=== PATIENT | male | born 1945 | race Caucasian/White ===

== ENCOUNTER 2019-10-07 08:28 | Outpatient (CLI) | payer MEDICARE, OTHER, SELFPAY ==
[2019-10-07 09:00] LABS: Basophils # 0.1 10^3/uL (0.0-0.1); Basophils % 1.5 %; Eosinophils # 0.3 10^3/uL (0.0-0.8); Eosinophils % 7.7 %; Hematocrit 49.6 % (42.0-52.0); Hemoglobin 16.1 g/dL (11.7-16.6); Lymphocytes # 1.2 10^3/uL (0.8-4.8); Lymphocytes % 28.5 %; Mean Corpuscular HGB Conc 32.5 g/dL (30.0-36.0); Mean Corpuscular Hemoglobin 30.6 pg (28.0-34.0); Mean Corpuscular Volume 94.1 fL (80-94); Mean Platelet Volume 10.4 fL (7.4-10.4); Monocytes # 0.3 10^3/uL (0.2-0.9); Monocytes % 6.2 %; Neutrophils # 2.2 10^3/uL (1.8-7.7); Neutrophils % 55.4 %; Nucleated Red Blood Cells % 0 %; Platelet Count 194 10^3/cmm (130-400); Red Blood Count 5.27 10^6/uL (4.1-5.3); Red Cell Distribution Width 13.4 % (12.1-15.1)
[2019-10-07 09:14] LABS: Alanine Aminotransferase 15 U/L (0-41); Albumin Level 4.1 g/dL (3.5-5.2); Alkaline Phosphatase 109 IU/L (40-130); Anion Gap 12.7 (5-19); Aspartate Amino Transferase 16 U/L (0-40); Blood Urea Nitrogen 10 mg/dL (8-23); Carbon Dioxide 29 mmol/L (22-29); Chloride 103 mmol/L (98-107); Globulin 3.8 g/dL (1.3-4.6); Glucose 169 mg/dL (65-115); Potassium 3.7 mmol/L (3.5-5.1); Sodium 141 mmol/L (136-145); Total Bilirubin 0.7 mg/dL (0.15-1.2); Total Protein 7.9 g/dL (6.6-8.7)
[2019-10-08 07:07] LABS: PROTEIN, TOTAL 6.8 g/dL (6.1-8.1)
[2019-10-08 11:31] LABS: Beta-2-Microglobulin 2.29 mg/L (< OR = 2.51)
[2019-10-08 12:01] LABS: ALBUMIN 3.6 g/dL (3.8-4.8); ALPHA 1 GLOBULIN 0.3 g/dL (0.2-0.3); ALPHA 2 GLOBULIN 0.7 g/dL (0.5-0.9); BETA 1 GLOBULIN 0.5 g/dL (0.4-0.6); BETA 2 GLOBULIN 0.3 g/dL (0.2-0.5); GAMMA GLOBULIN 1.4 g/dL (0.8-1.7)
[2019-10-08 13:21] LABS: KAPPA LIGHT CHAIN, FREE, SERUM 47.5 mg/L (3.3-19.4); KAPPA/LAMBDA LIGHT CHAINS FREE 1.45 (0.26-1.65); LAMBDA LIGHT CHAIN, FREE, SERU 32.7 mg/L (5.7-26.3)
== END 2019-10-07 08:29 | disposition home or self-care (01) ==
LOC: ONCMED 08:28
PROVIDERS: Family Provider Internal Medicine; PCP Internal Medicine; Visit Provider Internal Medicine Hematology & Oncology
DX: C90.01 Multiple myeloma in remission (principal)
CPT/HCPCS: 36415; 80053; 82232; 83883; 84155; 84165; 85025

== ENCOUNTER 2019-10-15 08:02 | Outpatient (CLI) | payer MEDICARE, OTHER, SELFPAY ==
--- NOTE | 2019-10-15 13:49 | ONC FU_ITS ---
Dr. Duenas follow up note Patient: Shad Vines Unit #: [id number]: 1945 Dicatated By: Yue Duenas M.D.Date of Visit:Oct 15, 2019 Onc Med Follow-up/Prog Note History of Present Illness: This is a 74-year-old man with stage I standard risk multiple myeloma involving left testis and bone marrow. He had presented with a palpable testicular mass. On 05/14/14 he underwent a left radical orchiectomy. Surgical pathology showed a 2.6 cm plasma cell neoplasm confined to the testis with limited penetration to the tunica albuginea. Margins were negative. Histochemistry was positive for CD 138, MUM 1, BCL 2, kappa restricted; negative for CD20, Ki67 index 60-70%. A CT of the chest/abdomen/pelvis on 05/25/2014 showed nonspecific bilateral subcentimeter pulmonary nodules for which followup was recommended in 3 months. He had no lymphadenopathy. He had indeterminate solid versus non-simple cysts lesions in the both kidneys. In the left kidney the lesion measuring 1.2 cm, in the right kidney the lesion measured 3.2 cm. There was a S2 sclerotic focus. The patient was first seen by Dr. Nick on 06/03/2014. Skeletal survey and PET/CT were negative for additional lesions or metastatic disease. ESR 114, hemoglobin 11.9 g/dL, beta-2 microglobulin 3.6, serum protein electrophoresis showed IgG kappa 4.43 g and free kappa at 0.7g, urine protein electrophoresis with free kappa 29%, 283 mg. Total IgG 5770, [place]/Lambda ratio above 290. Bone marrow biopsy on 06/08/2014 showed 34% monoclonal plasma cells, consistent with multiple myeloma. Cytogenetics normal, FISH with hyperdiploidy on chromosomes 1, 9, 15, and 17. Induction chemotherapy with Velcade, Revlimid, and Decadron began with 4 cycles was delivered 07/05/2014-09/06/2014. He had a very good response to the treatment with M protein decreased to 0.34 g/dL on 08/16/2014. He underwent autologous stem cell transplantation at [facility] in October 2014. He had no infectious complications, but he did have exacerbation of his atrial fibrillation. The patient had [id number] bone marrow biopsy performed at [facility] in January of 2015, with complete response. No plasma cells identified. On 02/22/15 no M protein was identified. IgG 1200 and kappa/juan ratio normal at 0.84. Maintenance Revlimid began in January of 2015. With cycle 4 he required dose modification down to 5 mg due to grade 2 neutropenia, ANC 1200. No M protein seen on SPEP from 09/07/2015. The patient had further hematological toxicities, and Revlimid 5 mg daily was suggested for 3 weeks out of 4 beginning with cycle 12. His other medical illnesses include hypertension, hyperlipidemia, type II diabetes, and atrial fibrillation. He is a nonsmoker. Tolerating low-dose Revlimid wellCT scan of abdomen pelvis done on 02/27/2019 showed no acute intra-abdominal pelvic findings and bone survey done on 04/17/2018 showed no lytic lesion Serum protein electrophoresis and serum light chain assay done on 04/13/2019 showed no evidence of M protein follow-up serum protein electrophoresis done on 10/07/2019 showed no restricted M spike seen, serum light chain kappa/lambda ratio was 1.45, beta 2 microglobulin was 2.29. Came for follow-up, denies any specific complaints, no new bony pains, no fever or chills, no recurrent infections, no weight loss, appetite is good., No dysuria or hematuria. Medications: Bisoprolol Fumarate 1 (5 mg) Tablet Oral daily, Citalopram Hydrobromide 1 (20 mg) Tablet Oral daily, Famotidine 1 (40 mg) Tablet Oral daily, Gabapentin 2 Capsule (of 300 mg) Oral b.i.d., GlipiZIDE Tablet Oral, Lantus 1 (30 Units/mL) Subcutaneous daily, Pradaxa 1 (150 mg) Capsule Oral b.i.d., Revlimid 1 Capsule (of 5 mg) Oral daily, Simvastatin 1 (20 mg) Tablet Oral daily, Sotalol HCl 2 (80 mg) Tablet Oral b.i.d. Allergies: No Known Allergies. Review of Systems: Constitutional - Energy level is fair. His appetite is good and weight is stable. No fever, chills, hot flashes, or night sweats, ENMT - No sinus congestion/drainage. No mouth sores. No sore throat or difficulty swallowing, Hematologic/Lymphatic - He bruises easily, Respiratory - No shortness of breath. No cough. No pleuritic pain, Cardiovascular - No angina pain, Gastrointestinal - No nausea. No vomiting. No heartburn or acid reflux. No diarrhea or constipation. No blood in the stool or black stools, Genitourinary (M) - No dysuria or hematuria. No urinary frequency. No urgency or incontinence, Musculoskeletal - No joint or bone pain, Neurologic - No headache or dizziness. No numbness/paresthesias or other focal neurologic symptoms, Psychiatric - He has anxiety and depression off and on. No insomnia. Vital Signs: Performed on Oct 15, 2019 08:15 Height - 71.00 in Weight - 246.4 lbs (HIGH) BSA - 2.30 sq.m BMI - 34.37 (HIGH) Temperature - 97.4 F (LOW) Pulse - 76 /min Respiration - 18 /min BP - 128/85 mm(hg) O2 Sat - 99 % Pain - 0 Performance Status: 0 - Fully active, able to carry on all predisease activities without restrictions. (ECOG) Physical Examination: ENMT - No oral exudates, ulcers, masses, thrush or mucositis. Oropharynx clear. Tongue normal, Respiratory - Lungs are clear to auscultation without rhonchi or wheezing, Cardiovascular - Regular rate and rhythm of heart, Abdomen - Non-tender, non-distended, Good bowel sounds. No guarding or rebound tenderness. No pulsatile masses, Extremities - no edema. Lab/Imaging: Test performed on Oct 07, 2019 08:39 Protein, Total 6.8 g/dL Sodium 141 mmol/L Albumin, SPE 3.6 g/dL Potassium 3.7 mmol/L Chloride 103 mmol/L CO2 29 mmol/L Anion Gap 12.7 BUN 10 mg/dL Creatinine 1.0 mg/dL Cr Clearance (Est) 102.8200 mL/min Glucose 169 mg/dL Calcium 10.0 mg/dL Albumin 4.1 g/dL Globulin 3.8 g/dL Bilirubin, Total 0.7 mg/dL ALT (SGPT) 15 U/L AST (SGOT) 16 U/L Alkaline Phosphatase 109 IU/L WBC 4.0 10 3/uL RBC 5.27 10 6/uL HGB 16.1 g/dL HCT 49.6 % MCV 94.1 fL MCH 30.6 pg MCHC 32.5 g/dL RDW 13.4 % Platelet Count 194 10 3/cmm MPV 10.4 fL Neutrophils 2.2 10 3/uL Lymphocytes 1.2 10 3/uL Monocytes 0.3 10 3/uL Eosinophils 0.3 10 3/uL Basophils 0.1 10 3/uL Neutrophil % 55.4 % Lymphocyte % 28.5 % Monocyte % 6.2 % Eosinophil % 7.7 % Basophils % 1.5 % [place] / Lambda Ratio 1.45 Absolute Value Lambda Light Chain 32.7 Beta-2 Microglobulin 2.29 mg/L [place] Light Chain 47.5 [id number] 0.3 g/dL Juimf-7-ytddkfmv 0.7 g/dL Gamma Globulin 1.4 g/dL SPE Interpretation Hypoalbuminemia may be seen as a result of a decreased protein synthesis or protein loss. No M-Geovani seen Impression: 1. 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 He underwent radical left orchiectomy on 05/14/14. His further workup revealed evidence of standard risk clinical stage I IgG kappa and free kappa light chain myeloma with plasma cells comprising 34% of the bone marrow. He had mild anemia, but no evidence of renal failure, bone disease or additional plasmacytoma. Bone survey done on 03/25/2017 showed no lytic myelomatous lesions are visualized 24-hour urine for urine protein electrophoresis and immunofixation within normal limits serum protein electrophoresis showed normal pattern 2. Induction chemotherapy with VRD regimen delivered 07/05/14 - 09/06/14, with a very good response. 3. In October of 2014 he underwent autologous stem cell transplantation at [facility]. 4. Maintenance Revlimid therapy at 10 mg daily for 3 out of 4 week cycle began in January 2015, but dose reduced to 5 mg daily with cycle 4 due to neutropenia. 5. He had further reduction to 5 daily on a 3 week out of 4 schedule His other medical illnesses include: 6. Hypertension. 7. Hyperlipidemia. 8. Type II diabetes. 9. Atrial fibrillation. At this point he continues maintenance Revlimid with no evidence of recurrence/progression of the myeloma. He tolerates it well at the reduced dosage. Bone survey done on 04/17/2018 showed no lytic bone lesions identified. Plan: Discussed with patient regarding his labs white blood count 4 hemoglobin 16.1 crit 49.6 platelets 194,000 CMP within normal limits and myeloma panel showed no abnormality Clinically, patient is doing well, with no signs symptoms suggestive of disease progression, tolerating Revlimid 5 mg 3 weeks on 1 week of well, follow-up serum protein electrophoresis shows no monoclonal protein, serum light chain ratio within normal limits. At this point we'll continue with same and then he will return to clinic in 6 months with CBC CMP serum protein electrophoresis and immunofixation, serum light chains, 24-hour urine for urine protein immunofixation and electrophoresis. And bone survey. Signed By: Yue Duenas M.D. <<Signature on File>>
== END 2019-10-15 08:03 | disposition home or self-care (01) ==
LOC: ONCMED 08:05
PROVIDERS: Family Provider Internal Medicine; PCP Internal Medicine; Visit Provider Internal Medicine Hematology & Oncology
DX: C90.00 Multiple myeloma not having achieved remission (principal); I10 Essential (primary) hypertension; E78.5 Hyperlipidemia, unspecified; E11.9 Type 2 diabetes mellitus without complications; I48.91 Unspecified atrial fibrillation; Z94.84 Stem cells transplant status; Z79.01 Long term (current) use of anticoagulants; Z79.4 Long term (current) use of insulin
CPT/HCPCS: 99214

== ENCOUNTER 2020-04-11 09:08 | Outpatient (CLI) | payer MEDICARE, OTHER, SELFPAY ==
--- NOTE | 2020-04-11 09:33 | XRR_ITS ---
PROCEDURE INFORMATION: Exam: XR Osseous Survey; Complete Axial And Appendicular Skeleton Exam date and time: 04/11/2020 10:04 AM Age: 75 years old Clinical indication: Condition or disease; Condition/disease: Multiple myeloma; Prior surgery; Surgery type: Back; Additional info: Restaging evaluation/myeloma TECHNIQUE: Imaging protocol: Radiological examination. Complete osseous survey. Axial and appendicular skeleton. COMPARISON: CR Bone Survey Complete* [id number] 04/17/2018 10:30 AM FINDINGS: Bones/joints: No destructive bony process identified. C6-C7 degenerative disc disease. Right lateral vertebral body marginal osteophytes are noted at lower thoracic spinal levels. Bilateral lower lumbar facet primary osteoarthritis. Mild chronic L4 vertebral body compression deformity, stable. Soft tissues: Metallic foreign body overlying the frontal bone redemonstrated. Dental: Metallic dental work. Organs: Probable gallstones. Vasculature: Right pelvic phlebolith. The iliac arteries show mild bilateral atherosclerotic calcifications without evidence of aneurysm. XR/XR bone survey* [id number] IMPRESSION: 1. No destructive bony process identified. 2. Probable gallstones.
[2020-04-11 09:45] LABS: Basophils # 0.1 10^3/uL (0.0-0.1); Basophils % 1.3 %; Eosinophils # 0.3 10^3/uL (0.0-0.8); Hematocrit 47.3 % (42.0-52.0); Lymphocytes # 1.6 10^3/uL (0.8-4.8); Lymphocytes % 35.2 %; Mean Corpuscular HGB Conc 31.7 g/dL (30.0-36.0); Mean Corpuscular Hemoglobin 30.7 pg (28.0-34.0); Mean Corpuscular Volume 96.7 fL (80-94); Mean Platelet Volume 10.1 fL (7.4-10.4); Monocytes # 0.4 10^3/uL (0.2-0.9); Monocytes % 8.6 %; Neutrophils # 2.19 10^3/uL (1.8-7.7); Neutrophils % 48.5 %; Nucleated Red Blood Cells % 0 %; Platelet Count 167 10^3/cmm (130-400); Red Blood Count 4.89 10^6/uL (4.1-5.3); Red Cell Distribution Width 14.1 % (12.1-15.1); White Blood Count 4.5 10^3/uL (4.0-10.0)
[2020-04-11 10:18] LABS: Alanine Aminotransferase 17 U/L (0-41); Albumin Level 3.8 g/dL (3.5-5.2); Alkaline Phosphatase 99 IU/L (40-130); Aspartate Amino Transferase 14 U/L (0-40); Blood Urea Nitrogen 13 mg/dL (8-23); Calcium 8.8 mg/dL (8.5-10.5); Carbon Dioxide 27 mmol/L (22-29); Chloride 107 mmol/L (98-107); Globulin 3.4 g/dL (1.3-4.6); Glucose 187 mg/dL (65-115); Osmolality Calculated 289 mOsm/kg (285-295); Sodium 139 mmol/L (136-145); Total Bilirubin 0.5 mg/dL (0.15-1.2); Total Protein 7.2 g/dL (6.6-8.7)
[2020-04-12 08:33] LABS: PROTEIN, TOTAL 6.5 g/dL (6.1-8.1)
[2020-04-12 11:25] LABS: Beta-2-Microglobulin 2.17 mg/L (< OR = 2.51)
[2020-04-12 13:19] LABS: KAPPA LIGHT CHAIN, FREE, SERUM 51.4 mg/L (3.3-19.4); KAPPA/LAMBDA LIGHT CHAINS FREE 1.21 (0.26-1.65); LAMBDA LIGHT CHAIN, FREE, SERU 42.4 mg/L (5.7-26.3)
[2020-04-12 15:15] LABS: ALBUMIN 3.4 g/dL (3.8-4.8); ALPHA 1 GLOBULIN 0.3 g/dL (0.2-0.3); ALPHA 2 GLOBULIN 0.6 g/dL (0.5-0.9); BETA 1 GLOBULIN 0.4 g/dL (0.4-0.6); BETA 2 GLOBULIN 0.3 g/dL (0.2-0.5); GAMMA GLOBULIN 1.5 g/dL (0.8-1.7)
[2020-04-12 15:45] LABS: CREATININE, 24 HOUR URINE 1.65 g/24 h (0.50-2.15); PROTEIN, TOTAL, 24 HR UR 275 mg/24 h (<150); Protein/Creatinine Ratio 0.167 (< OR = 0.114); Protein/Creatinine Ratio 167 mg/g creat (< OR = 114)
[2020-04-13 09:20] LABS: ALBUMIN 100 %; ALPHA-1-GLOBULINS 0 %; ALPHA-2-GLOBULINS 0 %; BETA GLOBULINS 0 %; GAMMA GLOBULINS 0 %
== END 2020-04-11 09:09 | disposition home or self-care (01) ==
PROVIDERS: Family Provider Internal Medicine; PCP Internal Medicine; Visit Provider Internal Medicine Hematology & Oncology
DX: C90.00 Multiple myeloma not having achieved remission (principal)
CPT/HCPCS: 36415; 77075; 80053; 82232; 83883; 84155; 84165; 85025

== ENCOUNTER 2020-04-18 08:29 | Outpatient (CLI) | payer MEDICARE, OTHER, SELFPAY ==
--- NOTE | 2020-04-18 09:20 | ONC FU_ITS ---
Dr. Duenas follow up note Patient: Shad Vines Unit #: [id number]: [id number] Dicatated By: Yue Duenas M.D.Date of Visit:Apr 18, 2020 Onc Med Follow-up/Prog Note History of Present Illness: This is a 75-year-old man with stage I standard risk multiple myeloma involving left testis and bone marrow. He had presented with a palpable testicular mass. On 05/14/14 he underwent a left radical orchiectomy. Surgical pathology showed a 2.6 cm plasma cell neoplasm confined to the testis with limited penetration to the tunica albuginea. Margins were negative. Histochemistry was positive for CD 138, MUM 1, BCL 2, kappa restricted; negative for CD20, Ki67 index 60-70%. A CT of the chest/abdomen/pelvis on 05/25/2014 showed nonspecific bilateral subcentimeter pulmonary nodules for which followup was recommended in 3 months. He had no lymphadenopathy. He had indeterminate solid versus non-simple cysts lesions in the both kidneys. In the left kidney the lesion measuring 1.2 cm, in the right kidney the lesion measured 3.2 cm. There was a S2 sclerotic focus. The patient was first seen by Dr. Nick on 06/03/2014. Skeletal survey and PET/CT were negative for additional lesions or metastatic disease. ESR 114, hemoglobin 11.9 g/dL, beta-2 microglobulin 3.6, serum protein electrophoresis showed IgG kappa 4.43 g and free kappa at 0.7g, urine protein electrophoresis with free kappa 29%, 283 mg. Total IgG 5770, [place]/Lambda ratio above 290. Bone marrow biopsy on 06/08/2014 showed 34% monoclonal plasma cells, consistent with multiple myeloma. Cytogenetics normal, FISH with hyperdiploidy on chromosomes 1, 9, 15, and 17. Induction chemotherapy with Velcade, Revlimid, and Decadron began with 4 cycles was delivered 07/05/2014-09/06/2014. He had a very good response to the treatment with M protein decreased to 0.34 g/dL on 08/16/2014. He underwent autologous stem cell transplantation at [facility] in October 2014. He had no infectious complications, but he did have exacerbation of his atrial fibrillation. The patient had [id number] bone marrow biopsy performed at [facility] in January of 2015, with complete response. No plasma cells identified. On 02/22/15 no M protein was identified. IgG 1200 and kappa/juan ratio normal at 0.84. Maintenance Revlimid began in January of 2015. With cycle 4 he required dose modification down to 5 mg due to grade 2 neutropenia, ANC 1200. No M protein seen on SPEP from 09/07/2015. The patient had further hematological toxicities, and Revlimid 5 mg daily was suggested for 3 weeks out of 4 beginning with cycle 12. His other medical illnesses include hypertension, hyperlipidemia, type II diabetes, and atrial fibrillation. He is a nonsmoker. Tolerating low-dose Revlimid wellCT scan of abdomen pelvis done on 02/27/2019 showed no acute intra-abdominal pelvic findings and bone survey done on 04/17/2018 showed no lytic lesion Serum protein electrophoresis and serum light chain assay done on 04/13/2019 showed no evidence of M protein follow-up serum protein electrophoresis done on 10/07/2019 showed no restricted M spike seen, serum light chain kappa/lambda ratio was 1.45, beta 2 microglobulin was 2.29. Follow-up myeloma panel including bone survey done on April 11, 2020 shows no destructive bony process identified, SPEP showed no restricted M spike seen.Serum light chain assay ratio 1.21, within normal range. 24-hour urine protein immunofixation shows no abnormal protein. Beta-2 microglobulin 2.17, in normal range. CBC and CMP also within normal range. Came for follow-up, denies any specific complaints, no fever chills, no nausea or vomiting, no diarrhea constipation, no new bony pains, no weight loss, appetite is good, patient is enjoying quality of life. Medications: Bisoprolol Fumarate 1 (5 mg) Tablet Oral daily, Citalopram Hydrobromide 1 (20 mg) Tablet Oral daily, Famotidine 1 (40 mg) Tablet Oral daily, Gabapentin 2 Capsule (of 300 mg) Oral b.i.d., GlipiZIDE 1 Tablet Oral daily, Lantus 1 (30 Units/mL) Subcutaneous daily, Pradaxa 1 (150 mg) Capsule Oral b.i.d., Revlimid 1 Capsule (of 5 mg) Oral daily, Simvastatin 1 (20 mg) Tablet Oral daily, Sotalol HCl 2 (80 mg) Tablet Oral b.i.d. Allergies: No Known Allergies. Review of Systems: Constitutional - Energy level is fair. His appetite is good and weight is stable. No fever, chills, hot flashes, or night sweats, ENMT - No sinus congestion/drainage. No mouth sores. No sore throat or difficulty swallowing, Hematologic/Lymphatic - He bruises easily, Respiratory - No shortness of breath. No cough. No pleuritic pain, Cardiovascular - No angina pain, Gastrointestinal - No nausea. No vomiting. No heartburn or acid reflux. No diarrhea or constipation. No blood in the stool or black stools, Genitourinary (M) - No dysuria or hematuria. No urinary frequency. No urgency or incontinence, Musculoskeletal - No joint or bone pain, Neurologic - No headache or dizziness. No numbness/paresthesias or other focal neurologic symptoms, Psychiatric - He has anxiety and depression off and on. No insomnia. Vital Signs: Performed on Apr 18, 2020 08:42 Height - 71.00 in Weight - 239.4 lbs (LOW) BSA - 2.28 sq.m BMI - 33.39 (HIGH) Temperature - 98.3 F (LOW) Pulse - 85 /min Respiration - 20 /min BP - 139/90 mm(hg) O2 Sat - 98 % Pain - 0 Performance Status: 0 - Fully active, able to carry on all predisease activities without restrictions. (ECOG) Physical Examination: ENMT - No mouth sores no thrush no jaundice, Respiratory - Lungs are clear, Cardiovascular - Regular rate and rhythm of heart, Abdomen - Soft, bowel sounds present, Extremities - No visible edema. Lab/Imaging: Test performed on Apr 11, 2020 09:30 Glucose 187 mg/dL Protein, Total 6.5 g/dL Albumin, SPE 3.4 g/dL BUN 13 mg/dL Creatinine 1.1 mg/dL Cr Clearance (Est) 91.86 mL/min Sodium 139 mmol/L Potassium 4.0 mmol/L Chloride 107 mmol/L CO2 27 mmol/L Calcium 8.8 mg/dL Albumin 3.8 g/dL Globulin 3.4 g/dL Bilirubin, Total 0.5 mg/dL Alkaline Phosphatase 99 IU/L AST (SGOT) 14 IU/L ALT (SGPT) 17 IU/L WBC 4.5 10^9/L RBC 4.89 10^12/L HGB 15.0 g/dL HCT 47.3 % MCV 96.7 fl MCH 30.7 pg MCHC 31.7 g/dL RDW 14.1 % Platelet Count 167 10^9/L MPV 10.1 fL Neutrophils (Gran) 2.19 10^9/L Lymphocytes 1.6 10^9/L Monocytes 0.4 10^9/L Eosinophils 0.3 10^9/L Basophils 0.1 10^9/L Manual Lymphocytes 35.2 % Manual Monocytes 8.6 % Manual Eosinophils 6.0 % Manual Basophils 1.3 % Beta-2 Microglobulin 2.17 mg/L [id number]-6-[id number] 0.3 g/dL Gzgvp-8-ebecwsdv 0.6 g/dL Beta Globulin 0.3 g/dL Gamma Globulin 1.5 g/dL SPE Interpretation No restricted band (M-spike) seen Impression: 1. 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 He underwent radical left orchiectomy on 05/14/14. His further workup revealed evidence of standard risk clinical stage I IgG kappa and free kappa light chain myeloma with plasma cells comprising 34% of the bone marrow. He had mild anemia, but no evidence of renal failure, bone disease or additional plasmacytoma. Bone survey done on 03/25/2017 showed no lytic myelomatous lesions are visualized 24-hour urine for urine protein electrophoresis and immunofixation within normal limits serum protein electrophoresis showed normal pattern 2. Induction chemotherapy with VRD regimen delivered 07/05/14 - 09/06/14, with a very good response. 3. In October of 2014 he underwent autologous stem cell transplantation at [facility]. 4. Maintenance Revlimid therapy at 10 mg daily for 3 out of 4 week cycle began in January 2015, but dose reduced to 5 mg daily with cycle 4 due to neutropenia. 5. He had further reduction to 5 daily on a 3 week out of 4 schedule His other medical illnesses include: 6. Hypertension. 7. Hyperlipidemia. 8. Type II diabetes. 9. Atrial fibrillation. At this point he continues maintenance Revlimid with no evidence of recurrence/progression of the myeloma. He tolerates it well at the reduced dosage. Bone survey done on 04/17/2018 showed no lytic bone lesions identified.And done on April 11, 2020 showed no destructive bony process Plan: Discussed with patient regarding his labs from April 11, 2020 white blood count 4.5 hemoglobin 15 crit 47.3 platelets under 67,000 CMP within normal limit except glucose 187, follow-up myeloma panel including bone survey, serum light chain assay, beta-2 microglobulin, SPEP, all within normal range Clinically, patient is doing well with no signs symptoms suggestive of recurrence of disease. His follow-up myeloma panel also showed no evidence of recurrence of disease, patient is enjoying quality of life without any new issues or symptoms. We will continue to monitor return to clinic in 6 months with CBC CMP serum protein electrophoresis and serum light chain assay. Signed By: Yue Duenas M.D. <<Signature on File>>
== END 2020-04-18 08:30 | disposition home or self-care (01) ==
PROVIDERS: PCP Internal Medicine; Visit Provider Internal Medicine Hematology & Oncology
DX: C90.01 Multiple myeloma in remission (principal); I10 Essential (primary) hypertension; E78.5 Hyperlipidemia, unspecified; E11.9 Type 2 diabetes mellitus without complications; I48.91 Unspecified atrial fibrillation
CPT/HCPCS: G0463

== ENCOUNTER → 2020-05-10 10:02 | Outpatient (BNVA) | payer MEDICARE, OTHER, SELFPAY | PROVIDERS: PCP Internal Medicine; Visit Provider Urology | DX: N48.1 Balanitis (principal); Z90.79 Acquired absence of other genital organ(s) | CPT/HCPCS: 81001 ==

== ENCOUNTER 2020-10-26 10:23 | Outpatient (CLI) | payer MEDICARE, OTHER, SELFPAY ==
[2020-10-26 10:52] LABS: Basophils # 0.1 10^3/uL (0.0-0.1); Basophils % 1.7 %; Eosinophils # 0.3 10^3/uL (0.0-0.8); Eosinophils % 6.2 %; Hemoglobin 16.1 g/dL (11.7-16.6); Lymphocytes # 1.2 10^3/uL (0.8-4.8); Lymphocytes % 25.4 %; Mean Corpuscular HGB Conc 32.2 g/dL (30.0-36.0); Mean Corpuscular Hemoglobin 30.9 pg (28.0-34.0); Mean Platelet Volume 10.2 fL (7.4-10.4); Monocytes # 0.5 10^3/uL (0.2-0.9); Monocytes % 9.7 %; Neutrophils # 2.71 10^3/uL (1.8-7.7); Nucleated Red Blood Cells % 0 %; Platelet Count 164 10^3/cmm (130-400); Red Blood Count 5.21 10^6/uL (4.1-5.3); Red Cell Distribution Width 13.2 % (12.1-15.1); White Blood Count 4.8 10^3/uL (4.0-10.0)
[2020-10-26 11:03] LABS: Alanine Aminotransferase 13 U/L (0-41); Albumin Level 3.7 g/dL (3.5-5.2); Alkaline Phosphatase 97 IU/L (40-130); Anion Gap 10.7 (5-19); Aspartate Amino Transferase 13 U/L (0-40); Blood Urea Nitrogen 12 mg/dL (8-23); Calcium 8.9 mg/dL (8.5-10.5); Carbon Dioxide 27 mmol/L (22-29); Chloride 104 mmol/L (98-107); Globulin 3.4 g/dL (1.3-4.6); Glucose 232 mg/dL (65-115); Osmolality Calculated 293 mOsm/kg (285-295); Potassium 3.7 mmol/L (3.5-5.1); Sodium 138 mmol/L (136-145); Total Bilirubin 0.7 mg/dL (0.15-1.2); Total Protein 7.1 g/dL (6.6-8.7)
[2020-10-27 09:52] LABS: PROTEIN, TOTAL 6.4 g/dL (6.1-8.1)
[2020-10-27 13:07] LABS: KAPPA/LAMBDA LIGHT CHAINS FREE 1.32 (0.26-1.65); LAMBDA LIGHT CHAIN, FREE, SERU 40.1 mg/L (5.7-26.3)
[2020-10-27 13:32] LABS: ALBUMIN 3.4 g/dL (3.8-4.8); ALPHA 1 GLOBULIN 0.2 g/dL (0.2-0.3); ALPHA 2 GLOBULIN 0.6 g/dL (0.5-0.9); BETA 1 GLOBULIN 0.4 g/dL (0.4-0.6); BETA 2 GLOBULIN 0.3 g/dL (0.2-0.5); GAMMA GLOBULIN 1.4 g/dL (0.8-1.7)
== END 2020-10-26 10:24 | disposition home or self-care (01) ==
LOC: ONCMED 10:27
PROVIDERS: PCP Internal Medicine; Visit Provider Internal Medicine Hematology & Oncology
DX: C90.01 Multiple myeloma in remission (principal); M81.0 Age-related osteoporosis without current pathological fracture; E11.9 Type 2 diabetes mellitus without complications; E78.5 Hyperlipidemia, unspecified; F41.9 Anxiety disorder, unspecified; I10 Essential (primary) hypertension; I48.91 Unspecified atrial fibrillation
CPT/HCPCS: 80053; 83883; 84155; 84165; 85025

== ENCOUNTER 2020-10-28 05:55 | Outpatient (CLI) | payer MEDICARE, OTHER, SELFPAY ==
--- NOTE | 2020-10-28 09:46 | ONC FU_ITS ---
Dr. Duenas follow up note Patient: Shad Vines Unit #: [id number]: 1945 Dicatated By: Yue Duenas M.D.Date of Visit:Oct 28, 2020 Onc Med Follow-up/Prog Note History of Present Illness: This is a 75-year-old man with stage I standard risk multiple myeloma involving left testis and bone marrow. He had presented with a palpable testicular mass. On 05/14/14 he underwent a left radical orchiectomy. Surgical pathology showed a 2.6 cm plasma cell neoplasm confined to the testis with limited penetration to the tunica albuginea. Margins were negative. Histochemistry was positive for CD 138, MUM 1, BCL 2, kappa restricted; negative for CD20, Ki67 index 60-70%. A CT of the chest/abdomen/pelvis on 05/25/2014 showed nonspecific bilateral subcentimeter pulmonary nodules for which followup was recommended in 3 months. He had no lymphadenopathy. He had indeterminate solid versus non-simple cysts lesions in the both kidneys. In the left kidney the lesion measuring 1.2 cm, in the right kidney the lesion measured 3.2 cm. There was a S2 sclerotic focus. The patient was first seen by Dr. Nick on 06/03/2014. Skeletal survey and PET/CT were negative for additional lesions or metastatic disease. ESR 114, hemoglobin 11.9 g/dL, beta-2 microglobulin 3.6, serum protein electrophoresis showed IgG kappa 4.43 g and free kappa at 0.7g, urine protein electrophoresis with free kappa 29%, 283 mg. Total IgG 5770, [place]/Lambda ratio above 290. Bone marrow biopsy on 06/08/2014 showed 34% monoclonal plasma cells, consistent with multiple myeloma. Cytogenetics normal, FISH with hyperdiploidy on chromosomes 1, 9, 15, and 17. Induction chemotherapy with Velcade, Revlimid, and Decadron began with 4 cycles was delivered 07/05/2014-09/06/2014. He had a very good response to the treatment with M protein decreased to 0.34 g/dL on 08/16/2014. He underwent autologous stem cell transplantation at [facility] in October 2014. He had no infectious complications, but he did have exacerbation of his atrial fibrillation. The patient had [id number] bone marrow biopsy performed at [facility] in January of 2015, with complete response. No plasma cells identified. On 02/22/15 no M protein was identified. IgG 1200 and kappa/juan ratio normal at 0.84. Maintenance Revlimid began in January of 2015. With cycle 4 he required dose modification down to 5 mg due to grade 2 neutropenia, ANC 1200. No M protein seen on SPEP from 09/07/2015. The patient had further hematological toxicities, and Revlimid 5 mg daily was suggested for 3 weeks out of 4 beginning with cycle 12. His other medical illnesses include hypertension, hyperlipidemia, type II diabetes, and atrial fibrillation. He is a nonsmoker. Tolerating low-dose Revlimid wellCT scan of abdomen pelvis done on 02/27/2019 showed no acute intra-abdominal pelvic findings and bone survey done on 04/17/2018 showed no lytic lesion Serum protein electrophoresis and serum light chain assay done on 04/13/2019 showed no evidence of M protein follow-up serum protein electrophoresis done on 10/07/2019 showed no restricted M spike seen, serum light chain kappa/lambda ratio was 1.45, beta 2 microglobulin was 2.29. Follow-up myeloma panel including bone survey done on April 11, 2020 shows no destructive bony process identified, SPEP showed no restricted M spike seen.Serum light chain assay ratio 1.21, within normal range. 24-hour urine protein immunofixation shows no abnormal protein. Beta-2 microglobulin 2.17, in normal range. CBC and CMP also within normal range. Myeloma panel including serum protein electrophoresis done on October 26, 2020, showed no restricted band or M protein seen in serum light chain assay shows kappa light chain 53 lambda light chain 40.1 but ratio is 1.32 which is within normal range., CBC CMP also within normal range came for follow-up, denies any specific complaints, no fever chills, no nausea or vomiting, no diarrhea or constipation, no new bony pains, no loss of appetite, no recurrent infections, Medications: Bisoprolol Fumarate 1 (5 mg) Tablet Oral daily, Citalopram Hydrobromide 1 (20 mg) Tablet Oral daily, Famotidine 1 (40 mg) Tablet Oral daily, Gabapentin 2 Capsule (of 300 mg) Oral b.i.d., GlipiZIDE 1 Tablet Oral daily, Lantus 1 (30 Units/mL) Subcutaneous daily, Pradaxa 1 (150 mg) Capsule Oral b.i.d., Revlimid 1 Capsule (of 5 mg) Oral daily, Simvastatin 1 (20 mg) Tablet Oral daily, Sotalol HCl 2 (80 mg) Tablet Oral b.i.d. Allergies: No Known Allergies. Review of Systems: Review of Systems is not available for this patient. Vital Signs: Performed on Oct 28, 2020 09:20 Height - 71.00 in Weight - 242.4 lbs (HIGH) BSA - 2.29 sq.m BMI - 33.81 (HIGH) Temperature - 97.0 F (LOW) Pulse - 78 /min Respiration - 18 /min BP - 158/88 mm(hg) (HIGH) O2 Sat - 98 % Pain - 0 Performance Status: 0 - Fully active, able to carry on all predisease activities without restrictions. (ECOG) Physical Examination: ENMT - No mouth sores, no thrush, no jaundice, Respiratory - Lungs are clear to auscultation, Cardiovascular - Regular rate and rhythm of heart, Abdomen - Soft, bowel sounds present, Extremities - No visible edema. Lab/Imaging: Test performed on Oct 26, 2020 10:32 Sodium 138 mmol/L Potassium 3.7 mmol/L Chloride 104 mmol/L CO2 27 mmol/L Anion Gap 10.7 BUN 12 mg/dL Creatinine 0.9 mg/dL Cr Clearance (Est) 112.2800 mL/min Glucose 232 mg/dL Osmolality - Calculated 293 mOsm/kg Calcium 8.9 mg/dL Protein, Total 7.1 g/dL Albumin 3.7 g/dL Globulin 3.4 g/dL Bilirubin, Total 0.7 mg/dL ALT (SGPT) 13 U/L AST (SGOT) 13 U/L Alkaline Phosphatase 97 IU/L WBC 4.8 10 3/uL RBC 5.21 10 6/uL HGB 16.1 g/dL HCT 50.0 % MCV 96.0 fL MCH 30.9 pg MCHC 32.2 g/dL RDW 13.2 % Platelet Count 164 10 3/cmm MPV 10.2 fL Neutrophils 2.71 10 3/uL Lymphocytes 1.2 10 3/uL Monocytes 0.5 10 3/uL Eosinophils 0.3 10 3/uL Basophils 0.1 10 3/uL Neutrophil % 56.0 % Lymphocyte % 25.4 % Monocyte % 9.7 % Eosinophil % 6.2 % Basophils % 1.7 % NRBC % 0 % [place] Free Light Chains 53.0 mg/L Lambda Free Light Chains 40.1 mg/L [place]/Lambda Free Ratio 1.32 Impression: 1. 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 He underwent radical left orchiectomy on 05/14/14. His further workup revealed evidence of standard risk clinical stage I IgG kappa and free kappa light chain myeloma with plasma cells comprising 34% of the bone marrow. He had mild anemia, but no evidence of renal failure, bone disease or additional plasmacytoma. Bone survey done on 03/25/2017 showed no lytic myelomatous lesions are visualized 24-hour urine for urine protein electrophoresis and immunofixation within normal limits serum protein electrophoresis showed normal pattern 2. Induction chemotherapy with VRD regimen delivered 07/05/14 - 09/06/14, with a very good response. 3. In October of 2014 he underwent autologous stem cell transplantation at [facility]. 4. Maintenance Revlimid therapy at 10 mg daily for 3 out of 4 week cycle began in January 2015, but dose reduced to 5 mg daily with cycle 4 due to neutropenia. 5. He had further reduction to 5 daily on a 3 week out of 4 schedule His other medical illnesses include: 6. Hypertension. 7. Hyperlipidemia. 8. Type II diabetes. 9. Atrial fibrillation. At this point he continues maintenance Revlimid with no evidence of recurrence/progression of the myeloma. He tolerates it well at the reduced dosage. Bone survey done on 04/17/2018 showed no lytic bone lesions identified.And done on April 11, 2020 showed no destructive bony process Plan: Discussed with patient regarding his labs white blood count 4.8 hemoglobin 16.1 hematocrit 50 platelets 164,000 CMP within normal limits with glucose 232 and serum light chain assay shows kappa 53, lambda 40.1 but ratio is 1.32 which is within normal range and SPEP shows no M spike Clinically, patient is doing well with no new signs symptom suggestive of recurrence of disease his myeloma panel showed no abnormal protein. Clinically, patient is in remission , Tolerating maintenance Revlimid at 10 mg daily 5 days a week for 3 weeks q. 28 days well, will continue with same and continue to monitor and return to clinic in 6 months with myeloma panel, CBC and CMP Signed By: Yue Duenas M.D. <<Signature on File>>
== END 2020-10-28 05:56 | disposition home or self-care (01) ==
LOC: ONCMED 05:58
PROVIDERS: PCP Internal Medicine; Visit Provider Internal Medicine Hematology & Oncology
DX: C90.01 Multiple myeloma in remission (principal); Z79.899 Other long term (current) drug therapy; Z90.79 Acquired absence of other genital organ(s)
CPT/HCPCS: 99215

== ENCOUNTER 2021-05-01 11:30 | Outpatient (CLI) | payer MEDICARE, OTHER, SELFPAY ==
[2021-05-01 12:32] LABS: Alanine Aminotransferase 16 U/L (0-41); Albumin Level 3.4 g/dL (3.5-5.2); Alkaline Phosphatase 91 IU/L (40-130); Anion Gap 9.4 (5-19); Aspartate Amino Transferase 19 U/L (0-40); Blood Urea Nitrogen 7 mg/dL (8-23); Calcium 8.6 mg/dL (8.5-10.5); Carbon Dioxide 26 mmol/L (22-29); Chloride 105 mmol/L (98-107); Glucose 131 mg/dL (65-115); Immunoglobulin IGA 235 mg/dL (70-400); Immunoglobulin IGG 1270 mg/dL (700-1600); Immunoglobulin IGM 54 mg/dL (40-230); Osmolality Calculated 284 mOsm/kg (285-295); Potassium 3.4 mmol/L (3.5-5.1); Sodium 137 mmol/L (136-145); Total Bilirubin 0.8 mg/dL (0.15-1.2); Total Protein 6.4 g/dL (6.6-8.7)
[2021-05-01 13:09] LABS: Eosinophils # 0.1 10^3/uL (0.0-0.8); Eosinophils % 2.5 %; Hematocrit 42.7 % (42.0-52.0); Hemoglobin 13.8 g/dL (11.7-16.6); Lymphocytes # 1.9 10^3/uL (0.8-4.8); Lymphocytes % 48.2 %; Mean Corpuscular HGB Conc 32.3 g/dL (30.0-36.0); Mean Corpuscular Hemoglobin 31.3 pg (28.0-34.0); Mean Corpuscular Volume 96.8 fl (80-94); Mean Platelet Volume 10.5 fL (7.4-10.4); Monocytes # 0.3 10^3/uL (0.2-0.9); Monocytes % 6.6 %; Neutrophils # 1.61 10^3/uL (1.8-7.7); Neutrophils % 40.9 %; Nucleated Red Blood Cells % 0 %; Platelet Count 128 10^3/cmm (130-400); Red Blood Count 4.41 10^6/uL (4.1-5.3); White Blood Count 3.9 10^3/uL (4.0-10.0)
[2021-05-01 14:35] LABS: Magnesium 1.7 mg/dL (1.7-2.3)
--- NOTE | 2021-05-01 15:17 | ONC FU_ITS ---
Dr. Duenas follow up note Patient: Shad Vines Unit #: [id number]: 1945 Dicatated By: Yue Duenas M.D.Date of Visit:May 01, 2021 Onc Med Follow-up/Prog Note History of Present Illness: This is a 76-year-old man with stage I standard risk multiple myeloma involving left testis and bone marrow. He had presented with a palpable testicular mass. On 05/14/14 he underwent a left radical orchiectomy. Surgical pathology showed a 2.6 cm plasma cell neoplasm confined to the testis with limited penetration to the tunica albuginea. Margins were negative. Histochemistry was positive for CD 138, MUM 1, BCL 2, kappa restricted; negative for CD20, Ki67 index 60-70%. A CT of the chest/abdomen/pelvis on 05/25/2014 showed nonspecific bilateral subcentimeter pulmonary nodules for which followup was recommended in 3 months. He had no lymphadenopathy. He had indeterminate solid versus non-simple cysts lesions in the both kidneys. In the left kidney the lesion measuring 1.2 cm, in the right kidney the lesion measured 3.2 cm. There was a S2 sclerotic focus. The patient was first seen by Dr. Nick on 06/03/2014. Skeletal survey and PET/CT were negative for additional lesions or metastatic disease. ESR 114, hemoglobin 11.9 g/dL, beta-2 microglobulin 3.6, serum protein electrophoresis showed IgG kappa 4.43 g and free kappa at 0.7g, urine protein electrophoresis with free kappa 29%, 283 mg. Total IgG 5770, [place]/Lambda ratio above 290. Bone marrow biopsy on 06/08/2014 showed 34% monoclonal plasma cells, consistent with multiple myeloma. Cytogenetics normal, FISH with hyperdiploidy on chromosomes 1, 9, 15, and 17. Induction chemotherapy with Velcade, Revlimid, and Decadron began with 4 cycles was delivered 07/05/2014-09/06/2014. He had a very good response to the treatment with M protein decreased to 0.34 g/dL on 08/16/2014. He underwent autologous stem cell transplantation at [facility] in October 2014. He had no infectious complications, but he did have exacerbation of his atrial fibrillation. The patient had [id number] bone marrow biopsy performed at [facility] in January of 2015, with complete response. No plasma cells identified. On 02/22/15 no M protein was identified. IgG 1200 and kappa/juan ratio normal at 0.84. Maintenance Revlimid began in January of 2015. With cycle 4 he required dose modification down to 5 mg due to grade 2 neutropenia, ANC 1200. No M protein seen on SPEP from 09/07/2015. The patient had further hematological toxicities, and Revlimid 5 mg daily was suggested for 3 weeks out of 4 beginning with cycle 12. His other medical illnesses include hypertension, hyperlipidemia, type II diabetes, and atrial fibrillation. He is a nonsmoker. Tolerating low-dose Revlimid wellCT scan of abdomen pelvis done on 02/27/2019 showed no acute intra-abdominal pelvic findings and bone survey done on 04/17/2018 showed no lytic lesion Serum protein electrophoresis and serum light chain assay done on 04/13/2019 showed no evidence of M protein follow-up serum protein electrophoresis done on 10/07/2019 showed no restricted M spike seen, serum light chain kappa/lambda ratio was 1.45, beta 2 microglobulin was 2.29. Follow-up myeloma panel including bone survey done on April 11, 2020 shows no destructive bony process identified, SPEP showed no restricted M spike seen.Serum light chain assay ratio 1.21, within normal range. 24-hour urine protein immunofixation shows no abnormal protein. Beta-2 microglobulin 2.17, in normal range. CBC and CMP also within normal range. Myeloma panel including serum protein electrophoresis done on October 26, 2020, showed no restricted band or M protein seen in serum light chain assay shows kappa light chain 53 lambda light chain 40.1 but ratio is 1.32 which is within normal range., CBC CMP also within normal range Came for follow-up, denies any specific complaint except chronic diarrhea for few months, as per patient his primary care physician is managing it, as per patient he has history of diarrhea off and on especially when he gets anxious, now his is undergoing treatment for myeloma at [facility] and as per patient he lost about 4 extended family members in the last 4 months and that is causing a lot of anxiety and stress. Patient denies any new bony pains denies any recurrent fever denies any nausea or vomiting, denies any weight loss, denies any blurred vision or double vision. Medications: Bisoprolol Fumarate 1 (5 mg) Tablet Oral daily, Citalopram Hydrobromide 1 (20 mg) Tablet Oral daily, Famotidine 1 (40 mg) Tablet Oral daily, Gabapentin 2 Capsule (of 300 mg) Oral b.i.d., GlipiZIDE 1 Tablet Oral daily, Lantus 1 (30 Units/mL) Subcutaneous daily, Pradaxa 1 (150 mg) Capsule Oral b.i.d., Revlimid 1 Capsule (of 5 mg) Oral daily, Simvastatin 1 (20 mg) Tablet Oral daily, Sotalol HCl 2 (80 mg) Tablet Oral b.i.d. Allergies: No Known Allergies. Review of Systems: Review of Systems is not available for this patient. Vital Signs: Vitals are not available for this patient. Performance Status: 0 - Fully active, able to carry on all predisease activities without restrictions. (ECOG) Physical Examination: ENMT - No mouth sores, no thrush, no jaundice, Respiratory - Lungs are clear to auscultation, Cardiovascular - Regular rate and rhythm of heart, Abdomen - Soft, bowel sounds present, Extremities - No visible edema. Lab/Imaging: Most recent lab results are not available for this patient. Impression: 1. 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 He underwent radical left orchiectomy on 05/14/14. His further workup revealed evidence of standard risk clinical stage I IgG kappa and free kappa light chain myeloma with plasma cells comprising 34% of the bone marrow. He had mild anemia, but no evidence of renal failure, bone disease or additional plasmacytoma. Bone survey done on 03/25/2017 showed no lytic myelomatous lesions are visualized 24-hour urine for urine protein electrophoresis and immunofixation within normal limits serum protein electrophoresis showed normal pattern 2. Induction chemotherapy with VRD regimen delivered 07/05/14 - 09/06/14, with a very good response. 3. In October of 2014 he underwent autologous stem cell transplantation at [facility]. 4. Maintenance Revlimid therapy at 10 mg daily for 3 out of 4 week cycle began in January 2015, but dose reduced to 5 mg daily with cycle 4 due to neutropenia. 5. He had further reduction to 5 daily on a 3 week out of 4 schedule His other medical illnesses include: 6. Hypertension. 7. Hyperlipidemia. 8. Type II diabetes. 9. Atrial fibrillation. At this point he continues maintenance Revlimid with no evidence of recurrence/progression of the myeloma. He tolerates it well at the reduced dosage. Bone survey done on 04/17/2018 showed no lytic bone lesions identified.And done on April 11, 2020 showed no destructive bony process Plan: Discussed with patient regarding his labsWhite blood count 3.9 hemoglobin 13.8 hematocrit 42.7 platelets 128,000, CMP within normal limit except potassium 3.4 and his IgG is 1270, IgM is 54, IgA is 235 and serum light chain assay is pending ,SPEP is pending Clinically, patient doing well with no new signs symptom suggestive of disease progression, his quantitative immunoglobulin level is within normal range SPEP and serum light chain assays pending, CMP showed no hypercalcemia and renal function test within normal range. As far as mild hypokalemia is concerned probably due to chronic diarrhea, will check his magnesium level if it is low will consider parenteral magnesium supplement as ordered magnesium can further exacerbate chronic diarrhea. We will give him potassium supplement 20 mg p.o. twice a day for 4 days then as needed and patient was advised to follow-up with his PMD regarding his potassium level in future., As per patient he he has history of off and on diarrhea especially when he gets under stress, in that case we will try Xanax 0.25 mg every 6-8 hour on as needed and patient was advised to be careful with his driving if his take Xanax during daytime, patient said he will try this over the weekend, hopefully it will improve his anxiety as well as his diarrhea., As mentioned above his primary care physician is managing his diarrhea.^ Addendum magnesium level 1.7, patient will take potassium supplement as mentioned above and then return to clinic in 6 months with CBC CMP and myeloma panel] Signed By: Yue Duenas M.D. <<Signature on File>>
[2021-05-02 06:26] LABS: PROTEIN, TOTAL 5.9 g/dL (6.1-8.1)
[2021-05-02 14:02] LABS: KAPPA LIGHT CHAIN, FREE, SERUM 52.2 mg/L (3.3-19.4); KAPPA/LAMBDA LIGHT CHAINS FREE 1.27 (0.26-1.65); LAMBDA LIGHT CHAIN, FREE, SERU 41.2 mg/L (5.7-26.3)
[2021-05-02 15:23] LABS: ALBUMIN 3.1 g/dL (3.8-4.8); ALPHA 1 GLOBULIN 0.3 g/dL (0.2-0.3); ALPHA 2 GLOBULIN 0.6 g/dL (0.5-0.9); BETA 1 GLOBULIN 0.4 g/dL (0.4-0.6); BETA 2 GLOBULIN 0.3 g/dL (0.2-0.5); GAMMA GLOBULIN 1.3 g/dL (0.8-1.7)
== END 2021-05-01 11:31 | disposition home or self-care (01) ==
PROVIDERS: PCP Internal Medicine; Visit Provider Internal Medicine Hematology & Oncology
DX: C90.00 Multiple myeloma not having achieved remission (principal); E87.6 Hypokalemia; K52.9 Noninfective gastroenteritis and colitis, unspecified; Z79.899 Other long term (current) drug therapy
CPT/HCPCS: 36415; 80053; 82784; 83735; 83883; 84155; 84165; 85025; 99214

== ENCOUNTER 2021-09-21 12:17 | Outpatient (CLI) | payer MEDICARE, OTHER, SELFPAY ==
[2021-09-21 12:45] VITALS: BP 111/84; PULSE 84; RESP 18; TEMP 36.5; O2SAT 97; BMI 32.1
[2021-09-21 12:50] VITALS: BP 125/79; PULSE 80; RESP 16; TEMP 36.5; O2SAT 98
[2021-09-21 14:20] VITALS: BP 123/80; PULSE 87; RESP 16; TEMP 36.5; O2SAT 97
--- NOTE | 2021-09-21 16:06 | PC.NURSE ---
Allergies verified with patient. Patient does not know home medications.
== END 2021-09-21 12:18 | disposition home or self-care (01) ==
PROVIDERS: PCP Internal Medicine; Visit Provider Nurse Practitioner Family
DX: U07.1 COVID-19 (principal)
CPT/HCPCS: 96365

== ENCOUNTER 2021-10-27 10:12 | Outpatient (CLI) | payer MEDICARE, OTHER, SELFPAY ==
[2021-10-27 11:27] LABS: Basophils # 0.1 10^3/uL (0.0-0.1); Basophils % 1.2 %; Eosinophils # 0.2 10^3/uL (0.0-0.8); Eosinophils % 4.4 %; Hematocrit 50.5 % (42.0-52.0); Hemoglobin 16.3 g/dL (11.7-16.6); Lymphocytes # 1.7 10^3/uL (0.8-4.8); Mean Corpuscular HGB Conc 32.3 g/dL (30.0-36.0); Mean Platelet Volume 10.1 fL (7.4-10.4); Monocytes # 0.4 10^3/uL (0.2-0.9); Monocytes % 6.9 %; Neutrophils # 2.82 10^3/uL (1.8-7.7); Neutrophils % 54.1 %; Nucleated Red Blood Cells % 0 %; Platelet Count 178 10^3/cmm (130-400); Red Blood Count 5.26 10^6/uL (4.1-5.3); Red Cell Distribution Width 14.2 % (12.1-15.1); White Blood Count 5.2 10^3/uL (4.0-10.0)
[2021-10-27 11:46] LABS: Alanine Aminotransferase 11 U/L (0-41); Albumin Level 3.9 g/dL (3.5-5.2); Alkaline Phosphatase 109 IU/L (40-130); Anion Gap 14.2 (5-19); Aspartate Amino Transferase 13 U/L (0-40); Blood Urea Nitrogen 12 mg/dL (8-23); Calcium 9.3 mg/dL (8.5-10.5); Carbon Dioxide 24 mmol/L (22-29); Chloride 106 mmol/L (98-107); Globulin 3.1 g/dL (1.3-4.6); Glucose 255 mg/dL (65-115); Immunoglobulin IGA 305 mg/dL (70-400); Immunoglobulin IGG 1550 mg/dL (700-1600); Immunoglobulin IGM 49 mg/dL (40-230); Osmolality Calculated 298 mOsm/kg (285-295); Potassium 4.2 mmol/L (3.5-5.1); Sodium 140 mmol/L (136-145); Total Bilirubin 0.5 mg/dL (0.15-1.2)
[2021-10-28 07:23] LABS: PROTEIN, TOTAL 6.8 g/dL (6.1-8.1)
[2021-10-30 15:43] LABS: KAPPA LIGHT CHAIN, FREE, SERUM 55.6 mg/L (3.3-19.4); KAPPA/LAMBDA LIGHT CHAINS FREE 1.35 (0.26-1.65); LAMBDA LIGHT CHAIN, FREE, SERU 41.3 mg/L (5.7-26.3)
[2021-10-30 15:58] LABS: ALBUMIN 3.6 g/dL (3.8-4.8); ALPHA 1 GLOBULIN 0.3 g/dL (0.2-0.3); ALPHA 2 GLOBULIN 0.7 g/dL (0.5-0.9); BETA 1 GLOBULIN 0.4 g/dL (0.4-0.6); BETA 2 GLOBULIN 0.4 g/dL (0.2-0.5); GAMMA GLOBULIN 1.5 g/dL (0.8-1.7)
== END 2021-10-27 10:13 | disposition home or self-care (01) ==
PROVIDERS: PCP Internal Medicine; Visit Provider Internal Medicine Hematology & Oncology
DX: C90.01 Multiple myeloma in remission (principal); E11.9 Type 2 diabetes mellitus without complications; I48.91 Unspecified atrial fibrillation; I10 Essential (primary) hypertension; E78.5 Hyperlipidemia, unspecified; Z79.01 Long term (current) use of anticoagulants; Z79.899 Other long term (current) drug therapy
CPT/HCPCS: 36415; 80053; 82232; 82784; 83883; 84155; 84165; 85025; 86334

== ENCOUNTER → 2021-11-30 14:54 | Outpatient (BNVA) | payer MEDICARE, OTHER, SELFPAY | PROVIDERS: PCP Internal Medicine; Visit Provider Internal Medicine Cardiovascular Disease | DX: I25.10 Atherosclerotic heart disease of native coronary artery without angina pectoris (principal); I48.91 Unspecified atrial fibrillation; I10 Essential (primary) hypertension; E11.9 Type 2 diabetes mellitus without complications | CPT/HCPCS: 99214 ==

== ENCOUNTER 2021-12-05 12:33 | Outpatient (CLI) | payer MEDICARE, OTHER, SELFPAY ==
[2021-12-05 13:12] LABS: Basophils # 0.1 10^3/uL (0.0-0.1); Basophils % 1.1 %; Eosinophils # 0.1 10^3/uL (0.0-0.8); Eosinophils % 2.2 %; Hematocrit 47.2 % (42.0-52.0); Hemoglobin 15.1 g/dL (11.7-16.6); Lymphocytes # 1.5 10^3/uL (0.8-4.8); Lymphocytes % 33.1 %; Mean Corpuscular Hemoglobin 30.5 pg (28.0-34.0); Mean Corpuscular Volume 95.4 fl (80-94); Mean Platelet Volume 9.9 fL (7.4-10.4); Monocytes # 0.3 10^3/uL (0.2-0.9); Monocytes % 7.3 %; Neutrophils # 2.53 10^3/uL (1.8-7.7); Neutrophils % 55.9 %; Nucleated Red Blood Cells % 0 %; Platelet Count 200 10^3/cmm (130-400); Red Blood Count 4.95 10^6/uL (4.1-5.3); Red Cell Distribution Width 14.1 % (12.1-15.1); White Blood Count 4.5 10^3/uL (4.0-10.0)
[2021-12-05 13:35] LABS: Alanine Aminotransferase 12 U/L (0-41); Albumin Level 3.7 g/dL (3.5-5.2); Alkaline Phosphatase 110 IU/L (40-130); Aspartate Amino Transferase 15 U/L (0-40); Blood Urea Nitrogen 9 mg/dL (8-23); Carbon Dioxide 25 mmol/L (22-29); Chloride 105 mmol/L (98-107); Globulin 2.9 g/dL (1.3-4.6); Glucose 228 mg/dL (65-115); Immunoglobulin IGA 291 mg/dL (70-400); Immunoglobulin IGG 1461 mg/dL (700-1600); Immunoglobulin IGM 37 mg/dL (40-230); Osmolality Calculated 296 mOsm/kg (285-295); Sodium 140 mmol/L (136-145); Total Bilirubin 0.4 mg/dL (0.15-1.2); Total Protein 6.6 g/dL (6.6-8.7)
[2021-12-05 14:00] LABS: Anion Gap 13.7 (5-19); Potassium 3.7 mmol/L (3.5-5.1)
[2021-12-06 08:48] LABS: PROTEIN, TOTAL 6.4 g/dL (6.1-8.1)
--- NOTE | 2021-12-06 10:07 | ONC FU_ITS ---
Dr. Duenas follow up note Patient: Shad Vines Unit #: [id number]: 1945 Dicatated By: Yue Duenas M.D.Date of Visit:Dec 05, 2021 Onc Med Follow-up/Prog Note History of Present Illness: This is a 76-year-old man with stage I standard risk multiple myeloma involving left testis and bone marrow. He had presented with a palpable testicular mass. On 05/14/14 he underwent a left radical orchiectomy. Surgical pathology showed a 2.6 cm plasma cell neoplasm confined to the testis with limited penetration to the tunica albuginea. Margins were negative. Histochemistry was positive for CD 138, MUM 1, BCL 2, kappa restricted; negative for CD20, Ki67 index 60-70%. A CT of the chest/abdomen/pelvis on 05/25/2014 showed nonspecific bilateral subcentimeter pulmonary nodules for which followup was recommended in 3 months. He had no lymphadenopathy. He had indeterminate solid versus non-simple cysts lesions in the both kidneys. In the left kidney the lesion measuring 1.2 cm, in the right kidney the lesion measured 3.2 cm. There was a S2 sclerotic focus. The patient was first seen by Dr. Nick on 06/03/2014. Skeletal survey and PET/CT were negative for additional lesions or metastatic disease. ESR 114, hemoglobin 11.9 g/dL, beta-2 microglobulin 3.6, serum protein electrophoresis showed IgG kappa 4.43 g and free kappa at 0.7g, urine protein electrophoresis with free kappa 29%, 283 mg. Total IgG 5770, [place]/Lambda ratio above 290. Bone marrow biopsy on 06/08/2014 showed 34% monoclonal plasma cells, consistent with multiple myeloma. Cytogenetics normal, FISH with hyperdiploidy on chromosomes 1, 9, 15, and 17. Induction chemotherapy with Velcade, Revlimid, and Decadron began with 4 cycles was delivered 07/05/2014-09/06/2014. He had a very good response to the treatment with M protein decreased to 0.34 g/dL on 08/16/2014. 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 He had no infectious complications, but he did have exacerbation of his atrial fibrillation. The patient had sar017 bone marrow biopsy performed at [facility] in January of 2015, with complete response. No plasma cells identified. On 02/22/15 no M protein was identified. IgG 1200 and kappa/juan ratio normal at 0.84. Maintenance Revlimid began in January of 2015. With cycle 4 he required dose modification down to 5 mg due to grade 2 neutropenia, ANC 1200. No M protein seen on SPEP from 09/07/2015. The patient had further hematological toxicities, and Revlimid 5 mg daily was suggested for 3 weeks out of 4 beginning with cycle 12. His other medical illnesses include hypertension, hyperlipidemia, type II diabetes, and atrial fibrillation. He is a nonsmoker. Tolerating low-dose e.g [address] scan of abdomen pelvis done on 02/27/2019 showed no acute intra-abdominal pelvic findings and bone survey done on 04/17/2018 showed no lytic lesion Serum protein electrophoresis and serum light chain assay done on 04/13/2019 showed no evidence of M protein follow-up serum protein electrophoresis done on 10/07/2019 showed no restricted M spike seen, serum light chain kappa/lambda ratio was 1.45, beta 2 microglobulin was 2.29. Follow-up myeloma panel including bone survey done on April 11, 2020 shows no destructive bony process identified, SPEP showed no restricted M spike seen.Serum light chain assay ratio 1.21, within normal range. 24-hour urine protein immunofixation shows no abnormal protein. Beta-2 microglobulin 2.17, in normal range. CBC and CMP also within normal range. Myeloma panel including serum protein electrophoresis done on October 26, 2020, showed no restricted band or M protein seen in serum light chain assay shows kappa light chain 53 lambda light chain 40.1 but ratio is 1.32 which is within normal range., CBC CMP also within normal range Follow-up myeloma panel done on October 27, 2021 showed kappa/lambda light chain ratio 1.35 which is within normal range, serum protein electrophoresis shows no restricted band seen. Serum immunofixation shows normal pattern, no monoclonal protein detected. Came for follow-up, denies any specific complaints, no fever chills, no nausea or vomiting,But persistent and now somewhat worsening diarrhea , No mucus or blood in his stool, no abdominal pain, no melena or hematochezia, no hemoptysis hematemesis, no new bony pains, no night sweats, no recurrent infection, appetite is good, patient recently lost weight and was not eating regularly as his was very sick and recently . Medications: ALPRAZolam Tablet Oral, Apixaban 1 Tablet (of 5 mg) Oral b.i.d., DULoxetine HCl 1 Tablet (of 30 mg) Capsule Delayed Release Particles Oral daily, Farxiga 1 Tablet Oral daily, Potassium Chloride ER Tablet, controlled release Oral, Revlimid 1 Capsule (of 5 mg) Oral daily, Sotalol HCl 2 (80 mg) Tablet Oral b.i.d. Allergies: No Known Allergies. Review of Systems: Review of Systems is not available for this patient. Vital Signs: Performed on Dec 05, 2021 14:39 Height - 71.00 in Weight - 229.4 lbs (LOW) BSA - 2.24 sq.m BMI - 32.00 (HIGH) Temperature - 97.6 F (LOW) Pulse - 87 /min Respiration - 17 /min BP - 121/74 mm(hg) O2 Sat - 99 % Pain - 0 Fatigue - 0 Performance Status: 0 - Fully active, able to carry on all predisease activities without restrictions. (ECOG) Physical Examination: ENMT - No mouth sores, no thrush, no jaundice, Respiratory - Lungs are clear to auscultation, Cardiovascular - Regular rate and rhythm of heart, Abdomen - Soft, bowel sounds present, Extremities - No visible edema. Lab/Imaging: Most recent lab results are not available for this patient. Impression: 1. 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 He underwent radical left orchiectomy on 05/14/14. His further workup revealed evidence of standard risk clinical stage I IgG kappa and free kappa light chain myeloma with plasma cells comprising 34% of the bone marrow. He had mild anemia, but no evidence of renal failure, bone disease or additional plasmacytoma. Bone survey done on 03/25/2017 showed no lytic myelomatous lesions are visualized 24-hour urine for urine protein electrophoresis and immunofixation within normal limits serum protein electrophoresis showed normal pattern 2. Induction chemotherapy with VRD regimen delivered 07/05/14 - 09/06/14, with a very good response. 3. In October of 2014 he underwent autologous stem cell transplantation at [facility]. 4. Maintenance Revlimid therapy at 10 mg daily for 3 out of 4 week cycle began in January 2015, but dose reduced to 5 mg daily with cycle 4 due to neutropenia. 5. He had further reduction to 5 daily on a 3 week out of 4 schedule His other medical illnesses include: 6. Hypertension. 7. Hyperlipidemia. 8. Type II diabetes. 9. Atrial fibrillation. At this point he continues maintenance Revlimid with no evidence of recurrence/progression of the myeloma. He tolerates it well at the reduced dosage. Bone survey done on 04/17/2018 showed no lytic bone lesions identified.And done on April 11, 2020 showed no destructive bony process Plan: Discussed with patient regarding his labs, white blood count 4.5 hemoglobin 15.1 hematocrit 47.2, platelets 200,000 CMP within normal limit except glucose 228 and myeloma panel including serum light chain assay and serum protein electrophoresis and immunofixation shows no evidence of monoclonal gammopathy Clinically, patient doing well with no new signs symptom suggestive of disease progression his lab work-up is within normal range and his myeloma panel showed no evidence of monoclonal protein. Patient is on low-dose Revlimid 5 mg p.o. daily, as mentioned earlier, patient is having chronic diarrhea and sometimes he do not go far because of fear of not finding restroom close by. As per patient, when he was taking full dose Revlimid, it was causing diarrhea too. At this point, we will hold his low-dose Revlimid 5 mg for 1 month, if his diarrhea resolves, then will consider using Revlimid 2 mg p.o. daily or may discontinue entirely. On the other hand if diarrhea persist, will refer him to gastroenterology for evaluation and resume Revlimid 5 mg p.o. daily day 1 through 21 and repeat every 28 days. Otherwise he will return to clinic in 3 months with CBC CMP and serum light chain assay and serum protein electrophoresis and immunofixation Signed By: Yue Duenas M.D. <<Signature on File>>
[2021-12-06 12:12] LABS: Beta-2-Microglobulin 2.26 mg/L (< OR = 2.51)
[2021-12-06 15:23] LABS: KAPPA LIGHT CHAIN, FREE, SERUM 51.2 mg/L (3.3-19.4); KAPPA/LAMBDA LIGHT CHAINS FREE 1.25 (0.26-1.65)
[2021-12-06 16:23] LABS: ALBUMIN 3.4 g/dL (3.8-4.8); ALPHA 1 GLOBULIN 0.3 g/dL (0.2-0.3); ALPHA 2 GLOBULIN 0.7 g/dL (0.5-0.9); BETA 1 GLOBULIN 0.4 g/dL (0.4-0.6); BETA 2 GLOBULIN 0.3 g/dL (0.2-0.5); GAMMA GLOBULIN 1.4 g/dL (0.8-1.7)
== END 2021-12-05 12:34 | disposition home or self-care (01) ==
PROVIDERS: PCP Internal Medicine; Visit Provider Internal Medicine Hematology & Oncology
DX: C90.30 Solitary plasmacytoma not having achieved remission (principal); Z90.79 Acquired absence of other genital organ(s); D64.9 Anemia, unspecified; R74.8 Abnormal levels of other serum enzymes; K52.1 Toxic gastroenteritis and colitis; T45.1X5A Adverse effect of antineoplastic and immunosuppressive drugs, initial encounter; Z79.899 Other long term (current) drug therapy
CPT/HCPCS: 36415; 80053; 82232; 82784; 83883; 84155; 84165; 85025; 99214

== ENCOUNTER → 2022-01-18 10:33 | Outpatient (BNVA) | payer MEDICARE, OTHER, SELFPAY | PROVIDERS: PCP Internal Medicine; Visit Provider Internal Medicine Hematology & Oncology | DX: C90.00 Multiple myeloma not having achieved remission (principal) | CPT/HCPCS: 80053; 85025 ==

== ENCOUNTER 2022-01-19 11:49 | Emergency (ER) | payer MEDICARE, OTHER, SELFPAY ==
[2022-01-19 12:04] VITALS: BP 151/93; PULSE 66; RESP 18; TEMP 36.1; O2SAT 98; BMI 31.5
--- NOTE | 2022-01-19 12:25 | ECG_ITS ---
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 Measurements Intervals [place] Rate: 64 P: 82 [place]: 206 QRS: -16 QRSD: 92 T: 29 QT: 433 QTc: 447 Interpretive Statements SINUS RHYTHM INFERIOR MYOCARDIAL INFARCTION , PROBABLY OLD [40+ ms Q WAVE AND/OR ST/T ABNORMALITY IN II/aVF] No previous ECG available for comparison Electronically Signed On 01-19-2022 16:16:49 CDT by Lakisha Welch M.D. [id number]
--- NOTE | 2022-01-19 12:26 | W.ED.PSYCHS ---
Documented by User: Shelley Clintonreza 01/19/22 12:30 HPI - Psych General: Chief Complaint: Psychiatric Symptoms Stated Complaint: ABD pain, Head pain Time Seen by Provider: 01/19/22 12:12 History of Present Illness: 76-year-old male patient presents to the emergency department stating that he has been having thoughts of hurting himself. Patient states his back and October and he has struggling with anxiety and depression. Patient states he continues to hear voices in his head. Patient states these voices do not tell him to hurt himself but they bring up a lot of scary events from his past. Patient states he is having constant thoughts of wanting to kill himself as he does not feel like he wants to live any longer. Patient denies any attempts of suicide at this time. Patient denies any other complaints. Associated symptoms: Deny homicidal ideation Review of Systems Const: Denies: fever(s), chills, body aches, change in appetite, change in weight, fatigue, malaise or diaphoresis Eyes: Denies: change in vision, blurry vision, blind spots, photophobia, eye discomfort, eye discharge, eye redness, floaters or seeing flashes ENMT: Denies: throat pain, uvular edema, enlarged tonsils, odynophagia, hoarseness, mouth pain, swelling of lips/tongue, oral sores, bleeding gums, dental pain, dry mouth, ear or mastoid pain, ear discharge, change in hearing, tinnitus, disequilibrium, nasal discharge, nasal congestion, post nasal drip or sinus pain Card: Denies: chest pain, palpitations, irregular heart rhythm, edema, swelling of feet/ankles, lightheadedness, syncope, pre-syncope, dyspnea on exertion, orthopnea, leg pain with exertion or acrocyanosis Resp: Denies: dyspnea, productive cough, non-productive cough, wheezing, stridor, pain on inspiration, change in phlegm color, hemoptysis or chest congestion GI: Denies: abdominal pain, nausea, vomiting, hematemesis, dysphagia, diarrhea, constipation, GI cramping, change in bowel habits or rectal pain : Denies: flank pain, dysuria, urinary frequency, urinary urgency, urinary hesitancy or hematuria Musc: Denies: neck pain, back pain, extremity pain, extremity swelling, joint pain, joint swelling, joint redness, joint warmth or deformity Skin/Breast: Denies: rash, pruritus, erythema, sores, new lesions, changes in skin color or dry skin Neuro: Denies: headache(s), numbness in extremities, weakness in extremities, sensory changes, lack of coordination, difficulty walking, frequent falls, dizziness, vertigo, confusion, behavioral changes, Slurred speech present, difficulty communicating thoughts or seizure-like activity Psych: Denies: homicidal ideation Endo: Denies: polyuria, polydipsia, tired all the time, cold intolerance, excessive sweating, flushing, hot flashes or heat intolerance Paulie/Lymph: Denies: easy bruising, easy bleeding, petechiae, purpura, enlarged lymph nodes or tender lymph nodes All/Imm: Denies: urticaria, throat swelling, tongue swelling, facial swelling, acute wheezing or itchy eyes PFSH ED PFSH: Medical History Anticoagulation adequate with anticoagulant therapy Pradaxa ASHD (arteriosclerotic heart disease) Atrial fibrillation Balanitis Diabetes Dyslipidemia HTN (hypertension) Lymphoma Multiple myeloma Obesity Surgical History H/O bone marrow transplant Family History Brother CAD (coronary artery disease) Cancer Mother CHF (congestive heart failure) Brother Cancer Sister Cancer Sister Cancer Family/Other Cancer Chronic kidney disease (CKD) Denies family history of Diabetes Clotting disorder Dementia Anesthesia complication Bleeding disorder Lung disease Stroke Social History Smoking and tobacco status: never smoked Alcohol intake: never Marital status: Current occupational status: retired Physical Exam Const: COMMON NORMALS: no acute distress, patient oriented x3, healthy appearing, alert and well nourished GENERAL APPEARANCE: cooperative, comfortable, well kempt and well developed; not ill appearing ORIENTATION/CONSCIOUSNESS: Yes awake, Yes oriented to person, Yes oriented to place and Yes oriented to time HENMT: COMMON NORMALS: normocephalic, atraumatic, hearing grossly normal bilaterally, external ears normal, EAC's normal, TM's normal bilaterally, Normal external nose present, Normal nasal mucous membranes and turbinates present and moist oral mucous membranes HEAD & SCALP: normal to inspection, normocephalic and atraumatic FACE & SINUS: normal facial exam, sinuses nontender and face symmetric NOSE: Normal external nose present, Normal nares present, Normal nasal mucous membranes and turbinates present, No nasal discharge present and Abnormal external nose present EXTERNAL EAR: Yes external ears normal and Yes mastoids normal EXTERNAL AUDITORY CANAL: EAC's normal TYMPANIC MEMBRANE: TM's normal bilaterally MOUTH: Normal oral and palatal mucosa present, lip normal, tongue normal and Normal salivary glands and ducts present THROAT: no uvular edema Eye: COMMON NORMALS: Equal, round and reactive pupils present, EOMs intact bilaterally, conjunctivae normal, no scleral icterus and no papilledema GENERAL EYE: appearance normal, both eyes and all related structures EYELID: eyelids normal CONJUNCTIVA: Yes conjunctivae normal SCLERA: sclerae normal CORNEA: Yes corneas normal PUPIL: Yes Equal, round and reactive pupils present DIRECT OPHTHALMOSCOPY: Yes no papilledema Neck/C-Spine: COMMON NORMALS: full ROM, no lymphadenopathy, supple, no meningeal signs, no JVD and Thyroid normal GENERAL: Yes normal visual inspection and Yes trachea midline THYROID: Thyroid normal CERVICAL SPINE: Yes cervical ROM normal Lymph: LYMPHATIC: no lymphadenopathy noted and no lymphedema noted Chest: COMMONS NORMALS: normal inspection of the chest and normal palpation of entire chest wall Resp: COMMON NORMALS: normal respiratory effort, No retractions, No use of accessory muscles and clear to auscultation bilaterally EFFORT & INSPECTION: Yes able to speak in complete sentences and Yes symmetric chest movement AUSCULTATION: clear to auscultation bilaterally Cardio: COMMON NORMALS: no JVD, regular rate and regular rhythm RATE: regular rate RHYTHM: regular rhythm GI: COMMON NORMALS: Normal to inspection, nondistended, normoactive bowel sounds present, Soft to palpation, non-tender, No hepatosplenomegaly present, no masses and no bruits INSPECTION: Yes normal to inspection AUSCULTATION: Yes normoactive bowel sounds PALPATION: Yes Soft to palpation and Yes No hepatosplenomegaly present PERCUSSION: normal to percussion RECTAL EXAM: Yes deferred : COMMON NORMALS: Yes no CVA tenderness BLADDER/KIDNEY EXAM: Yes no CVA tenderness Back/Pelvis: COMMON NORMALS: no CVA tenderness, thoracic and lumbar spine normal to inspection, no thoracic nor lumbar tenderness and thoraco-lumbar ROM normal THORACIC SPINE/UPPER BACK: Yes normal to inspection LUMBAR SPINE/LOWER BACK: Yes normal to inspection Extremity: COMMON NORMALS: normal to inspection, full ROM and capillary refill normal GENERAL: Yes normal exam except as noted Neuro: COMMON NORMALS: patient oriented x3, CN's II-XII intact bilaterally, moves all extremities, no focal motor deficits, no sensory deficits noted and gait normal SENSORIUM/ORIENTATION: Yes alert, Yes oriented to person, Yes oriented to place and Yes oriented to time MENINGEAL SIGNS: Yes no meningeal signs CRANIAL NERVES: Yes CN normal except as noted SPEECH: speech normal GAIT: Yes Normal gait present SENSORY EXAM: Yes extremities MOTOR EXAM: 5/5 motor strength present throughout Psych: COMMON NORMALS: mental status grossly normal, Normal thought process present, cooperative, speech normal, activity/motor behavior normal, denies hallucinations and denies homicidal ideation APPEARANCE: Yes grossly normal and Yes well kempt ATTITUDE: Yes calm ACTIVITY/MOTOR BEHAVIOR: Yes appropriate eye contact SPEECH: Yes normal speech THOUGHT PROCESS: Normal thought process present THOUGHT CONTENT: Yes Normal thought content present ATTENTION/CONCENTRATION: Yes attention grossly intact MEMORY/COGNITION: Yes memory grossly intact INSIGHT: Good insight present (Psych) JUDGEMENT: Good judgement present (Psych) Skin: COMMON NORMALS: no rashes or lesions noted, no wounds, turgor normal, no jaundice, no petechiae and no mottling GENERAL SKIN EXAM: no rashes or lesions noted and turgor normal Course Vital Signs: Vital signs: Vital Signs Temperature 97.0 F L 01/19/22 12:04 Pulse Rate 74 01/19/22 16:56 Respiratory Rate 16 01/19/22 16:56 Blood Pressure 170/94 01/19/22 16:56 Pulse Oximetry 98 01/19/22 16:56 MDM - Psych Lab Data : 01/19/22 13:18 01/19/22 13:18 Radiology Impressions Chest X-Ray 01/19/22 18:35 IMPRESSION: 1. Cardiomegaly. 2. Bibasilar atelectasis versus infiltrate. Laboratory Results WBC 5.7 10^3/uL (4.0-10.0) 01/19/22 13:18 RBC 4.92 10^6/uL (4.1-5.3) 01/19/22 13:18 Hgb 15.6 g/dL (11.7-16.6) 01/19/22 13:18 Hct 46.9 % (42.0-52.0) 01/19/22 13:18 MCV 95.3 fl (80-94) H 01/19/22 13:18 MCH 31.7 pg (28.0-34.0) 01/19/22 13:18 MCHC 33.3 g/dL (30.0-36.0) 01/19/22 13:18 RDW 13.4 % (12.1-15.1) 01/19/22 13:18 Plt Count 206 10^3/cmm (130-400) 01/19/22 13:18 MPV 9.8 fL (7.4-10.4) 01/19/22 13:18 Neut % (Auto) 63.8 % 01/19/22 13:18 Lymph % (Auto) 29.1 % 01/19/22 13:18 [place] % (Auto) 5.6 % 01/19/22 13:18 Eos % (Auto) 0.9 % 01/19/22 13:18 Baso % (Auto) 0.3 % 01/19/22 13:18 Neut # (Auto) 3.65 10^3/uL (1.8-7.7) 01/19/22 13:18 Lymph # (Auto) 1.7 10^3/uL (0.8-4.8) 01/19/22 13:18 [place] # (Auto) 0.3 10^3/uL (0.2-0.9) 01/19/22 13:18 Eos # (Auto) 0.1 10^3/uL (0.0-0.8) 01/19/22 13:18 Baso # (Auto) 0.0 10^3/uL (0.0-0.1) 01/19/22 13:18 Nucleated RBC % (auto) 0 % 01/19/22 13:18 Nucleated RBCs # 0.0 /100WBC 01/19/22 13:18 Sodium 138 mmol/L (136-145) 01/19/22 13:18 Potassium 3.9 mmol/L (3.5-5.1) 01/19/22 13:18 Chloride 103 mmol/L (98-107) 01/19/22 13:18 Carbon Dioxide 26 mmol/L (22-29) 01/19/22 13:18 Anion Gap 12.9 (5-19) 01/19/22 13:18 BUN 10 mg/dL (8-23) 01/19/22 13:18 Creatinine 0.8 mg/dL (0.7-1.2) 01/19/22 13:18 GFR Calculation Not Reportable 01/19/22 13:18 Glucose 149 mg/dL (65-115) H 01/19/22 13:18 Calculated Osmolality 288 mOsm/kg (285-295) 01/19/22 13:18 Calcium 8.6 mg/dL (8.5-10.5) 01/19/22 13:18 Total Bilirubin 0.5 mg/dL (0.15-1.2) 01/19/22 13:18 AST 13 U/L (0-40) 01/19/22 13:18 ALT 10 U/L (0-41) 01/19/22 13:18 Alkaline Phosphatase 96 IU/L (40-130) 01/19/22 13:18 Total Protein 6.7 g/dL (6.6-8.7) 01/19/22 13:18 Albumin 3.9 g/dL (3.5-5.2) 01/19/22 13:18 Globulin 2.8 g/dL (1.3-4.6) 01/19/22 13:18 TSH 1.39 uIU/mL (0.27-4.20) 01/19/22 13:18 Urine Color Yellow (Yellow) 01/19/22 12:15 Urine Appearance Clear (CLEAR) 01/19/22 12:15 Urine pH 5 (5-7) 01/19/22 12:15 Ur Specific [place] 1.010 (1.005-1.030) 01/19/22 12:15 Urine Protein Neg (Negative) 01/19/22 12:15 Urine Glucose (UA) 4+ (Normal) H 01/19/22 12:15 Urine Ketones 1+ (Negative) H 01/19/22 12:15 Urine Blood Trace (Negative) H 01/19/22 12:15 Urine Nitrate Negative (Negative) 01/19/22 12:15 Urine Bilirubin Neg (Negative) 01/19/22 12:15 Urine Urobilinogen Norm mg/dL (Negative) 01/19/22 12:15 Ur Leukocyte Esterase 1+ (Negative) H 01/19/22 12:15 Urine RBC None /hpf (0-2) 01/19/22 12:15 Urine WBC 0-4 /hpf (0-5) H 01/19/22 12:15 Ur Squamous Epith Cells 0-4 /hpf (0-5) H 01/19/22 12:15 Amorphous Sediment Not Reportable 01/19/22 12:15 Urine Bacteria 4+ /hpf (NONE) H 01/19/22 12:15 Urine Mucus 2+ /hpf 01/19/22 12:15 Salicylates 2.0 mg/dL (3-10) L 01/19/22 13:18 Urine Opiates Screen Negative ng/mL (Negative) 01/19/22 12:15 Acetaminophen < 5.0 ug/mL (10-30) L 01/19/22 13:18 Ur Barbiturates Screen Negative ng/mL (Negative) 01/19/22 12:15 Ur Phencyclidine Scrn Negative ng/mL (Negative) 01/19/22 12:15 Ur Amphetamines Screen Negative ng/mL (Negative) 01/19/22 12:15 U Benzodiazepines Scrn Positive ng/mL (Negative) H 01/19/22 12:15 Urine Cocaine Screen Negative ng/mL (Negative) 01/19/22 12:15 U Marijuana (THC) Screen Negative ng/mL (Negative) 01/19/22 12:15 Ethyl Alcohol < 10 mg/dL (0-10) 01/19/22 13:18 SARS-CoV-2 Ag (Rapid) Negative (Negative) 01/19/22 12:40 Discharge Plan Discharge Patient Disposition: Xfer Psychiatric Hosp Clinical Impression: Suicidal ideation Condition: Stable Referrals: Karthikeyan Kim DO [Primary Care Provider] - Coding Level of Care Code ED Accounts Collector for Chg Fwd Exam Comprehensive Documented by User: Nichole Leonard MD 01/19/22 20:04 HPI - Psych General: Chief Complaint: Psychiatric Symptoms Stated Complaint: ABD pain, Head pain Time Seen by Provider: 01/19/22 12:12 PFSH ED PFSH: Medical History Anticoagulation adequate with anticoagulant therapy Pradaxa ASHD (arteriosclerotic heart disease) Atrial fibrillation Balanitis Diabetes Dyslipidemia HTN (hypertension) Lymphoma Multiple myeloma Obesity Surgical History H/O bone marrow transplant Family History Brother CAD (coronary artery disease) Cancer Mother CHF (congestive heart failure) Brother Cancer Sister Cancer Sister Cancer Family/Other Cancer Chronic kidney disease (CKD) Denies family history of Diabetes Clotting disorder Dementia Anesthesia complication Bleeding disorder Lung disease Stroke Social History Smoking and tobacco status: never smoked Alcohol intake: never Marital status: Current occupational status: retired Course Vital Signs: Vital signs: Vital Signs Temperature 97.0 F L 01/19/22 12:04 Pulse Rate 74 01/19/22 16:56 Respiratory Rate 16 01/19/22 16:56 Blood Pressure 170/94 01/19/22 16:56 Pulse Oximetry 98 01/19/22 16:56 MDM - Psych Medical Decision Making Patient presents here with depression is excepted at [place] medically cleared will transfer there. Lab Data : 01/19/22 13:18 01/19/22 13:18 Radiology Impressions Chest X-Ray 01/19/22 18:35
[2022-01-19 13:02] LABS: Bilirubin Urine Neg (Negative); Blood Urine Trace (Negative); Glucose Urine UA 4+ (Normal); Ketones Urine 1+ (Negative); Leukocyte Esterase Urine 1+ (Negative); Nitrate Urine Negative (Negative); Protein Urine Neg (Negative); Urine Appearance Clear (CLEAR); Urine Color Yellow (Yellow); Urobilinogen Urine Norm (Negative); pH Urine 5 (5-7)
[2022-01-19 13:03] LABS: Add Urine Microscopic? YES
[2022-01-19 13:06] LABS: Squamous Epithelial Cell Urine 0-4 /hpf (0-5)
[2022-01-19 13:07] LABS: Add Urine Culture? Yes; Amphetamines Screen Urine Negative (Negative); Bacteria Urine 4+ /hpf; Barbiturates Screen Urine Negative (Negative); Benzodiazepines Screen Urine Positive (Negative); Cocaine Screen Urine Negative (Negative); Mucus Urine 2+ /hpf; Opiate Screen Urine Negative (Negative); PCP Screen Urine Negative (Negative); THC Screen Urine Negative (Negative); WBC Urine 0-4 /hpf (0-5)
[2022-01-19 13:11] VITALS: BP 149/94; PULSE 63; RESP 16; O2SAT 95
[2022-01-19 13:26] LABS: SARS Covid-2 Antigen Negative (Negative)
[2022-01-19 13:34] LABS: Basophils % 0.3 %; Eosinophils # 0.1 10^3/uL (0.0-0.8); Eosinophils % 0.9 %; Hematocrit 46.9 % (42.0-52.0); Hemoglobin 15.6 g/dL (11.7-16.6); Lymphocytes # 1.7 10^3/uL (0.8-4.8); Lymphocytes % 29.1 %; Mean Corpuscular HGB Conc 33.3 g/dL (30.0-36.0); Mean Corpuscular Hemoglobin 31.7 pg (28.0-34.0); Mean Corpuscular Volume 95.3 fl (80-94); Mean Platelet Volume 9.8 fL (7.4-10.4); Monocytes # 0.3 10^3/uL (0.2-0.9); Monocytes % 5.6 %; Neutrophils # 3.65 10^3/uL (1.8-7.7); Neutrophils % 63.8 %; Nucleated Red Blood Cells % 0 %; Platelet Count 206 10^3/cmm (130-400); Red Blood Count 4.92 10^6/uL (4.1-5.3); Red Cell Distribution Width 13.4 % (12.1-15.1); White Blood Count 5.7 10^3/uL (4.0-10.0)
[2022-01-19 14:00] VITALS: BP 169/95; PULSE 65; RESP 16; O2SAT 100
[2022-01-19 14:04] LABS: Alanine Aminotransferase 10 U/L (0-41); Albumin Level 3.9 g/dL (3.5-5.2); Alkaline Phosphatase 96 IU/L (40-130); Anion Gap 12.9 (5-19); Aspartate Amino Transferase 13 U/L (0-40); Blood Urea Nitrogen 10 mg/dL (8-23); Calcium 8.6 mg/dL (8.5-10.5); Carbon Dioxide 26 mmol/L (22-29); Chloride 103 mmol/L (98-107); Globulin 2.8 g/dL (1.3-4.6); Glucose 149 mg/dL (65-115); Osmolality Calculated 288 mOsm/kg (285-295); Potassium 3.9 mmol/L (3.5-5.1); Sodium 138 mmol/L (136-145); Total Bilirubin 0.5 mg/dL (0.15-1.2); Total Protein 6.7 g/dL (6.6-8.7)
[2022-01-19 14:05] LABS: Acetaminophen < 5.0 ug/mL (10-30)
[2022-01-19 15:00] VITALS: BP 141/108; PULSE 67; RESP 16; O2SAT 100
[2022-01-19 15:55] VITALS: BP 185/105; PULSE 75; RESP 16; O2SAT 98
[2022-01-19 16:56] VITALS: BP 170/94; PULSE 74; RESP 16; O2SAT 98
[2022-01-19] MEDS: metoprolol succinate ER (24 HR) 25 mg Tablet PO (16:57)
--- NOTE | 2022-01-19 18:35 | XRR_ITS ---
PROCEDURE INFORMATION: Exam: XR Chest Exam date and time: 01/19/2022 6:51 PM Age: 76 years old Clinical indication: Patient HX: C/O HTN; Additional info: Hypertension TECHNIQUE: Imaging protocol: XR of the chest. Views: 1 view. COMPARISON: CR Chest 2 views* [id number] 11/17/2015 9:23 AM FINDINGS: Lungs: Bibasilar atelectasis versus infiltrate. Pleural spaces: Unremarkable. No pleural effusion. No pneumothorax. Heart/Mediastinum: Cardiomegaly. Bones/joints: Unremarkable. XR/XR chest 1V portable [id number] IMPRESSION: 1. Cardiomegaly. 2. Bibasilar atelectasis versus infiltrate.
[2022-01-19 19:05] LABS: Thyroid Stimulating Hormone 1.39 uIU/mL (0.27-4.20)
[2022-01-19 19:11] LABS: Alcohol Level < 10 mg/dL (0-10)
[2022-01-20 09:45] VITALS: BP 144/81; PULSE 75; RESP 16; O2SAT 96
== END 2022-01-20 09:48 ==
PROVIDERS: Registered Nurse; Emergency Provider Emergency Medicine; PCP Internal Medicine
DX: F32.A Depression, unspecified (principal); R45.851 Suicidal ideations; Z63.4 Disappearance and death of family member; I10 Essential (primary) hypertension; I25.10 Atherosclerotic heart disease of native coronary artery without angina pectoris; I48.91 Unspecified atrial fibrillation
CPT/HCPCS: 71045; 80053; 80306; 80307; 81001; 84443; 85025; 87086; 87426; 93005; 99285

== ENCOUNTER → 2022-01-31 13:37 | Outpatient (BNVA) | payer MEDICARE, OTHER, SELFPAY | PROVIDERS: PCP Internal Medicine; Visit Provider Surgery | DX: R19.7 Diarrhea, unspecified (principal) | CPT/HCPCS: 99203 ==

== ENCOUNTER 2022-02-28 07:45 | Day surgery (SDC) | payer MEDICARE, OTHER, SELFPAY ==
[2022-02-28 08:04] VITALS: BMI 30.7
[2022-02-28 08:11] VITALS: BP 133/77; PULSE 43; RESP 18; TEMP 36.1; O2SAT 98
[2022-02-28] MEDS: sodium chloride 0.9% 1,000 ML 30 ML IV (08:11)
--- NOTE | 2022-02-28 08:18 | ECG_ITS ---
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 Measurements Intervals [place] Rate: 42 P: 17 [place]: 186 QRS: -8 QRSD: 91 T: 2 QT: 545 QTc: 457 Interpretive Statements SINUS BRADYCARDIA POSSIBLE INFERIOR MYOCARDIAL INFARCTION , PROBABLY OLD [40+ ms Q WAVE AND/OR ST/T ABNORMALITY IN II/aVF] Compared to ECG 01/19/2022 12:47:44 Sinus rhythm no longer present Myocardial infarct finding still present Electronically Signed On 02-28-2022 10:28:56 CDT by Montana Mcnair M.D. [id number]
--- NOTE | 2022-02-28 08:36 | W.PM.OPSUD ---
Surgery/Procedure H&P Update DATE OF PROCEDURE: February 28, 2022 DATE H&P PERFORMED: 01/31/22 CHANGES TO PREVIOUS DOCUMENTATION: none PREOP DIAGNOSIS: diarrhea PLANNED PROCEDURE: Operation Date: 02/28/22 09:15 Proposed Procedures p Colonoscopy 55186,R19.7(Not Applicable) - Martell Raymundo DO
--- NOTE | 2022-02-28 08:52 | ANES.PREANE2 ---
Pre-Anesthetic Assessment Height/Weight: Height 1.8 m Weight 99.79 kg Temp Pulse Resp BP Pulse Ox 97.0 F L 43 L 18 133/77 98 02/28/22 08:11 02/28/22 08:11 02/28/22 08:11 02/28/22 08:11 02/28/22 08:11 Preop Diagnosis: diarrhea Operation Date: 02/28/22 09:15 Proposed Procedures p Colonoscopy 13096,R19.7(Not Applicable) - Martell Raymundo DO Familial anesthetic complications: ponv Was Beta Arnie taken within 24 hours: Yes Was Clonidine taken within 24 hours: N/A Last intake: Intake Last Liquid Date 02/27/22 Last Liquid Time 21:00 Last Solid Date 02/26/22 Last Solid Time 21:00 Social No alcohol and No tobacco Airway Mallampati: Class II Dentition: partials CV/HEM Atrial Fibrillation, Coronary Artery Disease and Hypertension Metabolic Diabetes Mellitus and Hyperlipidemia Anesthetic Plan ASA status: 3 Anesthesia: MAC Risk of > 500 ml blood loss (7ml/kg in children): No Medications/Allergies Home Medications Medication Instructions Recorded Confirmed Last Taken Type bisoprolol fumarate 5 mg tablet 5 mg PO DAILY 11/02/19 02/28/22 02/27/22 History insulin degludec [Tresiba 32 unit SUBCUT BEDTIME 11/02/19 02/28/22 02/27/22 History FlexTouch U-100] lenalidomide 5 mg capsule 5 mg PO .COMPLEX 11/02/19 02/28/22 02/27/22 History (Revlimid) simvastatin 20 mg tablet 20 mg PO DAILY 11/02/19 02/28/22 02/27/22 History dapagliflozin 10 mg tablet 10 mg PO DAILY 12/09/19 02/28/22 02/27/22 History (Farxiga) sotalol 160 mg tablet 160 mg PO BID #180 tab 03/19/20 02/28/22 02/27/22 Rx alprazolam 0.25 mg tablet 0.25 mg PO DAILY tab 11/30/21 02/28/22 02/27/22 History citalopram 10 mg tablet 20 mg PO DAILY tab 11/30/21 02/28/22 02/27/22 History potassium chloride 20 mEq 20 meq PO DAILY tab 11/30/21 02/28/22 02/27/22 History tablet,extended release(part/cryst) apixaban 5 mg tablet (Eliquis) 5 mg PO BID 01/31/22 02/28/22 02/25/22 History aripiprazole 5 mg tablet (Abilify) 5 mg PO DAILY 01/31/22 02/28/22 02/27/22 History clonazepam 0.25 mg disintegrating 0.25 mg PO Q8H tab 01/31/22 02/28/22 02/27/22 History tablet trazodone 150 mg tablet 150 mg PO DAILY 01/31/22 02/28/22 02/27/22 History escitalopram oxalate 20 mg tablet 20 mg PO DAILY 02/26/22 02/28/22 02/27/22 History Allergies Allergy/AdvReac Type Severity Reaction Status Date / Time No Known Allergies Allergy Verified 02/28/22 08:05 Current Medications Generic Name Dose Route Start Last Admin Trade Name Freq PRN Reason Stop Dose Admin Sodium Chloride 1,000 mls @ 30 mls/hr 02/28/22 08:00 02/28/22 08:11 Sodium Chloride 0.9% IV 03/01/22 07:59 30 mls/hr .Q24H TSERING Administration PFSH Anesthesia Medical History Anticoagulation adequate with anticoagulant therapy Pradaxa ASHD (arteriosclerotic heart disease) Atrial fibrillation Balanitis Diabetes Dyslipidemia HTN (hypertension) Lymphoma Multiple myeloma Obesity Surgical History H/O bone marrow transplant Family History Brother CAD (coronary artery disease) Cancer Mother CHF (congestive heart failure) Brother Cancer Sister Cancer Sister Cancer Family/Other Cancer Chronic kidney disease (CKD) Denies family history of Diabetes Clotting disorder Dementia Anesthesia complication Bleeding disorder Lung disease Stroke Social History Smoking and tobacco status: never smoked Alcohol intake: never Marital status: Current occupational status: retired Data Anesthesia Cardiac Studies: No Data to Display
[2022-02-28 09:34] VITALS: BP 107/62; PULSE 46; RESP 14; TEMP 36.2; O2SAT 91
[2022-02-28 09:40] VITALS: BP 111/67; PULSE 45; RESP 16; O2SAT 96
[2022-02-28 09:50] VITALS: BP 111/67; PULSE 51; RESP 16; O2SAT 95
--- NOTE | 2022-02-28 13:48 | ANE.PACU2 ---
Inpatient post-anesthesia follow up: Airway intact: Yes Vital signs: Temperature 97.1 F Pulse Rate 51 Respiratory Rate 16 Blood Pressure 111/67 Pulse Oximetry 95 Oxygen Delivery Me thod Room Air Oxygen Flow Rate 5 Fraction of Inspir ed Oxygen Hydration adequate: Yes Nausea and vomiting: No Pain level: 1 Mental status: Baseline
== END 2022-02-28 10:05 | disposition home or self-care (01) ==
PROVIDERS: PCP Internal Medicine; Visit Provider Surgery
PROC: 0DJD8ZZ Inspection of Lower Intestinal Tract, Via Natural or Artificial Opening Endoscopic (ICD-10-PCS; CPT 45378; principal; 2022-02-28 09:15)
DX: R19.7 Diarrhea, unspecified (principal); D12.0 Benign neoplasm of cecum; D12.8 Benign neoplasm of rectum; Z79.01 Long term (current) use of anticoagulants; I25.10 Atherosclerotic heart disease of native coronary artery without angina pectoris; I48.91 Unspecified atrial fibrillation; E11.9 Type 2 diabetes mellitus without complications; E78.5 Hyperlipidemia, unspecified; I10 Essential (primary) hypertension; E66.9 Obesity, unspecified; Z68.30 Body mass index [BMI] 30.0-30.9, adult; Z82.49 Family history of ischemic heart disease and other diseases of the circulatory system
CPT/HCPCS: 45380; 45385; 88305; 93005; J2704; J3490; J7030

== ENCOUNTER 2022-03-07 11:39 | Oncology outpatient (recurring) (ONCR) | payer MEDICARE, OTHER, SELFPAY ==
[2022-03-07 12:16] LABS: Basophils # 0.1 10^3/uL (0.0-0.1); Eosinophils # 0.2 10^3/uL (0.0-0.8); Eosinophils % 3.4 %; Hematocrit 42.5 % (42.0-52.0); Hemoglobin 14.4 g/dL (11.7-16.6); Lymphocytes # 1.5 10^3/uL (0.8-4.8); Lymphocytes % 24.7 %; Mean Corpuscular HGB Conc 33.9 g/dL (30.0-36.0); Mean Corpuscular Volume 94.4 fl (80-94); Mean Platelet Volume 10.1 fL (7.4-10.4); Monocytes # 0.5 10^3/uL (0.2-0.9); Monocytes % 7.8 %; Neutrophils # 3.68 10^3/uL (1.8-7.7); Neutrophils % 62.3 %; Nucleated Red Blood Cells % 0 %; Platelet Count 178 10^3/cmm (130-400); Red Cell Distribution Width 13.2 % (12.1-15.1); White Blood Count 5.9 10^3/uL (4.0-10.0)
[2022-03-07 12:32] LABS: Alanine Aminotransferase 12 U/L (0-41); Albumin Level 3.6 g/dL (3.5-5.2); Alkaline Phosphatase 83 IU/L (40-130); Anion Gap 15.7 (5-19); Aspartate Amino Transferase 13 U/L (0-40); Blood Urea Nitrogen 11 mg/dL (8-23); Calcium 8.7 mg/dL (8.5-10.5); Carbon Dioxide 24 mmol/L (22-29); Chloride 99 mmol/L (98-107); Globulin 3.1 g/dL (1.3-4.6); Glucose 195 mg/dL (65-115); Osmolality Calculated 285 mOsm/kg (285-295); Potassium 3.7 mmol/L (3.5-5.1); Sodium 135 mmol/L (136-145); Total Bilirubin 0.5 mg/dL (0.15-1.2); Total Protein 6.7 g/dL (6.6-8.7)
== END 2022-04-01 23:59 | disposition home or self-care (01) ==
PROVIDERS: Internal Medicine Hematology & Oncology; PCP Internal Medicine; Visit Provider Nurse Practitioner
DX: C90.31 Solitary plasmacytoma in remission (principal); D22.9 Melanocytic nevi, unspecified; L98.9 Disorder of the skin and subcutaneous tissue, unspecified; E11.628 Type 2 diabetes mellitus with other skin complications; I10 Essential (primary) hypertension
CPT/HCPCS: 36415; 80053; 85025; 99214

== ENCOUNTER → 2022-03-12 08:54 | Outpatient (BNVA) | payer MEDICARE, OTHER, SELFPAY | PROVIDERS: PCP Internal Medicine; Visit Provider Surgery | DX: Z09 Encounter for follow-up examination after completed treatment for conditions other than malignant neoplasm (principal); R19.7 Diarrhea, unspecified; D36.9 Benign neoplasm, unspecified site | CPT/HCPCS: 99213 ==

== ENCOUNTER → 2022-03-20 10:33 | Outpatient (BNVA) | payer MEDICARE, OTHER, SELFPAY | PROVIDERS: PCP Internal Medicine; Visit Provider Nurse Practitioner | DX: C90.31 Solitary plasmacytoma in remission (principal) | CPT/HCPCS: 83883; 84155; 84165 ==

== ENCOUNTER → 2022-05-30 13:53 | Outpatient (BNVA) | payer MEDICARE, OTHER, SELFPAY | PROVIDERS: PCP Internal Medicine; Visit Provider Internal Medicine Cardiovascular Disease | DX: I25.10 Atherosclerotic heart disease of native coronary artery without angina pectoris (principal); E11.9 Type 2 diabetes mellitus without complications; Z79.4 Long term (current) use of insulin; I48.91 Unspecified atrial fibrillation; Z79.01 Long term (current) use of anticoagulants; I10 Essential (primary) hypertension; E78.5 Hyperlipidemia, unspecified | CPT/HCPCS: 99214 ==

== ENCOUNTER → 2022-06-06 09:45 | Outpatient (BNVA) | payer MEDICARE, OTHER, SELFPAY | PROVIDERS: PCP Internal Medicine; Visit Provider Nurse Practitioner | DX: C90.31 Solitary plasmacytoma in remission (principal); E11.9 Type 2 diabetes mellitus without complications; I10 Essential (primary) hypertension | CPT/HCPCS: 80053; 83615; 83883; 84155; 84165; 85025 ==

== ENCOUNTER 2022-06-11 14:55 | Oncology outpatient (recurring) (ONCR) | payer MEDICARE, OTHER, SELFPAY | END 2022-07-02 23:59 | disposition home or self-care (01) | PROVIDERS: PCP Internal Medicine; Visit Provider Nurse Practitioner | DX: M48.062 Spinal stenosis, lumbar region with neurogenic claudication (principal); C90.31 Solitary plasmacytoma in remission; D64.9 Anemia, unspecified; L98.9 Disorder of the skin and subcutaneous tissue, unspecified; E11.9 Type 2 diabetes mellitus without complications; Z79.4 Long term (current) use of insulin; Z79.899 Other long term (current) drug therapy | CPT/HCPCS: 99204; 99214 ==

== ENCOUNTER 2022-07-04 14:29 | Outpatient (CLI) | payer MEDICARE, OTHER, SELFPAY ==
--- NOTE | 2022-07-04 14:30 | MR_ITS ---
WS: [id number] MRI LUMBAR SPINE NONCONTRAST HISTORY: lumbar back pain. Hx of previous lumbar decompression COMPARISON: None available. TECHNIQUE: Sagittal and axial multisequence imaging is submitted. Straightening of normal cervical and thoracic kyphosis. Mild curvature and straightening of lumbar lordosis. Small amount of reactive marrow edema in the L4 and L5 endplates. Conus terminates normally at L1-2 disc level. L1-L2: Mild disc bulging with facet and ligamentum flavum hypertrophy. Mild LEFT subarticular recess narrowing. L2-L3: Marked ligamentum flavum and facet arthritis. Mild disc bulging. Moderate to severe central an d bilateral subarticular recess and mild foraminal stenosis. L3-L4: Diffuse annular disc bulging and osteophytic ridging with severe facet and ligamentum flavum a rthritis. Complete effacement of CSF. Severe central, bilateral subarticular recess and foraminal karen nosis. RIGHT foraminal stenosis greater than LEFT. L4-L5: Diffuse annular disc bulging. Effacement of CSF and severe central and bilateral foraminal and subarticular recess stenosis. Suspect there is probably a RIGHT subarticular disc protrusion. LEFT l aminectomy defect. L5-S1: Diffuse disc bulging with mild encroachment into the subarticular recesses. Mild facet joint a rthritis and foraminal narrowing. Paravertebral soft tissues are negative. MR/MR lumbar spine wo con* [id number] IMPRESSION: 1. Severe central, bilateral subarticular and foraminal stenosis at L4-5. Zev tional RIGHT subarticular disc protrusion is suspected. Complete effacement of CSF. 2. Severe central, bilateral subarticular recess and foraminal stenosis at L3- 4, RIGHT greater than LEFT. Complete effacement of CSF. 3. Moderate to severe central, bilateral subarticular recess and mild foramina l stenosis at L2-3 as described above. 4. Mild facet joint arthritis and foraminal narrowing at L5-S1.
== END 2022-07-04 14:30 | disposition home or self-care (01) ==
LOC: RAD 14:30
PROVIDERS: PCP Internal Medicine; Visit Provider Orthopaedic Surgery
DX: M48.061 Spinal stenosis, lumbar region without neurogenic claudication (principal); M47.817 Spondylosis without myelopathy or radiculopathy, lumbosacral region
CPT/HCPCS: 72148

== ENCOUNTER → 2022-07-12 14:54 | Outpatient (BNVA) | payer MEDICARE, OTHER, SELFPAY | PROVIDERS: PCP Internal Medicine; Visit Provider Orthopaedic Surgery | DX: M48.062 Spinal stenosis, lumbar region with neurogenic claudication (principal) | CPT/HCPCS: 82784; 83883; 84155; 84165; 86334; 99214 ==

== ENCOUNTER 2022-07-20 08:07 | Oncology outpatient (recurring) (ONCR) | payer MEDICARE, OTHER, SELFPAY | END 2022-08-01 23:59 | disposition home or self-care (01) | PROVIDERS: PCP Internal Medicine; Visit Provider Nurse Practitioner | DX: C90.31 Solitary plasmacytoma in remission (principal); D64.9 Anemia, unspecified; K52.9 Noninfective gastroenteritis and colitis, unspecified; M48.061 Spinal stenosis, lumbar region without neurogenic claudication; Z79.899 Other long term (current) drug therapy; Z92.21 Personal history of antineoplastic chemotherapy | CPT/HCPCS: 99214 ==

== ENCOUNTER 2022-07-25 08:26 | Day surgery (SDC) | payer MEDICARE, OTHER, SELFPAY ==
--- NOTE | 2022-07-20 09:33 | ECG_ITS ---
[facility] Test Date: 2022-07-20 Pat Name: Shad Vines Department: Room: Gender: Male Skein Winder: : 1945 Requested By: Brianne Ochoa Order Number: [id number] Marco Antonio MD: Rajiv Acuna M.D. Measurements Intervals [place] Rate: 50 P: 12 [place]: 191 QRS: -13 QRSD: 98 T: 31 QT: 473 QTc: 434 Interpretive Statements SINUS BRADYCARDIA INFERIOR MYOCARDIAL INFARCTION , PROBABLY OLD [40+ ms Q WAVE AND/OR ST/T ABNORMALITY IN II/aVF] Compared to ECG 02/28/2022 08:30:08 No significant changes Electronically Signed On 07-23-2022 18:35:33 FOLDER MACHINE by Rajiv Acuna M.D. [id number]
--- NOTE | 2022-07-20 09:51 | ANES.PREANE2 ---
Pre-Anesthetic Assessment Height/Weight: Height 1.8 m Weight 103.419 kg Preop Diagnosis: diarrhea Operation Date: 07/25/22 10:05 Proposed Procedures p Lumbar Spine Decompression L2/3 L3/4 L4/5 33725/57124P0/M48.062(Not Applicable) - Jonathan Hong DO Familial anesthetic complications: None Social No alcohol and No tobacco Exam alert, oriented x 3, clear to auscultation bilaterally and regular rate & rhythm Airway Mallampati: Class II Dentition: partials Pulmonary None reported CV/HEM Atrial Fibrillation, Coronary Artery Disease and Hypertension None reported Hepatic None reported GI None reported Metabolic Diabetes Mellitus and Hyperlipidemia Neuropsych Neuropathy Anesthetic Plan ASA status: 4 Anesthesia: General Risk of > 500 ml blood loss (7ml/kg in children): No Other Pertinent Information multiple myeloma in remission Medications/Allergies Home Medications Medication Instructions Recorded Confirmed Last Taken Type insulin degludec [Tresiba 32 unit SUBCUT BEDTIME 11/02/19 07/20/22 07/19/22 History FlexTouch U-100] simvastatin 20 mg tablet 20 mg PO DAILY 11/02/19 07/20/22 07/19/22 History apixaban 5 mg tablet (Eliquis) 5 mg PO BID 01/31/22 07/20/22 07/20/22 History aripiprazole 5 mg tablet (Abilify) 5 mg PO DAILY 01/31/22 07/20/22 07/19/22 History trazodone 150 mg tablet 150 mg PO DAILY 01/31/22 07/20/22 07/19/22 History escitalopram oxalate 20 mg tablet 20 mg PO DAILY 02/26/22 07/20/22 07/19/22 History (Lexapro) sotalol 160 mg tablet 160 mg PO BID #180 tabs 03/20/22 07/20/22 07/19/22 Rx clonazepam 0.25 mg disintegrating 0.25 mg PO Q8H PRN Anxiety 05/30/22 07/20/22 Unknown History tablet lenalidomide 5 mg capsule 5 mg PO DAILY #21 caps 06/25/22 07/20/22 07/19/22 Rx (Revlimid) enoxaparin 100 mg/mL subcutaneous 100 mg SUBCUT Q12H #4 mL 07/18/22 07/20/22 Unknown Rx syringe (Lovenox) potassium chloride 20 mEq 20 meq PO DAILY 07/20/22 07/20/22 07/19/22 History tablet,extended release(part/cryst) (Klor-Con M) Allergies Allergy/AdvReac Type Severity Reaction Status Date / Time No Known Allergies Allergy Verified 07/20/22 08:17 [facility] Anesthesia Medical History Anticoagulation adequate with anticoagulant therapy Pradaxa ASHD (arteriosclerotic heart disease) Atrial fibrillation Balanitis Diabetes Diarrhea Dyslipidemia History of cardioversion HTN (hypertension) Lymphoma Multiple myeloma Obesity Tubular adenoma Surgical History H/O bone marrow transplant History of colonoscopy 01/2022 Previous back surgery S/P orchiectomy Family History Brother CAD (coronary artery disease) Cancer Mother CHF (congestive heart failure) Brother Cancer Sister Cancer Sister Cancer Family/Other Cancer Chronic kidney disease (CKD) Denies family history of Diabetes Clotting disorder Dementia Anesthesia complication Bleeding disorder Lung disease Stroke Social History Smoking and tobacco status: never smoked Alcohol intake: never Marital status: Current occupational status: retired Data Anesthesia Cardiac Studies: No Data to Display
[2022-07-20 09:54] LABS: Basophils # 0.1 10^3/uL (0.0-0.1); Basophils % 1.2 %; Eosinophils # 0.2 10^3/uL (0.0-0.8); Eosinophils % 3.7 %; Hematocrit 43.9 % (42.0-52.0); Hemoglobin 14.4 g/dL (11.7-16.6); Lymphocytes # 1.3 10^3/uL (0.8-4.8); Lymphocytes % 25.6 %; Mean Corpuscular HGB Conc 32.8 g/dL (30.0-36.0); Mean Corpuscular Volume 94.6 fl (80-94); Monocytes # 0.4 10^3/uL (0.2-0.9); Monocytes % 8.7 %; Neutrophils # 2.95 10^3/uL (1.8-7.7); Neutrophils % 59.8 %; Nucleated Red Blood Cells % 0 %; Platelet Count 166 10^3/cmm (130-400); Red Blood Count 4.64 10^6/uL (4.1-5.3); Red Cell Distribution Width 13.3 % (12.1-15.1); White Blood Count 4.9 10^3/uL (4.0-10.0)
[2022-07-20 10:09] LABS: Anion Gap 12.1 (5-19); Blood Urea Nitrogen 11 mg/dL (8-23); Calcium 8.9 mg/dL (8.5-10.5); Carbon Dioxide 28 mmol/L (22-29); Chloride 103 mmol/L (98-107); Glucose 140 mg/dL (65-115); Osmolality Calculated 290 mOsm/kg (285-295); Potassium 4.1 mmol/L (3.5-5.1); Sodium 139 mmol/L (136-145)
--- NOTE | 2022-07-25 | XR_ITS ---
WS: [id number] INTRAOPERATIVE TECHNIQUE: 3 Spot fluoroscopic images for intraoperative purposes. FLUOROSCOPY TIME: 8.1 seconds CLINICAL INFORMATION: OR PIC, decompression l2-3, L3-4, L4-5 COMPARISON: None. FINDINGS: Localization marker overlying the L2-L3 interspace dorsally XR/XR lumbar spine 2-3V* [id number] IMPRESSION: Images obtained for intraoperative purposes.
[2022-07-25 08:55] VITALS: BP 153/81; PULSE 56; RESP 16; TEMP 36.9; O2SAT 98
[2022-07-25 09:04] LABS: Glucose Point of Care 96 mg/dL (70-110)
[2022-07-25] MEDS: sodium chloride 0.9% 1,000 ML 30 ML IV (09:15)
--- NOTE | 2022-07-25 10:05 | P.ANESUD_ITS ---
Pre-Anesthetic Update Pre-Anesthetic Assessment: Date of Surgery/Procedure: 07/25/22 Preop Maribel gnosis: Lumbar stenosis with neurogenic claudication Proposed Procedure: Operation Date: 07/25/22 10:05 Proposed Procedures p Lumbar Spine Decompression L2/3 L3/4 L4/5 67627/53540F1/M48.062(Not Applicable) - Jonathan Hong, DO Any changes to Pre-Anesthetic Assessment?: No Last Intake: Intake Last Liquid Date 07/24/22 Last Liquid Time 19:00 Last Solid Date 07/24/22 Last Solid Time 18:00 Vitals: Temperature 98.5 F 07/25/22 08:55 Temperature Source Temporal Artery S can 07/25/22 08:55 Pulse Rate 56 L 07/25/22 08:55 Respiratory Rate 16 07/25/22 08:55 Blood Pressure 153/81 07/25/22 08:55 Blood Pressure Awilda n 105 07/25/22 08:55 Pulse Oximetry 98 07/25/22 08:55 Oxygen Delivery Me thod 07/25/22 08:58 Exam: Pre-Anes Outpt Exam: alert, oriented x 3, clear to auscultation bilaterally and regular rate & rhythm Cardiac Studies: No Data to Display
--- NOTE | 2022-07-25 10:15 | W.PM.OPSUD ---
Surgery/Procedure H&P Update DATE OF PROCEDURE: July 25, 2022 DATE H&P PERFORMED: 07/12/22 H&P UPDATE INFORMATION: I have reviewed H&P completed within last 30 days, I have examined patient prior to procedure and No changes to prior documentation PREOP DIAGNOSIS: Lumbar stenosis with neurogenic claudication PLANNED PROCEDURE: Operation Date: 07/25/22 10:05 Proposed Procedures p Lumbar Spine Decompression L2/3 L3/4 L4/5 61745/79047D6/M48.062(Not Applicable) - Jonathan Hong DO
[2022-07-25] MEDS: ceFAZolin 2,000 MG in sodium chloride 0.9% (plus) 50 ML 100 MG IV (10:30)
[2022-07-25] MEDS: vancomycin 1,000 MG SDV 1000 MG XX (12:35)
--- NOTE | 2022-07-25 12:59 | PM.OP ---
Operative Report Date of procedure: July 25, 2022 Pre-op diagnosis: Preop Diagnosis Lumbar stenosis with neurogenic claudication Post-op diagnosis: same Procedure done: 1. L2/3 Laminectomy with partial facetectomies 2. Revision L3/4 laminectomy with partial facetectomies 3. Revison L4/5 laminectomies with partial facetectomies Surgeon: Jonathan Hong Director [employer]: Yogesh Medina Director [employer] Data [employer]: The surgical instrument mechanic, Yogesh Medina, PAC was needed for his expertise under the microscope. He was important and necessary throughout the procedure to complete in a safe and timely manner. He assisted with patient positioning prepping and draping tissue retraction suctioning of the operative field protection of the dural sac and tissue closure Estimated blood loss (mL): 250 Procedure: 1. L2/3 Laminectomy with partial facetectomies 2. Revision L3/4 laminectomy with partial facetectomies 3. Revison L4/5 laminectomies with partial facetectomies Patient is brought to the procedure after undergoing esthesia was placed in the prone position. All areas impingement well-padded. Patient was prepped and draped normal sterile fashion. Skin was made from L2 down to L5. Skin incision was made subperiosteal dissection was made out to the facet joints of L2-3 L3-4 and L4-5. Retractors were placed. Microscope was brought in. The rongeur was used to take down the spinous process of L2 down to L5. The laminectomies were performed at L2 using high-speed bur Kerrison rongeur. The medial aspect of the facet joints were taken down bilaterally as well using the high-speed bur. This is the L2-3 facet joint. The curved curette was used to undermine the ligamentum flavum and ligamentum flavum was taken down from L2-L3. The Kerrison rongeur was used to complete the laminectomy as well as open up the medial aspect of facet joints even further. The L2 nerves were traced out the L2-3 foramen felt to be adequate decompressed the L3 nerve was traced around the L3 pedicle bilaterally felt to be adequately decompressed. Was brought to the L3-4 level. This is a revision at this level. The high-speed bur was used to take down the bone that was present of the lamina. Care Curettes and Kerrisons were used to peel down the scar tissue bilaterally. The medial aspect of facet joint was taken back further. And again curved curette was used to out the scar tissue and then the Kerrison rongeur was used to take down the medial aspect facet joint this was done bilaterally the L III nerve was traced out the L3-4 foramen bilaterally. In the L4 nerve was traced around the L4 pedicle as well. Partial ligamentum flavum was taken down was scarred significantly to the dura. Extension was brought to the L4-5 level of the high-speed bur again was used to take down remaining bone. Kerrison rongeur and curved curettes were used to peel off scar tissue and the lamina and partial facetectomies were taken down bilaterally. And the L L4 nerve was traced out the L4-5 foramen the L5 nerve was traced from the L5 pedicle the nerves well felt to be adequately decompressed. The wound was irrigated Surgiflo was placed. Deep drain was placed which is can be removed in PACU and was closed in layered fashion with 0 Vicryl 2-0 Vicryl and Monocryl suture. Sterile dressings were applied.
[2022-07-25 13:05] VITALS: BP 149/84; PULSE 63; RESP 14; TEMP 36.5; O2SAT 98
[2022-07-25 13:10] VITALS: BP 150/88; PULSE 66; RESP 16; O2SAT 98
[2022-07-25 13:15] VITALS: BP 147/86; PULSE 64; RESP 18; O2SAT 99
[2022-07-25] MEDS: ondansetron 2 mg/ML SDV 2 mL 4 MG IVP (13:18)
[2022-07-25 13:20] VITALS: BP 139/77; PULSE 64; RESP 17; O2SAT 95
[2022-07-25 13:30] VITALS: BP 139/85; PULSE 62; RESP 17; TEMP 36.5; O2SAT 92
--- NOTE | 2022-07-25 14:05 | ANE.PACU2 ---
Inpatient post-anesthesia follow up: Airway intact: Yes Vital signs: Temperature 97.7 F Pulse Rate 62 Respiratory Rate 17 Blood Pressure 139/85 Pulse Oximetry 92 Oxygen Delivery Me thod Room Air Oxygen Flow Rate 6 Fraction of Inspir ed Oxygen Hydration adequate: Yes Nausea and vomiting: No Pain level: 3 Mental status: Baseline
--- NOTE | 2022-07-25 14:32 | PC.NURSE ---
1410 hours. shane MONTEZ from pacu and loretta MONTEZ ops pulled hemovac drain per Dr Hong. site dressed with sterile gauze and tape. no unexpected bleeding noted and patient tolerated well.
== END 2022-07-25 14:25 | disposition home or self-care (01) ==
PROVIDERS: Anesthesiology; PCP Internal Medicine; Visit Provider Orthopaedic Surgery
PROC: (CPT 63005; principal; 2022-07-25 09:55)
DX: M48.062 Spinal stenosis, lumbar region with neurogenic claudication (principal); I48.91 Unspecified atrial fibrillation; I25.10 Atherosclerotic heart disease of native coronary artery without angina pectoris; I10 Essential (primary) hypertension; E78.5 Hyperlipidemia, unspecified; E11.40 Type 2 diabetes mellitus with diabetic neuropathy, unspecified; E66.9 Obesity, unspecified; Z68.31 Body mass index [BMI] 31.0-31.9, adult
CPT/HCPCS: 63047; 63048 ×2; 36415; 36416; 51702; 72100; 76000; 80048; 82962; 85025; 93005; J0690; J1100; J1170; J2405; J2704; J3010; J3370; J3490; J7030; P9045

== ENCOUNTER → 2022-08-07 11:26 | Outpatient (BNVA) | payer MEDICARE, OTHER, SELFPAY | PROVIDERS: PCP Internal Medicine; Visit Provider Orthopaedic Surgery | DX: Z47.89 Encounter for other orthopedic aftercare (principal) | CPT/HCPCS: 99024 ==

== ENCOUNTER → 2022-09-04 10:48 | Outpatient (BNVA) | payer MEDICARE, OTHER, SELFPAY | PROVIDERS: PCP Internal Medicine; Visit Provider Orthopaedic Surgery | DX: Z47.89 Encounter for other orthopedic aftercare (principal) | CPT/HCPCS: 99024 ==

== ENCOUNTER → 2022-10-18 12:53 | Outpatient (BNVA) | payer MEDICARE, OTHER, SELFPAY | PROVIDERS: PCP Internal Medicine; Visit Provider Orthopaedic Surgery | DX: Z47.89 Encounter for other orthopedic aftercare (principal) | CPT/HCPCS: 99024 ==

== ENCOUNTER 2022-10-23 06:00 | Outpatient (RCR) | payer MEDICARE, OTHER, SELFPAY | END 2022-10-30 23:59 | disposition home or self-care (01) | LOC: TPT 06:00 | PROVIDERS: PCP Internal Medicine; Visit Provider Orthopaedic Surgery | DX: Z48.811 Encounter for surgical aftercare following surgery on the nervous system (principal) | CPT/HCPCS: 97110; 97162 ==

== ENCOUNTER 2022-10-31 06:00 | Outpatient (RCR) | payer MEDICARE, OTHER, SELFPAY | END 2022-11-30 23:59 | disposition home or self-care (01) | LOC: TPT 06:00 | PROVIDERS: PCP Internal Medicine; Visit Provider Orthopaedic Surgery | DX: Z48.811 Encounter for surgical aftercare following surgery on the nervous system (principal) | CPT/HCPCS: 97110 ==

== ENCOUNTER → 2022-11-12 16:14 | Outpatient (BNVA) | payer MEDICARE, OTHER, SELFPAY | PROVIDERS: PCP Internal Medicine; Visit Provider Internal Medicine Hematology & Oncology | DX: C90.01 Multiple myeloma in remission (principal) | CPT/HCPCS: 80053; 83883; 84155; 84165; 85025; 86334 ==

== ENCOUNTER 2022-11-21 09:39 | Oncology outpatient (recurring) (ONCR) | payer MEDICARE, OTHER, SELFPAY | END 2022-11-30 23:59 | disposition home or self-care (01) | LOC: ONCMED 09:40 | PROVIDERS: PCP Internal Medicine; Visit Provider Internal Medicine Hematology & Oncology | DX: C90.31 Solitary plasmacytoma in remission (principal); Z90.79 Acquired absence of other genital organ(s); D64.9 Anemia, unspecified; L98.8 Other specified disorders of the skin and subcutaneous tissue; R73.9 Hyperglycemia, unspecified; R19.7 Diarrhea, unspecified; Z79.899 Other long term (current) drug therapy | CPT/HCPCS: 99214 ==

== ENCOUNTER → 2022-12-12 13:49 | Outpatient (BNVA) | payer MEDICARE, OTHER, SELFPAY | PROVIDERS: PCP Internal Medicine; Visit Provider Internal Medicine Cardiovascular Disease | DX: I25.10 Atherosclerotic heart disease of native coronary artery without angina pectoris (principal); E11.9 Type 2 diabetes mellitus without complications; I48.91 Unspecified atrial fibrillation; I10 Essential (primary) hypertension; E78.5 Hyperlipidemia, unspecified; Z79.01 Long term (current) use of anticoagulants; Z79.4 Long term (current) use of insulin | CPT/HCPCS: 99214 ==

== ENCOUNTER 2023-01-02 14:43 | Outpatient (CLI) | payer MEDICARE, OTHER, SELFPAY ==
--- NOTE | 2023-01-02 14:30 | USCV_ITS ---
Jasmyn Shad Age: 77 Gender: M : 1945 Exam Date: 01/02/2023 14:58 Ordering Phys: Fahad Vasquez MD ([email or web address]) Technologist: Jolene Frey [place] [facility] [place] AFIB BP: 126 / 88 HR: 91 Rhythm: Atrial fibrillation Technical Quality: Adequate MEASUREMENTS (Male / Female) Normal Values 2D ECHO LV Diastolic Diameter PLAX 5.3 cm 4.2 - 5.9 / 3.9 - 5.3 cm LV Systolic Diameter PLAX 4.1 cm IVS Diastolic Thickness 1.2 cm 0.6 - 1.0 / 0.6 - 0.9 cm IVS Systolic Thickness 1.5 cm LVPW Diastolic Thickness 0.9 cm 0.6 - 1.0 / 0.6 - 0.9 cm LVPW Systolic Thickness 1.6 cm LVOT Diameter 2.1 cm LV Ejection Fraction 2D Teich 45.7 % LV Ejection Fraction MOD 2C 67.5 % LV Ejection Fraction 2C AL 69.8 % LA Diameter 4.2 cm LA Width 2.7 cm LA Height 4.8 cm RA Width 3.0 cm RA Height 4.3 cm Aorta at Sinotubular Diameter 3.5 cm IVC Diameter 1.5 cm M-MODE Aortic Annulus Diameter 3.3 cm LA Ao Ratio MM 1.4 MV E Point Septal Separation 0.8 cm DOPPLER AV Peak Velocity 125.0 cm/s LVOT Peak Velocity 83.0 cm/s AV Area Cont Eq vti 2.7 cm squared AV Area Cont Eq pk 2.3 cm squared MV Peak Velocity 121.0 cm/s MV Area PHT 4.8 cm squared Mitral E to A Ratio 3.9 MV E' Velocity 63.5 cm/s Mitral E to MV E' Ratio 8.9 Mitral E to LV E' Lateral Ratio 6.8 Mitral E to LV E' Septal Ratio 13.1 TR Peak Velocity 105.3 cm/s TR Peak Gradient 4.4 mmHg Right Atrial Pressure 5.0 mmHg Pulmonary Artery Systolic Pressu 9.4 mmHg PV Peak Velocity 91.0 cm/s RV Acceleration Time 0.1 s RV Ejection Time 0.3 s RV AcT/ET 0.4 FINDINGS Left Ventricle Normal left ventricular size and systolic function, EF 68 %. Mild left ventricular hypertrophy. No regional wall motion abnormalities. Right Ventricle The right ventricle is normal in size and function. Right Atrium The right atrium is normal in size. Left Atrium Mildly increased left atrial size. Mitral Valve Trace mitral valve regurgitation. Aortic Valve Thickened aortic valve. Trace to mild aortic valve regurgitation. Tricuspid Valve Trace tricuspid valve regurgitation. Pulmonic Valve No gross abnormalities noted . Pericardium Normal pericardium without effusion. Aorta Normal ascending aorta dimension. IVC The inferior vena cava appears normal. CONCLUSIONS Normal left ventricular size and systolic function, EF 68 %. Mild left ventricular hypertrophy. No regional wall motion abnormalities. Mildly increased left atrial size. Trace mitral valve regurgitation. Thickened aortic valve. Trace to mild aortic valve regurgitation. Trace tricuspid valve regurgitation. There is no pericardial effusion. There are no intracardiac masses. No similar previous studies are available for comparison Dr Fahad Vasquez MD [facility] (Electronically Signed) Final Date: 07 Jan 2023 09:35 S
== END 2023-01-02 14:44 | disposition home or self-care (01) ==
LOC: RAD 14:47
PROVIDERS: PCP Internal Medicine; Visit Provider Internal Medicine Cardiovascular Disease
DX: R06.09 Other forms of dyspnea (principal); I48.91 Unspecified atrial fibrillation; I51.7 Cardiomegaly; I35.8 Other nonrheumatic aortic valve disorders
CPT/HCPCS: 93306

== ENCOUNTER → 2023-01-15 11:42 | Outpatient (BNVA) | payer MEDICARE, OTHER, SELFPAY | PROVIDERS: PCP Internal Medicine; Visit Provider Physician Assistant | DX: M48.062 Spinal stenosis, lumbar region with neurogenic claudication (principal) | CPT/HCPCS: 72100; 99213 ==

== ENCOUNTER 2023-01-29 06:00 | Outpatient (RCR) | payer MEDICARE, OTHER, SELFPAY | END 2023-01-30 23:59 | disposition home or self-care (01) | LOC: TPT 06:00 | PROVIDERS: Visit Provider Physician Assistant | DX: M54.50 Low back pain, unspecified (principal) | CPT/HCPCS: 97110; 97162 ==

== ENCOUNTER 2023-01-31 06:00 | Outpatient (RCR) | payer MEDICARE, OTHER, SELFPAY | END 2023-03-01 23:59 | disposition home or self-care (01) | LOC: TPT 06:00 | PROVIDERS: Visit Provider Physician Assistant | DX: M54.50 Low back pain, unspecified (principal) | CPT/HCPCS: 97110 ==

== ENCOUNTER 2023-03-02 06:00 | Outpatient (RCR) | payer MEDICARE, OTHER, SELFPAY | END 2023-03-08 23:59 | disposition home or self-care (01) | LOC: TPT 06:00 | PROVIDERS: Visit Provider Physician Assistant | DX: M54.50 Low back pain, unspecified (principal) | CPT/HCPCS: 97110 ==

== ENCOUNTER → 2023-04-10 07:55 | Outpatient (BNVA) | payer MEDICARE, OTHER, SELFPAY | PROVIDERS: PCP Internal Medicine; Referring Provider Physician Assistant; Visit Provider Specialist | DX: G31.84 Mild cognitive impairment of uncertain or unknown etiology; M46.96 Unspecified inflammatory spondylopathy, lumbar region; E11.9 Type 2 diabetes mellitus without complications; Z79.4 Long term (current) use of insulin; F31.9 Bipolar disorder, unspecified; Z87.898 Personal history of other specified conditions; Z91.81 History of falling | CPT/HCPCS: 96116; 99205 ==

== ENCOUNTER → 2023-04-30 08:59 | Outpatient (BNVA) | payer MEDICARE, OTHER, SELFPAY | PROVIDERS: PCP Internal Medicine; Visit Provider Anesthesiology Pain Medicine | DX: M47.816 Spondylosis without myelopathy or radiculopathy, lumbar region (principal); M48.062 Spinal stenosis, lumbar region with neurogenic claudication | CPT/HCPCS: 99204 ==

== ENCOUNTER 2023-05-13 19:37 | Inpatient (IN) | payer MEDICARE, OTHER, SELFPAY ==
[2023-05-13 19:52] VITALS: BP 132/71; PULSE 46; RESP 18; TEMP 36.7; O2SAT 97; BMI 31.6
--- NOTE | 2023-05-13 20:01 | XRR_ITS ---
PROCEDURE INFORMATION: Exam: XR Right Hip Exam date and time: 05/13/2023 8:06 PM Age: 78 years old Clinical indication: Hip pain; Right hip; Additional info: Fall TECHNIQUE: Imaging protocol: Radiologic exam of the right hip. Views: 1 view hip with pelvis when performed. COMPARISON: CT abdomen pelvis w con* [id number] 02/27/2019 12:43 PM FINDINGS: Bones/joints: There is a subtle lucency through the neck of the right femur which may be a nondisplaced fracture versus prominent trabeculation seen on the prior CT. The cortex on the current exam appears intact. The femoral head remains well seated in the acetabulum. There are moderate degenerative changes. Soft tissues: Unremarkable. XR/XR hip RT 2-3V wo/w pel* [id number] IMPRESSION: Questionable nondisplaced fracture through the femoral neck versus prominent trabeculation seen on the previous CT.
[2023-05-13 20:04] VITALS: BP 132/71; PULSE 46; RESP 18; O2SAT 97
--- NOTE | 2023-05-13 20:33 | CTR_ITS ---
PROCEDURE INFORMATION: Exam: CT Pelvis Without Contrast; Skeletal Exam date and time: 05/13/2023 9:01 PM Age: 78 years old Clinical indication: Injury or trauma; Fall; Blunt trauma (contusions or hematomas); Injury details: Attn right hip; Additional info: Include right hip TECHNIQUE: Imaging protocol: Computed tomography of the pelvis without contrast. Exam focused on the skeleton. Radiation optimization: All CT scans at this facility use at least one of these dose optimization techniques: automated exposure control; mA and/or kV adjustment per patient size (includes targeted exams where dose is matched to clinical indication); or iterative reconstruction. REPORTING DATA: Count of CT and Cardiac NM exams in prior 12 months: This patient has received 0 known CTs and 0 known cardiac nuclear medicine studies in the 12 months prior to the current study. COMPARISON: CR (PELVIS, ) 05/13/2023 8:06 PM RADIATION DOSE METRICS: Total DLP (mGy-cm): 672.52 FINDINGS: Reproductive: The prostate is enlarged, measuring 6.1 x 5.6 x 6.2 cm. Bones/joints: There is a nondisplaced inter trochanteric fracture of the right femur with minimal impaction. The femoral head remains well seated in the acetabulum. Soft tissues: Unremarkable. CT/CT pelvis wo con [id number] IMPRESSION: Nondisplaced inter trochanteric fracture of the right femur. No dislocation. Prostatomegaly.
--- NOTE | 2023-05-13 20:35 | W.ED.FALL ---
HPI - Fall General: Chief Complaint: Fall Stated Complaint: possible right hip fracture Time Seen by Provider: 05/13/23 20:23 History of Present Illness: 78-year-old male patient comes in today for injury to the right hip secondary to a fall. Patient reports he was coming out of the store and was stepping down off the curb when he lost his step causing him to fall onto his right side of his body. Patient has an abrasion on his knee and his elbow on the right side. Patient is able to lift the left leg off the table but was not able to lift the right leg. Pulses are intact distally. Sensation is normal distally. Associated symptoms-after fall: Denies chest pain or headache(s) Review of Systems General: Reports: 10 or more systems reviewed and unremarkable except in HPI and below Const: Denies: fever(s) Card: Denies: chest pain Resp: Denies: dyspnea GI: Denies: nausea, vomiting, diarrhea or constipation : Denies: difficulty urinating Musc: Reports: extremity pain and joint pain (Right hip) Skin/Breast: Reports: new lesions (Abrasions right elbow, right knee) Neuro: Denies: headache(s) PFSH ED PFSH: Medical History Anticoagulation adequate with anticoagulant therapy Pradaxa ASHD (arteriosclerotic heart disease) Atrial fibrillation Balanitis Diabetes Diarrhea Dyslipidemia History of cardioversion History of nonmelanoma skin cancer HTN (hypertension) Lymphoma Multiple myeloma Obesity Tubular adenoma Surgical History H/O bone marrow transplant History of colonoscopy 01/2022 Previous back surgery S/P orchiectomy Family History Brother CAD (coronary artery disease) Cancer Mother CHF (congestive heart failure) Brother Cancer Sister Cancer Sister Cancer Family/Other Cancer Chronic kidney disease (CKD) Denies family history of Diabetes Clotting disorder Dementia Anesthesia complication Bleeding disorder Lung disease Stroke Social History Smoking and tobacco status: never smoked Alcohol intake: never Substance/Drug Use: never Marital status: Current occupational status: retired Physical Exam Const: COMMON NORMALS: alert HENMT: COMMON NORMALS: atraumatic and Normal external nose present HEAD & SCALP: atraumatic NOSE: Normal external nose present Neck/C-Spine: COMMON NORMALS: full ROM CERVICAL SPINE: No Cervical spine tenderness Chest: COMMONS NORMALS: normal inspection of the chest and normal palpation of entire chest wall Resp: COMMON NORMALS: normal respiratory effort and clear to auscultation bilaterally AUSCULTATION: clear to auscultation bilaterally Cardio: COMMON NORMALS: regular rate and regular rhythm RATE: regular rate RHYTHM: regular rhythm GI: COMMON NORMALS: non-tender : COMMON NORMALS: Yes no CVA tenderness BLADDER/KIDNEY EXAM: Yes no CVA tenderness Back/Pelvis: COMMON NORMALS: no CVA tenderness Extremity: RIGHT UPPER EXTREMITY: Yes elbow joint (Superficial abrasion) RIGHT LOWER EXTREMITY: Yes hip joint (Decreased range of motion, inguinal tenderness) and Yes knee joint (Superficial abrasion normal range of motion) Neuro: SENSORIUM/ORIENTATION: Yes alert Skin: TRAUMA: abrasion (Right elbow, right knee) Course ED course: 2119, reviewed patient with Dr. Mondragon, orthopedist on-call, she recommended admission to medical services with her to consult for hip repair. 2129, reviewed patient with Dr. Remy, hospitalist on-call, she excepted the patient for medical services. Vital Signs: Vital signs: Vital Signs Temperature 98.0 F 05/13/23 19:52 Pulse Rate 46 L 05/13/23 20:04 Respiratory Rate 18 05/13/23 20:04 Blood Pressure 132/71 05/13/23 20:04 Pulse Oximetry 97 05/13/23 20:04 Oxygen Delivery Me thod Room Air 05/13/23 20:04 MDM - Fall Medical Decision Making Patient came in for evaluation after a fall on the street. Patient was stepping down off a curb when he lost stepped and causing him to fall onto his right side. On exam patient has no injury to the head. Abdomen soft nontender. Chest wall is nontender. Patient has an abrasion to the right elbow. Normal range of motion of the elbow and arm is noted. Patient has an abrasion to the right knee. Patient has pain to the right hip with inguinal palpation and decreased range of motion of the right hip. No other injury was noted. Differential diagnosis includes but not limited to fracture, abrasion, contusion. X-ray of the right hip and pelvis noted a possible fracture that was confirmed with CT scans of the right intertrochanter. Discussed this with Dr. Mondragon who accepted patient. Talk to the hospitalist on-call Dr. Remy, who accepted patient for medical services. Patient needs admission for surgical repair of hip and management of chronic illnesses. Lab Data 05/13/23 21:43 05/13/23 21:43 Radiology Impressions Hip/Pelvis X-Ray 05/13/23 20:01 IMPRESSION: Questionable nondisplaced fracture through the femoral neck versus prominent trabeculation seen on the previous CT. Pelvis CT 05/13/23 20:33 IMPRESSION: Nondisplaced inter trochanteric fracture of the right femur. No dislocation. Prostatomegaly. Chest X-Ray 05/13/23 21:12 IMPRESSION: No acute findings. Stops Laboratory Results WBC 8.08 10^3/uL (3.29-11.43) 05/13/23 21:43 RBC 4.18 10^6/uL (3.85-5.65) 05/13/23 21:43 Hgb 13.30 g/dL (11.27-16.99) 05/13/23 21:43 Hct 40.6 % (37-53) 05/13/23 21:43 MCV 97.1 fl (82-101) 05/13/23 21:43 MCH 31.8 pg (27-33) 05/13/23 21:43 MCHC 32.8 g/dL (30-55) 05/13/23 21:43 RDW 14.5 % (12.1-15.1) 05/13/23 21:43 Plt Count 192 10^3/cmm (157-399) 05/13/23 21:43 MPV 10.0 fL (7.4-10.4) 05/13/23 21:43 Neut % (Auto) 77.2 % 05/13/23 21:43 Lymph % (Auto) 13.6 % 05/13/23 21:43 Real % (Auto) 6.3 % 05/13/23 21:43 Eos % (Auto) 1.6 % 05/13/23 21:43 Baso % (Auto) 0.6 % 05/13/23 21:43 Neut # (Auto) 6.23 10^3/uL (1.8-7.7) 05/13/23 21:43 Lymph # (Auto) 1.1 10^3/uL (0.8-4.8) 05/13/23 21:43 Real # (Auto) 0.5 10^3/uL (0.2-0.9) 05/13/23 21:43 Eos # (Auto) 0.1 10^3/uL (0.0-0.8) 05/13/23 21:43 Baso # (Auto) 0.1 10^3/uL (0.0-0.1) 05/13/23 21:43 Nucleated RBC % (auto) 0 % 05/13/23 21:43 Nucleated RBCs # 0.0 /100WBC 05/13/23 21:43 Discharge Plan Discharge Patient Disposition: Admitted As Inpatient Clinical Impression: Fracture of hip, right, closed Qualifiers: Encounter type: initial encounter Qualified Code(s): S72.001A - Fracture of unspecified part of neck of right femur, initial encounter for closed fracture Condition: Stable Coding Level of Care Code ED Right Of Way Manager for Lita Salazar
[2023-05-13] MEDS: HYDROcodone-acetaminophen 7.5-325 mg Tablet 1 TAB PO (20:56)
--- NOTE | 2023-05-13 21:12 | ECG_ITS ---
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 Measurements Intervals [place] Rate: 55 P: 83 [place]: 186 QRS: 10 QRSD: 93 T: 17 QT: 472 QTc: 455 Interpretive Statements SINUS BRADYCARDIA WITH OCCASIONAL ECTOPIC PREMATURE COMPLEXES PROLONGED QT INTERVAL Compared to ECG 07/20/2022 09:55:47 Prolonged QT interval now present Myocardial infarct finding no longer present Electronically Signed On 05-14-2023 9:47:22 CDT by Rajiv Acuna M.D. [id number]
--- NOTE | 2023-05-13 21:12 | XRR_ITS ---
PROCEDURE INFORMATION: Exam: XR Chest Exam date and time: 05/13/2023 9:22 PM Age: 78 years old Clinical indication: Injury or trauma; Fall; Additional info: Fall injury TECHNIQUE: Imaging protocol: Radiologic exam of the chest. Views: 1 view. COMPARISON: CR XR chest 1V portable [id number] 01/19/2022 6:51 PM FINDINGS: Lungs: Unremarkable. No consolidation. Pleural spaces: Unremarkable. No pleural effusion. No pneumothorax. Heart/Mediastinum: Unremarkable. No cardiomegaly. Bones/joints: Unremarkable. XR/XR chest 1V portable [id number] IMPRESSION: No acute findings. Stops
[2023-05-13 21:52] LABS: Basophils # 0.1 10^3/uL (0.0-0.1); Basophils % 0.6 %; Eosinophils # 0.1 10^3/uL (0.0-0.8); Eosinophils % 1.6 %; Hematocrit 40.6 % (37-53); Lymphocytes # 1.1 10^3/uL (0.8-4.8); Lymphocytes % 13.6 %; Mean Corpuscular HGB Conc 32.8 g/dL (30-55); Mean Corpuscular Hemoglobin 31.8 pg (27-33); Mean Corpuscular Volume 97.1 fl (82-101); Monocytes # 0.5 10^3/uL (0.2-0.9); Monocytes % 6.3 %; Neutrophils # 6.23 10^3/uL (1.8-7.7); Neutrophils % 77.2 %; Nucleated Red Blood Cells % 0 %; Platelet Count 192 10^3/cmm (157-399); Red Blood Count 4.18 10^6/uL (3.85-5.65); Red Cell Distribution Width 14.5 % (12.1-15.1); White Blood Count 8.08 10^3/uL (3.29-11.43)
[2023-05-13 22:23] LABS: Alanine Aminotransferase < 5 U/L (0-41); Albumin Level 3.6 g/dL (3.5-5.2); Alkaline Phosphatase 115 U/L (40-130); Blood Urea Nitrogen 13 mg/dL (8-23); Calcium 8.8 mg/dL (8.5-10.5); Carbon Dioxide 25 mmol/L (22-29); Chloride 105 mmol/L (98-107); Globulin 2.9 g/dL (1.3-4.6); Glucose 160 mg/dL (65-115); Osmolality Calculated 290 mOsm/kg (285-295); Sodium 138 mmol/L (136-145); Total Bilirubin 0.7 mg/dL (0.15-1.2); Total Protein 6.5 g/dL (6.6-8.7)
[2023-05-13 22:24] LABS: Anion Gap 12.4 (5-19); Aspartate Amino Transferase 18 U/L (0-40); Potassium 4.4 mmol/L (3.5-5.1)
[2023-05-13 22:45] VITALS: BP 140/79; PULSE 52; O2SAT 97
--- NOTE | 2023-05-13 22:52 | PM.HP ---
Providers/Chief Complaint Admitting Physician: [place] Remy MD Primary Care Provider: Jayden Blake MD Chief Complaint: possible right hip fracture History of Present Illness Shad Vines is a 78 year old male with history of atrial fibrillation on Eliquis 5 mg twice daily diabetes left foot drop hypertension dyslipidemia multiple myeloma in remission since 2 years presented after he had a fall this morning along the curbside. He reports he was stepping down the curb when he slipped and fell on his right side. He did not feel any chest pain shortness of breath dizziness prior to the episode. He then started feeling pain in his right hip along with abrasions to bilateral knee and left elbow. He denies any history of fever cough chest pain urinary or bowel complaints. He further reports he did not hit his head. Review of Systems Narrative: As per HPI Medications/Allergies Home Medications Medication Instructions Recorded Confirmed Last Taken Type insulin degludec [Tresiba 32 unit SUBCUT DAILY 11/02/19 05/13/23 05/13/23 08:00 History FlexTouch U-100] simvastatin 20 mg tablet 20 mg PO DAILY 11/02/19 05/13/23 05/12/23 20:00 History apixaban 5 mg tablet (Eliquis) 5 mg PO BID 01/31/22 05/13/23 05/13/23 08:00 History escitalopram oxalate 20 mg tablet 20 mg PO DAILY 02/26/22 05/13/23 05/13/23 08:00 History (Lexapro) sotalol 160 mg tablet 160 mg PO BID #180 tabs 03/20/22 05/13/23 05/13/23 08:00 Rx potassium chloride 20 mEq See Rx Instructions .Route 03/13/23 05/13/23 05/13/23 08:00 Rx tablet,extended release(part/cryst) .COMPLEX #30 tabs carbidopa 25 mg-levodopa 100 mg 1 tab PO TID 30 days #90 tabs 04/10/23 05/13/23 05/13/23 16:00 Rx tablet pantoprazole 40 mg tablet,delayed 40 mg PO DAILY 30 days #30 tabs 04/10/23 05/13/23 05/13/23 08:00 Rx release lenalidomide 5 mg capsule 5 mg PO BEDTIME 05/14/23 05/14/23 05/12/23 20:00 History (Revlimid) Allergies Allergy/AdvReac Type Severity Reaction Status Date / Time No Known Allergies Allergy Verified 04/30/23 07:56 PFSH Acute PFSH: Medical History Anticoagulation adequate with anticoagulant therapy Pradaxa ASHD (arteriosclerotic heart disease) Atrial fibrillation Balanitis Diabetes Diarrhea Dyslipidemia History of cardioversion History of nonmelanoma skin cancer HTN (hypertension) Lymphoma Multiple myeloma Obesity Tubular adenoma Surgical History H/O bone marrow transplant History of colonoscopy 01/2022 Previous back surgery S/P orchiectomy Family History Brother CAD (coronary artery disease) Cancer Mother CHF (congestive heart failure) Brother Cancer Sister Cancer Sister Cancer Family/Other Cancer Chronic kidney disease (CKD) Denies family history of Diabetes Clotting disorder Dementia Anesthesia complication Bleeding disorder Lung disease Stroke Social History Smoking and tobacco status: never smoked Alcohol intake: never Substance/Drug Use: never Marital status: Current occupational status: retired Vitals/I&O/Wt Last Vital Signs Temp 98.0 F 05/13/23 19:52 Pulse 46 L 05/13/23 20:04 Resp 18 05/13/23 20:04 BP 132/71 05/13/23 20:04 Pulse Ox 97 05/13/23 20:04 O2 Del Method Room Air 05/13/23 20:04 Weight last 48 hrs Weight 102.965 kg Physical Exam Narrative: He is alert awake oriented x3 Chest clear to auscultation bilaterally Cardiovascular normal heart sounds Abdomen NAD Extremities no edema noted, restriction of movements in right lower extremity. Skin 2 x 3 cm laceration seen on right knee and right elbow Data 05/13/23 21:43 05/13/23 21:43 Xray Ortho: Radiologist's impression: X-ray right hip IMPRESSION: Questionable nondisplaced fracture through the femoral neck versus prominent trabeculation seen on the previous CT. ? CT pelvis without contrast IMPRESSION: Nondisplaced inter trochanteric fracture of the right femur.? No dislocation. Prostatomegaly. CXR: Radiologist's impression: No acute findings EKG 1: EKG computer-generated impression: SINUS BRADYCARDIA WITH OCCASIONAL ECTOPIC PREMATURE COMPLEXES A&P Assessment and plan (1) Fracture of hip, right, closed: Qualifiers: Encounter type: initial encounter Qualified Code(s): S72.001A - Fracture of unspecified part of neck of right femur, initial encounter for closed fracture Plan 78-year-old with history of multiple myeloma atrial fibrillation diabetes had a mechanical fall on his right at the curbside and found to have CT pelvic consistent with right hip fracture Orthopedics Dr. Mondragon aware of the patient, going for surgery in a.m. N.p.o. since midnight IV morphine 2 mg every 4 hours as needed for pain IV Pepcid 20 mg every 12 for stress ulcer prophylaxis Will resume home medication except Eliquis Intermittent compression stockings for DVT prophylaxis He is full code for now Attestations Medical Necessity Statement*: He needs continued hospitalization for 2 midnights for corrective surgery of right hip fracture and postop recovery Time Spent in Patient Care: 25 minutes Coding Level of Care Code Acute Code for Chg Fwd Diagnoses Fracture of hip, right, closed S72.001A Encounter type: initial encounter Time Spent (min) 25
[2023-05-13 23:10] VITALS: BP 164/81; PULSE 54; RESP 19; TEMP 36.5; O2SAT 97
--- NOTE | 2023-05-13 23:31 | PC.PHAR ---
Addendum entered by Javid Pozo 05/14/23 03:43: PT BROUGHT OWN INSULIN DEGLUDEC, RESTARTED ORDERED Original Note: INSULIN DEGLUDEC NON FORMULARY: RBTO Dr. WEBSTER, convert to lantus 20 units same freq. [facility]
[2023-05-13] MEDS: sodium chloride 0.9% 1,000 ML 60 ML IV (23:41)
[2023-05-13] MEDS: famotidine 20 mg/2 mL INJ IVP (23:41)
[2023-05-14] VITALS (23 sets, daily range): BP systolic 91–160; BP diastolic 40–83; PULSE 52–90; RESP 14–19; TEMP 36.2–37.2; O2SAT 92–98
--- NOTE | 2023-05-14 | XR_ITS ---
WS: [id number] Exam: XR hip RT 1V wo/w pel [id number] Date/Time of Exam: 05/14/2023 12:00 AM Reason For Exam: OR PICS Comparison 05/13/2023. Intertrochanteric fracture of the RIGHT hip has been stabilized with a femoral neck screw and intrame dullary alvin. The fracture is in excellent position for healing. Postoperative changes in the adjacent soft tissues. IMPRESSION: 1. Intertrochanteric fracture stabilized with internal fixation in satisfactory alignment for healing .
[2023-05-14] MEDS: morphine 4 mg/mL SDV 1 mL 2 MG IVP (04:44)
[2023-05-14 05:08] LABS: Basophils % 0.6 %; Eosinophils # 0.1 10^3/uL (0.0-0.8); Eosinophils % 0.7 %; Hematocrit 39.3 % (37-53); Lymphocytes # 1.2 10^3/uL (0.8-4.8); Lymphocytes % 15.9 %; Mean Corpuscular HGB Conc 32.6 g/dL (30-55); Mean Corpuscular Hemoglobin 31.4 pg (27-33); Mean Corpuscular Volume 96.6 fl (82-101); Mean Platelet Volume 10.3 fL (7.4-10.4); Monocytes # 0.6 10^3/uL (0.2-0.9); Neutrophils # 5.36 10^3/uL (1.8-7.7); Nucleated Red Blood Cells % 0 %; Platelet Count 167 10^3/cmm (157-399); Red Blood Count 4.07 10^6/uL (3.85-5.65); Red Cell Distribution Width 14.3 % (12.1-15.1); White Blood Count 7.24 10^3/uL (3.29-11.43)
[2023-05-14 05:33] LABS: Alanine Aminotransferase 7 U/L (0-41); Albumin Level 3.3 g/dL (3.5-5.2); Alkaline Phosphatase 107 U/L (40-130); Aspartate Amino Transferase 14 U/L (0-40); Blood Urea Nitrogen 11 mg/dL (8-23); Calcium 8.4 mg/dL (8.5-10.5); Carbon Dioxide 25 mmol/L (22-29); Chloride 106 mmol/L (98-107); Globulin 2.9 g/dL (1.3-4.6); Glucose 144 mg/dL (65-115); Osmolality Calculated 288 mOsm/kg (285-295); Sodium 138 mmol/L (136-145); Total Bilirubin 0.9 mg/dL (0.15-1.2); Total Protein 6.2 g/dL (6.6-8.7)
[2023-05-14 08:50] LABS: Glucose Point of Care 111 mg/dL (70-110)
[2023-05-14] MEDS: sodium chloride 0.9% 1,000 ML 30 ML IV (08:50)
--- NOTE | 2023-05-14 09:07 | ANES.PREANE2 ---
Pre-Anesthetic Assessment Height/Weight: Height 1.8 m Weight 102.965 kg Temp Pulse Resp BP Pulse Ox O2 Del Method 97.2 F L 80 17 123/83 95 Room Air 05/14/23 08:35 05/14/23 08:35 05/14/23 08:35 05/14/23 08:35 05/14/23 08:35 05/14/23 08:35 Operation Date: 05/14/23 14:40 Proposed Procedures p ORIF Right Intertrochanteric hip fx(Right) - Susan Flores MD Familial anesthetic complications: none Was Beta Arnie taken within 24 hours: Yes Was Clonidine taken within 24 hours: N/A Last intake: Intake Last Liquid Date 05/13/23 Last Liquid Time 22:00 Last Solid Date 05/13/23 Last Solid Time 22:00 Social No alcohol and No tobacco Exam alert, oriented x 3, clear to auscultation bilaterally and regular rate & rhythm Airway Submandibular: within normal limits Cervical ROM: within normal limits Mallampati: Class II Dentition: chipped Comments: Comments: recent oral procedure sutures present in mouth CV/HEM Atrial Fibrillation, Coronary Artery Disease and Hypertension GI Gastroesophageal Reflux Disease Metabolic Diabetes Mellitus, Hyperlipidemia and Morbid Obesity [facility] Lower Back Pain and Osteoarthritis/DJD Neuropsych Parkinson's Anesthetic Plan ASA status: 3 Anesthesia: General Medications/Allergies Home Medications Medication Instructions Recorded Confirmed Last Taken Type insulin degludec [Tresiba 32 unit SUBCUT DAILY 11/02/19 05/13/23 05/13/23 08:00 History FlexTouch U-100] simvastatin 20 mg tablet 20 mg PO DAILY 11/02/19 05/13/23 05/12/23 20:00 History apixaban 5 mg tablet (Eliquis) 5 mg PO BID 01/31/22 05/13/23 05/13/23 08:00 History escitalopram oxalate 20 mg tablet 20 mg PO DAILY 02/26/22 05/13/23 05/13/23 08:00 History (Lexapro) sotalol 160 mg tablet 160 mg PO BID #180 tabs 03/20/22 05/13/23 05/13/23 08:00 Rx potassium chloride 20 mEq See Rx Instructions .Route 03/13/23 05/13/23 05/13/23 08:00 Rx tablet,extended release(part/cryst) .COMPLEX #30 tabs carbidopa 25 mg-levodopa 100 mg 1 tab PO TID 30 days #90 tabs 04/10/23 05/13/23 05/13/23 16:00 Rx tablet pantoprazole 40 mg tablet,delayed 40 mg PO DAILY 30 days #30 tabs 04/10/23 05/13/23 05/13/23 08:00 Rx release lenalidomide 5 mg capsule 5 mg PO BEDTIME 05/14/23 05/14/23 05/12/23 20:00 History (Revlimid) Allergies Allergy/AdvReac Type Severity Reaction Status Date / Time No Known Allergies Allergy Verified 04/30/23 07:56 Current Medications Generic Name Dose Route Start Last Admin Trade Name Freq PRN Reason Stop Dose Admin Famotidine 20 mg 05/13/23 23:15 05/13/23 23:41 Famotidine 20 Mg/2 Ml Inj IVP 20 mg Q12H TSERING Administration Sodium Chloride 1,000 mls @ 60 mls/hr 05/13/23 23:15 05/13/23 23:41 Sodium Chloride 0.9% IV 60 mls/hr .[id number] TSERING Administration Sodium Chloride 1,000 mls @ 30 mls/hr 05/14/23 08:45 05/14/23 08:50 Sodium Chloride 0.9% IV 05/15/23 08:44 30 mls/hr .Q24H TSERING Administration Morphine Sulfate 2 mg 05/14/23 04:31 05/14/23 04:44 Morphine 4 Mg/Ml Sdv 1 Ml IVP 2 mg Q4H PRN Administration SEVERE PAIN PFSH Anesthesia Medical History Anticoagulation adequate with anticoagulant therapy Pradaxa ASHD (arteriosclerotic heart disease) Atrial fibrillation Balanitis Diabetes Diarrhea Dyslipidemia History of cardioversion History of nonmelanoma skin cancer HTN (hypertension) Lymphoma Multiple myeloma Obesity Tubular adenoma Surgical History H/O bone marrow transplant History of colonoscopy 01/2022 Previous back surgery S/P orchiectomy Family History Brother CAD (coronary artery disease) Cancer Mother CHF (congestive heart failure) Brother Cancer Sister Cancer Sister Cancer Family/Other Cancer Chronic kidney disease (CKD) Denies family history of Diabetes Clotting disorder Dementia Anesthesia complication Bleeding disorder Lung disease Stroke Social History Smoking and tobacco status: never smoked Alcohol intake: never Substance/Drug Use: never Marital status: Current occupational status: retired Data Anesthesia 05/14/23 04:22 05/14/23 04:22 Short CBC 05/13/23 05/14/23 Range/Units 21:43 04:22 WBC 8.08 7.24 (3.29-11.43) 10^3/uL Hgb 13.30 12.80 (11.27-16.99) g/dL Hct 40.6 39.3 (37-53) % MCV 97.1 96.6 (82-101) fl Plt Count 192 167 (157-399) 10^3/cmm Neut % (Auto) 77.2 74.0 % Neut # (Auto) 6.23 5.36 (1.8-7.7) 10^3/uL BMP 05/13/23 05/14/23 21:43 04:22 Sodium 138 138 Potassium 4.4 4.0 Chloride 105 106 Carbon Dioxide 25 25 BUN 13 11 Creatinine 0.9 0.9 Glucose 160 H 144 H Calcium 8.8 8.4 L Liver Function 05/13/23 05/14/23 Range/Units 21:43 04:22 Total Bilirubin 0.7 0.9 (0.15-1.2) mg/dL AST 18 14 (0-40) U/L ALT < 5 7 (0-41) U/L Alkaline Phosphatase 115 107 (40-130) U/L Albumin 3.6 3.3 L (3.5-5.2) g/dL Cardiac Studies: Echocardiogram 01/02/23
--- NOTE | 2023-05-14 09:41 | PM.PN ---
Subjective Subjective: Postop day 0 Hemodynamically stable On room air Vitals/I&O/Wt Last Vital Signs Temp 97.2 F L 05/14/23 08:35 Pulse 80 05/14/23 08:35 Resp 17 05/14/23 08:35 BP 123/83 05/14/23 08:35 Pulse Ox 95 05/14/23 08:35 O2 Del Method Room Air 05/14/23 08:35 05/13/23 05/14/23 05/14/23 22:59 06:59 14:59 Output Total 700 / 700 Balance -700 / -700 Weight last 48 hrs Weight 102.965 kg Physical Exam Narrative: On room air Hemodynamically stable GCS 15 Nonfocal neuro exam S1, S2 Bruising ulceration right leg and right elbow Appropriate mood and affect AOx3 Data 05/14/23 04:22 05/14/23 04:22 A&P Assessment and plan (1) Fracture of hip, right, closed: Qualifiers: Encounter type: initial encounter Qualified Code(s): S72.001A - Fracture of unspecified part of neck of right femur, initial encounter for closed fracture (2) Facet arthropathy, lumbar: (3) History of nonmelanoma skin cancer: (4) Lumbar stenosis with neurogenic claudication: (5) Plasmacytoma in remission: (6) Anticoagulation adequate with anticoagulant therapy: (7) Diabetes: (8) Atrial fibrillation: Plan Postop day 0 Status post hypotension Start Eliquis starting tonight Will request PT evaluation Monitor for bowel movement Opioids along bowel regimen GERD history of A-fib, continue AV benny blocking agent and anticoagulating agent Consistent carb diet with insulin Plasmacytoma in remission Depending upon PT evaluation we will decide on disposition Attestations Medical Necessity Statement*: Continue medical management Diagnoses Fracture of hip, right, closed S72.001A Encounter type: initial encounter Facet arthropathy, lumbar M47.816 History of nonmelanoma skin cancer Z85.828 Lumbar stenosis with neurogenic claudication M48.062 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
--- NOTE | 2023-05-14 10:29 | PM.CONSULT ---
Providers/Reason For Consult Consulting Physician/Specialty*: Susan Flores MD Reason for Consult*: Right intertrochanteric hip fracture Requesting Physician: Diaz Soriano DO Attending Physician: Taj Walker MD Primary Care Provider: Jayden Blake MD History of Present Illness History of Present Illness Shad Vines is a 78 year old male who was in his usual state of health when he stepped off a curb at the [employer] in the [facility]. He lost his footing and fell directly onto his right side. Of interest, both he and his describe bilateral weakness and sort of a shuffling gait. The patient is chronically on Eliquis with a diagnosis of atrial fibrillation. He has a history of spinal surgery. He has foot drop which he and his state are secondary to medications per Dr. Littlejohn. He also has a history of multiple myeloma which is in remission. When he presented to the emergency department, he was unable to ambulate secondary to pain on his right side. There was an abrasion on his knee and elbow, but mainly, his pain was at the hip. X-rays demonstrated a right intertrochanteric hip fracture. This was followed by CT scan as well. Review of Systems General: Reports: 10 or more systems reviewed and unremarkable except in HPI and below Narrative: As per HPI Const: Denies: fever(s) Eyes: Denies: photophobia ENMT: Denies: enlarged tonsils Card: Denies: chest pain Resp: Denies: dyspnea GI: Denies: nausea, vomiting, diarrhea or constipation : Denies: difficulty urinating Musc: Reports: extremity pain and joint pain (Right hip); Denies: joint warmth Skin/Breast: Reports: new lesions (Abrasions right elbow, right knee) Neuro: Denies: headache(s) All/Imm: Denies: acute wheezing Medications/Allergies Home Medications Medication Instructions Recorded Confirmed Last Taken Type insulin degludec [Tresiba 32 unit SUBCUT DAILY 11/02/19 05/13/23 05/13/23 08:00 History FlexTouch U-100] simvastatin 20 mg tablet 20 mg PO DAILY 11/02/19 05/13/23 05/12/23 20:00 History apixaban 5 mg tablet (Eliquis) 5 mg PO BID 01/31/22 05/13/23 05/13/23 08:00 History escitalopram oxalate 20 mg tablet 20 mg PO DAILY 02/26/22 05/13/23 05/13/23 08:00 History (Lexapro) sotalol 160 mg tablet 160 mg PO BID #180 tabs 03/20/22 05/13/23 05/13/23 08:00 Rx potassium chloride 20 mEq See Rx Instructions .Route 03/13/23 05/13/23 05/13/23 08:00 Rx tablet,extended release(part/cryst) .COMPLEX #30 tabs carbidopa 25 mg-levodopa 100 mg 1 tab PO TID 30 days #90 tabs 04/10/23 05/13/23 05/13/23 16:00 Rx tablet pantoprazole 40 mg tablet,delayed 40 mg PO DAILY 30 days #30 tabs 04/10/23 05/13/23 05/13/23 08:00 Rx release lenalidomide 5 mg capsule 5 mg PO BEDTIME 05/14/23 05/14/23 05/12/23 20:00 History (Revlimid) Allergies Allergy/AdvReac Type Severity Reaction Status Date / Time No Known Allergies Allergy Verified 04/30/23 07:56 Current Medications Generic Name Dose Route Start Last Admin Trade Name Freq PRN Reason Stop Dose Admin Famotidine 20 mg 05/13/23 23:15 05/13/23 23:41 Famotidine 20 Mg/2 Ml Inj IVP 20 mg Q12H TSERING Administration Sodium Chloride 1,000 mls @ 60 mls/hr 05/13/23 23:15 05/13/23 23:41 Sodium Chloride 0.9% IV 60 mls/hr .[id number] TSERING Administration Sodium Chloride 1,000 mls @ 30 mls/hr 05/14/23 08:45 05/14/23 08:50 Sodium Chloride 0.9% IV 05/15/23 08:44 30 mls/hr .Q24H TSERING Administration Morphine Sulfate 2 mg 05/14/23 04:31 05/14/23 04:44 Morphine 4 Mg/Ml Sdv 1 Ml IVP 2 mg Q4H PRN Administration SEVERE PAIN PFSH Acute PFSH: Medical History Anticoagulation adequate with anticoagulant therapy Pradaxa ASHD (arteriosclerotic heart disease) Atrial fibrillation Balanitis Diabetes Diarrhea Dyslipidemia History of cardioversion History of nonmelanoma skin cancer HTN (hypertension) Lymphoma Multiple myeloma Obesity Tubular adenoma Surgical History H/O bone marrow transplant History of colonoscopy 01/2022 Previous back surgery S/P orchiectomy Family History Brother CAD (coronary artery disease) Cancer Mother CHF (congestive heart failure) Brother Cancer Sister Cancer Sister Cancer Family/Other Cancer Chronic kidney disease (CKD) Denies family history of Diabetes Clotting disorder Dementia Anesthesia complication Bleeding disorder Lung disease Stroke Social History Smoking and tobacco status: never smoked Alcohol intake: never Substance/Drug Use: never Marital status: Current occupational status: retired Dietary Habits: Current diet type/program: regular and diabetic Caffeine: No Exercise: What type of physical activity do you participate in?: none Safety: Seatbelt use: always Home Safety: Water heater temperature set < 120 degrees: No Working smoke detector in home: Yes Fire extinguisher in home: No Carbon monoxide detector in home: No Personal Safety: Do you feel safe at home: No Vitals/I&O/Wt Last Vital Signs Temp 97.2 F L 05/14/23 08:35 Pulse 80 05/14/23 08:35 Resp 17 05/14/23 08:35 BP 123/83 05/14/23 08:35 Pulse Ox 95 05/14/23 08:35 O2 Del Method Room Air 05/14/23 08:35 05/13/23 05/14/23 05/14/23 22:59 06:59 14:59 Output Total 700 / 700 200 / 200 Balance -700 / -700 -200 / -200 Weight last 48 hrs Weight 227 lb Physical Exam Const: COMMON NORMALS: no acute distress, average body habitus, patient oriented x3 and alert GENERAL APPEARANCE: cooperative and comfortable ORIENTATION/CONSCIOUSNESS: Yes awake HENMT: COMMON NORMALS: normocephalic and atraumatic HEAD & SCALP: normocephalic and atraumatic Eye: GENERAL EYE: appearance normal, both eyes and all related structures Chest: COMMONS NORMALS: normal inspection of the chest Resp: COMMON NORMALS: normal respiratory effort EFFORT & INSPECTION: Yes able to speak in complete sentences and Yes symmetric chest movement Extremity: RIGHT LOWER EXTREMITY: Yes hip joint (There is no obvious ecchymosis.) Right hip: Yes inspection (There is no significant swelling at the hip), Yes ROM (Not performed secondary to known hip fracture) and Yes neurovascular exam (No evidence of this issues other than stated weakness) Neuro: COMMON NORMALS: patient oriented x3 SENSORIUM/ORIENTATION: Yes alert OTHER: Per patient history, he has left foot drop and a shuffling type of gait. He also describes bilateral lower extremity weakness. Psych: COMMON NORMALS: mental status grossly normal APPEARANCE: Yes grossly normal ATTITUDE: Yes calm and Yes engaged ATTENTION/CONCENTRATION: Yes attention grossly intact Skin: COMMON NORMALS: no rashes or lesions noted GENERAL SKIN EXAM: no rashes or lesions noted Data 05/14/23 04:22 05/14/23 04:22 Xray Ortho: My impression: There is a minimally displaced right intertrochanteric hip fracture per plain imaging. There is no significant shortening or apparent comminution. CT Abd/Pel: Radiologist's impression: Nondisplaced intertrochanteric fracture of the right femur without dislocation A&P Assessment and plan (1) Closed intertrochanteric fracture of right hip: Patient presented to the emergency department after a fall onto his right side with inability to ambulate and significant right hip pain. He also had abrasion to the elbow and knee, but his primary complaint was at the hip. Imaging demonstrated a right intertrochanteric hip fracture which is apparent on x-ray and is non to minimally displaced. After discussion with the patient and family, we have elected to proceed with open reduction internal fixation of this fracture utilizing a gamma nail. Risks and complications were discussed with the patient particularly given that he is on Eliquis. Questions were answered and consents were signed. (2) Acquired left foot drop: (3) Weakness of both lower extremities: Consult Attestations Medical Necessity Statement: Patient requires right hip ORIF. Coding Level of Care Code Acute Code for [facility] Fwd Diagnoses Closed intertrochanteric fracture of right hip S72.141A Acquired left foot drop M21.372 Weakness of both lower extremities R29.898
[2023-05-14] MEDS: gabapentin 300 mg Capsule PO (10:38)
[2023-05-14] MEDS: CELEcoxib 200 mg Capsule 400 MG PO (10:39)
[2023-05-14] MEDS: acetaminophen 1,000 MG/100 ML PIGGYBACK 400 MG IV ×2 (10:40→17:00)
[2023-05-14] MEDS: ceFAZolin 2,000 MG in sodium chloride 0.9% (plus) 50 ML 100 MG IV ×2 (10:47→17:38)
[2023-05-14] MEDS: lidocaine-epi 1% 20 mL INJ INJECTION (11:32)
--- NOTE | 2023-05-14 11:46 | SUR.OPER ---
1046 pt has a quarter size abrasion noted to right knee, wound was wet with red fluid. wound cleaned, dried and new dressing placed.
[2023-05-14] MEDS: ceFAZolin 1,000 mg SDV 1000 MG (12:05)
--- NOTE | 2023-05-14 12:50 | PM.DCS ---
Discharge Providers Date of Admission: 05/13/23 22:28 Date of Discharge: May 14, 2023 Attending Provider at Admission: Jamaica Reym MD Attending Provider at Discharge: Taj Walker MD Primary Care Provider: Jayden Blake MD Diagnoses at Discharge Discharge Diagnosis (1) Closed intertrochanteric fracture of right hip: Status: Acute (2) Acquired left foot drop: Status: Acute (3) Weakness of both lower extremities: Status: Acute Reason for Visit Reason for Visit: possible right hip fracture Physical Exam Urinary Catheter Management: Zheng: Cath Placed During This Visit: yes Urinary Catheter Date of Insertion: 05/14/23 Urinary Catheter Time of Insertion: 11:10 Discharge Data Studies Completed and Pending Completed Studies During Hospitalization Category Date Time Status CT pelvis wo con [id number] Stat Cat Scan 05/13/23 20:33 Completed XR chest 1V portable [id number] Stat Exams 05/13/23 21:12 Completed XR hip RT 2-3V wo/w pel* [id number] Stat Exams 05/13/23 20:01 Completed Pending at discharge Category Date Time Status C-arm Fluoroscopy [id number] Routine Exams 05/14/23 10:27 Taken Basic Metabolic Panel AM LABS Lab 05/15/23 04:00 Ordered Complete Blood Count w/Auto AM LABS Lab 05/15/23 04:00 Ordered Radiology Impressions Hip/Pelvis X-Ray 05/13/23 20:01 IMPRESSION: Questionable nondisplaced fracture through the femoral neck versus prominent trabeculation seen on the previous CT. Pelvis CT 05/13/23 20:33 IMPRESSION: Nondisplaced inter trochanteric fracture of the right femur. No dislocation. Prostatomegaly. Chest X-Ray 05/13/23 21:12 IMPRESSION: No acute findings. Stops Laboratory Results WBC 7.24 10^3/uL (3.29-11.43) 05/14/23 04:22 RBC 4.07 10^6/uL (3.85-5.65) 05/14/23 04:22 Hgb 12.80 g/dL (11.27-16.99) 05/14/23 04:22 Hct 39.3 % (37-53) 05/14/23 04:22 MCV 96.6 fl (82-101) 05/14/23 04:22 MCH 31.4 pg (27-33) 05/14/23 04:22 MCHC 32.6 g/dL (30-55) 05/14/23 04:22 RDW 14.3 % (12.1-15.1) 05/14/23 04:22 Plt Count 167 10^3/cmm (157-399) 05/14/23 04:22 MPV 10.3 fL (7.4-10.4) 05/14/23 04:22 Neut % (Auto) 74.0 % 05/14/23 04:22 Lymph % (Auto) 15.9 % 05/14/23 04:22 [place] % (Auto) 8.0 % 05/14/23 04:22 Eos % (Auto) 0.7 % 05/14/23 04:22 Baso % (Auto) 0.6 % 05/14/23 04:22 Neut # (Auto) 5.36 10^3/uL (1.8-7.7) 05/14/23 04:22 Lymph # (Auto) 1.2 10^3/uL (0.8-4.8) 05/14/23 04:22 [place] # (Auto) 0.6 10^3/uL (0.2-0.9) 05/14/23 04:22 Eos # (Auto) 0.1 10^3/uL (0.0-0.8) 05/14/23 04:22 Baso # (Auto) 0.0 10^3/uL (0.0-0.1) 05/14/23 04:22 Nucleated RBC % (auto) 0 % 05/14/23 04:22 Nucleated RBCs # 0.0 /100WBC 05/14/23 04:22 Sodium 138 mmol/L (136-145) 05/14/23 04:22 Potassium 4.0 mmol/L (3.5-5.1) 05/14/23 04:22 Chloride 106 mmol/L (98-107) 05/14/23 04:22 Carbon Dioxide 25 mmol/L (22-29) 05/14/23 04:22 Anion Gap 11.0 (5-19) 05/14/23 04:22 BUN 11 mg/dL (8-23) 05/14/23 04:22 Creatinine 0.9 mg/dL (0.7-1.2) 05/14/23 04:22 GFR Calculation Not Reportable 05/14/23 04:22 Glucose 144 mg/dL (65-115) H 05/14/23 04:22 POC Glucose 111 mg/dL (70-110) H 05/14/23 08:46 Calculated Osmolality 288 mOsm/kg (285-295) 05/14/23 04:22 Calcium 8.4 mg/dL (8.5-10.5) L 05/14/23 04:22 Total Bilirubin 0.9 mg/dL (0.15-1.2) 05/14/23 04:22 AST 14 U/L (0-40) 05/14/23 04:22 ALT 7 U/L (0-41) 05/14/23 04:22 Alkaline Phosphatase 107 U/L (40-130) 05/14/23 04:22 Total Protein 6.2 g/dL (6.6-8.7) L 05/14/23 04:22 Albumin 3.3 g/dL (3.5-5.2) L 05/14/23 04:22 Globulin 2.9 g/dL (1.3-4.6) 05/14/23 04:22 Vitals Last Vital Signs Temp 98.2 F 05/14/23 12:28 Pulse 70 05/14/23 12:33 Resp 16 05/14/23 12:33 BP 125/80 05/14/23 12:33 Pulse Ox 96 05/14/23 12:33 O2 Del Method Room Air 05/14/23 12:33 Discharge Plan Discharge Patient Disposition: Home Condition: Stable Prescriptions: No Action insulin degludec 32 unit SUBCUT DAILY simvastatin 20 mg tablet 20 mg PO DAILY carbidopa-levodopa 25-100 mg tablet 1 tab PO TID 30 Days Qty: 90 2RF Rx Instructions: To be filled after loading dose; take 1 tab 3 times daily pantoprazole 40 mg tablet,delayed release (DR/EC) 40 mg PO DAILY 30 Days Qty: 30 2RF Eliquis 5 mg tablet 5 mg PO BID Hold Instructions: Resume on 03/03/22. sotalol 160 mg tablet 160 mg PO BID Qty: 180 3RF potassium chloride 20 mEq tablet,ER particles/crystals See Rx Instructions .ROUTE .COMPLEX Qty: 30 4RF Dose Instruction: TAKE ONE TABLET BY MOUTH EVERY DAY Rx Instructions: TAKE ONE TABLET BY MOUTH EVERY DAY escitalopram oxalate [Lexapro] 20 mg tablet 20 mg PO DAILY Revlimid 5 mg Capsule 5 mg PO BEDTIME Patient Comments: Pt is on a 21 day cycle og this medication. Rx Instructions: swallow whole with glass of water; do not open, crush, chew , break, or dissolve Referrals: Jayden Blake MD [Primary Care Provider] - Patient Instructions: Opioid Safety Coding Level of Care Code Acute Code for [facility] Fwd Diagnoses Closed intertrochanteric fracture of right hip S72.141A Acquired left foot drop M21.372 Weakness of both lower extremities R29.899
--- NOTE | 2023-05-14 12:51 | PM.OP ---
Operative Report Date of procedure: May 14, 2023 Pre-op diagnosis: Right intertrochanteric hip fracture Post-op diagnosis: Right intertrochanteric hip fracture Procedure done: Open reduction internal fixation right intertrochanteric hip fracture with gamma nail fixation Implants: [employer] trochanteric nail system with a size 11 x 180 mm x 125 degree trochanteric gamma 3 nail, a size 10.5 mm x 105 mm lag screw with a distal screw size 5 mm x 40 mm Pathology: None Surgeon: Susan Flores MD Anesthesia: General (Per LMA, ASA 3) Estimated blood loss (mL): 425 (Due to fracture hematoma) IV fluids (mL): 800 Urine output (mL): 400 Complications: None Findings: Right intratrochanteric hip fracture with minimal to no displacement Condition: stable Disposition: PACU (Then return to floor for postoperative rehabilitation and pain management) Brief History: Shad Vines is a 78 year old male who was in his usual state of health when he stepped off a curb at the [employer] in the [place], [place].? He lost his footing and fell directly onto his right side.? Of interest, both he and his describe bilateral weakness and sort of a shuffling gait.? The patient is chronically on Eliquis with a diagnosis of atrial fibrillation.? He has a history of spinal surgery.? He has foot drop which he and his state are secondary to medications per Dr. Littlejohn.? He also has a history of multiple myeloma which is in remission.? When he presented to the emergency department, he was unable to ambulate secondary to pain on his right side.? There was an abrasion on his knee and elbow, but mainly, his pain was at the hip.? X-rays demonstrated a right intertrochanteric hip fracture.? This was followed by CT scan as well. Procedure: Patient is brought to the operating theater. After undergoing adequate general anesthesia with LMA, ASA 3, the patient was transferred to the fracture table, positioned on the table and fluoroscopic guidance obtained throughout the surgical procedure. Prior to the commencement of the surgical procedure, a surgical pause was performed. At the time of the surgical pause, we confirmed the site and side of surgery as well as preoperative surgical markings and appropriate and timely administration of IV antibiotics, Ancef 2 g. Availability of equipment was also confirmed. Fluoroscopy was used to confirm the fracture was appropriately reduced in both AP and lateral planes. An incision was then made slightly above the greater trochanter to allow access to the greater trochanter. An awl was used to enter the greater trochanter and a guidewire was subsequently placed. Once the guidewire was confirmed to be in appropriate position in AP and lateral planes, reaming was accomplished over this to allow for the proximal diameter of the nail.? Guidewire was then removed, and an 11 mm x 180 mm x 125 degree gamma 3 trochanteric nail was placed into appropriate position with positioning being confirmed in AP and lateral planes on the x-ray. It passed without difficulty. Guidewire was then passed through the jigging system into the femoral head. We wanted to be center or slightly inferior and posterior to center. Guidewire was placed into appropriate position. Once the guidewire was in appropriate position and this position was confirmed by x-ray.? The guidewire was measured, and we chose a 105 mm lag screw.? We reamed to allow for the lag screw to be placed.? The 105 mm lag screw was then passed into the femoral head through the trochanteric nail. This was passed uneventfully and again position was confirmed in AP and lateral planes. Compression was obtained under fluoroscopic guidance.? The set screw was then placed in position, tightened completely, and subsequently backed off 1/ turn. The construct was left in position and attention was directed distally. Cannulas were again used to determine appropriate placement for the distal screw. This was placed in position without difficulty.? Screw length was measured off of the drill. The appropriate length screw was then obtained and placed in position without difficulty. Once the screw was in position, we confirmed appropriate placement of the components, and we removed the jigging system. Attention was then directed to closure. The hip was copiously irrigated with normal saline with antibiotics. Following this it was dried and closed. Tensor fascia maciej was closed proximally with 0 Vicryl in an interrupted fashion. Subcutaneous tissues were closed with 2-0 Monocryl, and the skin was closed with a continuous 3-0 Monocryl subcuticular stitch. This was then covered with Dermabond, Steri-Strips, and OpSite. The patient was removed from the fracture table and returned to recovery in satisfactory condition. The patient will be discharged to the floor for postoperative rehabilitation and pain management. There were no specimens obtained. Related Problem List Diagnoses (1) Closed intertrochanteric fracture of right hip:
--- NOTE | 2023-05-14 14:30 | ANE.PACU2 ---
Inpatient post-anesthesia follow up: Airway intact: Yes Vital signs: Temperature 97.6 F Pulse Rate 52 Respiratory Rate 16 Blood Pressure 124/72 Pulse Oximetry 96 Oxygen Delivery Me thod Room Air Oxygen Flow Rate Fraction of Inspir ed Oxygen Hydration adequate: Yes Nausea and vomiting: No Pain level: 3 Mental status: Baseline
[2023-05-14] MEDS: carbidopa-levodopa 25-100mg Tablet 1 EACH PO ×2 (14:37→20:45)
[2023-05-14] MEDS: oxyCODONE 5 mg IR Tab/Cap PO ×2 (14:37→20:45)
[2023-05-14 16:11] LABS: Glucose Point of Care 167 mg/dL (70-110)
[2023-05-14] MEDS: sotalol 80 mg Tablet 160 MG PO (17:02)
[2023-05-14] MEDS: calcium carbonate 500 mg Chew Tablet 1000 MG PO (17:02)
[2023-05-14] MEDS: insulin lispro 100 unit/1 mL SUBCUT (17:38)
[2023-05-14] MEDS: chlorhexidine gluconate 0.12% Btl 473 mL 30 ML MUCOUS MEM ×2 (17:39→20:44)
[2023-05-14] MEDS: sodium chloride 0.9% 1,000 ML 60 ML IV (20:48)
[2023-05-14 21:07] LABS: Glucose Point of Care 229 mg/dL (70-110)
[2023-05-14] MEDS: insulin glargine 100 units/1 mL 20 UNIT SUBCUT (21:53)
[2023-05-14] MEDS: famotidine 20 mg/2 mL INJ IVP (22:59)
[2023-05-15] VITALS (7 sets, daily range): BP systolic 94–126; BP diastolic 57–72; PULSE 50–76; RESP 14–18; TEMP 36.4–36.6; O2SAT 90–100
[2023-05-15] MEDS: acetaminophen 1,000 MG/100 ML PIGGYBACK 400 MG IV ×2 (01:49→10:20)
[2023-05-15] MEDS: ceFAZolin 2,000 MG in sodium chloride 0.9% (plus) 50 ML 100 MG IV ×2 (02:24→11:11)
[2023-05-15 04:55] LABS: Basophils % 0.1 %; Eosinophils % 0.1 %; Hematocrit 32.1 % (37-53); Lymphocytes % 10.3 %; Mean Corpuscular HGB Conc 31.8 g/dL (30-55); Mean Corpuscular Hemoglobin 31.6 pg (27-33); Mean Corpuscular Volume 99.4 fl (82-101); Mean Platelet Volume 10.2 fL (7.4-10.4); Monocytes # 0.7 10^3/uL (0.2-0.9); Monocytes % 7.3 %; Neutrophils % 81.7 %; Nucleated Red Blood Cells % 0 %; Platelet Count 126 10^3/cmm (157-399); Red Blood Count 3.23 10^6/uL (3.85-5.65); Red Cell Distribution Width 14.5 % (12.1-15.1); White Blood Count 9.68 10^3/uL (3.29-11.43)
[2023-05-15 05:19] LABS: Anion Gap 11.4 (5-19); Blood Urea Nitrogen 18 mg/dL (8-23); Calcium 8.2 mg/dL (8.5-10.5); Carbon Dioxide 24 mmol/L (22-29); Chloride 105 mmol/L (98-107); Glucose 218 mg/dL (65-115); Osmolality Calculated 291 mOsm/kg (285-295); Potassium 4.4 mmol/L (3.5-5.1); Sodium 136 mmol/L (136-145)
[2023-05-15 07:25] LABS: Glucose Point of Care 247 mg/dL (70-110)
[2023-05-15] MEDS: insulin lispro 100 unit/1 mL SUBCUT ×2 (08:26→12:39)
[2023-05-15] MEDS: escitalopram 10 mg Tablet 20 MG PO (08:27)
[2023-05-15] MEDS: multivitamin therapeutic Tablet 1 TAB PO (08:27)
[2023-05-15] MEDS: apixaban 5 mg Tablet PO ×2 (08:27→17:21)
[2023-05-15] MEDS: atorvastatin 40 mg Tablet 20 MG PO (08:27)
[2023-05-15] MEDS: calcium carbonate 500 mg Chew Tablet 1000 MG PO ×2 (08:27→17:21)
[2023-05-15] MEDS: CELEcoxib 200 mg Capsule PO (08:27)
[2023-05-15] MEDS: ARIPiprazole 2 mg Tablet PO (08:27)
[2023-05-15] MEDS: carbidopa-levodopa 25-100mg Tablet 1 EACH PO ×3 (08:28→20:14)
[2023-05-15] MEDS: chlorhexidine gluconate 0.12% Btl 473 mL 30 ML MUCOUS MEM ×4 (08:28→20:15)
[2023-05-15] MEDS: potassium chloride ER 20 mEq Tablet PO (08:28)
[2023-05-15] MEDS: sotalol 80 mg Tablet 160 MG PO ×2 (08:28→17:21)
--- NOTE | 2023-05-15 09:34 | P.PN_ITS ---
Subjective Subjective: Patient is doing well Awaiting placement No active complaints Watching television Asymptomatic low blood pressure Vitals/I&O/Wt Last Vital Signs Temp 97.5 F L 05/15/23 07:25 Pulse 76 05/15/23 07:25 Resp 18 05/15/23 07:25 BP 98/63 05/15/23 07:25 Pulse Ox 96 05/15/23 07:25 O2 Del Method Room Air 05/15/23 07:25 05/14/23 05/15/23 05/15/23 22:59 06:59 14:59 Intake Total 630 / 1750.5 150 / 1900.5 240 / 240 Output Total 400 / 1825 125 / 1950 Balance 230 / -74.5 25 / -49.5 240 / 240 Weight last 48 hrs Weight 102.965 kg Physical Exam Narrative: Patient sitting in a recliner watching television Awake and alert Nonfocal neuro exam S1, S2 Currently on room air Hemodynamically stable GCS 15 Urinary Catheter Management: Zheng: Cath Placed During This Visit: yes Reason for Continuing Indwelling Catheter: Perioperative Use in Selected Surgeries Urinary Catheter Date of Insertion: 05/14/23 Urinary Catheter Time of Insertion: 11:10 Data 05/15/23 04:25 05/15/23 04:25 A&P Assessment and plan (1) Weakness of both lower extremities: (2) Acquired left foot drop: (3) Closed intertrochanteric fracture of right hip: (4) Plasmacytoma in remission: (5) HTN (hypertension): (6) Atrial fibrillation: (7) Anticoagulation adequate with anticoagulant therapy: Plan Hip fracture status post intervention Awaiting placement Hemodynamic stable Zheng cath removed Low blood pressure asymptomatic Patient does not look dehydrated Watching television Nonfocal neuro exam A-fib without RVR continue Eliquis Rate controlled Full code Patient is diabetic we will start consistent carb diet with insulin sliding scale I will change his Lantus to 20 units Foot drop and Parkinson's, continue levodopa carbidopa medication I will discontinue celecoxib at the time of discharge which increases the chances of DVT Add bowel regimen with opioids Attestations Medical Necessity Statement*: Awaiting placement Diagnoses Weakness of both lower extremities R29.898 Acquired left foot drop M21.372 Closed intertrochanteric fracture of right hip S72.141A Plasmacytoma in remission C90.31 HTN (hypertension) I10 Atrial fibrillation I48.91 Anticoagulation adequate with anticoagulant therapy Z79.01
--- NOTE | 2023-05-15 09:49 | PC.CHAP ---
Pastoral Care Encounter/Spiritual Assessment Type of Contact [] Declined flask cleaner visit [] Patient/Family/Request visit [] Outpatient visit [] Follow-up visit [] Physician referral [] Code/Alert [] Routine visit [] Staff referral [] Actively dying [x] Patient sleeping [] Family support [] [] Out of room [] Palliative care [] [] Receiving care in room [] Pre-surgical visit [] Trauma [] Long length of stay [] ICU visit [] Other: Relational/Emotional Strength [] Patient feels connected with others/family/visitors/staff [] Distress [] Loneliness/isolation [] Abandonment Spirituality of Patient [] Person of Stacia [] Attends Hindu of their Stacia [] Believes in Prayer [] Reads Bible or Anglican materials [] There are Spiritual issues to be addressed [employer] [place] Interventions [] Prayer [] Active listening [] Non-anxious presence [] Spiritual/emotional support [] Crisis/trauma care [] Spiritual counseling [] Bereavement support [] Provided bereavement packet [] Provided Bible/devotional materials [] Provided toy/stuffed animal, coloring book to patient or family member [] Provided Communion [] Anointing/[place] [] Salvation [] Completed spiritual assessment [] Other: Impact on Illness or Injury [] Angry [] Fearful [] Anxious [] Often cries [] Exhaustion [] Unable to work [] Unable to attend caodaism [] Unable to walk/stand [] Unable to read [] Unable to drive [] Unable to eat/drink [] Unable to sleep [] Unable to be with family [] Patient intubated [] Other: Summary Time spent with patient
[2023-05-15 11:26] LABS: Glucose Point of Care 240 mg/dL (70-110)
--- NOTE | 2023-05-15 13:19 | P.PN_ITS ---
Subjective Subjective: Patient is doing well at the time he is seen in his room. He understands that he would likely benefit from placement in a senior living facility. He seems a bit confused today. I think this is likely baseline for him. Medications: Reviewed: Yes Vitals/I&O/Wt Last Vital Signs Temp 97.5 F L 05/15/23 12:00 Pulse 54 L 05/15/23 12:00 Resp 18 05/15/23 12:00 BP 105/61 05/15/23 12:00 Pulse Ox 97 05/15/23 12:00 O2 Del Method Room Air 05/15/23 12:00 05/14/23 05/15/23 05/15/23 22:59 06:59 14:59 Intake Total 630 / 1750.5 150 / 1900.5 460 / 460 Output Total 400 / 1825 125 / 1950 Balance 230 / -74.5 25 / -49.5 460 / 460 Weight last 48 hrs Weight 227 lb Physical Exam Const: COMMON NORMALS: no acute distress, average body habitus, patient oriented x3 and alert GENERAL APPEARANCE: cooperative and comfortable ORIENTATION/CONSCIOUSNESS: Yes awake HENMT: COMMON NORMALS: normocephalic and atraumatic HEAD & SCALP: normocephalic and atraumatic Eye: GENERAL EYE: appearance normal, both eyes and all related structures Chest: COMMONS NORMALS: normal inspection of the chest Resp: COMMON NORMALS: normal respiratory effort EFFORT & INSPECTION: Yes able to speak in complete sentences and Yes symmetric chest movement Extremity: RIGHT LOWER EXTREMITY: Yes hip joint (Able to flex and extend his ankle without difficulty) Right hip: Yes inspection (No significant swelling), Yes palpation (No calf tenderness.) and Yes ROM (Not evaluated.) Neuro: COMMON NORMALS: patient oriented x3 SENSORIUM/ORIENTATION: Yes alert Psych: COMMON NORMALS: mental status grossly normal APPEARANCE: Yes grossly normal ATTITUDE: Yes calm and Yes engaged ATTENTION/CONCENTRATION: Yes attention grossly intact Skin: COMMON NORMALS: no rashes or lesions noted GENERAL SKIN EXAM: no rashes or lesions noted Urinary Catheter Management: Zheng: Cath Placed During This Visit: yes Reason for Continuing Indwelling Catheter: Perioperative Use in Selected Surgeries Urinary Catheter Date of Insertion: 05/14/23 Urinary Catheter Time of Insertion: 11:10 Data 05/15/23 04:25 05/16/23 04:17 A&P Assessment and plan (1) Closed intertrochanteric fracture of right hip: Patient underwent open reduction internal fixation of a closed right intertrochanteric hip fracture. The surgery was uneventful and the patient tolerated it well. He does have other neurologic issues which will cause him difficulty with his ability to rehabilitate. By report, he has foot drop in the opposite left foot, but he is able to move this foot actively. He will likely require senior living at the time of discharge. This is being evaluated and planned for him. Attestations Medical Necessity Statement*: Ongoing care following open reduction internal fixation right closed intertrochanteric hip fracture Coding Level of Care Code Acute Code for Chg Fwd Diagnoses Closed intertrochanteric fracture of right hip S72.141A
[2023-05-15] MEDS: oxyCODONE 5 mg IR Tab/Cap PO (13:46)
[2023-05-15] MEDS: sodium chloride 0.9% 1,000 ML 60 ML IV (13:47)
[2023-05-15 16:22] LABS: Glucose Point of Care 104 mg/dL (70-110)
[2023-05-15 17:05] LABS: SARS Covid-2 Antigen negative (Negative)
[2023-05-15] MEDS: acetaminophen 500 mg Tablet 1000 MG PO (17:22)
[2023-05-15 19:43] LABS: Urine Color Dark Yellow (Yellow)
[2023-05-15 19:44] LABS: Add Urine Microscopic? YES; Bilirubin Urine Neg (Negative); Blood Urine 3+ (Negative); Glucose Urine UA Norm (Normal); Ketones Urine Negative (Negative); Leukocyte Esterase Urine Negative (Negative); Nitrate Urine Negative (Negative); Protein Urine Neg (Negative); Urine Appearance Clear (CLEAR); Urobilinogen Urine Norm (Negative); pH Urine 5 (5-7)
[2023-05-15 19:46] LABS: Add Urine Culture? Yes; Bacteria Urine TRACE /hpf; Mucus Urine 1+ /hpf; RBC Urine 25-40 /hpf (0-2); Squamous Epithelial Cell Urine 0-4 /hpf (0-5)
[2023-05-15] MEDS: sodium chloride 0.9% 1,000 ML 75 ML IV (20:16)
[2023-05-15 21:46] LABS: Glucose Point of Care 163 mg/dL (70-110)
[2023-05-15] MEDS: insulin glargine 100 units/1 mL 22 UNIT SUBCUT (22:07)
[2023-05-16 04:09] VITALS: BP 115/69; PULSE 50; RESP 16; TEMP 36.4; O2SAT 96
[2023-05-16] MEDS: sodium chloride 0.9% 1,000 ML 75 ML IV (04:18)
[2023-05-16 05:29] LABS: Anion Gap 12.2 (5-19); Blood Urea Nitrogen 23 mg/dL (8-23); Calcium 8.2 mg/dL (8.5-10.5); Carbon Dioxide 24 mmol/L (22-29); Chloride 107 mmol/L (98-107); Glucose 107 mg/dL (65-115); Osmolality Calculated 292 mOsm/kg (285-295); Potassium 4.2 mmol/L (3.5-5.1); Sodium 139 mmol/L (136-145)
[2023-05-16 06:38] LABS: Glucose Point of Care 113 mg/dL (70-110)
[2023-05-16 08:00] VITALS: BP 100/64; PULSE 53; RESP 17; TEMP 36.4; O2SAT 98
--- NOTE | 2023-05-16 08:38 | PM.DCS ---
Discharge Providers Date of Admission: 05/13/23 22:28 Date of Discharge: May 16, 2023 Attending Provider at Admission: [place] Remy MD Attending Provider at Discharge: Taj Walker MD Primary Care Provider: Jayden Blake MD Diagnoses at Discharge Discharge Diagnosis (1) Closed intertrochanteric fracture of right hip: Status: Acute Reason for Visit Reason for Visit: possible right hip fracture Hospital Course Hospital Course 78-year-old male who was admitted for management evaluation of hip fracture, Dr. Mondragon was consulted, status post ORIF, patient did well postoperatively, urine output was low which improved with IV fluid hydration, his creatinine is hanging around 1.3, there is component of UTI for which she required antibiotics, no signs of confusion, working with PT, he is being discharged to SNF/rehab with stable hemodynamics, he remained afebrile, Physical Exam Narrative: Awake and alert Stable hemodynamics GCS 15 Nonfocal neuro exam Pleasant and cooperative Urinary Catheter Management: Zheng: Cath Placed During This Visit: yes Reason for Continuing Indwelling Catheter: Perioperative Use in Selected Surgeries Urinary Catheter Date of Insertion: 05/14/23 Urinary Catheter Time of Insertion: 11:10 Discharge Data Studies Completed and Pending Completed Studies During Hospitalization Category Date Time Status CT pelvis wo con [id number] Stat Cat Scan 05/13/23 20:33 Completed XR chest 1V portable [id number] Stat Exams 05/13/23 21:12 Completed XR hip RT 1V wo/w pel [id number] Routine Exams 05/14/23 Completed XR hip RT 2-3V wo/w pel* [id number] Stat Exams 05/13/23 20:01 Completed Pending at discharge Category Date Time Status Urine Culture Routine Lab 05/15/23 18:52 Received Radiology Impressions Hip/Pelvis X-Ray 05/13/23 20:01 IMPRESSION: Questionable nondisplaced fracture through the femoral neck versus prominent trabeculation seen on the previous CT. Pelvis CT 05/13/23 20:33 IMPRESSION: Nondisplaced inter trochanteric fracture of the right femur. No dislocation. Prostatomegaly. Chest X-Ray 05/13/23 21:12 IMPRESSION: No acute findings. Stops Laboratory Results WBC 9.68 10^3/uL (3.29-11.43) 05/15/23 04:25 RBC 3.23 10^6/uL (3.85-5.65) L 05/15/23 04:25 Hgb 10.20 g/dL (11.27-16.99) L 05/15/23 04:25 Hct 32.1 % (37-53) L 05/15/23 04:25 MCV 99.4 fl (82-101) 05/15/23 04:25 MCH 31.6 pg (27-33) 05/15/23 04:25 MCHC 31.8 g/dL (30-55) 05/15/23 04:25 RDW 14.5 % (12.1-15.1) 05/15/23 04:25 Plt Count 126 10^3/cmm (157-399) L 05/15/23 04:25 MPV 10.2 fL (7.4-10.4) 05/15/23 04:25 Neut % (Auto) 81.7 % 05/15/23 04:25 Lymph % (Auto) 10.3 % 05/15/23 04:25 Dougherty % (Auto) 7.3 % 05/15/23 04:25 Eos % (Auto) 0.1 % 05/15/23 04:25 Baso % (Auto) 0.1 % 05/15/23 04:25 Neut # (Auto) 7.90 10^3/uL (1.8-7.7) H 05/15/23 04:25 Lymph # (Auto) 1.0 10^3/uL (0.8-4.8) 05/15/23 04:25 Dougherty # (Auto) 0.7 10^3/uL (0.2-0.9) 05/15/23 04:25 Eos # (Auto) 0.0 10^3/uL (0.0-0.8) 05/15/23 04:25 Baso # (Auto) 0.0 10^3/uL (0.0-0.1) 05/15/23 04:25 Nucleated RBC % (auto) 0 % 05/15/23 04:25 Nucleated RBCs # 0.0 /100WBC 05/15/23 04:25 Sodium 139 mmol/L (136-145) 05/16/23 04:17 Potassium 4.2 mmol/L (3.5-5.1) 05/16/23 04:17 Chloride 107 mmol/L (98-107) 05/16/23 04:17 Carbon Dioxide 24 mmol/L (22-29) 05/16/23 04:17 Anion Gap 12.2 (5-19) 05/16/23 04:17 BUN 23 mg/dL (8-23) 05/16/23 04:17 Creatinine 1.4 mg/dL (0.7-1.2) H 05/16/23 04:17 GFR Calculation Not Reportable 05/16/23 04:17 Glucose 107 mg/dL (65-115) 05/16/23 04:17 POC Glucose 113 mg/dL (70-110) H 05/16/23 06:27 Calculated Osmolality 292 mOsm/kg (285-295) 05/16/23 04:17 Calcium 8.2 mg/dL (8.5-10.5) L 05/16/23 04:17 Total Bilirubin 0.9 mg/dL (0.15-1.2) 05/14/23 04:22 AST 14 U/L (0-40) 05/14/23 04:22 ALT 7 U/L (0-41) 05/14/23 04:22 Alkaline Phosphatase 107 U/L (40-130) 05/14/23 04:22 Total Protein 6.2 g/dL (6.6-8.7) L 05/14/23 04:22 Albumin 3.3 g/dL (3.5-5.2) L 05/14/23 04:22 Globulin 2.9 g/dL (1.3-4.6) 05/14/23 04:22 Urine Color Dark yellow (Yellow) 05/15/23 18:52 Urine Appearance Clear (CLEAR) 05/15/23 18:52 Urine pH 5 (5-7) 05/15/23 18:52 Ur Specific Celeste 1.020 (1.005-1.030) 05/15/23 18:52 Urine Protein Neg (Negative) 05/15/23 18:52 Urine Glucose (UA) Norm (Normal) 05/15/23 18:52 Urine Ketones Negative (Negative) 05/15/23 18:52 Urine Blood 3+ (Negative) H 05/15/23 18:52 Urine Nitrate Negative (Negative) 05/15/23 18:52 Urine Bilirubin Neg (Negative) 05/15/23 18:52 Urine Urobilinogen Norm mg/dL (Negative) 05/15/23 18:52 Ur Leukocyte Esterase Negative (Negative) 05/15/23 18:52 Urine RBC 25-40 /hpf (0-2) H 05/15/23 18:52 Urine WBC 10-15 /hpf (0-5) H 05/15/23 18:52 Ur Squamous Epith Cells 0-4 /hpf (0-5) H 05/15/23 18:52 Amorphous Sediment Not Reportable 05/15/23 18:52 Urine Bacteria Trace /hpf (NONE) 05/15/23 18:52 Urine Mucus 1+ /hpf 05/15/23 18:52 SARS-CoV-2 Ag (Rapid) negative (Negative) 05/15/23 16:28 Vitals Last Vital Signs Temp 97.5 F L 05/16/23 04:09 Pulse 50 L 05/16/23 04:09 Resp 16 05/16/23 04:09 BP 115/69 05/16/23 04:09 Pulse Ox 96 05/16/23 04:09 O2 Del Method Room Air 05/16/23 04:09 Discharge Plan Discharge Patient Disposition: Xfer SNF Condition: Stable Prescriptions: New oxycodone 5 mg Tablet 5 mg PO Q4H PRN (Reason: Moderate To Severe Pain) Qty: 20 0RF cefpodoxime 200 mg tablet 200 mg PO BID Qty: 10 0RF Rx Instructions: must administer with a meal/food Continued insulin degludec 32 unit SUBCUT DAILY simvastatin 20 mg tablet 20 mg PO DAILY carbidopa-levodopa 25-100 mg tablet 1 tab PO TID 30 Days Qty: 90 2RF Rx Instructions: To be filled after loading dose; take 1 tab 3 times daily pantoprazole 40 mg tablet,delayed release (DR/EC) 40 mg PO DAILY 30 Days Qty: 30 2RF sotalol 160 mg tablet 160 mg PO BID Qty: 180 3RF potassium chloride 20 mEq tablet,ER particles/crystals See Rx Instructions .ROUTE .COMPLEX Qty: 30 4RF Dose Instruction: TAKE ONE TABLET BY MOUTH EVERY DAY Rx Instructions: TAKE ONE TABLET BY MOUTH EVERY DAY escitalopram oxalate [Lexapro] 20 mg tablet 20 mg PO DAILY Revlimid 5 mg Capsule 5 mg PO BEDTIME Patient Comments: Pt is on a 21 day cycle og this medication. Rx Instructions: swallow whole with glass of water; do not open, crush, chew , break, or dissolve Eliquis 5 mg tablet 5 mg PO BID Qty: 60 0RF Discharge Orders: Discharge Order (Routine); Ordered 05/16/23 Ordered By: Taj Walker Referrals: [facility] [Outside] Jayden Blake MD [Primary Care Provider] - Patient Instructions: Opioid Safety Discharge Attestations Time Spent in Discharge Care*: greater than 30 min Quality Metrics Clinical Quality Measures [ No reported AMI, CVA or VTE this stay] Coding Level of Care Code Acute Code for Chg Fwd Diagnoses Closed intertrochanteric fracture of right hip S72.141A
[2023-05-16] MEDS: cefTRIAXone 1,000 MG in sodium chloride 0.9% (plus) 50 ML 100 MG IV (09:29)
[2023-05-16] MEDS: atorvastatin 40 mg Tablet 20 MG PO (09:30)
[2023-05-16] MEDS: calcium carbonate 500 mg Chew Tablet 1000 MG PO (09:30)
[2023-05-16] MEDS: acetaminophen 500 mg Tablet 1000 MG PO (09:30)
[2023-05-16] MEDS: potassium chloride ER 20 mEq Tablet PO (09:30)
[2023-05-16] MEDS: CELEcoxib 200 mg Capsule PO (09:31)
[2023-05-16] MEDS: ARIPiprazole 2 mg Tablet PO (09:31)
[2023-05-16] MEDS: escitalopram 10 mg Tablet 20 MG PO (09:31)
[2023-05-16] MEDS: apixaban 5 mg Tablet PO (09:31)
[2023-05-16] MEDS: sotalol 80 mg Tablet 160 MG PO (09:31)
[2023-05-16] MEDS: carbidopa-levodopa 25-100mg Tablet 1 EACH PO (09:31)
[2023-05-16] MEDS: multivitamin therapeutic Tablet 1 TAB PO (09:31)
[2023-05-16] MEDS: chlorhexidine gluconate 0.12% Btl 473 mL 30 ML MUCOUS MEM (09:31)
--- NOTE | 2023-05-16 10:34 | PC.SOCIAL ---
IMM update: Pg 2 of IMM dated andd reviewed with pt. Copy provided and dated, initialed and placed in chart.
[2023-05-16 12:05] VITALS: BP 100/64; PULSE 53; RESP 17; TEMP 36.4; O2SAT 98
[2023-05-16 12:09] VITALS: BP 100/64; PULSE 53; RESP 17; TEMP 36.4; O2SAT 98
[2023-05-16 12:21] LABS: Glucose Point of Care 155 mg/dL (70-110)
== END 2023-05-16 12:05 | disposition skilled nursing facility (03) | DRG 481 ==
LOC: ER 22:08 → MEDSURG 22:28
PROVIDERS: Specialist; Admitting Provider Internal Medicine; Emergency Provider Nurse Practitioner Family; PCP Internal Medicine; Visit Provider Internal Medicine
PROC: 0QH636Z Insertion of Intramedullary Internal Fixation Device into Right Upper Femur, Percutaneous Approach (ICD-10-PCS; CPT 27245; 2023-05-14 14:10)
DX: S72.144A Nondisplaced intertrochanteric fracture of right femur, initial encounter for closed fracture (principal); C90.01 Multiple myeloma in remission; N39.0 Urinary tract infection, site not specified; W01.0XXA Fall on same level from slipping, tripping and stumbling without subsequent striking against object, initial encounter; Y92.89 Other specified places as the place of occurrence of the external cause; Z79.4 Long term (current) use of insulin; Z79.01 Long term (current) use of anticoagulants; Z79.899 Other long term (current) drug therapy; I48.91 Unspecified atrial fibrillation; E11.9 Type 2 diabetes mellitus without complications; M21.372 Foot drop, left foot; I10 Essential (primary) hypertension; E78.5 Hyperlipidemia, unspecified; I25.10 Atherosclerotic heart disease of native coronary artery without angina pectoris; E66.9 Obesity, unspecified; Z68.31 Body mass index [BMI] 31.0-31.9, adult; Z90.79 Acquired absence of other genital organ(s); M47.896 Other spondylosis, lumbar region; Z85.828 Personal history of other malignant neoplasm of skin
CPT/HCPCS: 36415; 36416; 51702; 51798; 71045; 72192; 73501; 73502; 76000; 80048; 80053; 81001; 82962; 85025; 87086; 87426; 93005; 96372; 97110; 97116; 97161; 97165; 97530; 99285; C1713; J0131; J0690; J0696; J1100; J1815; J2270; J2371; J2405; J2704; J3010; J3490; J7030; P9045

== ENCOUNTER → 2023-05-29 14:39 | Outpatient (BNVA) | payer OTHER, SELFPAY | PROVIDERS: PCP Internal Medicine; Visit Provider Specialist | DX: S72.141A Displaced intertrochanteric fracture of right femur, initial encounter for closed fracture (principal); X58.XXXA Exposure to other specified factors, initial encounter | CPT/HCPCS: 73502; 99024 ==

== ENCOUNTER → 2023-06-12 11:53 | Outpatient (BNVA) | payer MEDICARE, OTHER, SELFPAY | PROVIDERS: PCP Internal Medicine; Visit Provider Specialist | DX: M46.96 Unspecified inflammatory spondylopathy, lumbar region (principal); G20.A1 Parkinson's disease without dyskinesia, without mention of fluctuations | CPT/HCPCS: 99215 ==

== ENCOUNTER 2023-06-13 14:25 | Oncology outpatient (recurring) (ONCR) | payer MEDICARE, OTHER, SELFPAY | END 2023-07-02 23:59 | disposition home or self-care (01) | LOC: ONCMED 14:26 | PROVIDERS: PCP Internal Medicine; Visit Provider Internal Medicine Medical Oncology | DX: C90.00 Multiple myeloma not having achieved remission (principal); C90.31 Solitary plasmacytoma in remission; E11.9 Type 2 diabetes mellitus without complications; Z79.899 Other long term (current) drug therapy; Z85.828 Personal history of other malignant neoplasm of skin | CPT/HCPCS: 99215 ==

== ENCOUNTER → 2023-06-19 13:36 | Outpatient (BNVA) | payer MEDICARE, OTHER, SELFPAY | PROVIDERS: PCP Internal Medicine; Visit Provider Internal Medicine Cardiovascular Disease | DX: I25.10 Atherosclerotic heart disease of native coronary artery without angina pectoris (principal); Z79.899 Other long term (current) drug therapy; E78.5 Hyperlipidemia, unspecified; G20.A1 Parkinson's disease without dyskinesia, without mention of fluctuations | CPT/HCPCS: 99214 ==

== ENCOUNTER → 2023-07-05 12:06 | Outpatient (BNVA) | payer MEDICARE, OTHER, SELFPAY | PROVIDERS: PCP Internal Medicine; Visit Provider Internal Medicine Medical Oncology | DX: C90.00 Multiple myeloma not having achieved remission (principal) | CPT/HCPCS: 84156; 84166 ==

== ENCOUNTER → 2023-07-24 11:24 | Outpatient (BNVA) | payer MEDICARE, OTHER, SELFPAY | PROVIDERS: PCP Internal Medicine; Visit Provider Specialist | DX: S72.141A Displaced intertrochanteric fracture of right femur, initial encounter for closed fracture (principal); X58.XXXA Exposure to other specified factors, initial encounter; Z48.89 Encounter for other specified surgical aftercare | CPT/HCPCS: 73502; 99024 ==

== ENCOUNTER 2023-07-31 14:28 | Oncology outpatient (recurring) (ONCR) | payer MEDICARE, OTHER, SELFPAY | END 2023-08-01 23:59 | disposition home or self-care (01) | PROVIDERS: PCP Internal Medicine; Visit Provider Nurse Practitioner Family | DX: C90.00 Multiple myeloma not having achieved remission (principal); C90.31 Solitary plasmacytoma in remission; E11.9 Type 2 diabetes mellitus without complications; Z79.899 Other long term (current) drug therapy; Z85.828 Personal history of other malignant neoplasm of skin | CPT/HCPCS: 80053; 82784; 83883; 84155; 84156; 84165; 84166; 85025; 86334; 93005; 99214 ==

== ENCOUNTER → 2023-09-17 08:57 | Outpatient (BNVA) | payer MEDICARE, OTHER, SELFPAY | PROVIDERS: PCP Internal Medicine; Visit Provider Orthopaedic Surgery | DX: M48.061 Spinal stenosis, lumbar region without neurogenic claudication (principal) | CPT/HCPCS: 72100; 99214 ==

== ENCOUNTER 2023-09-20 11:37 | Outpatient (CLI) | payer MEDICARE, OTHER, SELFPAY ==
--- NOTE | 2023-09-20 16:45 | MR_ITS ---
WS: [id number] MRI LUMBAR SPINE NONCONTRAST TECHNIQUE: Sagittal T1, T2 and STIR imaging. Axial T1 and T2 imaging. CLINICAL INFORMATION: back pian COMPARISON: MRI 07/04/2022 FINDINGS: Postoperative changes laminectomy defects L2-L4 with spinal canal decompression is new from previous. L1-L2: Mild facet arthropathy. Spinal canal and foramen are patent. L2-L3: Mild annular bulging. Laminectomy defects. Spinal canal and foramen are patent. L3-L4: Mild disc bulging with slight effacement of the ventral thecal sac. Spinal canal has been deco mpressed. Mild residual narrowing of the thecal sac. Moderate facet arthropathy. RIGHT foraminal prot rusion with mild RIGHT foraminal narrowing. LEFT foramen is patent. L4-L5: Laminectomy defects. Mild residual narrowing of the thecal sac. Moderate facet arthropathy. Mo derate RIGHT and mild LEFT foraminal narrowing. L5-S1: Mild disc bulging with a shallow central protrusion. Slight effacement of the ventral thecal s ac. Mild facet arthropathy. Mild RIGHT greater than LEFT foraminal narrowing. Visualized pelvic bony structures: Normal. Paravertebral soft tissues: Normal. Small LEFT renal cyst. Small disc osteophyte protrusion cervical spine sales promotion officer imaging at C6-7 with mil d central canal stenosis. IMPRESSION: 1. Decompressive laminectomies L2-L4 new from previous. Mild residual narrowing of the thecal sac at L3-L4 and L4-L5. Spinal canal stenosis significantly improved compared to previous. 2. RIGHT foraminal protrusion L4-5 with moderate RIGHT foraminal narrowing and impingement on the ex iting RIGHT L4 nerve root. 3. Mild RIGHT L3-4 foraminal narrowing with a small RIGHT foraminal protrusion. 4. No other significant interval changes.
== END 2023-09-20 11:38 | disposition home or self-care (01) ==
LOC: RAD 11:37
PROVIDERS: PCP Internal Medicine; Visit Provider Orthopaedic Surgery
DX: G20.A1 Parkinson's disease without dyskinesia, without mention of fluctuations (principal)
CPT/HCPCS: 72148; 99214

== ENCOUNTER → 2023-09-30 10:02 | Outpatient (BNVA) | payer MEDICARE, OTHER, SELFPAY | PROVIDERS: PCP Internal Medicine; Visit Provider Anesthesiology Pain Medicine | DX: M47.816 Spondylosis without myelopathy or radiculopathy, lumbar region; M48.062 Spinal stenosis, lumbar region with neurogenic claudication | CPT/HCPCS: 99214 ==

== ENCOUNTER → 2023-10-17 13:52 | Outpatient (BNVA) | payer MEDICARE, OTHER, SELFPAY | PROVIDERS: PCP Internal Medicine; Visit Provider Anesthesiology Pain Medicine | DX: M47.816 Spondylosis without myelopathy or radiculopathy, lumbar region (principal) | CPT/HCPCS: 64493; 64494; 64495; J3490 ==

== ENCOUNTER → 2023-10-28 10:58 | Outpatient (BNVA) | payer MEDICARE, OTHER, SELFPAY | PROVIDERS: PCP Internal Medicine; Visit Provider Anesthesiology Pain Medicine | DX: M47.816 Spondylosis without myelopathy or radiculopathy, lumbar region; M48.062 Spinal stenosis, lumbar region with neurogenic claudication | CPT/HCPCS: 99214 ==

== ENCOUNTER → 2023-11-18 12:54 | Outpatient (BNVA) | payer MEDICARE, OTHER, SELFPAY | PROVIDERS: PCP Internal Medicine; Visit Provider Anesthesiology Pain Medicine | DX: M47.816 Spondylosis without myelopathy or radiculopathy, lumbar region (principal) | CPT/HCPCS: 64493; 64494; 64495; J3490 ==

== ENCOUNTER → 2023-12-10 10:43 | Outpatient (BNVA) | payer MEDICARE, OTHER, SELFPAY | PROVIDERS: PCP Internal Medicine; Visit Provider Anesthesiology Pain Medicine | DX: M47.816 Spondylosis without myelopathy or radiculopathy, lumbar region; M48.062 Spinal stenosis, lumbar region with neurogenic claudication | CPT/HCPCS: 99214 ==

== ENCOUNTER → 2023-12-30 14:26 | Outpatient (BNVA) | payer MEDICARE, OTHER, SELFPAY | PROVIDERS: PCP Internal Medicine; Visit Provider Anesthesiology Pain Medicine | DX: M54.16 Radiculopathy, lumbar region (principal) | CPT/HCPCS: 64635; 64636; J3490 ==

== ENCOUNTER → 2024-01-14 15:27 | Outpatient (BNVA) | payer MEDICARE, OTHER, SELFPAY | PROVIDERS: PCP Internal Medicine; Visit Provider Internal Medicine Cardiovascular Disease | DX: I48.91 Unspecified atrial fibrillation (principal); I25.10 Atherosclerotic heart disease of native coronary artery without angina pectoris; E78.5 Hyperlipidemia, unspecified; I10 Essential (primary) hypertension; R00.1 Bradycardia, unspecified; Z79.01 Long term (current) use of anticoagulants | CPT/HCPCS: 99214 ==

== ENCOUNTER → 2024-01-20 13:30 | Outpatient (BNVA) | payer MEDICARE, OTHER, SELFPAY | PROVIDERS: PCP Internal Medicine; Visit Provider Anesthesiology Pain Medicine | DX: M47.816 Spondylosis without myelopathy or radiculopathy, lumbar region (principal); M48.062 Spinal stenosis, lumbar region with neurogenic claudication | CPT/HCPCS: 99214 ==

== ENCOUNTER → 2024-01-22 10:15 | Outpatient (BNVA) | payer MEDICARE, OTHER, SELFPAY | PROVIDERS: PCP Internal Medicine; Visit Provider Nurse Practitioner Family | DX: C90.31 Solitary plasmacytoma in remission (principal) | CPT/HCPCS: 80053; 82784; 83883; 84155; 84165; 85025; 86334 ==

== ENCOUNTER → 2024-01-23 11:20 | Outpatient (BNVA) | payer MEDICARE, OTHER, SELFPAY | PROVIDERS: PCP Internal Medicine; Visit Provider Family Medicine | DX: C90.31 Solitary plasmacytoma in remission (principal) | CPT/HCPCS: 84156; 84166 ==

== ENCOUNTER 2024-01-29 14:00 | Oncology outpatient (recurring) (ONCR) | payer MEDICARE, OTHER, SELFPAY | END 2024-01-31 23:59 | disposition home or self-care (01) | PROVIDERS: PCP Internal Medicine; Visit Provider Nurse Practitioner Family | DX: C90.31 Solitary plasmacytoma in remission (principal); Z90.79 Acquired absence of other genital organ(s); J30.2 Other seasonal allergic rhinitis; Z79.899 Other long term (current) drug therapy | CPT/HCPCS: 99214 ==

== ENCOUNTER 2024-03-20 13:09 | Emergency (ER) | payer MEDICARE, OTHER, SELFPAY ==
[2024-03-20 13:30] VITALS: BP 114/73; PULSE 54; RESP 16; TEMP 36.7; O2SAT 98
[2024-03-20 14:21] VITALS: BP 151/87; PULSE 56; RESP 16; O2SAT 98
--- NOTE | 2024-03-20 14:35 | CTR_ITS ---
PROCEDURE INFORMATION: Exam: CT Lumbar Spine Without Contrast Exam date and time: 03/20/2024 2:53 PM Age: 79 years old Clinical indication: Injury or trauma; Fall; Blunt trauma (contusions or hematomas); Injury details: States he got dizzy a couple of nights ago, passed out and fell backwards TECHNIQUE: Imaging protocol: Computed tomography of the lumbar spine without contrast. Radiation optimization: All CT scans at this facility use at least one of these dose optimization techniques: automated exposure control; mA and/or kV adjustment per patient size (includes targeted exams where dose is matched to clinical indication); or iterative reconstruction. COMPARISON: MR lumbar spine wo con* [id number] 09/20/2023 4:53 PM RADIATION DOSE METRICS: Total DLP (mGy-cm): 1947.66 FINDINGS: Bones/joints: Moderate compression fracture of the L3 superior endplate with mild prevertebral soft tissue edema. There are degenerative changes throughout the visualized spine including marginal osteophyte formations, endplate degenerative changes, and facet arthropathy. Multilevel disc space narrowing. There are posterior decompression changes from the L2-L3 through the L4-L5 levels. L1-L2: No significant disc bulge or herniation. No severe spinal canal stenosis. No significant neural foraminal narrowing. L2-L3: There are posterior decompression changes. Mild bilateral neural foramina narrowing. L3-L4: There are posterior decompression changes. Posterior osteophytes and severe facet degenerative changes contribute to mild narrowing of the left neural foramen and moderate narrowing of the right neural foramen. L4-L5: There are posterior decompression changes. A minimal disc bulge, posterior osteophytes, severe facet arthropathy contribute to moderate to severe narrowing of the right neural foramen and mild narrowing of the left neural foramen. Canal is not well seen however appears to be narrowed. L5-S1: No significant disc bulge or herniation. No severe spinal canal stenosis. No significant neural foraminal narrowing. Soft tissues: Postoperative changes are present in the posterior paravertebral and subcutaneous soft tissues of the lumbar spine. CT/CT lumbar spine wo con* [id number] IMPRESSION: 1. Moderate compression fracture of the L3 superior endplate. 2. Multifactorial multilevel degenerative changes as described above.
--- NOTE | 2024-03-20 14:35 | CTR_ITS ---
PROCEDURE INFORMATION: Exam: CT Head Without Contrast Exam date and time: 03/20/2024 2:48 PM Age: 79 years old Clinical indication: Injury or trauma; Fall; Blunt trauma (contusions or hematomas); Injury date: Couple of days ago; Injury details: PT states he got dizzy a couple of nights ago, passed out and fell backwards. TECHNIQUE: Imaging protocol: Computed tomography of the head without contrast. Radiation optimization: All CT scans at this facility use at least one of these dose optimization techniques: automated exposure control; mA and/or kV adjustment per patient size (includes targeted exams where dose is matched to clinical indication); or iterative reconstruction. COMPARISON: CT cervical spin wo con* [id number] 03/20/2024 2:48 PM RADIATION DOSE METRICS: Total DLP (mGy-cm): 1917.88 FINDINGS: Brain: There is mild diffuse cerebral atrophy present, consistent with this patient's age. Periventricular and subcortical white matter low densities are present which at this age likely represent microvascular ischemic change. No evidence for large acute ischemic infarction. Please note acute ischemia can be occult by head CT. No evidence for acute intracranial hemorrhage. Cerebral ventricles: No ventriculomegaly. Paranasal sinuses: Visualized sinuses are unremarkable. No fluid levels. Mastoid air cells: Visualized mastoid air cells are well aerated. Bones: Unremarkable. No acute fracture. Soft tissues: There is a 4 mm metallic density in the right frontal scalp soft tissues. CT/CT head wo con* [id number] IMPRESSION: There are senescent changes of the brain as described above. No evidence for large acute ischemic infarction or acute intracranial injury.
--- NOTE | 2024-03-20 14:35 | CTR_ITS ---
PROCEDURE INFORMATION: Exam: CT Cervical Spine Without Contrast Exam date and time: 03/20/2024 2:48 PM Age: 79 years old Clinical indication: Injury or trauma; Fall; Blunt trauma; Injury date: Couple of days ago; Injury details: PT states he got dizzy a couple of nights ago, passed out and fell backwards. TECHNIQUE: Imaging protocol: Computed tomography of the cervical spine without contrast. Radiation optimization: All CT scans at this facility use at least one of these dose optimization techniques: automated exposure control; mA and/or kV adjustment per patient size (includes targeted exams where dose is matched to clinical indication); or iterative reconstruction. COMPARISON: CT head wo con* [id number] 03/20/2024 2:48 PM RADIATION DOSE METRICS: Total DLP (mGy-cm): 1917.88 FINDINGS: Bones/joints: There are degenerative changes throughout the visualized spine including marginal osteophyte formations, endplate degenerative changes, and facet arthropathy. Multilevel disc space narrowing. C2-C3: No significant disc bulge or herniation. No severe spinal canal stenosis. No significant neural foraminal narrowing. C3-C4: No significant disc bulge or herniation. No severe spinal canal stenosis. No significant neural foraminal narrowing. C4-C5: No significant disc bulge or herniation. No severe spinal canal stenosis. No significant neural foraminal narrowing. C5-C6: No significant disc bulge or herniation. No severe spinal canal stenosis. No significant neural foraminal narrowing. C6-C7: There is a broad-based disc osteophyte complex which indents the anterior thecal sac and results in moderate narrowing of the bilateral neural foramina. C7-T1: No significant disc bulge or herniation. No severe spinal canal stenosis. No significant neural foraminal narrowing. Lungs: Lung apices are normal. Soft tissues: There are benign-appearing soft tissue calcifications. CT/CT cervical spin wo con* [id number] IMPRESSION: There are degenerative changes as described above. No evidence for acute fracture.
--- NOTE | 2024-03-20 14:35 | CTR_ITS ---
PROCEDURE INFORMATION: Exam: CT Thoracic Spine Without Contrast Exam date and time: 03/20/2024 2:53 PM Age: 79 years old Clinical indication: Injury or trauma; Fall; Blunt trauma (contusions or hematomas); Injury details: States he got dizzy a couple of nights ago, passed out and fell backwards; Prior surgery; Surgery date: 6+ months TECHNIQUE: Imaging protocol: Computed tomography of the thoracic spine without contrast. Radiation optimization: All CT scans at this facility use at least one of these dose optimization techniques: automated exposure control; mA and/or kV adjustment per patient size (includes targeted exams where dose is matched to clinical indication); or iterative reconstruction. COMPARISON: CT lumbar spine wo con* [id number] 03/20/2024 2:53 PM RADIATION DOSE METRICS: Total DLP (mGy-cm): 1917.88 FINDINGS: Bones/joints: Generalized osseous demineralization. No acute fracture. Normal alignment. No significant disc bulge or herniation. No severe spinal canal stenosis. Soft tissues: Unremarkable. CT/CT thoracic spin wo con* [id number] IMPRESSION: No acute findings.
--- NOTE | 2024-03-20 14:36 | ECG_ITS ---
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 Measurements Intervals [place] Rate: 55 P: 25 AL: 198 QRS: -20 QRSD: 92 T: -4 QT: 478 QTc: 459 Interpretive Statements SINUS BRADYCARDIA INFERIOR MYOCARDIAL INFARCTION , PROBABLY OLD [40+ ms Q WAVE AND/OR ST/T ABNORMALITY IN II/aVF] MODERATE T-WAVE ABNORMALITY, CONSIDER ANTERIOR ISCHEMIA [-0.1+ mV T-WAVE IN V3/V4] Compared to ECG 07/31/2023 15:47:18 Myocardial infarct finding now present Possible ischemia now present T-wave abnormality still present Electronically Signed On 03-20-2024 15:34:46 CDT by Montana Mcnair M.D. [id number]
--- NOTE | 2024-03-20 14:37 | ED_ITS ---
HPI - Dizziness 2 General: Chief Complaint: Dizziness Stated Complaint: back pain from a fall Time Seen by Provider: 03/20/24 14:24 History of Present Illness: HPI Narrative: Patient comes in with low back pain. States that 3 days ago he stood up from the chair and got dizzy and passed out. States he fell landing on his butt. States he has a history of low back pain. States has been worse the last few days since he fell. States he has a history of A-fib and is on blood thinners. States he has done this in the past where he passed out and fell. States he has a history of chronic back pain and spends a lot of time sitting in his chair. Denies any cold symptoms including no fever, cough, congestion, vomiting. Denies chest pain, shortness of breath, or abdominal pain. Review of Systems 2 General: Reports: 10 or more systems reviewed and unremarkable except in HPI and below PFSH ED 2 PFSH: Medical History Plasmacytoma in remission Weakness of both lower extremities Acquired left foot drop Closed intertrochanteric fracture of right hip Fracture of hip, right, closed Facet arthropathy, lumbar History of nonmelanoma skin cancer Lumbar stenosis with neurogenic claudication Diarrhea Tubular adenoma History of cardioversion Balanitis Anticoagulation adequate with anticoagulant therapy Multiple myeloma Lymphoma ASHD (arteriosclerotic heart disease) Diabetes Atrial fibrillation Obesity HTN (hypertension) Dyslipidemia Surgical History Previous back surgery S/P orchiectomy History of colonoscopy 01/2022 H/O bone marrow transplant Family History Brother CAD (coronary artery disease) Cancer Mother Congestive heart failure (CHF) Brother Cancer Sister Cancer Sister Cancer Family/Other Cancer Chronic kidney disease (CKD) Denies family history of Diabetes Clotting disorder Dementia Anesthesia complication Bleeding disorder Lung disease Stroke Social History Smoking and tobacco/nicotine status: never used tobacco/nicotine Alcohol intake: never Substance/Drug Use: never Marital status: Current occupational status: retired Physical Exam 2 Const: COMMON NORMALS: no acute distress, patient oriented x3, healthy appearing and alert HENMT: COMMON NORMALS: normocephalic and atraumatic HEAD & SCALP: n ormocephalic and atraumatic Eye: COMMON NORMALS: Equal, round and reactive pupils present and EOMs intact bilaterally PUPIL: Yes Equal, round and reactive pupils present Neck/C-Spine: COMMON NORMALS: full ROM and supple Resp: COMMON NORMALS: normal respiratory effort, No retractions and No use of accessory muscles Cardio: COMMON NORMALS: regular rate and regular rhythm RATE: regular rate RHYTHM: regular rhythm GI: COMMON NORMALS: Soft to palpation and non-tender PALPATION: Yes Soft to palpation Back/Pelvis: OTHER: Lumbar back tenderness to palpation Extremity: COMMON NORMALS: normal to inspection and full ROM Neuro: COMMON NORMALS: patient oriented x3 SENSORIUM/ORIENTATION: Yes alert Psych: COMMON NORMALS: mental status grossly normal and cooperative Skin: COMMON NORMALS: no rashes or lesions noted and no wounds GENERAL SKIN EXAM: no rashes or lesions noted Course 2 Vital Signs: Vital signs: Vital Signs Temperature 98.0 F 03/20/24 13:30 Pulse Rate 64 03/20/24 17:00 Respiratory Rate 16 03/20/24 17:00 Blood Pressure 132/77 03/20/24 17:00 Pulse Oximetry 95 03/20/24 17:00 Oxygen Delivery Me thod Room Air 03/20/24 16:30 MDM - Dizziness Medical Decision Making Patient comes in with low back pain. States that 3 days ago he stood up from the chair and got dizzy and passed out. States he fell landing on his butt. States he has a history of low back pain. States has been worse the last few days since he fell. States he has a history of A-fib and is on blood thinners. States he has done this in the past where he passed out and fell. States that it usually occurs when he is sitting for a long period of time and stands up. States he has a history of chronic back pain and spends a lot of time sitting in his chair. Denies any cold symptoms including no fever, cough, congestion, vomiting. Denies chest pain, shortness of breath, or abdominal pain. On physical exam he has tenderness in his lower back to palpation. His NIHSS equals 0. His neuro exam is grossly normal. Will check labs, CT head and CT of the total spine without contrast. Will check EKG, and reassess. On reassessment I talked to the patient about the test results. His white blood cell count was normal at 8.4. His troponin was 16 at baseline and [address] scan shows an L3 compression fracture. Patient states he already sees Dr. Hong with orthopedic surgery. I encouraged him to follow-up regarding the lumbar vertebral fracture. He states he has pain meds at home as well. Will discharge at this time with precautions to return for worsening or changing symptoms. Lab Data 03/20/24 15:23 03/20/24 15:23 Radiology Impressions Cervical Spine CT 03/20/24 14:35 IMPRESSION: There are degenerative changes as described above. No evidence for acute fracture. Head CT 03/20/24 14:35 IMPRESSION: There are senescent changes of the brain as described above. No evidence for large acute ischemic infarction or acute intracranial injury. Lumbar Spine CT 03/20/24 14:35 IMPRESSION: 1. Moderate compression fracture of the L3 superior endplate. 2. Multifactorial multilevel degenerative changes as described above. Thoracic Spine CT 03/20/24 14:35 IMPRESSION: No acute findings. Laboratory Results WBC 8.49 10^3/uL (3.29-11.43) 03/20/24 15:23 RBC 4.25 10^6/uL (3.85-5.65) 03/20/24 15:23 Hgb 12.80 g/dL (11.27-16.99) 03/20/24 15:23 Hct 39.8 % (37-53) 03/20/24 15:23 MCV 93.6 fl (82-101) 03/20/24 15:23 MCH 30.1 pg (27-33) 03/20/24 15:23 MCHC 32.2 g/dL (30-55) 03/20/24 15:23 RDW 14.7 % (12.1-15.1) 03/20/24 15:23 Plt Count 161 10^3/cmm (157-399) 03/20/24 15:23 MPV 10.3 fL (7.4-10.4) 03/20/24 15:23 Neut % (Auto) 70.1 % 03/20/24 15:23 Lymph % (Auto) 16.0 % 03/20/24 15:23 Thayer % (Auto) 11.1 % 03/20/24 15:23 Eos % (Auto) 0.7 % 03/20/24 15:23 Baso % (Auto) 0.6 % 03/20/24 15:23 Neut # (Auto) 5.95 10^3/uL (1.8-7.7) 03/20/24 15:23 Lymph # (Auto) 1.4 10^3/uL (0.8-4.8) 03/20/24 15:23 Thayer # (Auto) 0.9 10^3/uL (0.2-0.9) 03/20/24 15:23 Eos # (Auto) 0.1 10^3/uL (0.0-0.8) 03/20/24 15:23 Baso # (Auto) 0.1 10^3/uL (0.0-0.1) 03/20/24 15:23 Nucleated RBC % (auto) 0 % 03/20/24 15: Nucleated RBCs # 0.0 /100WBC 03/20/24 15:23 Sodium 133 mmol/L (136-145) L 03/20/24 15:23 Potassium 4.4 mmol/L (3.5-5.1) 03/20/24 15:23 Chloride 99 mmol/L (98-107) 03/20/24 15:23 Carbon Dioxide 21 mmol/L (22-29) L 03/20/24 15:23 Anion Gap 17.4 (5-19) 03/20/24 15:23 BUN 16 mg/dL (8-23) 03/20/24 15:23 Creatinine 1.3 mg/dL (0.7-1.2) H 03/20/24 15:23 GFR Calculation Not Reportable 03/20/24 15:23 Glucose 301 mg/dL (65-115) H 03/20/24 15:23 Calculated Osmolality 288 mOsm/kg (285-295) 03/20/24 15:23 Calcium 8.2 mg/dL (8.5-10.5) L 03/20/24 15:23 Total Bilirubin 0.7 mg/dL (0.15-1.2) 03/20/24 15:23 AST 12 U/L (0-40) 03/20/24 15:23 ALT 6 U/L (0-41) 03/20/24 15:23 Alkaline Phosphatase 136 U/L (40-130) H 03/20/24 15:23 Troponin T Baseline 16 ng/L (0-15) H 03/20/24 15:23 Troponin T 120 Minute 13.49 ng/L (0-15) 03/20/24 17:50 Delta Troponin T -2.51 ABS# (0-10) L 03/20/24 17:50 Total Protein 6.6 g/dL (6.6-8.7) 03/20/24 15:23 Albumin 3.4 g/dL (3.5-5.2) L 03/20/24 15:23 Globulin 3.2 g/dL (1.3-4.6) 03/20/24 15:23 All radiology interpretation(s) finalized by discharge Discharge Plan Discharge Patient Disposition: Home Clinical Impression: Vertebral compression fracture Qualifiers: Encounter type: initial encounter Fracture of vertebra location: lumbar Lumbar vertebra fracture level: L3 Qualified Code(s): S32.030A - Wedge compression fracture of third lumbar vertebra, initial encounter for closed fracture Condition: Stable Prescriptions: No Action insulin degludec 32 unit SUBCUT DAILY simvastatin 20 mg tablet 20 mg PO DAILY magnesium hydroxide [Milk of Magnesia] 400 mg/5 mL suspension 5 ml PO DAILY PRN carbidopa-levodopa 25-100 mg tablet See Rx Instructions .ROUTE .COMPLEX Qty: 60 11RF Dose Instruction: TAKE ONE TABLET BY MOUTH THREE TIMES DAILY Rx Instructions: TAKE ONE TABLET BY MOUTH TWO TIMES DAILY escitalopram oxalate [Lexapro] 20 mg tablet 20 mg PO DAILY Qty: 90 3RF memantine 10 mg tablet 10 mg PO BID Qty: 180 3RF Rx Instructions: after starter pack sotalol 120 mg tablet See Rx Instructions .ROUTE .COMPLEX Qty: 135 0RF Dose Instruction: TAKE ONE TABLET BY MOUTH EVERY MORNING AND take 1/2 tablet EVERY EVENING Rx Instructions: TAKE ONE TABLET BY MOUTH EVERY MORNING AND take 1/2 tablet EVERY EVENING potassium chloride 20 mEq tablet,ER particles/crystals See Rx Instructions .ROUTE .COMPLEX Qty: 30 4RF Dose Instruction: TAKE ONE TABLET BY MOUTH EVERY DAY Rx Instructions: TAKE ONE TABLET BY MOUTH EVERY DAY pantoprazole 40 mg tablet,delayed release (DR/EC) See Rx Instructions .ROUTE .COMPLEX Qty: 30 2RF Dose Instruction: TAKE ONE TABLET BY MOUTH EVERY DAY Rx Instructions: TAKE ONE TABLET BY MOUTH EVERY DAY lenalidomide [Revlimid] 5 mg capsule 5 mg PO DAILY Qty: 21 0RF Hold Instructions: Doctor's Order Rx Instructions: 1 cap daily for 21 days. Off for 7 days. Repeat. Eliquis 5 mg tablet 5 mg PO BID Qty: 60 0RF Discharge Orders: Discharge ED (Routine); Ordered 03/20/24 Ordered By: Andrés Campbell Referrals: Jonathan Hong DO [Physician] - Jayden Blake MD [Primary Care Provider] - Patient Instructions: Thoracolumbar Fracture (ED) Coding Level of Care Code ED Guest Associate for Lita Salazar
[2024-03-20] MEDS: sodium chloride 0.9% 500 ML IV (15:22)
[2024-03-20] MEDS: methylPREDNISolone sod succ 125 mg/2 mL INJ IVP (15:23)
[2024-03-20 15:30] VITALS: BP 123/86; PULSE 56; RESP 16; O2SAT 99
[2024-03-20 15:30] LABS: Basophils # 0.1 10^3/uL (0.0-0.1); Basophils % 0.6 %; Eosinophils # 0.1 10^3/uL (0.0-0.8); Eosinophils % 0.7 %; Hematocrit 39.8 % (37-53); Lymphocytes # 1.4 10^3/uL (0.8-4.8); Mean Corpuscular HGB Conc 32.2 g/dL (30-55); Mean Corpuscular Hemoglobin 30.1 pg (27-33); Mean Corpuscular Volume 93.6 fl (82-101); Mean Platelet Volume 10.3 fL (7.4-10.4); Monocytes # 0.9 10^3/uL (0.2-0.9); Monocytes % 11.1 %; Neutrophils # 5.95 10^3/uL (1.8-7.7); Neutrophils % 70.1 %; Nucleated Red Blood Cells % 0 %; Platelet Count 161 10^3/cmm (157-399); Red Blood Count 4.25 10^6/uL (3.85-5.65); Red Cell Distribution Width 14.7 % (12.1-15.1); White Blood Count 8.49 10^3/uL (3.29-11.43)
[2024-03-20 15:51] LABS: Alanine Aminotransferase 6 U/L (0-41); Albumin Level 3.4 g/dL (3.5-5.2); Alkaline Phosphatase 136 U/L (40-130); Anion Gap 17.4 (5-19); Aspartate Amino Transferase 12 U/L (0-40); Blood Urea Nitrogen 16 mg/dL (8-23); Calcium 8.2 mg/dL (8.5-10.5); Carbon Dioxide 21 mmol/L (22-29); Chloride 99 mmol/L (98-107); Creatinine Clr Calc Pharmacy 57.6426; Globulin 3.2 g/dL (1.3-4.6); Glucose 301 mg/dL (65-115); Osmolality Calculated 288 mOsm/kg (285-295); Potassium 4.4 mmol/L (3.5-5.1); Sodium 133 mmol/L (136-145); Total Bilirubin 0.7 mg/dL (0.15-1.2); Total Protein 6.6 g/dL (6.6-8.7)
[2024-03-20 15:52] LABS: Troponin(5th) Baseline 16 ng/L (0-15)
[2024-03-20 16:30] VITALS: BP 138/69; PULSE 62; RESP 16; O2SAT 95
--- NOTE | 2024-03-20 16:44 | ECG_ITS ---
[facility] Test Date: 2024-03-20 Pat Name: Shad Vines Department: Room: Gender: Male [employer]: : 1945 Requested By: Andrés Campbell Order Number: [id number] Bernard MD: Rajiv Acuna M.D. Measurements Intervals [place] Rate: 60 P: 21 AL: 198 QRS: -19 QRSD: 89 T: 0 QT: 440 QTc: 440 Interpretive Statements SINUS RHYTHM MODERATE T-WAVE ABNORMALITY, CONSIDER ANTERIOR ISCHEMIA [-0.1+ mV T-WAVE IN V3/V4] Compared to ECG 03/20/2024 15:10:24 Sinus bradycardia no longer present Myocardial infarct finding no longer present T-wave abnormality still present Possible ischemia still present Electronically Signed On 03-20-2024 22:45:00 CDT by Rajiv Acuna M.D. [id number]
[2024-03-20 17:00] VITALS: BP 132/77; PULSE 64; RESP 16; O2SAT 95
[2024-03-20 18:15] LABS: Troponin 5 2HR 13.49 ng/L (0-15)
[2024-03-20 18:17] LABS: Troponin 5 2HR Delta -2.51 ABS# (0-10)
== END 2024-03-20 19:51 | disposition home or self-care (01) ==
PROVIDERS: Emergency Provider Emergency Medicine; PCP Internal Medicine
DX: M46.96 Unspecified inflammatory spondylopathy, lumbar region (principal); G20.A1 Parkinson's disease without dyskinesia, without mention of fluctuations; G31.83 Neurocognitive disorder with Lewy bodies; F02.80 Dementia in other diseases classified elsewhere, unspecified severity, without behavioral disturbance, psychotic disturbance, mood disturbance, and anxiety; S32.030A Wedge compression fracture of third lumbar vertebra, initial encounter for closed fracture; Z79.01 Long term (current) use of anticoagulants; Z79.4 Long term (current) use of insulin; E11.9 Type 2 diabetes mellitus without complications; I10 Essential (primary) hypertension; E78.5 Hyperlipidemia, unspecified; W18.39XA Other fall on same level, initial encounter
CPT/HCPCS: 70450; 72125; 72128; 72131; 80053; 84484; 85025; 93005; 96116; 96374; 99215; 99285; J2919; J7040

== ENCOUNTER → 2024-03-24 10:30 | Outpatient (BNVA) | payer MEDICARE, OTHER, SELFPAY | PROVIDERS: PCP Internal Medicine; Visit Provider Orthopaedic Surgery | DX: Z09 Encounter for follow-up examination after completed treatment for conditions other than malignant neoplasm (principal); S32.030A Wedge compression fracture of third lumbar vertebra, initial encounter for closed fracture; W19.XXXA Unspecified fall, initial encounter; M54.9 Dorsalgia, unspecified | CPT/HCPCS: 36415; 80053; 81001; 83036; 85025; 99214 ==

== ENCOUNTER 2024-03-30 05:55 | Day surgery (SDC) | payer MEDICARE, OTHER, SELFPAY ==
--- NOTE | 2024-03-24 13:16 | ANES.PREANE2 ---
Pre-Anesthetic Assessment Height/Weight: Height 1.8 m Operation Date: 03/30/24 11:05 Proposed Procedures p Kyphoplasty(Not Applicable) - Jonathan Hong, DO Familial anesthetic complications: PONV Social No alcohol and No tobacco Exam alert, oriented x 3, clear to auscultation bilaterally and regular rate & rhythm Pulmonary None reported CV/HEM Atrial Fibrillation and Coronary Artery Disease Metabolic Diabetes Mellitus Neuropsych Parkinson's, lewy body dementia Anesthetic Plan ASA status: 3 Anesthesia: General Risk of > 500 ml blood loss (7ml/kg in children): No Medications/Allergies Home Medications Medication Instructions Recorded Confirmed Last Taken Type insulin degludec [Tresiba 32 unit SUBCUT DAILY 11/02/19 03/24/24 03/24/24 History FlexTouch U-100] simvastatin 20 mg tablet 20 mg PO DAILY 11/02/19 03/24/24 03/23/24 History apixaban 5 mg tablet (Eliquis) 5 mg PO BID #60 tabs 05/16/23 03/24/24 03/24/24 Rx lenalidomide 5 mg capsule 5 mg PO DAILY #21 caps 03/02/24 03/24/24 03/23/24 Rx (Revlimid) escitalopram oxalate 20 mg tablet 20 mg PO DAILY #90 tabs 03/20/24 03/24/24 03/24/24 Rx (Lexapro) memantine 10 mg tablet 10 mg PO BID #180 tabs 03/20/24 03/24/24 03/24/24 Rx carbidopa 25 mg-levodopa 100 mg 25 - 100 tab PO BID 03/24/24 03/24/24 03/24/24 History tablet cholestyramine-aspartame 4 gram 1 ea PO DAILY 03/24/24 03/24/24 03/23/24 History oral powder (Cholestyramine Light) pantoprazole 40 mg tablet,delayed 40 mg PO DAILY 03/24/24 03/24/24 03/24/24 History release potassium chloride 20 mEq 20 meq PO DAILY 03/24/24 03/24/24 03/24/24 History tablet,extended release(part/cryst) sotalol 120 mg tablet 120 mg PO DIRECTED 03/24/24 03/24/24 03/24/24 History tramadol 100 mg tablet 100 mg PO BID PRN pain #14 tabs 03/24/24 03/24/24 Unknown Rx Allergies Allergy/AdvReac Type Severity Reaction Status Date / Time No Known Allergies Allergy Verified 03/24/24 11:02 [facility] Anesthesia Medical History Plasmacytoma in remission Weakness of both lower extremities Acquired left foot drop Closed intertrochanteric fracture of right hip Fracture of hip, right, closed Facet arthropathy, lumbar History of nonmelanoma skin cancer Lumbar stenosis with neurogenic claudication Diarrhea Tubular adenoma History of cardioversion Balanitis Anticoagulation adequate with anticoagulant therapy Multiple myeloma Lymphoma ASHD (arteriosclerotic heart disease) Diabetes Atrial fibrillation Obesity HTN (hypertension) Dyslipidemia Surgical History Previous back surgery S/P orchiectomy History of colonoscopy 01/2022 H/O bone marrow transplant Family History Brother CAD (coronary artery disease) Cancer Mother Congestive heart failure (CHF) Brother Cancer Sister Cancer Sister Cancer Family/Other Cancer Chronic kidney disease (CKD) Denies family history of Diabetes Clotting disorder Dementia Anesthesia complication Bleeding disorder Lung disease Stroke Social History Smoking and tobacco/nicotine status: former use of tobacco/nicotine Alcohol intake: never Substance/Drug Use: never Marital status: Current occupational status: retired Data Anesthesia Cardiac Studies: Echocardiogram 01/02/23
[2024-03-30] VITALS (14 sets, daily range): BP systolic 107–154; BP diastolic 59–83; PULSE 47–52; RESP 10–18; TEMP 36.2–36.8; O2SAT 91–97; BMI 31.1
--- NOTE | 2024-03-30 05:57 | SC_ITS ---
WS: [id number] INTRAOPERATIVE TECHNIQUE: 3 Spot fluoroscopic images for intraoperative purposes. FLUOROSCOPY TIME: 30.6 seconds CLINICAL INFORMATION: Surgery COMPARISON: None. FINDINGS: Intraoperative images for L3 kyphoplasty SC/C-arm FL for Kyphoplasty IMPRESSION: Images obtained for intraoperative purposes.
[2024-03-30] MEDS: sodium chloride 0.9% 1,000 ML 30 ML (06:20)
[2024-03-30 06:30] LABS: Glucose Point of Care 174 mg/dL (70-110)
--- NOTE | 2024-03-30 06:38 | P.ANESUD_ITS ---
Pre-Anesthetic Update Pre-Anesthetic Assessment: Date of Surgery/Procedure: 03/30/24 Preop Maribel gnosis: L3 osteoporotic wedge traumatic compression fracture Proposed Procedure: Operation Date: 03/30/24 07:00 Proposed Procedures p Kyphoplasty(Not Applicable) - Jonathan Hong, DO Any changes to Pre-Anesthetic Assessment?: No Last Intake: Intake Last Liquid Date 03/29/24 Last Liquid Time 20:00 Last Solid Date 03/29/24 Last Solid Time 20:00 Vitals: Pulse Rhythm Regular 03/30/24 06:09 Pulse Strength 3+ Normal 03/30/24 06:09 Oxygen Delivery Me thod Room Air 03/30/24 06:09 Exam: Pre-Anes Outpt Exam: alert, oriented x 3, clear to auscultation bilaterally and regular rate & rhythm Other Pertinent Information: Other Pertinent Information: States feet feel heavy this morning, denies CP, PORTER, SOB N/V. Does have history of b/l foot drop Cardiac Studies: Echocardiogram 01/02/23
--- NOTE | 2024-03-30 06:47 | W.PM.OPSUD ---
Surgery/Procedure H&P Update DATE OF PROCEDURE: March 30, 2024 DATE H&P PERFORMED: 03/24/24 H&P UPDATE INFORMATION: I have reviewed H&P completed within last 30 days, I have examined patient prior to procedure and No changes to prior documentation PREOP DIAGNOSIS: L3 osteoporotic wedge traumatic compression fracture PLANNED PROCEDURE: Operation Date: 03/30/24 07:00 Proposed Procedures p Kyphoplasty(Not Applicable) - Jonathan Hong DO
[2024-03-30] MEDS: ceFAZolin 2,000 MG in sodium chloride 0.9% (plus) 50 ML 100 MG IV (06:59)
[2024-03-30] MEDS: lidocaine-epi 1% 20 mL INJ INJECTION (07:31)
--- NOTE | 2024-03-30 08:02 | PM.OP ---
Operative Report Date of procedure: March 30, 2024 Pre-op diagnosis: L3 osteoporotic wedge compression fracture Post-op diagnosis: same Procedure done: L3 kyphoplasty Surgeon: Jonathan Hong DO Estimated blood loss (mL): 5 Procedure: L3 kyphoplasty Patient brought the op suite after undergoing anesthesia patient was placed in prone position. All his impingement well-padded boots prepped draped also fashion. Skin incision made over the lateral edge of the L3 vertebrae. The awl was inserted. Followed by the drill followed by the balloon. Balloon was inflated deflated. Cement was then injected into this. AP lateral fluoroscopy ensured that the cement was in good position and there was no leakage. Wounds were irrigated and closed with nylon suture. Sterile dressings applied patient transferred to PACU in stable condition.
[2024-03-30] MEDS: HYDROcodone-acetaminophen 5-325 mg Tablet 1 TAB PO (09:08)
--- NOTE | 2024-03-31 09:30 | ANE.PACU2 ---
Inpatient post-anesthesia follow up: Airway intact: Yes Vital signs: Temperature 98.0 F Pulse Rate 51 Respiratory Rate 17 Blood Pressure 133/72 Pulse Oximetry 92 Oxygen Delivery Me thod Room Air Oxygen Flow Rate 6 Fraction of Inspir ed Oxygen Hydration adequate: Yes Nausea and vomiting: Yes Pain level: 2 Mental status: Baseline
== END 2024-03-30 09:30 | disposition home or self-care (01) ==
LOC: OR 10:01
PROVIDERS: PCP Internal Medicine; Visit Provider Orthopaedic Surgery
PROC: (CPT 22514; principal; 2024-03-30 07:00)
DX: S32.030A Wedge compression fracture of third lumbar vertebra, initial encounter for closed fracture (principal); X58.XXXA Exposure to other specified factors, initial encounter; I48.91 Unspecified atrial fibrillation; E66.9 Obesity, unspecified; Z68.31 Body mass index [BMI] 31.0-31.9, adult; E11.9 Type 2 diabetes mellitus without complications; I10 Essential (primary) hypertension; E78.5 Hyperlipidemia, unspecified; Z79.01 Long term (current) use of anticoagulants; Z87.891 Personal history of nicotine dependence
CPT/HCPCS: 22514; 36416; 76000; 82962; J0690; J2704; J3010; J3490; J7030

== ENCOUNTER → 2024-07-20 15:33 | Outpatient (BNVA) | payer MEDICARE, OTHER, SELFPAY | PROVIDERS: PCP Internal Medicine; Visit Provider Internal Medicine Cardiovascular Disease | DX: I48.91 Unspecified atrial fibrillation (principal); I25.10 Atherosclerotic heart disease of native coronary artery without angina pectoris; R55 Syncope and collapse; E78.5 Hyperlipidemia, unspecified; I10 Essential (primary) hypertension; R00.1 Bradycardia, unspecified | CPT/HCPCS: 93005; 99214 ==

== ENCOUNTER 2024-07-27 13:15 | Oncology outpatient (recurring) (ONCR) | payer MEDICARE, OTHER, SELFPAY ==
[2024-07-27 13:45] LABS: Basophils # 0.1 10^3/uL (0.0-0.1); Basophils % 1.3 %; Eosinophils # 0.2 10^3/uL (0.0-0.8); Eosinophils % 3.5 %; Hematocrit 38.9 % (37-53); Lymphocytes # 1.3 10^3/uL (0.8-4.8); Lymphocytes % 23.1 %; Mean Corpuscular HGB Conc 32.6 g/dL (30-55); Mean Corpuscular Volume 91.7 fl (82-101); Monocytes # 0.6 10^3/uL (0.2-0.9); Monocytes % 11.1 %; Neutrophils # 3.25 10^3/uL (1.8-7.7); Neutrophils % 59.9 %; Nucleated Red Blood Cells % 0 %; Platelet Count 217 10^3/cmm (157-399); Red Blood Count 4.24 10^6/uL (3.85-5.65); Red Cell Distribution Width 14.3 % (12.1-15.1); White Blood Count 5.42 10^3/uL (3.29-11.43)
[2024-07-27 14:05] LABS: Alanine Aminotransferase < 5 U/L (0-41); Albumin Level 3.2 g/dL (3.5-5.2); Alkaline Phosphatase 143 U/L (40-130); Anion Gap 11.9 (5-19); Aspartate Amino Transferase 11 U/L (0-40); Blood Urea Nitrogen 12 mg/dL (8-23); Calcium 8.3 mg/dL (8.5-10.5); Carbon Dioxide 25 mmol/L (22-29); Chloride 103 mmol/L (98-107); Creatinine Clr Calc Pharmacy 66.9684; Glucose 273 mg/dL (65-115); Immunoglobulin IGA 270 mg/dL (70-400); Immunoglobulin IGG 1190 mg/dL (700-1600); Immunoglobulin IGM 36 mg/dL (40-230); Osmolality Calculated 291 mOsm/kg (285-295); Potassium 3.9 mmol/L (3.5-5.1); Sodium 136 mmol/L (136-145); Total Bilirubin 0.6 mg/dL (0.15-1.2); Total Protein 6.2 g/dL (6.6-8.7)
[2024-07-28 05:28] LABS: PROTEIN, TOTAL 6.1 g/dL (6.1-8.1)
[2024-07-28 15:44] LABS: KAPPA LIGHT CHAIN, FREE, SERUM 61.8 mg/L (3.3-19.4); KAPPA/LAMBDA LIGHT CHAINS FREE 1.51 (0.26-1.65); LAMBDA LIGHT CHAIN, FREE, SERU 40.9 mg/L (5.7-26.3)
[2024-07-29 12:14] LABS: ALBUMIN 3.1 g/dL (3.8-4.8); ALPHA 1 GLOBULIN 0.3 g/dL (0.2-0.3); ALPHA 2 GLOBULIN 0.8 g/dL (0.5-0.9); BETA 1 GLOBULIN 0.4 g/dL (0.4-0.6); BETA 2 GLOBULIN 0.4 g/dL (0.2-0.5); GAMMA GLOBULIN 1.2 g/dL (0.8-1.7)
[2024-08-04 18:24] LABS: Immunofixation Serum Normal pattern.
== END 2024-08-01 23:59 | disposition home or self-care (01) ==
LOC: ONCMED 13:16
PROVIDERS: PCP Internal Medicine; Visit Provider Nurse Practitioner Family
DX: C90.31 Solitary plasmacytoma in remission (principal); Z90.79 Acquired absence of other genital organ(s); D64.9 Anemia, unspecified; B35.1 Tinea unguium; E11.9 Type 2 diabetes mellitus without complications; Z79.4 Long term (current) use of insulin; Z79.890 Hormone replacement therapy
CPT/HCPCS: 36415; 80053; 82784; 83883; 84155; 84165; 85025; 86334; 99214

== ENCOUNTER → 2024-08-12 11:36 | Outpatient (BNVA) | payer MEDICARE, OTHER, SELFPAY | PROVIDERS: PCP Internal Medicine; Visit Provider Nurse Practitioner Family | DX: C90.31 Solitary plasmacytoma in remission (principal) | CPT/HCPCS: 84156; 84166 ==

== ENCOUNTER → 2024-08-13 11:30 | Outpatient (BNVA) | payer MEDICARE, OTHER, SELFPAY | PROVIDERS: PCP Internal Medicine; Visit Provider Podiatrist Foot & Ankle Surgery | DX: L60.3 Nail dystrophy (principal); I73.9 Peripheral vascular disease, unspecified; E11.69 Type 2 diabetes mellitus with other specified complication; Z79.4 Long term (current) use of insulin | CPT/HCPCS: 11721; 99203 ==

== ENCOUNTER → 2024-09-22 13:18 | Outpatient (BNVA) | payer MEDICARE, OTHER, SELFPAY | PROVIDERS: PCP Internal Medicine; Visit Provider Specialist | DX: M46.96 Unspecified inflammatory spondylopathy, lumbar region (principal); G20.A1 Parkinson's disease without dyskinesia, without mention of fluctuations; G31.83 Neurocognitive disorder with Lewy bodies; F02.80 Dementia in other diseases classified elsewhere, unspecified severity, without behavioral disturbance, psychotic disturbance, mood disturbance, and anxiety | CPT/HCPCS: 99213 ==

== ENCOUNTER 2024-10-13 10:17 | Inpatient (IN) | payer MEDICARE, OTHER, SELFPAY ==
[2024-10-13 10:21] VITALS: BP 110/71; PULSE 118; TEMP 36.7; O2SAT 97; BMI 29.2
--- NOTE | 2024-10-13 10:37 | W.ED.ABDPA2 ---
HPI - Abdominal Pain General: Chief Complaint: Abdominal Pain Stated Complaint: abd pain Time Seen by Provider: 10/13/24 10:21 History of Present Illness: 79-year-old male presents emergency room with right upper quadrant abdominal pain radiating to his back. Been going on the last couple of days. He denies any dysuria urgency or frequency or diarrhea bowels and bladder function have been normal. Is anything that exacerbates or relieves it. He has a history of Parkinson's he is also on anticoagulation for atrial fibrillation. He has been taking his apixaban regularly. Finally he is on cholestyramine to counteract side effects of the medication he is taking for his multiple myeloma Associated Symptoms: Reports nausea and vomiting; Denies chills, dysuria and fever(s) Related Data Home Medications ?Medication ?Instructions ?Recorded ?Confirmed simvastatin 20 mg tablet 20 mg PO DAILY 11/02/19 10/13/24 cholestyramine-aspartame 4 gram 1 ea PO DAILY 03/24/24 10/13/24 oral powder (Cholestyramine Light) insulin degludec 200 unit/mL (3 10 unit SUBCUT DAILY 10/13/24 10/13/24 mL) subcutaneous pen (Tresiba FlexTouch U-200 insulin) pantoprazole 40 mg tablet,delayed 40 mg PO DAILY 10/13/24 10/13/24 release potassium chloride 20 mEq 20 meq PO DAILY 10/13/24 10/13/24 tablet,extended release(part/cryst) Previous Rx's ?Medication ?Instructions ?Recorded apixaban 5 mg tablet (Eliquis) 5 mg PO BID #60 tabs 05/16/23 sotalol 120 mg tablet 60 mg (1/2 x 120 mg) PO BID #90 08/25/24 tabs carbidopa 25 mg-levodopa 100 mg 25 - 100 tab PO BID #180 tabs 09/22/24 tablet escitalopram oxalate 20 mg tablet 20 mg PO DAILY #90 tabs 09/22/24 (Lexapro) memantine 5 mg tablet 5 mg PO DAILY #90 tabs 09/22/24 Revlimid 5 mg capsule See Rx Instructions .Route 10/13/24 (lenalidomide) .COMPLEX #21 caps Allergies Allergy/AdvReac Type Severity Reaction Status Date / Time No Known Allergies Allergy Verified 10/13/24 10:26 Review of Systems Const: Denies: fever(s) or chills Card: Denies: chest pain Resp: Denies: dyspnea GI: Reports: abdominal pain, nausea and vomiting : Denies: dysuria, urinary frequency or urinary urgency Musc: Denies: neck pain or back pain Skin/Breast: Denies: rash PFSH ED PFSH: Medical History Plasmacytoma in remission Weakness of both lower extremities Acquired left foot drop Closed intertrochanteric fracture of right hip Fracture of hip, right, closed Facet arthropathy, lumbar History of nonmelanoma skin cancer Lumbar stenosis with neurogenic claudication Diarrhea Tubular adenoma History of cardioversion Balanitis Anticoagulation adequate with anticoagulant therapy Multiple myeloma Lymphoma ASHD (arteriosclerotic heart disease) Diabetes Atrial fibrillation Obesity HTN (hypertension) Dyslipidemia Surgical History Previous back surgery S/P orchiectomy History of colonoscopy 01/2022 H/O bone marrow transplant Family History Brother CAD (coronary artery disease) Cancer Mother Congestive heart failure (CHF) Brother Cancer Sister Cancer Sister Cancer Family/Other Cancer Chronic kidney disease (CKD) Denies family history of Diabetes Clotting disorder Dementia Anesthesia complication Bleeding disorder Lung disease Stroke Social History Smoking and tobacco/nicotine status: never used tobacco/nicotine Alcohol intake: never Substance/Drug Use: never Marital status: Current occupational status: retired Physical Exam Const: COMMON NORMALS: no acute distress GENERAL APPEARANCE: cooperative and comfortable ORIENTATION/CONSCIOUSNESS: Yes awake, Yes oriented to person, Yes oriented to place and Yes oriented to time HENMT: COMMON NORMALS: normocephalic, atraumatic and hearing grossly normal bilaterally HEAD & SCALP: normocephalic and atraumatic Resp: COMMON NORMALS: normal respiratory effort, No retractions, No use of accessory muscles and clear to auscultation bilaterally AUSCULTATION: clear to auscultation bilaterally Cardio: COMMON NORMALS: regular rate, regular rhythm and No murmurs present (Cardio) RATE: regular rate RHYTHM: regular rhythm GI: AUSCULTATION: Yes normoactive bowel sounds PALPATION: Yes Tenderness to palpation present (GI) Details: RUQ and No Guarding due to palpation present (GI) Extremity: COMMON NORMALS: normal to inspection, capillary refill normal, no clubbing, cyanosis or edema, no calf tenderness and no pedal edema Neuro: SENSORIUM/ORIENTATION: Yes oriented to person, Yes oriented to place and Yes oriented to time Skin: COMMON NORMALS: no rashes or lesions noted GENERAL SKIN EXAM: no rashes or lesions noted Course Vital Signs: Vital signs: Vital Signs Temperature 98.1 F 10/13/24 10:21 Pulse Rate 112 H 10/13/24 13:14 Respiratory Rate 16 10/13/24 13:14 Blood Pressure 145/79 10/13/24 13:14 Pulse Oximetry 93 10/13/24 13:14 Oxygen Delivery Me thod Room Air 10/13/24 13:14 MDM - Abdominal Pain Medical Decision Making Acute cholecystitis with gallstones normal common bile duct. Patient is on anticoagulants. Will admit to hospitalist consult general surgery cultures done started on Zosyn. Have discussed with the family. Medical Records I reviewed the patient's medical records. Lab Data I reviewed the patient's lab results. 10/13/24 10:39 10/13/24 10:39 Labs/Radiology: Radiology Impressions Abdomen/Pelvis CT 10/13/24 10:48 IMPRESSION: 1. Acute cholecystitis with fluid distended gallbladder with induration. Suspected trapped calculus in the gallbladder neck at the cystic duct 2. Markedly enlarged prostate with bladder outlet obstruction. Recommend correlation PSA Notified Merlin Blackman DO at 10/13/2024 1240pm Gallbladder Ultrasound 10/13/24 11:06 IMPRESSION: 1. Findings of acute cholecystitis. Several stones are present in the gallbladder. 2. No common bile duct dilatation. 3. RIGHT renal cysts. Laboratory Results WBC 14.14 10^3/uL (3.29-11.43) H 10/13/24 10:39 RBC 4.51 10^6/uL (3.85-5.65) 10/13/24 10:39 Hgb 13.40 g/dL (11.27-16.99) 10/13/24 10:39 Hct 42.0 % (37-53) 10/13/24 10:39 MCV 93.1 fl (82-101) 10/13/24 10:39 MCH 29.7 pg (27-33) 10/13/24 10:39 MCHC 31.9 g/dL (30-55) 10/13/24 10:39 RDW 15.2 % (12.1-15.1) H 10/13/24 10:39 Plt Count 147 10^3/cmm (157-399) L 10/13/24 10:39 MPV 10.4 fL (7.4-10.4) 10/13/24 10:39 Neut % (Auto) 78.2 % 10/13/24 10:39 Lymph % (Auto) 7.7 % 10/13/24 10:39 Blanco % (Auto) 11.2 % 10/13/24 10:39 Eos % (Auto) 0.5 % 10/13/24 10:39 Baso % (Auto) 0.3 % 10/13/24 10:39 Neut # (Auto) 11.05 10^3/uL (1.8-7.7) H 10/13/24 10:39 Lymph # (Auto) 1.1 10^3/uL (0.8-4.8) 10/13/24 10:39 Blanco # (Auto) 1.6 10^3/uL (0.2-0.9) H 10/13/24 10:39 Eos # (Auto) 0.1 10^3/uL (0.0-0.8) 10/13/24 10:39 Baso # (Auto) 0.0 10^3/uL (0.0-0.1) 10/13/24 10:39 Nucleated RBC % (auto) 0 % 10/13/24 10:39 Nucleated RBCs # 0.0 /100WBC 10/13/24 10:39 Sodium 134 mmol/L (136-145) L 10/13/24 10:39 Potassium 4.4 mmol/L (3.5-5.1) 10/13/24 10:39 Chloride 99 mmol/L (98-107) 10/13/24 10:39 Carbon Dioxide 22 mmol/L (22-29) 10/13/24 10:39 Anion Gap 17.4 (5-19) 10/13/24 10:39 BUN 11 mg/dL (8-23) 10/13/24 10:39 Creatinine 1.1 mg/dL (0.7-1.2) 10/13/24 10:39 GFR Calculation Not Reportable 10/13/24 10:39 Glucose 223 mg/dL (65-115) H 10/13/24 10:39 Calculated Osmolality 284 mOsm/kg (285-295) L 10/13/24 10:39 Calcium 9.2 mg/dL (8.5-10.5) 10/13/24 10:39 Total Bilirubin 2.3 mg/dL (0.15-1.2) H 10/13/24 10:39 AST 9 U/L (0-40) 10/13/24 10:39 ALT 8 U/L (0-41) 10/13/24 10:39 Alkaline Phosphatase 161 U/L (40-130) H 10/13/24 10:39 Total Protein 7.0 g/dL (6.6-8.7) 10/13/24 10:39 Albumin 3.3 g/dL (3.5-5.2) L 10/13/24 10:39 Globulin 3.7 g/dL (1.3-4.6) 10/13/24 10:39 Lipase 15 U/L (13-60) 10/13/24 10:39 Urine Color Dark yellow (Yellow) A 10/13/24 10:47 Urine Appearance Cloudy (CLEAR) A 10/13/24 10:47 Urine pH 5.5 (5-7) 10/13/24 10:47 Ur Specific Graham 1.019 (1.005-1.030) 10/13/24 10:47 Urine Protein 2+ (Negative) A 10/13/24 10:47 Urine Glucose (UA) 1+ (Normal) H 10/13/24 10:47 Urine Ketones Trace (Negative) 10/13/24 10:47 Urine Blood 2+ (Negative) A 10/13/24 10:47 Urine Nitrate Negative (Negative) 10/13/24 10:47 Urine Bilirubin 1+ (Negative) H 10/13/24 10:47 Urine Urobilinogen 1.0 mg/dL (Negative) 10/13/24 10:47 Ur Leukocyte Esterase Trace (Negative) A 10/13/24 10:47 Urine RBC 3-5 /hpf (0-2) 10/13/24 10:47 Urine WBC 0-5 /hpf (0-5) 10/13/24 10:47 Ur Squamous Epith Cells 6-10 /hpf (0-5) 10/13/24 10:47 Amorphous Sediment Not Reportable 10/13/24 10:47 Urine Bacteria None seen /hpf (NONE) 10/13/24 10:47 Hyaline Casts 27.69 /lpf 10/13/24 10:47 All radiology interpretation(s) finalized by discharge Discharge Plan Discharge Patient Disposition: Admitted As Inpatient Clinical Impression: Acute calculous cholecystitis, Parkinson disease, Lewy body dementia, Atrial fibrillation, Diabetes, ASHD (arteriosclerotic heart disease), Multiple myeloma, Chronic anticoagulation Condition: Stable Prescriptions: No Action simvastatin 20 mg tablet 20 mg PO DAILY carbidopa-levodopa 25-100 mg tablet 25 - 100 tab PO BID Qty: 180 3RF escitalopram oxalate [Lexapro] 20 mg tablet 20 mg PO DAILY Qty: 90 3RF memantine 5 mg tablet 5 mg PO DAILY Qty: 90 3RF sotalol 120 mg tablet 60 mg PO BID Qty: 90 3RF lenalidomide [Revlimid] 5 mg capsule See Rx Instructions .ROUTE .COMPLEX Qty: 21 0RF Dose Instruction: TAKE 1 CAPSULE BY MOUTH ONCE DAILY FOR 21 DAYS, THEN 7 DAYS OFF. Rx Instructions: TAKE 1 CAPSULE BY MOUTH ONCE DAILY FOR 21 DAYS, THEN 7 DAYS OFF. [id number] Eliquis 5 mg tablet 5 mg PO BID Qty: 60 0RF insulin degludec [Tresiba FlexTouch U-200] 200 unit/mL (3 mL) insulin pen 10 unit SUBCUT DAILY potassium chloride 20 mEq tablet,ER particles/crystals 20 meq PO DAILY pantoprazole 40 mg tablet,delayed release (DR/EC) 40 mg PO DAILY Cholestyramine Light 4 gram powder 1 ea PO DAILY Referrals: Jayden Blake MD [Primary Care Provider] - Print Language: Italian Coding Level of Care Code ED [employer] Machine Operator for Lita Salazar
[2024-10-13 10:48] LABS: Basophils % 0.3 %; Eosinophils # 0.1 10^3/uL (0.0-0.8); Eosinophils % 0.5 %; Lymphocytes # 1.1 10^3/uL (0.8-4.8); Lymphocytes % 7.7 %; Mean Corpuscular HGB Conc 31.9 g/dL (30-55); Mean Corpuscular Hemoglobin 29.7 pg (27-33); Mean Corpuscular Volume 93.1 fl (82-101); Mean Platelet Volume 10.4 fL (7.4-10.4); Monocytes # 1.6 10^3/uL (0.2-0.9); Monocytes % 11.2 %; Neutrophils # 11.05 10^3/uL (1.8-7.7); Neutrophils % 78.2 %; Nucleated Red Blood Cells % 0 %; Platelet Count 147 10^3/cmm (157-399); Red Blood Count 4.51 10^6/uL (3.85-5.65); Red Cell Distribution Width 15.2 % (12.1-15.1); White Blood Count 14.14 10^3/uL (3.29-11.43)
--- NOTE | 2024-10-13 10:48 | CT_ITS ---
WS: [id number] CT ABDOMEN PELVIS TECHNIQUE: Noncontrast CT of the abdomen and pelvis with coronal and sagittal reformatted images. CLINICAL INFORMATION: flank pain COMPARISON: 2019 DLP: 901.[address] scans at [facility] use at least one of these dose optimization techniques: automated exposure control; mA and/or kV adjustment per patient size (includes targeted exams where dose is matched to clinical indication); or iterative reconstruction. FINDINGS: Fluid distended gallbladder with cholelithiasis. Induration about the gallbladder and RIGHT upper quadrant compatible with acute cholecystitis. This could be further evaluated with ultrasound. Stone in the neck of the gallbladder near the cystic duct and common bile duct. Common bile duct appears decom pressed. Normal noncontrast liver and spleen. Tiny esophageal hiatal hernia. Fatty atrophy of the pancreas. Aortic calcification. Splenic artery calcification. Adrenal glands are normal. Bilateral renal cysts. Some are too small to characterize. No hydronephrosis in either kidney. Normal caliber abdominal aorta . Markedly enlarged prostate with bladder outlet obstruction. Prostate measures 6 cm. Recommend correlation PSA. Sigmoid diverticulosis. Prior postoperative changes alvin and screw fixation RIGHT hip. Osteopenia. Subsegmental atelectasis and fibrosis in the lung bases. Chronic compression L3 with kyphoplasty changes. Decompressive laminectomy defects lower lumbar spine. CT/CT kidney stone [id number] IMPRESSION: 1. Acute cholecystitis with fluid distended gallbladder with induration. Suspe cted trapped calculus in the gallbladder neck at the cystic duct 2. Markedly enlarged prostate with bladder outlet obstruction. Recommend corre lation PSA Notified Merlin Blackman DO at 10/13/2024 1240pm
[2024-10-13 10:59] LABS: Bilirubin Urine 1+ (Negative); Blood Urine 2+ (Negative); Glucose Urine UA 1+ (Normal); Ketones Urine Trace (Negative); Leukocyte Esterase Urine Trace (Negative); Nitrate Urine Negative (Negative); Protein Urine 2+ (Negative); Specific Gravity, Urine 1.019 (1.005-1.030); Urine Appearance Cloudy (CLEAR); pH Urine 5.5 (5-7)
[2024-10-13 11:03] LABS: Alanine Aminotransferase 8 U/L (0-41); Albumin Level 3.3 g/dL (3.5-5.2); Alkaline Phosphatase 161 U/L (40-130); Anion Gap 17.4 (5-19); Aspartate Amino Transferase 9 U/L (0-40); Blood Urea Nitrogen 11 mg/dL (8-23); Calcium 9.2 mg/dL (8.5-10.5); Carbon Dioxide 22 mmol/L (22-29); Chloride 99 mmol/L (98-107); Creatinine Clr Calc Pharmacy 66.2467; Globulin 3.7 g/dL (1.3-4.6); Glucose 223 mg/dL (65-115); Lipase 15 U/L (13-60); Osmolality Calculated 284 mOsm/kg (285-295); Potassium 4.4 mmol/L (3.5-5.1); Sodium 134 mmol/L (136-145); Total Bilirubin 2.3 mg/dL (0.15-1.2)
[2024-10-13 11:04] LABS: Add Urine Microscopic? YES; Bacteria Urine None Seen /hpf; Hyaline Casts Urine 27.69 /lpf; WBC Urine 0-5 /hpf (0-5)
--- NOTE | 2024-10-13 11:06 | US_ITS ---
WS: [id number] RIGHT UPPER QUADRANT ULTRASOUND HISTORY: elevated T bili COMPARISON: None available. Liver: 14.3 cm in length. Normal size liver and echogenicity. No bile duct dilatation or mass. Portal Vein: Normal hepatopetal flow with monophasic waveform. Gallbladder: Slightly hydropic gallbladder with stones. Gallbladder wall is top normal size. No pericholecystic fluid. CBD: 0.6 cm Pancreas: Obscured by bowel gas. Right kidney: 10.7 cm in length. No obstruction. Simple cyst mid kidney measures 4.6 x 5.0 x 5.4 cm. Smaller cyst from the lower pole. Poorly visualized kidney otherwise. Aorta and IVC: Unremarkable abdominal aorta and IVC. No ascites. US/US gall bladder [id number] IMPRESSION: 1. Findings of acute cholecystitis. Several stones are present in the gallblad telma. 2. No common bile duct dilatation. 3. RIGHT renal cysts.
[2024-10-13 11:22] LABS: Urine Color Dark Yellow (Yellow)
[2024-10-13 11:23] LABS: Add Urine Culture? No
[2024-10-13 11:34] VITALS: BP 151/106; PULSE 117; RESP 16; O2SAT 94
[2024-10-13] MEDS: piperacillin-tazobactam 3.375 GM in sodium chloride 0.9% (plus) 50 ML IV ×2 (12:14→20:58)
--- NOTE | 2024-10-13 12:29 | PM.CONSULT ---
Providers/Reason For Consult Consulting Physician/Specialty*: dr. rahman general surgery Reason for Consult*: cholecystitis Primary Care Provider: Jayden Blake MD History of Present Illness History of Present Illness Shad Vines is a 79 year old male admitted with acute cholecystitis. Among his comorbidities he has a history of TIA, chronic afib, and multiple myeloma. He last took eliquis this AM. Admitted with RUQ pain and imaging and lab findings consisten with acute cholecytitis. Medications/Allergies Home Medications ?Medication ?Instructions ?Recorded ?Confirmed ?Last Taken ?Type simvastatin 20 mg tablet 20 mg PO DAILY 11/02/19 10/13/24 10/12/24 History apixaban 5 mg tablet (Eliquis) 5 mg PO BID #60 tabs 05/16/23 10/13/24 10/12/24 Rx cholestyramine-aspartame 4 gram 1 ea PO DAILY 03/24/24 10/13/24 10/12/24 History oral powder (Cholestyramine Light) sotalol 120 mg tablet 60 mg (1/2 x 120 mg) PO BID #90 08/25/24 10/13/24 10/12/24 Rx tabs carbidopa 25 mg-levodopa 100 mg 25 - 100 tab PO BID #180 tabs 09/22/24 10/13/24 10/12/24 Rx tablet escitalopram oxalate 20 mg tablet 20 mg PO DAILY #90 tabs 09/22/24 10/13/24 10/12/24 Rx (Lexapro) memantine 5 mg tablet 5 mg PO DAILY #90 tabs 09/22/24 10/13/24 10/12/24 Rx Revlimid 5 mg capsule See Rx Instructions .Route 10/13/24 10/13/24 10/12/24 Rx (lenalidomide) .COMPLEX #21 caps insulin degludec 200 unit/mL (3 10 unit SUBCUT DAILY 10/13/24 10/13/24 10/13/24 History mL) subcutaneous pen (Tresiba FlexTouch U-200 insulin) pantoprazole 40 mg tablet,delayed 40 mg PO DAILY 10/13/24 10/13/24 10/12/24 History release potassium chloride 20 mEq 20 meq PO DAILY 10/13/24 10/13/24 10/12/24 History tablet,extended release(part/cryst) Allergies Allergy/AdvReac Type Severity Reaction Status Date / Time No Known Allergies Allergy Verified 10/13/24 10:26 PFSH Acute PFSH: Medical History Plasmacytoma in remission Weakness of both lower extremities Acquired left foot drop Closed intertrochanteric fracture of right hip Fracture of hip, right, closed Facet arthropathy, lumbar History of nonmelanoma skin cancer Lumbar stenosis with neurogenic claudication Diarrhea Tubular adenoma History of cardioversion Balanitis Anticoagulation adequate with anticoagulant therapy Multiple myeloma Lymphoma ASHD (arteriosclerotic heart disease) Diabetes Atrial fibrillation Obesity HTN (hypertension) Dyslipidemia Surgical History Previous back surgery S/P orchiectomy History of colonoscopy 01/2022 H/O bone marrow transplant Family History Brother CAD (coronary artery disease) Cancer Mother Congestive heart failure (CHF) Brother Cancer Sister Cancer Sister Cancer Family/Other Cancer Chronic kidney disease (CKD) Denies family history of Diabetes Clotting disorder Dementia Anesthesia complication Bleeding disorder Lung disease Stroke Social History Smoking and tobacco/nicotine status: never used tobacco/nicotine Alcohol intake: never Substance/Drug Use: never Marital status: Current occupational status: retired Vitals/I&O/Wt Last Vital Signs Temp 98.1 F 10/13/24 10:21 Pulse 117 H 10/13/24 11:34 Resp 16 10/13/24 11:34 BP 151/106 10/13/24 11:34 Pulse Ox 94 10/13/24 11:34 O2 Del Method Room Air 10/13/24 11:34 Weight last 48 hrs Weight 210 lb Physical Exam Narrative: RRR Unlabored breathing RA Abdomen soft, TTP RUQ, mildly distended Data 10/13/24 10:39 10/13/24 10:39 A&P Assessment and plan (1) Acute calculous cholecystitis: Plan 79 yo male admitted with acute cholecystitis. Multiple comorbidites including afib, multiple myeloma, and TIA. Would need to hold the eliquis for 48hrs prior to surgery. Can be bridged with a hep gtt. Discussed the fact that patient is at higher risk of stroke if eliquis is held given his history. Patient and relative at bedside expressed understanding. Will discuss with hospialist. Could consider a cholecystostomy tube and interval cholangiogram in 6 weeks as an alternative to surgery. PDMP PDMP Reviewed: Not Reviewed Coding Level of Care Code 93190 Diagnoses Acute calculous cholecystitis K80.00 Time Spent (min) 30
[2024-10-13 13:14] VITALS: BP 145/79; PULSE 112; RESP 16; O2SAT 93
--- NOTE | 2024-10-13 13:26 | PC.PHAR ---
Pts' daughter is not back yet to go over med list. Verified with [facility] with last fill dates and day supply. Pt has 1 chemo med from [facility] which is current therapy
[2024-10-13 14:03] LABS: Influenza A NEGATIVE (Negative); Influenza B NEGATIVE (Negative); Respiratory Syncytial Virus Ce NEGATIVE (Negative); SARS-CoV-2 PCR NEGATIVE (Negative)
[2024-10-13 14:16] VITALS: BMI 21.9
[2024-10-13 14:20] VITALS: BP 117/86; PULSE 108; O2SAT 94
[2024-10-13] MEDS: sodium chloride 0.9% 1,000 ML 100 ML IV ×2 (14:48→20:58)
--- NOTE | 2024-10-13 15:19 | PM.HP ---
Providers/Chief Complaint Admitting Physician: Mari Gabriel MD Primary Care Provider: Jayden Blake MD - primary care Dr. Littlejohn - neurology Dr. Chacon - back pain Dr. Almeida - podiatry Dr. Vasquez - cardiology Dr. Kong - Hem/Onc Dr. Hong - back surgery Urology in [place], has not seen recently Chief Complaint: abd pain History of Present Illness Shad Vines is a 79 year old male who presented to the emergency room with chief complaint of abdominal pain. The pain began several days ago located in the right side of his abdomen. Is been progressively worsening since onset and is described as severe. He has not been able to get comfortable with the pain. Not been sleeping because of it. Denies any nausea or vomiting. Never had pain quite like this before. He does have a history of chronic back pain but that discomfort only bothers him when he tries to get up or walk around. The pain he is currently experiencing is present even at rest. Because of the continued escalation and unrelenting nature of the pain he presented to the emergency room for further evaluation. Workup in the emergency room identified findings consistent with acute cholecystitis. Gallstones were noted with none being identified in the common bile duct on ultrasound. He had associated liver enzyme abnormalities. General surgery was consulted and hospitalist were asked to admit Mr. Vines due to comorbid medical conditions. He is chronically on anticoagulation for known history of atrial fibrillation. He has multiple myeloma in remission and is on Revlimid. Other pertinent history includes diabetes mellitus on insulin, Parkinson's disease and mild Lewy body dementia with depression. He also has a history of diarrhea felt secondary to Revlimid that has been managed with cholestyramine. His primary dated day issues of concern have to do with chronic back pain. He walks with a walker due to the pain and has been following with Dr. Chacon who is planning on doing stimulator soon. He has undergone multiple surgeries over the last couple of years without any anesthesia complications that I have been able to discern from review of records or from history obtained from Mr. Vines and his daughter. No recent issues with chest pain or difficulty breathing or upper respiratory symptoms. Respiratory panel was checked as part of workup in the emergency room and was negative. Review of Systems General: Reports: Other (ROS as per HPI or as otherwise noted here) Narrative: - Gastrointestinal: Reports right upper and lower quadrant abdominal pain. Denies nausea, vomiting, diarrhea, or any blood in stools. Last bowel movement was several days ago. Is supposed to have all of his teeth removed within the next month or 2. - Neurological: Denies history of stroke or mini-strokes. Parkinsons and dementia are well manageed at present, as is depression. - Genitourinary: Denies recent changes in urination frequency or difficulty, except occasional delay. - Respiratory: Denies cough or runny nose. - Musculoskeletal: Reports ongoing chronic back pain. Denies pain in other joints. In process of being scheduled for stimulator for help with back pain management. Uses walker for ambulation due to severity of back pain. - Hematologic: Denies recent fever. Myeloma okay on current management. On an off week for revlimid. - Other: Reports insomnia due to pain. Medications/Allergies Home Medications ?Medication ?Instructions ?Recorded ?Confirmed ?Last Taken ?Type simvastatin 20 mg tablet 20 mg PO DAILY 11/02/19 10/13/24 10/12/24 History apixaban 5 mg tablet (Eliquis) 5 mg PO BID #60 tabs 05/16/23 10/13/24 10/12/24 Rx cholestyramine-aspartame 4 gram 1 ea PO DAILY 03/24/24 10/13/24 10/12/24 History oral powder (Cholestyramine Light) sotalol 120 mg tablet 60 mg (1/2 x 120 mg) PO BID #90 08/25/24 10/13/24 10/12/24 Rx tabs carbidopa 25 mg-levodopa 100 mg 25 - 100 tab PO BID #180 tabs 09/22/24 10/13/24 10/12/24 Rx tablet escitalopram oxalate 20 mg tablet 20 mg PO DAILY #90 tabs 09/22/24 10/13/24 10/12/24 Rx (Lexapro) memantine 5 mg tablet 5 mg PO DAILY #90 tabs 09/22/24 10/13/24 10/12/24 Rx Revlimid 5 mg capsule See Rx Instructions .Route 10/13/24 10/13/24 10/12/24 Rx (lenalidomide) .COMPLEX #21 caps insulin degludec 200 unit/mL (3 10 unit SUBCUT DAILY 10/13/24 10/13/24 10/13/24 History mL) subcutaneous pen (Tresiba FlexTouch U-200 insulin) pantoprazole 40 mg tablet,delayed 40 mg PO DAILY 10/13/24 10/13/24 10/12/24 History release potassium chloride 20 mEq 20 meq PO DAILY 10/13/24 10/13/24 10/12/24 History tablet,extended release(part/cryst) Allergies Allergy/AdvReac Type Severity Reaction Status Date / Time No Known Allergies Allergy Verified 10/13/24 10:26 Additional Medication Information Revlimid is on an off week currently with plan for to resume on October 17 PFSH Acute PFSH: Medical History (Updated 10/13/24 @ 18:47 by Mari Gabriel MD) History of echocardiogram ef 68% 07/2023 Chronic back pain History of Holter monitoring 08/2024 - baseline predominantly afib, non afib 47%, one 3.1 second pause (asymptomatic), one 5 beat run of ns tachycardia (asymptomatic) Plasmacytoma in remission Weakness of both lower extremities Acquired left foot drop Facet arthropathy, lumbar History of nonmelanoma skin cancer Lumbar stenosis with neurogenic claudication Diarrhea Tubular adenoma History of cardioversion Balanitis Multiple myeloma Lymphoma ASHD (arteriosclerotic heart disease) Diabetes on insulin Atrial fibrillation Obesity HTN (hypertension) Dyslipidemia Surgical History (Updated 10/13/24 @ 18:08 by Mari Gabriel MD) History of colonoscopy with polypectomy 01/2022 Dr Raymundo S/P epidural steroid injection History of radiofrequency ablation (RFA) of nerve of lumbar spine (12/30/23) right L3/L4, L4/5, L5/S1 Dr Coley Status post open reduction and internal fixation (ORIF) of fracture (05/14/23) right hip fracture, gamma nail, Dr Flores History of lumbar laminectomy (07/25/22) L2/L3 laminectomy with partial facetectomies, revision at L3/L4, L4/L5 Dr Hong History of kyphoplasty (03/30/24) L3 Dr Hong Previous back surgery 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 History of colonoscopy 01/2022 H/O bone marrow transplant Family History Brother CAD (coronary artery disease) Cancer Mother Congestive heart failure (CHF) Brother Cancer Sister Cancer Sister Cancer Family/Other Cancer Chronic kidney disease (CKD) Denies family history of Diabetes Clotting disorder Dementia Anesthesia complication Bleeding disorder Lung disease Stroke Social History (Updated 10/13/24 @ 17:54 by Mari Gabriel MD) Smoking and tobacco/nicotine status: never used tobacco/nicotine Alcohol intake: former Substance/Drug Use: never Additional social history: Lives alone, daughters help him as needed Marital status: / Current occupational status: retired Vitals/I&O/Wt Last Vital Signs Temp 98.1 F 10/13/24 10:21 Pulse 108 H 10/13/24 14:20 Resp 16 10/13/24 13:14 BP 117/86 10/13/24 14:20 Pulse Ox 94 10/13/24 14:20 O2 Del Method Room Air 10/13/24 14:16 10/13/24 10/13/24 10/13/24 06:59 14:59 22:59 Intake Total 50 / 50 Balance 50 / 50 Weight last 48 hrs Weight 71.271 kg Weight 95.254 kg Physical Exam Narrative: Patient is awake and alert. Able to provide history. Normocephalic. Oropharynx with dry oral mucosa. Neck is supple. Lungs are clear to auscultation bilaterally without any rales or wheezes or rhonchi noted. Cardiovascular exam reveals a tachycardic irregular rhythm. Abdomen is soft with right upper and lower quadrant tenderness. There is some guarding but no rebound. Bowel sounds are positive. No pitting edema. No mottling. Brisk capillary refill. 2+ peripheral pulses upper extremities, 1+ lower extremities. Speech is clear. Oriented to person place and situation. No abnormal movements at rest in bed. Gait was not assessed. Data 10/13/24 10:39 10/13/24 10:39 Other Labs: Radiology Impressions Abdomen/Pelvis CT 10/13/24 10:48 IMPRESSION: 1. Acute cholecystitis with fluid distended gallbladder with induration. Suspected trapped calculus in the gallbladder neck at the cystic duct 2. Markedly enlarged prostate with bladder outlet obstruction. Recommend correlation PSA Notified Merlin Blackman DO at 10/13/2024 1240pm Gallbladder Ultrasound 10/13/24 11:06 IMPRESSION: 1. Findings of acute cholecystitis. Several stones are present in the gallbladder. 2. No common bile duct dilatation. 3. RIGHT renal cysts. Laboratory Results WBC 14.14 10^3/uL (3.29-11.43) H 10/13/24 10:39 RBC 4.51 10^6/uL (3.85-5.65) 10/13/24 10:39 Hgb 13.40 g/dL (11.27-16.99) 10/13/24 10:39 Hct 42.0 % (37-53) 10/13/24 10:39 MCV 93.1 fl (82-101) 10/13/24 10:39 MCH 29.7 pg (27-33) 10/13/24 10:39 MCHC 31.9 g/dL (30-55) 10/13/24 10:39 RDW 15.2 % (12.1-15.1) H 10/13/24 10:39 Plt Count 147 10^3/cmm (157-399) L 10/13/24 10:39 MPV 10.4 fL (7.4-10.4) 10/13/24 10:39 Neut % (Auto) 78.2 % 10/13/24 10:39 Lymph % (Auto) 7.7 % 10/13/24 10:39 [place] % (Auto) 11.2 % 10/13/24 10:39 Eos % (Auto) 0.5 % 10/13/24 10:39 Baso % (Auto) 0.3 % 10/13/24 10:39 Neut # (Auto) 11.05 10^3/uL (1.8-7.7) H 10/13/24 10:39 Lymph # (Auto) 1.1 10^3/uL (0.8-4.8) 10/13/24 10:39 [place] # (Auto) 1.6 10^3/uL (0.2-0.9) H 10/13/24 10:39 Eos # (Auto) 0.1 10^3/uL (0.0-0.8) 10/13/24 10:39 Baso # (Auto) 0.0 10^3/uL (0.0-0.1) 10/13/24 10:39 Nucleated RBC % (auto) 0 % 10/13/24 10:39 Nucleated RBCs # 0.0 /100WBC 10/13/24 10:39 Sodium 134 mmol/L (136-145) L 10/13/24 10:39 Potassium 4.4 mmol/L (3.5-5.1) 10/13/24 10:39 Chloride 99 mmol/L (98-107) 10/13/24 10:39 Carbon Dioxide 22 mmol/L (22-29) 10/13/24 10:39 Anion Gap 17.4 (5-19) 10/13/24 10:39 BUN 11 mg/dL (8-23) 10/13/24 10:39 Creatinine 1.1 mg/dL (0.7-1.2) 10/13/24 10:39 GFR Calculation Not Reportable 10/13/24 10:39 Glucose 223 mg/dL (65-115) H 10/13/24 10:39 POC Glucose 194 mg/dL (70-110) H 10/13/24 16:28 Calculated Osmolality 284 mOsm/kg (285-295) L 10/13/24 10:39 Calcium 9.2 mg/dL (8.5-10.5) 10/13/24 10:39 Total Bilirubin 2.3 mg/dL (0.15-1.2) H 10/13/24 10:39 AST 9 U/L (0-40) 10/13/24 10:39 ALT 8 U/L (0-41) 10/13/24 10:39 Alkaline Phosphatase 161 U/L (40-130) H 10/13/24 10:39 Total Protein 7.0 g/dL (6.6-8.7) 10/13/24 10:39 Albumin 3.3 g/dL (3.5-5.2) L 10/13/24 10:39 Globulin 3.7 g/dL (1.3-4.6) 10/13/24 10:39 Lipase 15 U/L (13-60) 10/13/24 10:39 Urine Color Dark yellow (Yellow) A 10/13/24 10:47 Urine Appearance Cloudy (CLEAR) A 10/13/24 10:47 Urine pH 5.5 (5-7) 10/13/24 10:47 Ur Specific [place] 1.019 (1.005-1.030) 10/13/24 10:47 Urine Protein 2+ (Negative) A 10/13/24 10:47 Urine Glucose (UA) 1+ (Normal) H 10/13/24 10:47 Urine Ketones Trace (Negative) 10/13/24 10:47 Urine Blood 2+ (Negative) A 10/13/24 10:47 Urine Nitrate Negative (Negative) 10/13/24 10:47 Urine Bilirubin 1+ (Negative) H 10/13/24 10:47 Urine Urobilinogen 1.0 mg/dL (Negative) 10/13/24 10:47 Ur Leukocyte Esterase Trace (Negative) A 10/13/24 10:47 Urine RBC 3-5 /hpf (0-2) 10/13/24 10:47 Urine WBC 0-5 /hpf (0-5) 10/13/24 10:47 Ur Squamous Epith Cells 6-10 /hpf (0-5) 10/13/24 10:47 Amorphous Sediment Not Reportable 10/13/24 10:47 Urine Bacteria None seen /hpf (NONE) 10/13/24 10:47 Hyaline Casts 27.69 /lpf 10/13/24 10:47 Coronavirus (PCR) Negative (Negative) 10/13/24 13:11 Influenza A (PCR) Negative (Negative) 10/13/24 13:11 Influenza Type B (PCR) Negative (Negative) 10/13/24 13:11 RSV (PCR) Negative (Negative) 10/13/24 13:11 Micro: Microbiology 10/13/24 12:35 Blood Culture - Preliminary Blood SPECIMEN COLLECTED 10/13/24 12:32 Blood Culture - Preliminary Blood SPECIMEN COLLECTED A&P Assessment and plan (1) Acute calculous cholecystitis: As evidenced by findings of elevation in bilirubin and alkaline phosphatase, findings on ultrasound and CT imaging and clinical presentation of abdominal pain, right sided. Has associated elevation in white blood count. Blood pressures are normal, does have tachycardia. He did not take his medications since yesterday, however, and is known to be on sotalol for atrial fibrillation. Currently meeting SIRS criteria and at risk for progression to sepsis/severe sepsis but not currently meeting definitive criteria for such with other potential explanations for abnormalities identified. (2) Chronic anticoagulation: Chronically on Eliquis due to history of atrial fibrillation. No personal history of stroke or TIA known. (3) Atrial fibrillation: Longstanding persistent atrial fibrillation. In addition to anticoagulation he is chronically on sotalol. Typically rate controlled. Missed his dose of sotalol today due to acute issues contributing to tachycardia currently. Qualifiers: Atrial fibrillation type: longstanding persistent Qualified Code(s): I48.11 - Longstanding persistent atrial fibrillation (4) HTN (hypertension): Primary hypertension, not on specific medication currently with acceptable blood pressures. Qualifiers: Hypertension type: primary hypertension Qualified Code(s): I10 - Essential (primary) hypertension (5) ASHD (arteriosclerotic heart disease): Chronic diagnosis. Is never required any cardiac intervention. Follows with Dr. Vasquez as an outpatient basis from cardiology standpoint. (6) Diabetes mellitus, type II, insulin dependent: With associated peripheral neuropathy based on available history. (7) Dyslipidemia: Chronically on statin therapy. (8) Parkinson disease: Chronically on carbidopa/levodopa. Qualifiers: Dyskinesia presence: without dyskinesia Fluctuating manifestations: without fluctuating manifestations Qualified Code(s): G20.A1 - Parkinson's disease without dyskinesia, without mention of fluctuations (9) Lewy body dementia: Chronically on memantine and escitalopram. Follows with Dr. Littlejohn and has been doing well. Makes his own decisions. Does have medical power of title attorney, his daughter Candy. Qualifiers: Dementia severity: mild Dementia behavioral or psychological symptom: with mood disturbance Qualified Code(s): G31.83 - Neurocognitive disorder with Lewy bodies; F02.A3 - Dementia in other diseases classified elsewhere, mild, with mood disturbance (10) Multiple myeloma: In remission, chronically on Revlimid, on and off week this week with date for resumption 10/17/2024. Qualifiers: Multiple myeloma remission status: in remission Qualified Code(s): C90.01 - Multiple myeloma in remission (11) Gait instability: Related to chronic back pain and Parkinson disease, uses walker at baseline. Back pain significant with movement and ambulation. May impede usual post operative recovery. Plan Chronically on PPI Chronically on potassium replacement History of chronic diarrhea felt related to Revlimid improved with cholestyramine, a chronic medication; recently constipated Enlarged prostate on imaging without reported prostatic hypertrophy symptoms Inpatient admission Surgical consultation with Dr. Vogt Case discussed with Dr. Vogt and after reviewing both with Mr. Vines himself and his daughter Candy risk and benefit of surgery for cholecystitis versus risk and benefit of less invasive procedures, informed decision has been made to plan for surgery on allowing adequate time for Eliquis to be held. Risk of surgery include bleeding, infection, pain, anesthesia complications and other medication reactions and others as addressed by surgery. Mr. Vines has typically done okay from an anesthesia standpoint with several surgeries including 4 since 2021. Benefit is less chance of recurrent disease given the gallstones noted. With holding of Eliquis increased risk of hypercoagulable state including risk of stroke. Given known arrhythmia and other cardiovascular history there is a risk of cardiovascular events. Patient is currently medically optimized, thought we will need to monitor heart rate control and for signs and symptoms of developing severe sepsis. IVFs, including fluid bolus Zosyn Pain control Bowel regimen given constipation already reported and potential impact of pain management Diet as tolerated for now Hold eliquis Continue sotalol, pharmacy has ordered 120mg tablets to allow dosing of his usual 60 mg regimen bid; tonight will give him 80mg one time given the missed dose today Telemetry monitoring Monitor blood pressures Hold home tresiba; will give lower dose of lantus along with moderate dose insulin coverage with meals and at bedtime Holding statin therapy currently Continue cardbidopa/levodopa; reviewed that there is not an IV equivalent during the periop timeframe but we will restart post op once tolerating po Continue home memantine and escitalopram On off-week for Revlimid; if does okay can plan to resume on 10/17 as scheduled Walker at bedside, PT for ambulation as he can tolerate as will be a part of usual recovery to move around, fall precautions Continue home PPI and potassium Bladder scan as needed for concerns regarding urinary retention VTE prophylaxis: SCDs, home eliquis held for planned surgery GI Prophylaxis: PPI chronically Antibiotics: Zosyn started 10/13 Pending studies: am A1c, lactic acid, repeat lfts/labs Telemetry: ordered given tachycardia/konwn afib and potential for clinical worsening/need for close monitoring Zheng: not currently indicated Line(s): peripheral IVs Disposition plan: Home with outpatient follow up to general surgery & PCP anticipated after DC along with follow up to other providers as already scheduled. Code Status: Full Code Supportive care otherwise Findings, concerns and plans were discussed with patient and he was given an opportunity to ask questions. I was also able to speak with Candy at phone number listed under contact information reviewing same information and opportunity to ask quesitons. PDMP PDMP Reviewed: Last Reviewed 10/13/24 19:12 by Mari Gabriel MD Attestations Medical Necessity Statement*: Anticipated stay greater than two midnights. The patient presents with multifaceted medical issues requiring an integrated approach to his care. His primary condition, gallbladder infection, necessitates surgical intervention, balancing the risks associated with delaying anticoagulation due to atrial fibrillation. Given prior surgical history without anesthesia complications, surgery benefits outweigh potential gastrointestinal complication risks from cholecystitis. Management of comorbid conditions such as Type 2 diabetes and multiple myeloma will continue, tailored around surgical scheduling and recovery. The patient's Parkinson?s disease treatment presents perioperative challenges with a temporary cessation of carbidopa-levodopa. Overall, the chosen management pathway aims to alleviate acute cholecystitis symptoms while managing chronic medical conditions to optimize the patient's recovery and long-term health outcome. Coding Level of Care Code 96995 High MDM includes number and complexity of problems actively addressed during encounter, amount and/or complexity of data reviewed/ordered [ previous or external records, resulted lab(s)/test(s), ordered lab(s)/test(s), independent historian and other healthcare professional discussion] and described risk of complication, morbidity or mortality of management (reviewed surgery on non surgery options for management) as documented Diagnoses Acute calculous cholecystitis K80.00 Chronic anticoagulation Z79.01 Longstanding persistent atrial fibrillation I48.11 Atrial fibrillation type: longstanding persistent Primary hypertension I10 Hypertension type: primary hypertension ASHD (arteriosclerotic heart disease) I25.10 Diabetes mellitus, type II, insulin dependent E11.9; Z79.4 Dyslipidemia E78.5 Parkinson's disease without dyskinesia or fluctuating manifestations G20.A1 Dyskinesia presence: without dyskinesia Fluctuating manifestations: without fluctuating manifestations Mild Lewy body dementia with mood disturbance G31.83; F02.A3 Dementia severity: mild Dementia behavioral or psychological symptom: with mood disturbance Multiple myeloma in remission C90.01 Multiple myeloma remission status: in remission Gait instability R26.81
[2024-10-13 15:53] VITALS: BP 131/74; PULSE 107; RESP 17; TEMP 36.8; O2SAT 96
[2024-10-13 16:39] LABS: Glucose Point of Care 194 mg/dL (70-110)
[2024-10-13] MEDS: docusate sodium 100 mg Capsule PO (18:09)
[2024-10-13] MEDS: sodium chloride 0.9% 500 ML IV (18:10)
[2024-10-13] MEDS: insulin lispro 100 unit/1 mL SUBCUT ×2 (18:10→21:36)
--- NOTE | 2024-10-13 18:41 | ECG_ITS ---
[facility] Test Date: 2024-[facility]13 Pat Name: Shad Vines Department: Room: 264 Gender: Male Physics Technician: : 1945 Requested By: Mari Gabriel Order Number: [id number] Marco Antonio MD: Fahad Vasquez M.D. Measurements Intervals [place] Rate: 120 P: 0 OH: 0 QRS: -15 QRSD: 94 T: 74 QT: 334 QTc: 474 Interpretive Statements ATRIAL FIBRILLATION WITH RAPID VENTRICULAR RESPONSE POSSIBLE ANTERIOR MYOCARDIAL INFARCTION , PROBABLY OLD [30 ms Q WAVE IN V3/V4, OR R < 0.2 mV IN V4] INFERIOR MYOCARDIAL INFARCTION , PROBABLY OLD [40+ ms Q WAVE AND/OR ST/T ABNORMALITY IN II/aVF] Compared to ECG 07/20/2024 15:36:19 Sinus bradycardia no longer present Myocardial infarct finding still present Electronically Signed On 10-14-2024 18:02:30 ENVIRONMENTAL PROTECTION OFFICER by Fahad Vasquez M.D. [email or web address] [id number]
[2024-10-13 20:00] VITALS: BP 151/103; PULSE 113; RESP 18; TEMP 37; O2SAT 98
[2024-10-13] MEDS: carbidopa-levodopa 25-100mg Tablet 1 EACH PO (20:57)
[2024-10-13] MEDS: sennosides 8.6 mg Tablet 17.2 MG PO (20:57)
[2024-10-13] MEDS: HYDROcodone-acetaminophen 5-325 mg Tablet 1 TAB PO (20:57)
[2024-10-13] MEDS: sotalol 80 mg Tablet PO (20:58)
[2024-10-13 21:34] LABS: Glucose Point of Care 185 mg/dL (70-110)
[2024-10-14] VITALS (17 sets, daily range): BP systolic 104–143; BP diastolic 67–93; PULSE 80–122; RESP 16–28; TEMP 36.5–37.4; O2SAT 90–97
[2024-10-14] MEDS: piperacillin-tazobactam 3.375 GM in sodium chloride 0.9% (plus) 50 ML IV ×3 (04:00→20:51)
[2024-10-14 05:26] LABS: Basophils % 0.3 %; Eosinophils % 0.1 %; Lymphocytes # 0.9 10^3/uL (0.8-4.8); Lymphocytes % 6.4 %; Mean Corpuscular HGB Conc 32.2 g/dL (30-55); Mean Corpuscular Hemoglobin 29.5 pg (27-33); Mean Corpuscular Volume 91.6 fl (82-101); Mean Platelet Volume 10.4 fL (7.4-10.4); Monocytes # 1.8 10^3/uL (0.2-0.9); Monocytes % 13.7 %; Neutrophils # 9.71 10^3/uL (1.8-7.7); Neutrophils % 72.8 %; Nucleated Red Blood Cells % 0 %; Platelet Count 157 10^3/cmm (157-399); Red Blood Count 4.04 10^6/uL (3.85-5.65); Red Cell Distribution Width 15.1 % (12.1-15.1); White Blood Count 13.35 10^3/uL (3.29-11.43)
[2024-10-14 05:58] LABS: Alanine Aminotransferase < 5 U/L (0-41); Albumin Level 2.6 g/dL (3.5-5.2); Alkaline Phosphatase 178 U/L (40-130); Anion Gap 14.3 (5-19); Aspartate Amino Transferase 11 U/L (0-40); Blood Urea Nitrogen 10 mg/dL (8-23); Calcium 8.4 mg/dL (8.5-10.5); Carbon Dioxide 23 mmol/L (22-29); Chloride 101 mmol/L (98-107); Creatinine Clr Calc Pharmacy 71.7605; Globulin 3.4 g/dL (1.3-4.6); Glucose 157 mg/dL (65-115); Magnesium 1.4 mg/dL (1.7-2.3); Osmolality Calculated 282 mOsm/kg (285-295); Phosphorus 2.2 mg/dL (2.5-4.5); Potassium 3.3 mmol/L (3.5-5.1); Sodium 135 mmol/L (136-145); Total Bilirubin 2.7 mg/dL (0.15-1.2)
[2024-10-14 06:05] LABS: Slide Review Slide Review Perform
[2024-10-14 06:11] LABS: Estmated Average Glucose 186; Hemoglobin A1C 8.1 % (4.0-6.0)
[2024-10-14 06:29] LABS: Glucose Point of Care 146 mg/dL (70-110)
[2024-10-14] MEDS: docusate sodium 100 mg Capsule PO ×2 (08:52→17:41)
[2024-10-14] MEDS: potassium chloride ER 20 mEq Tablet PO (08:52)
[2024-10-14] MEDS: insulin glargine 100 units/1 mL 5 UNIT SUBCUT (08:53)
[2024-10-14] MEDS: memantine 5 mg tablet PO (08:53)
[2024-10-14] MEDS: escitalopram 10 mg Tablet 20 MG PO (08:53)
[2024-10-14] MEDS: insulin lispro 100 unit/1 mL SUBCUT ×3 (08:53→20:48)
[2024-10-14] MEDS: carbidopa-levodopa 25-100mg Tablet 1 EACH PO ×2 (08:53→20:50)
[2024-10-14] MEDS: pantoprazole DR 40 mg Tablet PO (08:53)
[2024-10-14] MEDS: HYDROcodone-acetaminophen 5-325 mg Tablet 1 TAB PO ×2 (09:00→22:32)
--- NOTE | 2024-10-14 09:54 | PC.CHAP ---
Pastoral Care Encounter/Spiritual Assessment Type of Contact [] Declined technical sales representative visit [] Patient/Family/Request visit [] Outpatient visit [] Follow-up visit [] Physician referral [] Code/Alert [] Routine visit [] Staff referral [] Actively dying [x] Patient sleeping [] Family support [] [] Out of room [] Palliative care [] [] Receiving care in room [] Pre-surgical visit [] Trauma [] Long length of stay [] ICU visit [] Other: Relational/Emotional Strength [] Patient feels connected with others/family/visitors/staff [] Distress [] Loneliness/isolation [] Abandonment Spirituality of Patient [] Person of Stacia [] Attends Islam of their Stacia [] Believes in Prayer [] Reads Bible or Sabianist materials [] There are Spiritual issues to be addressed Credit Union Examiner Interventions [] Prayer [] Active listening [] Non-anxious presence [] Spiritual/emotional support [] Crisis/trauma care [] Spiritual counseling [] Bereavement support [] Provided bereavement packet [] Provided Bible/devotional materials [] Provided toy/stuffed animal, coloring book to patient or family member [] Provided Communion [] Anointing/Pollock [] Salvation [] Completed spiritual assessment [] Other: Impact on Illness or Injury [] Angry [] Fearful [] Anxious [] Often cries [] Exhaustion [] Unable to work [] Unable to attend baptist [] Unable to walk/stand [] Unable to read [] Unable to drive [] Unable to eat/drink [] Unable to sleep [] Unable to be with family [] Patient intubated [] Other: Summary Time spent with patient
[2024-10-14] MEDS: magnesium sulfate premix 4 GM/100 ML PREMIX IV (10:50)
[2024-10-14] MEDS: potassium chloride ER 20 mEq Tablet 40 MEQ PO (10:51)
--- NOTE | 2024-10-14 11:01 | ECG_ITS ---
[facility] Test Date: 2024-10-14 Pat Name: Shad Vines Department: Room: 264 Gender: Male Decontamination Worker: : 1945 Requested By: Mary Ashby Order Number: [id number] Marco Antonio MD: Fahad Vasquez M.D. Measurements Intervals [place] Rate: 120 P: 0 IA: 0 QRS: -15 QRSD: 93 T: 180 QT: 308 QTc: 435 Interpretive Statements ATRIAL FIBRILLATION WITH RAPID VENTRICULAR RESPONSE POSSIBLE ANTERIOR MYOCARDIAL INFARCTION , PROBABLY OLD [30 ms Q WAVE IN V3/V4, OR R < 0.2 mV IN V4] INFERIOR MYOCARDIAL INFARCTION , PROBABLY OLD [40+ ms Q WAVE AND/OR ST/T ABNORMALITY IN II/aVF] Compared to ECG 10/13/2024 18:41:42 No significant changes Electronically Signed On 10-14-2024 17:21:15 LEATHER PRODUCTS SUPERVISOR by Fahad Vasquez M.D. [email or web address] [id number]
[2024-10-14] MEDS: sodium chloride 0.9% 1,000 ML 100 ML IV ×2 (11:02→20:57)
[2024-10-14 11:26] LABS: Glucose Point of Care 213 mg/dL (70-110)
--- NOTE | 2024-10-14 11:52 | PC.NURSE ---
RN noticed an irregular high hr. Placed on tele, which appeared to be afib RVR - rate of 120-130. EKG confirmed afib rvr. Betapace on hold by pharmacy d/t not having correct dose. Notified Dr. Ashby, who corrects medication list with pharmacy. Betapace 80mg given BID with first dose NOW.
[2024-10-14] MEDS: sotalol 80 mg Tablet PO (12:15)
--- NOTE | 2024-10-14 12:27 | P.PN_ITS ---
Subjective 2 Subjective: Persistent right upper quadrant pain 9 patient agreeable to surgery tomorrow Vitals/I&O/Wt Last Vital Signs Temp 98.7 F 10/14/24 08:42 Pulse 115 H 10/14/24 09:02 Resp 20 H 10/14/24 09:02 BP 112/70 10/14/24 08:42 Pulse Ox 95 10/14/24 09:02 O2 Del Method Room Air 10/14/24 08:42 10/13/24 10/14/24 10/14/24 22:59 06:59 14:59 Intake Total 1686.667 / 1736.667 750 / 2486.667 1530 / 1530 Output Total 600 / 600 Balance 1086.667 / 1136.667 750 / 3145.164 7589 / 1530 Weight last 48 hrs Weight 157 lb 12.8 oz Weight 157 lb 2 oz Weight 210 lb Physical Exam 2 Narrative: Chest: Unlabored breathing room air. No lymphadenopathy. Heart: Regular rate and rhythm. Abdomen: Soft, tender right upper quadrant, nondistended. No masses or lymphadenopathy. Data 10/14/24 05:06 10/14/24 05:06 Micro: Microbiology 10/13/24 12:35 Blood Culture - Preliminary Blood SPECIMEN COLLECTED 10/13/24 12:32 Blood Culture - Preliminary Blood SPECIMEN COLLECTED A&P Assessment and plan (1) Cholecystitis: Plan 79-year-old male admitted with cholecystitis. Proceeding with surgery tomorrow since he needs to be 48 hours of apixaban. Patient understands the risk of holding anticoagulation. Discussed risk and benefits and patient agrees to proceed with laparoscopic cholecystectomy possible open. PDMP PDMP Reviewed: Not Reviewed Attestations 2 Medical Necessity Statement*: N/A Coding Level of Care Code 58084 Diagnoses Cholecystitis K81.9 Time Spent (min) 30
--- NOTE | 2024-10-14 13:36 | PM.PN ---
Subjective Subjective: seen this am was in afib rvr this am home sotalol restarted. he did not take yesterday and this am continue to hold AC surgery in AM Vitals/I&O/Wt Last Vital Signs Temp 98.5 F 10/14/24 12:54 Pulse 113 H 10/14/24 12:54 Resp 18 10/14/24 12:54 BP 118/69 10/14/24 12:54 Pulse Ox 92 10/14/24 12:54 O2 Del Method Room Air 10/14/24 12:54 10/13/24 10/14/24 10/14/24 22:59 06:59 14:59 Intake Total 1686.667 / 1736.667 750 / 2486.667 1630 / 1630 Output Total 600 / 600 Balance 1086.667 / 1136.667 750 / 1670.525 6017 / 1630 Weight last 48 hrs Weight 71.577 kg Weight 71.271 kg Weight 95.254 kg Physical Exam Narrative: Normocephalic atraumatic, normal S1-S2, EOMI No acute distress laying comfortably in bed at this time. Chest: Unlabored breathing room air. No lymphadenopathy. Heart: Regular rate and rhythm. Abdomen: Soft, tender right upper quadrant, nondistended. No masses or lymphadenopathy. Extremities: No edema bilateral lower extremities Data 10/14/24 05:06 10/14/24 05:06 Micro: Microbiology 10/13/24 12:35 Blood Culture - Preliminary Blood NEGATIVE TO DATE 10/13/24 12:32 Blood Culture - Preliminary Blood NEGATIVE TO DATE A&P Assessment and plan (1) Acute calculous cholecystitis: As evidenced by findings of elevation in bilirubin and alkaline phosphatase, findings on ultrasound and CT imaging and clinical presentation of abdominal pain, right sided. Has associated elevation in white blood count. Blood pressures are normal, does have tachycardia. He did not take his medications since yesterday, however, and is known to be on sotalol for atrial fibrillation. Currently meeting SIRS criteria and at risk for progression to sepsis/severe sepsis but not currently meeting definitive criteria for such with other potential explanations for abnormalities identified. (2) Chronic anticoagulation: Chronically on Eliquis due to history of atrial fibrillation. No personal history of stroke or TIA known. (3) Atrial fibrillation: Longstanding persistent atrial fibrillation. In addition to anticoagulation he is chronically on sotalol. Typically rate controlled. Missed his dose of sotalol today due to acute issues contributing to tachycardia currently. Qualifiers: Atrial fibrillation type: longstanding persistent Qualified Code(s): I48.11 - Longstanding persistent atrial fibrillation (4) HTN (hypertension): Primary hypertension, not on specific medication currently with acceptable blood pressures. Qualifiers: Hypertension type: primary hypertension Qualified Code(s): I10 - Essential (primary) hypertension (5) ASHD (arteriosclerotic heart disease): Chronic diagnosis. Is never required any cardiac intervention. Follows with Dr. Vasquez as an outpatient basis from cardiology standpoint. (6) Diabetes mellitus, type II, insulin dependent: With associated peripheral neuropathy based on available history. (7) Dyslipidemia: Chronically on statin therapy. (8) Parkinson disease: Chronically on carbidopa/levodopa. Qualifiers: Dyskinesia presence: without dyskinesia Fluctuating manifestations: without fluctuating manifestations Qualified Code(s): G20.A1 - Parkinson's disease without dyskinesia, without mention of fluctuations (9) Lewy body dementia: Chronically on memantine and escitalopram. Follows with Dr. Littlejohn and has been doing well. Makes his own decisions. Does have medical power of mergers and acquisitions attorney, his daughter Candy. Qualifiers: Dementia behavioral or psychological symptom: with mood disturbance Dementia severity: mild Qualified Code(s): G31.83 - Neurocognitive disorder with Lewy bodies; F02.A3 - Dementia in other diseases classified elsewhere, mild, with mood disturbance (10) Multiple myeloma: In remission, chronically on Revlimid, on and off week this week with date for resumption 10/17/2024. Qualifiers: Multiple myeloma remission status: in remission Qualified Code(s): C90.01 - Multiple myeloma in remission (11) Gait instability: Related to chronic back pain and Parkinson disease, uses walker at baseline. Back pain significant with movement and ambulation. May impede usual post operative recovery. Plan Chronically on PPI Chronically on potassium replacement History of chronic diarrhea felt related to Revlimid improved with cholestyramine, a chronic medication; recently constipated Enlarged prostate on imaging without reported prostatic hypertrophy symptoms Inpatient admission Surgical consultation with Dr. Vogt Case discussed with Dr. Vogt and after reviewing both with Mr. Vines himself and his daughter Candy risk and benefit of surgery for cholecystitis versus risk and benefit of less invasive procedures, informed decision has been made to plan for surgery on allowing adequate time for Eliquis to be held. Risk of surgery include bleeding, infection, pain, anesthesia complications and other medication reactions and others as addressed by surgery. Mr. Vines has typically done okay from an anesthesia standpoint with several surgeries including 4 since 2021. Benefit is less chance of recurrent disease given the gallstones noted. With holding of Eliquis increased risk of hypercoagulable state including risk of stroke. Given known arrhythmia and other cardiovascular history there is a risk of cardiovascular events. Patient is currently medically optimized, thought we will need to monitor heart rate control and for signs and symptoms of developing severe sepsis. IVFs, including fluid bolus Zosyn Pain control Bowel regimen given constipation already reported and potential impact of pain management Diet as tolerated for now Hold eliquis Continue sotalol, pharmacy has ordered 120mg tablets to allow dosing of his usual 60 mg regimen bid; tonight will give him 80mg one time given the missed dose today Telemetry monitoring Monitor blood pressures Hold home tresiba; will give lower dose of lantus along with moderate dose insulin coverage with meals and at bedtime Holding statin therapy currently Continue cardbidopa/levodopa; reviewed that there is not an IV equivalent during the periop timeframe but we will restart post op once tolerating po Continue home memantine and escitalopram On off-week for Revlimid; if does okay can plan to resume on 10/17 as scheduled Walker at bedside, PT for ambulation as he can tolerate as will be a part of usual recovery to move around, fall precautions Continue home PPI and potassium Bladder scan as needed for concerns regarding urinary retention VTE prophylaxis: SCDs, home eliquis held for planned surgery GI Prophylaxis: PPI chronically Antibiotics: Zosyn started 10/13 Pending studies: am A1c, lactic acid, repeat lfts/labs Telemetry: ordered given tachycardia/konwn afib and potential for clinical worsening/need for close monitoring Zheng: not currently indicated Line(s): peripheral IVs Disposition plan: Home with outpatient follow up to general surgery & PCP anticipated after DC along with follow up to other providers as already scheduled. Code Status: Full Code Supportive care otherwise Findings, concerns and plans were discussed with patient and he was given an opportunity to ask questions. I was also able to speak with Candy at phone number listed under contact information reviewing same information and opportunity to ask quesitons. 10/14/2024 Plan for cholecystectomy in AM. Patient continues to be in atrial fibrillation with RVR. Will place on sotalol 80 twice daily. If still remains uncontrolled will consider adding additional medication. Continue to watch at this time. Continue to monitor on telemetry. Continue to hold Eliquis in anticipation for surgery in AM. Agree with H&P assessment and plan above. Continue Zosyn PDMP PDMP Reviewed: Not Reviewed Attestations Medical Necessity Statement*: Plan for cholecystectomy in AM. Diagnoses Acute calculous cholecystitis K80.00 Chronic anticoagulation Z79.01 Longstanding persistent atrial fibrillation I48.11 Atrial fibrillation type: longstanding persistent Primary hypertension I10 Hypertension type: primary hypertension ASHD (arteriosclerotic heart disease) I25.10 Diabetes mellitus, type II, insulin dependent E11.9; Z79.4 Dyslipidemia E78.5 Parkinson's disease without dyskinesia or fluctuating manifestations G20.A1 Dyskinesia presence: without dyskinesia Fluctuating manifestations: without fluctuating manifestations Mild Lewy body dementia with mood disturbance G31.83; F02.A3 Dementia behavioral or psychological symptom: with mood disturbance Dementia severity: mild Multiple myeloma in remission C90.01 Multiple myeloma remission status: in remission Gait instability R26.81
--- NOTE | 2024-10-14 15:04 | PC.NURSE ---
Pt continues to stay in a-fib rvr. Notified Dr. Ashby. Consult for Dr. Brian palmer.
[2024-10-14 17:05] LABS: Glucose Point of Care 136 mg/dL (70-110)
[2024-10-14] MEDS: phosphorus 250 mg Tablet PO (17:41)
[2024-10-14] MEDS: amiodarone 150 MG/100 ML PREMIX 400 MG IV (18:28)
--- NOTE | 2024-10-14 18:35 | PC.NURSE ---
Report called to [facility]. Transported to [facility], by wheelchair, with family. Amio bolus started.
--- NOTE | 2024-10-14 18:35 | PC.NURSE ---
Patient transferred from med/surg to [facility] by wheelchair at 1830.
--- NOTE | 2024-10-14 19:06 | P.CONIM_ITS ---
<Statement entered by Taj Torres MD - 10/14/24 21:12> Patient was evaluated and cared for in conjunction with an advanced practice practitioner. I personally examined the patient and reviewed the chart and all pertinent data including imaging, telemetry, and laboratory results. I discussed the patient in detail with the advanced practice practitioner. Please see their note for complete H&P testing result and agreed upon plan of care for the patient. 79-year-old male past medical history significant for chronic paroxysmal A-fib controlled with sotalol at home presented with cholecystitis, cholecystectomy was recommended however patient was noted to be in A-fib with RVR regarding the patient he has missed couple of doses of sotalol at home otherwise he takes 60 mg p.o. twice daily. Currently despite of restarted sotalol 80 mg he continues to have fast heart rate into 140s. Surgery is planned for tomorrow afternoon. GENERAL: Patient is alert, awake and oriented x3. HEART: Regular S1 and S2. No murmur, rub or gallop. LUNGS: Clear to auscultate bilaterally. CENTRAL NERVOUS SYSTEM: Grossly nonfocal. EXTREMITIES: Lower extremities with out edema bilaterally. Assessment and plan Preop clearance for gallbladder size A-fib with RVR Hypertension We will discontinue sotalol as he may not be able to tolerate it orally. Will switch him to IV amiodarone for now Hold oral anticoagulation Switch to heparin Check QTc after starting amiodarone with twelve-lead EKG and call Dr. Torres with it Further plan will be devised as per progress of the patient Once rate controlled or converted back to sinus rhythm, patient can proceed with cholecystectomy under acceptable risk for anesthesia and surgery. Providers/Reason For Consult 2 Consulting Physician/Specialty*: Taj Torres MD Reason for Consult*: Afib RVR Requesting Physician: Dr. Ashby Attending Physician: Mary Ashby MD Primary Care Provider: Jayden Blake MD History of Present Illness History of Present Illness This is a very pleasant 79 year old gentleman who came into the emergency room with abdominal pain. He was found to have cholecystitis. He has a history of chronic A-fib Usually managed by sotalol.He is found to be in A-fib RVR with rates up to 140sHe was asymptomatic the entire time. Blood pressure is well- controlled and stable. He has had a 30-day event monitor in the past that showed he had up to 3-second pauses and has a history of bradycardia.He denies any history of coronary artery disease. Denies any chest pain or shortness of breath at this time. Sotalol was given 80 mg twice daily. He missed 1 dose he states on Saturday but otherwise has been consistent with its use.At this time he is hemodynamically stable. Previously the plan was to take him for cholecystectomy tomorrow evening. Review of Systems 2 Narrative: Consitutional: denies fever, chills, body aches, or changes in appetite, denies abnormal weight loss Eyes: Denies changes in vision Card: Denies chest pain, palpitations, irregular heart rhythm, edema, syncope, shortness of breath, orthopnea, leg pain with exertion Resp: Denies shortness of breath, denies hemoptysis, denies cough GI: reports abdominal pain, denies nausea or vomiting, denies blood in stool : denies blood in urine, denies dysuria Musc: Denies extremity pain, denies limited range of motion or recent injury Skin: Denies rash, lesions, or wounds, denies changes to skin color Neuro: Denies nubmness in extremities, h/a, s/s of stroke Paulie: Denies easy bruiding/bleeding All: Denies s/s of allergies Medications/Allergies Home Medications ?Medication ?Instructions ?Recorded ?Confirmed ?Last Taken ?Type simvastatin 20 mg tablet 20 mg PO DAILY 11/02/1910/0310/12/24 History apixaban 5 mg tablet (Eliquis) 5 mg PO BID #60 tabs 10/13/24 10/12/24 Rx cholestyramine-aspartame 4 gram 1 ea PO DAILY 03/24/24 10/13/24 10/12/24 History oral powder (Cholestyramine Light) sotalol 120 mg tablet 60 mg (1/2 x 120 mg) PO BID #90 08/25/24 10/13/24 10/12/24 Rx tabs carbidopa 25 mg-levodopa 100 mg 25 - 100 tab PO BID #1 80 tabs 09/22/24 10/13/24 10/12/24 Rx tablet escitalopram oxalate 20 mg tablet 20 mg PO DAILY #90 t abs 09/22/24 10/13/24 10/12/24 Rx (Lexapro) memantine 5 mg tablet 5 mg PO DAILY #90 tabs 09/2210/13/24 10/12/24 Rx Revlimid 5 mg capsule See Rx Instructions .Route 0 10/13/24 10/13/24 10/12/24 Rx (lenalidomide) .COMPLEX #21 caps insulin degludec 200 unit/mL (3 10 unit SUBCUT DAILY 0 10/13/24 10/13/24 10/13/24 History mL) subcutaneous pen (Tresiba FlexTouch U-200 insulin) pantoprazole 40 mg tablet,delayed 40 mg PO DAILY 10/1310/13/24 10/12/24 History release potassium chloride 20 mEq 20 meq PO DAILY 10/13/2407/2710/12/24 History tablet,extended release(part/cryst) Allergies Allergy/AdvReac Type Severity Reaction Status Date / Time No Known Allergies Allergy Verified 10/13/24 10:26 Current Medications Generic Name Dose Route Start Last Admin Trade Name Freq PRN Reason Stop Dose Admin Hydrocodone Bitart/Acetaminophen 1 tab 10/13/24 17:18 10/14/24 09:00 Hydrocodone-Acetaminophen 5-325 Mg Tablet PO 1 tab Q4H PRN Administration MODERATE PAIN Carbidopa/Levodopa 1 each 10/13/24 21:00 10/14/24 08:53 Carbidopa-Levodopa 25-100mg Tablet PO 1 each BID@, TSERING Administration Docusate Sodium 100 mg 10/13/24 18:00 10/14/24 17:41 Docusate Sodium 100 Mg Capsule PO 100 mg BID TSERING Administration Escitalopram Oxalate 20 mg 10/14/24 09:00 10/14/24 08:53 Escitalopram 10 Mg Tablet PO 20 mg DAILY TSERING Administration Sodium Chloride 1,000 mls @ 100 mls/hr 10/13/24 14:29 10/14/24 11:02 Sodium Chloride 0.9% IV 100 mls/hr .Q10H TSERING Administration Piperacillin Sod/Tazobactam 50 mls @ 12.5 mls/hr 10/13/24 20:00 10/14/24 16:42 Sod 3.375 gm/ Sodium Chloride IV Infused Q8H TSERING Infusion Protocol Amiodarone HCl/Dextrose 360 mg in 200 mls @ 0 mls/hr 10/14/24 17:34 10/14/24 18:55 Nexterone IV 1 mg/min .Q0M TSERING 33.33 mls/hr Administration Protocol Per Protocol Insulin Glargine 5 unit 10/14/24 08:00 10/14/24 08:53 Insulin Glargine 100 Units/1 Ml SUBCUT 5 unit DAILY@08 TSERING Administration Insulin Human Lispro 0 unit 10/13/24 21:00 10/13/24 21:36 Insulin Lispro 100 Unit/1 Ml SUBCUT 3 unit BEDTIME TSERING Administration Protocol Insulin Human Lispro 0 unit 10/13/24 18:00 10/14/24 17:38 Insulin Lispro 100 Unit/1 Ml SUBCUT Not Given [facility] Protocol Memantine 5 mg 10/14/24 09:00 10/14/24 08:53 Memantine 5 Mg Tablet PO 5 mg DAILY TSERING Administration Pantoprazole Sodium 40 mg 10/14/24 09:00 10/14/24 08:[address] 40 Mg Tablet PO 40 mg DAILY TSERING Administration Potassium Chloride 20 meq 10/14/24 09:00 10/14/24 08:52 Potassium Chloride Er 20 Meq Tablet PO 20 meq DAILY TSERING Administration Potassium Phosphate 250 mg 10/14/24 18:00 10/14/24 17:41 Phosphorus 250 Mg Tablet PO 10/15/24 18:01 250 mg BID TSERING Administration Senna 17.2 mg 10/13/24 21:00 10/13/24 20:57 Sennosides 8.6 Mg Tablet PO 17.2 mg BEDTIME TSERING Administration PFSH Acute 2 PFSH: Medical History (Updated 10/14/24 @ 12:27 by Serafin Vogt MD) History of echocardiogram ef 68% 07/2023 Chronic back pain History of Holter monitoring 08/2024 - baseline predominantly afib, non afib 47%, one 3.1 second pause (asymptomatic), one 5 beat run of ns tachycardia (asymptomatic) Plasmacytoma in remission Weakness of both lower extremities Acquired left foot drop Facet arthropathy, lumbar History of nonmelanoma skin cancer Lumbar stenosis with neurogenic claudication Diarrhea Tubular adenoma History of cardioversion Balanitis Multiple myeloma Lymphoma ASHD (arteriosclerotic heart disease) Diabetes on insulin Atrial fibrillation Obesity HTN (hypertension) Dyslipidemia Surgical History (Updated 10/13/24 @ 18:08 by Mari Gabriel MD) History of colonoscopy with polypectomy 01/2022 Dr Raymundo S/P epidural steroid injection History of radiofrequency ablation (RFA) of nerve of lumbar spine (12/30/23) right L3/L4, L4/5, L5/S1 Dr Coley Status post open reduction and internal fixation (ORIF) of fracture (05/14/23) right hip fracture, gamma nail, Dr Flores History of lumbar laminectomy (07/25/22) L2/L3 laminectomy with partial facetectomies, revision at L3/L4, L4/L5 Dr Hong History of kyphoplasty (03/30/24) L3 Dr Hong Previous back surgery 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 History of colonoscopy 01/2022 H/O bone marrow transplant Family History Brother CAD (coronary artery disease) Cancer Mother Congestive heart failure (CHF) Brother Cancer Sister Cancer Sister Cancer Family/Other Cancer Chronic kidney disease (CKD) Denies family history of Diabetes Clotting disorder Dementia Anesthesia complication Bleeding disorder Lung disease Stroke Social History (Updated 10/13/24 @ 17:54 by Mari Gabriel MD) Smoking and tobacco/nicotine status: never used tobacco/nicotine Alcohol intake: former Substance/Drug Use: never Additional social history: Lives alone, daughters help him as needed Marital status: / Current occupational status: retired Vitals/I&O/Wt Last Vital Signs Temp 98.0 F 10/14/24 18:36 Pulse 120 H 10/14/24 18:36 Resp 27 H 10/14/24 18:36 BP 119/72 10/14/24 18:36 Pulse Ox 93 10/14/24 18:36 O2 Del Method Room Air 10/14/24 18:36 10/14/24 10/14/24 10/14/24 06:59 14:59 22:59 Intake Total 750 / 2486.667 2109 350 / 2460 Balance 750 / 0978.701 2835 / 2110 350 / 2460 Weight last 48 hrs Weight 157 lb 12.8 oz Weight 157 lb 2 oz Weight 210 lb Physical Exam 2 Narrative: General: No apparent distress, healthy appearing, well nourished HENMT: normoceophalic Neck: No carotid bruit bilaterally Muskuloskeletal: Full ROM Lymphatic: no lymphedema noted Respiratory: Normal respiratory effort, clear to auscultation bilaterally throughout all lung sexton, no use of accessory muscles Cardio: No JVD, irregularly irregular rate and rhythm, S1 S2 normal, no murmurs, peripheral pulses 2+ radial palpated bilaterally GI: Normal to inspection, nondistended Extremities: Full ROM, normal, normal capillary refill, no cyanosis or edema Neuro: Alert and oriented x4, no focal motor deficits Psych: Affect normal, denies suicidal ideation, mental status grossly normal Skin: No rashes or lesions noted, no wounds Data 10/14/24 05:06 10/14/24 05:06 Micro: Microbiology 10/13/24 12:35 Blood Culture - Preliminary Blood NEGATIVE TO DATE 10/13/24 12:32 Blood Culture - Preliminary Blood NEGATIVE TO DATE A&P Assessment and plan (1) HTN (hypertension): Qualifiers: Hypertension type: primary hypertension Qualified Code(s): I10 - Essential (primary) hypertension (2) Atrial fibrillation: Qualifiers: Atrial fibrillation type: longstanding persistent Qualified Code(s): I 48.11 - Longstanding persistent atrial fibrillation (3) Bradycardia: (4) Chronic anticoagulation: Plan The plan for this 79-year-old gentleman is to stop sotalol. Will start amnio bolus with a drip per protocol. We cannot give digoxin at this time due to history of tachybradycardia syndrome with pauses as well as diltiazem due to soft blood pressures. If patient's heart rate is controlled, he may proceed with surgery. Will continue to monitor response. At this time, patient is hemodynamically stable and asymptomatic. Thank you, Dr. Ashby, for allowing us to care for this very pleasant gentleman. PDMP PDMP Reviewed: Not Reviewed Consult Attestations 2 Medical Necessity Statement: Deferred to primay. Coding Level of Care Code Acute Code for Chg Fwd Diagnoses Primary hypertension I10 Hypertension type: primary hypertension Longstanding persistent atrial fibrillation I48.11 Atrial fibrillation type: longstanding persistent Bradycardia R00.1 Chronic anticoagulation Z79.01
[2024-10-14 20:44] LABS: Glucose Point of Care 362 mg/dL (70-110)
[2024-10-14] MEDS: sennosides 8.6 mg Tablet 17.2 MG PO (20:51)
[2024-10-15] VITALS (13 sets, daily range): BP systolic 97–182; BP diastolic 61–144; PULSE 108–143; RESP 20–28; TEMP 36.4–37.4; O2SAT 88–94
[2024-10-15] MEDS: piperacillin-tazobactam 3.375 GM in sodium chloride 0.9% (plus) 50 ML IV ×3 (04:22→20:55)
[2024-10-15 04:37] LABS: Hematocrit 31.9 % (37-53); Mean Corpuscular HGB Conc 32.6 g/dL (30-55); Mean Corpuscular Hemoglobin 29.7 pg (27-33); Mean Corpuscular Volume 91.1 fl (82-101); Mean Platelet Volume 10.7 fL (7.4-10.4); Platelet Count 149 10^3/cmm (157-399); Red Cell Distribution Width 15.5 % (12.1-15.1); White Blood Count 11.72 10^3/uL (3.29-11.43)
[2024-10-15 05:05] LABS: Anion Gap 17.4 (5-19); Blood Urea Nitrogen 10 mg/dL (8-23); Calcium 8.1 mg/dL (8.5-10.5); Carbon Dioxide 20 mmol/L (22-29); Chloride 97 mmol/L (98-107); Creatinine Clr Calc Pharmacy 64.5845; Glucose 180 mg/dL (65-115); Magnesium 2.1 mg/dL (1.7-2.3); Osmolality Calculated 276 mOsm/kg (285-295); Potassium 3.4 mmol/L (3.5-5.1); Sodium 131 mmol/L (136-145)
[2024-10-15] MEDS: morphine 4 mg/mL SDV 1 mL 2 MG IVP (05:10)
[2024-10-15 05:30] LABS: Absolute Neutrophil 9.1 10^3/cmm (1.4-6.5); Absolute Segmented Neutrophil 6.6 10/cmm (1.6-7.1); Band Neutrophils Absolute 2.6 10^3/cmm (0.0-1.2); Eosinophils 0 %; Lymphocytes 6 %; Monocytes Absolute 1.9 10^3/cmm (0.1-0.6); Platelet Estimate Decreased (Normal); Segmented Neutrophils 56 %; Slide Review Slide Review Perform; Total Cells Counted 100 (0-100)
[2024-10-15] MEDS: bisacodyl 5 mg Tablet 10 MG PO (05:57)
[2024-10-15] MEDS: oxyCODONE 5 mg IR Tab/Cap 2.5 MG PO (06:20)
[2024-10-15 06:26] LABS: Glucose Point of Care 256 mg/dL (70-110)
--- NOTE | 2024-10-15 08:44 | PC.NURSE ---
Per Dr Ashby amio drip is increased to 1 mg/min.
[2024-10-15] MEDS: memantine 5 mg tablet PO (08:45)
[2024-10-15] MEDS: docusate sodium 100 mg Capsule PO ×2 (08:45→17:43)
[2024-10-15] MEDS: pantoprazole DR 40 mg Tablet PO (08:45)
[2024-10-15] MEDS: escitalopram 10 mg Tablet 20 MG PO (08:45)
[2024-10-15] MEDS: potassium chloride ER 20 mEq Tablet PO (08:45)
[2024-10-15] MEDS: carbidopa-levodopa 25-100mg Tablet 1 EACH PO ×2 (08:45→20:54)
[2024-10-15] MEDS: phosphorus 250 mg Tablet PO ×2 (08:45→17:43)
[2024-10-15] MEDS: insulin lispro 100 unit/1 mL SUBCUT ×3 (08:46→20:51)
[2024-10-15] MEDS: insulin glargine 100 units/1 mL 5 UNIT SUBCUT (09:29)
--- NOTE | 2024-10-15 10:46 | P.PN_ITS ---
Subjective 2 Subjective: Patient has been in A-fib with RVR with rates up to 150s. Sotalol was stopped per cardiology yesterday and he was started on amnio bolus and admitted drip thereafter. He was on 0.5 mL this morning which was increased to 1 mg/h. He remains in RVR. Labs do show a left shift. Cholecystectomy procedure was canceled today. Discussed with surgeon. Will talk to IR for IR guided drainage of gallbladder at this point. Vitals/I&O/Wt Last Vital Signs Temp 98.2 F 10/15/24 07:20 Pulse 125 H 10/15/24 07:20 Resp 24 H 10/15/24 07:20 BP 124/74 10/15/24 07:20 Pulse Ox 94 10/15/24 07:20 O2 Del Method Room Air 10/15/24 07:20 10/14/24 10/15/24 10/15/24 22:59 06:59 14:59 Intake Total 1341.667 / 3451.667 250 / 3701.667 123.914 / 123.914 Output Total 250 / 250 125 / 375 Balance 1091.667 / 3201.667 125 / 3326.667 123.914 / 123.914 Weight last 48 hrs Weight 71.577 kg Weight 71.577 kg Weight 71.271 kg Physical Exam 2 Narrative: Normocephalic atraumatic, normal S1-S2, EOMI No acute distress laying comfortably in bed at this time. Chest: Unlabored breathing room air. No lymphadenopathy. Heart: Irregularly irregular, tachycardic 1 40-1 50 heart rate. Abdomen: Soft, tender right upper quadrant, nondistended. No masses or lymphadenopathy. Extremities: No edema bilateral lower extremities Data 10/15/24 03:30 10/15/24 03:30 Micro: Microbiology 10/13/24 12:35 Blood Culture - Preliminary Blood NEGATIVE TO DATE 10/13/24 12:32 Blood Culture - Preliminary Blood NEGATIVE TO DATE A&P Assessment and plan (1) Acute calculous cholecystitis: As evidenced by findings of elevation in bilirubin and alkaline phosphatase, findings on ultrasound and CT imaging and clinical presentation of abdominal pain, right sided. Has associated elevation in white blood count. Blood pressures are normal, does have tachycardia. He did not take his medications since yesterday, however, and is known to be on sotalol for atrial fibrillation. Currently meeting SIRS criteria and at risk for progression to sepsis/severe sepsis but not currently meeting definitive criteria for such with other potential explanations for abnormalities identified. (2) Chronic anticoagulation: Chronically on Eliquis due to history of atrial fibrillation. No personal history of stroke or TIA known. (3) Atrial fibrillation: Longstanding persistent atrial fibrillation. In addition to anticoagulation he is chronically on sotalol. Typically rate controlled. Missed his dose of sotalol today due to acute issues contributing to tachycardia currently. Qualifiers: Atrial fibrillation type: longstanding persistent Qualified Code(s): I 48.11 - Longstanding persistent atrial fibrillation (4) HTN (hypertension): Primary hypertension, not on specific medication currently with acceptable blood pressures. Qualifiers: Hypertension type: primary hypertension Qualified Code(s): I10 - Essential (primary) hypertension (5) ASHD (arteriosclerotic heart disease): Chronic diagnosis. Is never required any cardiac intervention. Follows with Dr. Vasquez as an outpatient basis from cardiology standpoint. (6) Diabetes mellitus, type II, insulin dependent: With associated peripheral neuropathy based on available history. (7) Dyslipidemia: Chronically on statin therapy. (8) Parkinson disease: Chronically on carbidopa/levodopa. Qualifiers: Dyskinesia presence: without dyskinesia Fluctuating manifestations: w ithout fluctuating manifestations Qualified Code(s): G20.A1 - Parkinson's disease without dyskinesia, without mention of fluctuations (9) Lewy body dementia: Chronically on memantine and escitalopram. Follows with Dr. Littlejohn and has been doing well. Makes his own decisions. Does have medical power of name plate stamper, his daughter Candy. Qualifiers: Dementia behavioral or psychological symptom: with mood disturbance D ementia severity: mild Qualified Code(s): G31.83 - Neurocognitive disorder with Lewy bodies; F02.A3 - Dementia in other diseases classified elsewhere, mild, with mood disturbance (10) Multiple myeloma: In remission, chronically on Revlimid, on and off week this week with date for resumption 10/17/2024. Qualifiers: Multiple myeloma remission status: in remission Qualified Code(s): C 90.01 - Multiple myeloma in remission (11) Gait instability: Related to chronic back pain and Parkinson disease, uses walker at baseline. Back pain significant with movement and ambulation. May impede usual post operative recovery. Plan Chronically on PPI Chronically on potassium replacement History of chronic diarrhea felt related to Revlimid improved with cholestyramine, a chronic medication; recently constipated Enlarged prostate on imaging without reported prostatic hypertrophy symptoms Inpatient admission Surgical consultation with Dr. Vogt Case discussed with Dr. Vogt and after reviewing both with Mr. Vines himself and his daughter Candy risk and benefit of surgery for cholecystitis versus risk and benefit of less invasive procedures, informed decision has been made to plan for surgery on allowing adequate time for Eliquis to be held. Risk of surgery include bleeding, infection, pain, anesthesia complications and other medication reactions and others as addressed by surgery. Mr. Vines has typically done okay from an anesthesia standpoint with several surgeries including 4 since 2021. Benefit is less chance of recurrent disease given the gallstones noted. With holding of Eliquis increased risk of hypercoagulable state including risk of stroke. Given known arrhythmia and other cardiovascular history there is a risk of cardiovascular events. Patient is currently medically optimized, thought we will need to monitor heart rate control and for signs and symptoms of developing severe sepsis. IVFs, including fluid bolus Zosyn Pain control Bowel regimen given constipation already reported and potential impact of pain management Diet as tolerated for now Hold eliquis Continue sotalol, pharmacy has ordered 120mg tablets to allow dosing of his usual 60 mg regimen bid; tonight will give him 80mg one time given the missed dose today Telemetry monitoring Monitor blood pressures Hold home tresiba; will give lower dose of lantus along with moderate dose insulin coverage with meals and at bedtime Holding statin therapy currently Continue cardbidopa/levodopa; reviewed that there is not an IV equivalent during the periop timeframe but we will restart post op once tolerating po Continue home memantine and escitalopram On off-week for Revlimid; if does okay can plan to resume on 10/17 as scheduled Walker at bedside, PT for ambulation as he can tolerate as will be a part of usual recovery to move around, fall precautions Continue home PPI and potassium Bladder scan as needed for concerns regarding urinary retention VTE prophylaxis: SCDs, home eliquis held for planned surgery GI Prophylaxis: PPI chronically Antibiotics: Zosyn started 10/13 Pending studies: am A1c, lactic acid, repeat lfts/labs Telemetry: ordered given tachycardia/konwn afib and potential for clinical worsening/need for close monitoring Zheng: not currently indicated Line(s): peripheral IVs Disposition plan: Home with outpatient follow up to general surgery & PCP anticipated after DC along with follow up to other providers as already scheduled. Code Status: Full Code Supportive care otherwise Findings, concerns and plans were discussed with patient and he was given an opportunity to ask questions. I was also able to speak with Candy at phone number listed under contact information reviewing same information and opportunity to ask quesitons. 10/14/2024 Plan for cholecystectomy in AM. Patient continues to be in atrial fibrillation with RVR. Will place on sotalol 80 twice daily. If still remains uncontrolled will consider adding additional medication. Continue to watch at this time. Continue to monitor on telemetry. Continue to hold Eliquis in anticipation for surgery in AM. Agree with H&P assessment and plan above. Continue Zosyn 10/15/2024 Cholecystectomy canceled. Will order IR guided drainage patient continues to be in A-fib with RVR. Sotalol was stopped yesterday. Appreciate cardiology recommendations. Placed on amiodarone at this time. Will order digoxin for patient. ? Continue to hold Eliquis. Will consider placing on heparin drip after tube placement ? Patient does have a left shift on labs and bandemia. Continue Zosyn. Add vancomycin at this time. Blood culture pending. PDMP PDMP Reviewed: Not Reviewed Attestations 2 Medical Necessity Statement*: A-fib with RVR, cholecystitis. Will require continued hospitalization for 48 to 72 hours at this time. Diagnoses Acute calculous cholecystitis K80.00 Chronic anticoagulation Z79.01 Longstanding persistent atrial fibrillation I48.11 Atrial fibrillation type: longstanding persistent Primary hypertension I10 Hypertension type: primary hypertension ASHD (arteriosclerotic heart disease) I25.10 Diabetes mellitus, type II, insulin dependent E11.9; Z79.4 Dyslipidemia E78.5 Parkinson's disease without dyskinesia or fluctuating manifestations G20.A1 Dyskinesia presence: without dyskinesia Fluctuating manifestations: without fluctuating manifestations Mild Lewy body dementia with mood disturbance G31.83; F02.A3 Dementia behavioral or psychological symptom: with mood disturbance Dementia severity: mild Multiple myeloma in remission C90.01 Multiple myeloma remission status: in remission Gait instability R26.81
--- NOTE | 2024-10-15 10:49 | P.PN_ITS ---
<Statement entered by Taj Torres MD - 10/15/24 19:26> Patient was evaluated and cared for in conjunction with an advanced practice practitioner. I personally examined the patient and reviewed the chart and all pertinent data including imaging, telemetry, and laboratory results. I discussed the patient in detail with the advanced practice practitioner. Please see their note for complete H&P testing result and agreed upon plan of care for the patient. Heart rate did not slow down Surgery has postponed Possible cholecystostomy with drain will be performed GENERAL: Patient is alert, awake and oriented x3. HEART: Regular S1 and S2. No murmur, rub or gallop. LUNGS: Clear to auscultate bilaterally. CENTRAL NERVOUS SYSTEM: Grossly nonfocal. EXTREMITIES: Lower extremities with out edema bilaterally. Assessment and plan Atrial fibrillation with rapid ventricle response Cholecystitis waiting gallbladder surgery Continue amiodarone Add digoxin Continue IV fluid Continue antibiotic Subjective 2 Subjective: Patient doing well overall. Currently on amnio drip. Heart rates are still high and uncontrolled. He is asymptomatic this time. BP has been soft. Amio has been turned back up to 1 mg/min Vitals/I&O/Wt Last Vital Signs Temp 98.2 F 10/15/24 07:20 Pulse 125 H 10/15/24 07:20 Resp 24 H 10/15/24 07:20 BP 124/74 10/15/24 07:20 Pulse Ox 94 10/15/24 07:20 O2 Del Method Room Air 10/15/24 07:20 10/14/24 10/15/24 10/15/24 22:59 06:59 14:59 Intake Total 1341.667 / 3451.667 250 / 3701.667 123.914 / 123.914 Output Total 250 / 250 125 / 375 Balance 1091.667 / 3201.667 125 / 3326.667 123.914 / 123.914 Weight last 48 hrs Weight 157 lb 12.8 oz Weight 157 lb 12.8 oz Weight 157 lb 2 oz Physical Exam 2 Narrative: General: No apparent distress, healthy appearing, well nourished HENMT: normoceophalic Neck: No carotid bruit bilaterally Muskuloskeletal: Full ROM Lymphatic: no lymphedema noted Respiratory: Normal respiratory effort, clear to auscultation bilaterally throughout all lung sexton, no use of accessory muscles Cardio: No JVD, irregularly irregular rate and rhythm, S1 S2 normal, no murmurs, peripheral pulses 2+ radial palpated bilaterally GI: Normal to inspection, nondistended Extremities: Full ROM, normal, normal capillary refill, no cyanosis, trace edema bilateral lower extremities Neuro: Alert and oriented x4, no focal motor deficits Psych: Affect normal, denies suicidal ideation, mental status grossly normal Skin: No rashes or lesions noted, no wounds Data 10/15/24 03:30 10/15/24 03:30 Micro: Microbiology 10/13/24 12:35 Blood Culture - Preliminary Blood NEGATIVE TO DATE 10/13/24 12:32 Blood Culture - Preliminary Blood NEGATIVE TO DATE A&P Assessment and plan (1) HTN (hypertension): Qualifiers: Hypertension type: primary hypertension Qualified Code(s): I10 - Essential (primary) hypertension (2) Atrial fibrillation: Qualifiers: Atrial fibrillation type: longstanding persistent Qualified Code(s): I 48.11 - Longstanding persistent atrial fibrillation (3) Bradycardia: (4) Chronic anticoagulation: Plan At this time, amio has been increased back to 1 mg/min. If blood pressure allows, will add low dose beta jeanne. Patient is asymptomatic at this time. He will be getting IR drainage of gallbladder tomorrow. If patient does not respond, he may have to be cardioverted. PDMP PDMP Reviewed: Not Reviewed Attestations 2 Medical Necessity Statement*: Deferred to primary care. Coding Level of Care Code Acute Code for Chg Fwd Diagnoses Primary hypertension I10 Hypertension type: primary hypertension Longstanding persistent atrial fibrillation I48.11 Atrial fibrillation type: longstanding persistent Bradycardia R00.1 Chronic anticoagulation Z79.01
--- NOTE | 2024-10-15 11:25 | P.PN_ITS ---
Subjective 2 Subjective: Currently rapid A-fib with heart rates of 150s on Amio drip Persistent right upper quadrant pain Vitals/I&O/Wt Last Vital Signs Temp 98.2 F 10/15/24 07:20 Pulse 125 H 10/15/24 07:20 Resp 24 H 10/15/24 07:20 BP 124/74 10/15/24 07:20 Pulse Ox 94 10/15/24 07:20 O2 Del Method Room Air 10/15/24 07:20 10/14/24 10/15/24 10/15/24 22:59 06:59 14:59 Intake Total 1341.667 / 3451.667 250 / 3701.667 123.914 / 123.914 Output Total 250 / 250 125 / 375 Balance 1091.667 / 3201.667 125 / 3326.667 123.914 / 123.914 Weight last 48 hrs Weight 157 lb 12.8 oz Weight 157 lb 12.8 oz Weight 157 lb 2 oz Physical Exam 2 Narrative: Chest: Unlabored breathing room air. No lymphadenopathy. Heart: Regular rate and rhythm. Abdomen: Soft, tender right upper quadrant, nondistended. No masses or lymphadenopathy. Data 10/15/24 03:30 10/15/24 03:30 Micro: Microbiology 10/13/24 12:35 Blood Culture - Preliminary Blood NEGATIVE TO DATE 10/13/24 12:32 Blood Culture - Preliminary Blood NEGATIVE TO DATE A&P Assessment and plan (1) Cholecystitis: Plan 79-year-old male admitted with cholecystitis. Multiple comorbidities including A-fib on apixaban. Went into A-fib with RVR starting yesterday. Not adequately rate controlled on Amio drip. Will cancel surgery. Recommend cholecystostomy tube and cholangiogram in 6 weeks. If cystic duct is patent cholecystostomy tube may be removed. Can consider cholecystectomy once medically optimized after 6 weeks. PDMP PDMP Reviewed: Not Reviewed Attestations 2 Medical Necessity Statement*: N/A Coding Level of Care Code 84881 Diagnoses Cholecystitis K81.9 Time Spent (min) 30
[2024-10-15 11:29] LABS: Glucose Point of Care 157 mg/dL (70-110)
--- NOTE | 2024-10-15 11:44 | PC.NURSE ---
Dr Ashby is updated that Dr. Vogt will not be doing his lab coli today. Nursing asked for a diet order. Dr Ashby wants diet order to come from Dr. Vogt. Dr. Vogt is contacted and he ordered a regular diet. Order entered.
[2024-10-15] MEDS: digoxin 250 mcg/ml INJ 2 mL 125 MCG IVP ×2 (15:17→17:43)
--- NOTE | 2024-10-15 15:44 | PC.NURSE ---
Ree,DUCT [employer] calls and orders a dose of digoxin 125mcg IVP. This was given Now (1517). If heart rate is now improved give another dose of digoxin 125 mcg IVP in 2 hours (1715).
[2024-10-15 17:33] LABS: Glucose Point of Care 118 mg/dL (70-110)
--- NOTE | 2024-10-15 18:09 | PC.NURSE ---
Updated cardiology with patient's heart rate. Ree ordered to turn amio drip back down to 0.5mg/min.
[2024-10-15 20:15] LABS: Glucose Point of Care 158 mg/dL (70-110)
[2024-10-15] MEDS: sennosides 8.6 mg Tablet 17.2 MG PO (20:54)
[2024-10-15] MEDS: lactulose oral liq 20 gm/30 mL UDC PO (20:55)
[2024-10-16] VITALS (9 sets, daily range): BP systolic 102–144; BP diastolic 75–98; PULSE 109–141; RESP 22–27; TEMP 36.4–37; O2SAT 90–94
[2024-10-16] MEDS: metoprolol tartrate 1 mg/1 mL SDV 5 mL 5 MG IVP (00:07)
[2024-10-16 03:02] LABS: Basophils # 0.1 10^3/uL (0.0-0.1); Basophils % 0.4 %; Eosinophils % 0.1 %; Hematocrit 34.1 % (37-53); Mean Corpuscular HGB Conc 32.3 g/dL (30-55); Mean Corpuscular Hemoglobin 29.3 pg (27-33); Mean Corpuscular Volume 90.9 fl (82-101); Mean Platelet Volume 10.5 fL (7.4-10.4); Monocytes # 1.7 10^3/uL (0.2-0.9); Monocytes % 14.1 %; Neutrophils # 9.11 10^3/uL (1.8-7.7); Neutrophils % 75.4 %; Nucleated Red Blood Cells % 0 %; Platelet Count 194 10^3/cmm (157-399); Red Blood Count 3.75 10^6/uL (3.85-5.65); Red Cell Distribution Width 15.5 % (12.1-15.1); White Blood Count 12.08 10^3/uL (3.29-11.43)
[2024-10-16 03:27] LABS: Alanine Aminotransferase < 5 U/L (0-41); Albumin Level 2.3 g/dL (3.5-5.2); Alkaline Phosphatase 240 U/L (40-130); Anion Gap 19.3 (5-19); Aspartate Amino Transferase 16 U/L (0-40); Blood Urea Nitrogen 12 mg/dL (8-23); Calcium 8.4 mg/dL (8.5-10.5); Carbon Dioxide 20 mmol/L (22-29); Chloride 97 mmol/L (98-107); Creatinine Clr Calc Pharmacy 64.5845; Globulin 3.3 g/dL (1.3-4.6); Glucose 195 mg/dL (65-115); Magnesium 1.9 mg/dL (1.7-2.3); Osmolality Calculated 281 mOsm/kg (285-295); Phosphorus 2.2 mg/dL (2.5-4.5); Potassium 3.3 mmol/L (3.5-5.1); Sodium 133 mmol/L (136-145); Total Bilirubin 2.6 mg/dL (0.15-1.2); Total Protein 5.6 g/dL (6.6-8.7)
[2024-10-16 03:28] LABS: Digoxin 0.5 ng/mL (0.6-1.2)
[2024-10-16] MEDS: piperacillin-tazobactam 3.375 GM in sodium chloride 0.9% (plus) 50 ML IV ×3 (05:10→20:53)
[2024-10-16] MEDS: sodium chloride 0.9% 1,000 ML 100 ML IV (05:11)
[2024-10-16 06:50] LABS: Glucose Point of Care 164 mg/dL (70-110)
--- NOTE | 2024-10-16 07:16 | ANES.PREANE2 ---
Pre-Anesthetic Assessment Height/Weight: Height 5 ft 11 in Weight 108 lb 4 oz Temp Pulse Resp BP Pulse Ox O2 Del Method 97.6 F 132 H 24 H 122/76 93 Room Air 10/16/24 05:27 10/16/24 05:27 10/16/24 05:27 10/16/24 05:27 10/16/24 05:27 10/16/24 05:27 Preop Diagnosis: Acute cholecystitis Operation Date: 10/15/24 15:00 Proposed Procedures p Laparoscopic Cholecystectomy(Not Applicable) - Serafin Vogt MD Operation Date: 10/16/24 09:30 Proposed Procedures p Ultrasound Drain Placement(Not Applicable) - Albertina Zuleta, DO Was Beta Arnie taken within 24 hours: N/A Was Clonidine taken within 24 hours: N/A Social No alcohol and No tobacco Exam alert, oriented x 3 and clear to auscultation bilaterally A-fib with RVR in the 120s Airway Submandibular: within normal limits Cervical ROM: within normal limits Mallampati: Class II Dentition: partials Comments: Comments: Denies any loose teeth Anesthetic Plan ASA status: 4 Anesthesia: MAC Other: Patient has no prior issues with anesthesia in the past Initially admitted 10/13/2024 with acute cholecystitis. History of multiple myeloma, in remission on Revlimid A-fib, on chronic Eliquis. Completed Holter monitor 08/2024 showing predominant A-fib Echo 07/2023 showing EF 68% Type 2 diabetes on insulin Parkinson's disease and mild Lewy body dementia Since admission patient has been in A-fib with RVR. Heart rate in the 120s today. On amiodarone gtt. Labs reviewed from today, leukocytosis noted. NA 133, K+ 3.3 Plan for MAC anesthetic Medications/Allergies Home Medications ?Medication ?Instructions ?Recorded ?Confirmed ?Last Taken ?Type simvastatin 20 mg tablet 20 mg PO DAILY 11/02/19 10/13/24 10/12/24 History apixaban 5 mg tablet (Eliquis) 5 mg PO BID #60 tabs 05/16/23 10/13/24 10/12/24 Rx cholestyramine-aspartame 4 gram 1 ea PO DAILY 03/24/24 10/13/24 10/12/24 History oral powder (Cholestyramine Light) sotalol 120 mg tablet 60 mg (1/2 x 120 mg) PO BID #90 08/25/24 10/13/24 10/12/24 Rx tabs carbidopa 25 mg-levodopa 100 mg 25 - 100 tab PO BID #180 tabs 09/22/24 10/13/24 10/12/24 Rx tablet escitalopram oxalate 20 mg tablet 20 mg PO DAILY #90 tabs 09/22/24 10/13/24 10/12/24 Rx (Lexapro) memantine 5 mg tablet 5 mg PO DAILY #90 tabs 09/22/24 10/13/24 10/12/24 Rx Revlimid 5 mg capsule See Rx Instructions .Route 10/13/24 10/13/24 10/12/24 Rx (lenalidomide) .COMPLEX #21 caps insulin degludec 200 unit/mL (3 10 unit SUBCUT DAILY 10/13/24 10/13/24 10/13/24 History mL) subcutaneous pen (Tresiba FlexTouch U-200 insulin) pantoprazole 40 mg tablet,delayed 40 mg PO DAILY 10/13/24 10/13/24 10/12/24 History release potassium chloride 20 mEq 20 meq PO DAILY 10/13/24 10/13/24 10/12/24 History tablet,extended release(part/cryst) Allergies Allergy/AdvReac Type Severity Reaction Status Date / Time No Known Allergies Allergy Verified 10/13/24 10:26 Current Medications Generic Name Dose Route Start Last Admin Trade Name Freq PRN Reason Stop Dose Admin Hydrocodone Bitart/Acetaminophen 1 tab 10/13/24 17:18 10/14/24 22:32 Hydrocodone-Acetaminophen 5-325 Mg Tablet PO 1 tab Q4H PRN Administration MODERATE PAIN Bisacodyl 10 mg 10/13/24 17:18 10/15/24 05:57 Bisacodyl 5 Mg Tablet PO 10 mg DAILY PRN Administration Constipation (see protocol) Protocol Carbidopa/Levodopa 1 each 10/13/24 21:00 10/15/24 20:54 Carbidopa-Levodopa 25-100mg Tablet PO 1 each BID@09,21 TSERING Administration Digoxin 125 mcg 10/15/24 15:00 10/15/24 15:17 Digoxin 250 Mcg/Ml Inj 2 Ml IVP 125 mcg ONCE TSERING Administration Digoxin 125 mcg 10/15/24 18:00 10/15/24 17:43 Digoxin 250 Mcg/Ml Inj 2 Ml IVP 125 mcg ONCE TSERING Administration Docusate Sodium 100 mg 10/13/24 18:00 10/15/24 17:43 Docusate Sodium 100 Mg Capsule PO 100 mg BID TSERING Administration Escitalopram Oxalate 20 mg 10/14/24 09:00 10/15/24 08:45 Escitalopram 10 Mg Tablet PO 20 mg DAILY TSERING Administration Sodium Chloride 1,000 mls @ 100 mls/hr 10/13/24 14:29 10/16/24 05:11 Sodium Chloride 0.9% IV 100 mls/hr .Q10H TSERING Administration Piperacillin Sod/Tazobactam 50 mls @ 12.5 mls/hr 10/13/24 20:00 10/16/24 05:10 Sod 3.375 gm/ Sodium Chloride IV 12.5 mls/hr Q8H [facility] Administration Protocol Amiodarone HCl/Dextrose 360 mg in 200 mls @ 0 mls/hr 10/14/24 17:34 10/16/24 06:27 Nexterone IV 0.5 mg/min .Q0M TSERING 16.67 mls/hr Administration Protocol Per Protocol Insulin Glargine 5 unit 10/14/24 08:00 10/15/24 09:29 Insulin Glargine 100 Units/1 Ml SUBCUT 5 unit DAILY@08 [facility] Administration Insulin Human Lispro 0 unit 10/13/24 21:00 10/15/24 20:51 Insulin Lispro 100 Unit/1 Ml SUBCUT 2 unit BEDTIME [facility] Administration Protocol Insulin Human Lispro 0 unit 10/13/24 18:00 10/15/24 17:42 Insulin Lispro 100 Unit/1 Ml SUBCUT Not Given TIDWM [facility] Protocol Memantine 5 mg 10/14/24 09:00 10/15/24 08:45 Memantine 5 Mg Tablet PO 5 mg DAILY [facility] Administration Morphine Sulfate 2 mg 10/13/24 17:18 10/15/24 05:10 Morphine 4 Mg/Ml Sdv 1 Ml IVP 2 mg Q4H PRN Administration Severe Pain if NPO Oxycodone HCl 2.5 mg 10/13/24 19:14 10/15/24 06:20 Oxycodone 5 Mg Ir Tab/Cap PO 2.5 mg Q6H PRN Administration Severe Pain 1st, unless npo Pantoprazole Sodium 40 mg 10/14/24 09:00 10/15/24 08:[address] 40 Mg Tablet PO 40 mg DAILY TSERING Administration Potassium Chloride 20 meq 10/14/24 09:00 10/15/24 08:45 Potassium Chloride Er 20 Meq Tablet PO 20 meq DAILY TSERING Administration Senna 17.2 mg 10/13/24 21:00 10/15/24 20:54 Sennosides 8.6 Mg Tablet PO 17.2 mg BEDTIME TSERING Administration Additional Medication Information Revlimid is on an off week currently with plan for to resume on October 17 [facility] Anesthesia Medical History (Updated 10/14/24 @ 12:27 by Serafin Vogt MD) History of echocardiogram ef 68% 07/2023 Chronic back pain History of Holter monitoring 08/2024 - baseline predominantly afib, non afib 47%, one 3.1 second pause (asymptomatic), one 5 beat run of ns tachycardia (asymptomatic) Plasmacytoma in remission Weakness of both lower extremities Acquired left foot drop Facet arthropathy, lumbar History of nonmelanoma skin cancer Lumbar stenosis with neurogenic claudication Diarrhea Tubular adenoma History of cardioversion Balanitis Multiple myeloma Lymphoma ASHD (arteriosclerotic heart disease) Diabetes on insulin Atrial fibrillation Obesity HTN (hypertension) Dyslipidemia Surgical History (Updated 10/13/24 @ 18:08 by Mari Gabriel MD) History of colonoscopy with polypectomy 01/2022 Dr Raymundo S/P epidural steroid injection History of radiofrequency ablation (RFA) of nerve of lumbar spine (12/30/23) right L3/L4, L4/5, L5/S1 Dr Coley Status post open reduction and internal fixation (ORIF) of fracture (05/14/23) right hip fracture, gamma nail, Dr Flores History of lumbar laminectomy (07/25/22) L2/L3 laminectomy with partial facetectomies, revision at L3/L4, L4/L5 Dr Hong History of kyphoplasty (03/30/24) L3 Dr Hong Previous back surgery 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 History of colonoscopy 01/2022 H/O bone marrow transplant Family History Brother CAD (coronary artery disease) Cancer Mother Congestive heart failure (CHF) Brother Cancer Sister Cancer Sister Cancer Family/Other Cancer Chronic kidney disease (CKD) Denies family history of Diabetes Clotting disorder Dementia Anesthesia complication Bleeding disorder Lung disease Stroke Social History (Updated 10/13/24 @ 17:54 by Mari Gabriel MD) Smoking and tobacco/nicotine status: never used tobacco/nicotine Alcohol intake: former Substance/Drug Use: never Additional social history: Lives alone, daughters help him as needed Marital status: / Current occupational status: retired Data Anesthesia 10/16/24 02:29 10/16/24 02:29 Short CBC 10/15/24 10/16/24 Range/Units 03:30 02:29 WBC 11.72 H 12.08 H (3.29-11.43) 10^3/uL Hgb 10.40 L 11.00 L (11.27-16.99) g/dL Hct 31.9 L 34.1 L (37-53) % MCV 91.1 90.9 (82-101) fl Plt Count 149 L 194 D (157-399) 10^3/cmm Neut % (Auto) 75.4 % Neut # (Auto) 9.11 H (1.8-7.7) 10^3/uL BMP 10/15/24 10/16/24 03:30 02:29 Sodium 131 L 133 L Potassium 3.4 L 3.3 L Chloride 97 L 97 L Carbon Dioxide 20 L 20 L BUN 10 12 Creatinine 1.0 1.0 Glucose 180 H 195 H Calcium 8.1 L 8.4 L Liver Function 10/16/24 Range/Units 02:29 Total Bilirubin 2.6 H (0.15-1.2) mg/dL AST 16 (0-40) U/L ALT < 5 (0-41) U/L Alkaline Phosphatase 240 H (40-130) U/L Albumin 2.3 L (3.5-5.2) g/dL Cardiac Studies: Echocardiogram 01/02/23 Cardiac Event Monitor 07/20/24
--- NOTE | 2024-10-16 09:13 | PC.NURSE ---
taken to pathology laboratory aide.
--- NOTE | 2024-10-16 09:25 | US_ITS ---
WS: [id number] CHOLECYSTOTOMY TUBE PLACEMENT VIA ULTRASOUND. HISTORY: Acute cholecystitis. Surgeon feels patient is unstable for surgical cholecystectomy. COMPARISON: Prior gallbladder ultrasound 10/13/[address] 10/13/2024 reviewed. Procedure, risks and benefits are explained to the patient and his family. I did explain alternative treatments. Patient is at risk for bleeding and peritonitis. On the initial ultrasound review of the RIGHT upper quadrant the liver is very high within the thorax. The gallbladder continues to be distended. There are stones in the neck of the gallbladder. There is pericholecystic fluid. There is also a new collection adjacent and just medial to the gallbladder which was not present on the prior study. Anesthesia is present for sedation. Under sterile technique the gallbladder is identified. Due to the position of the gallbladder the percutaneous catheter is placed intercostal and through a small portion of the liver. This is the only access point available. More medial access not possible due to GI tract. Skin is cleansed with ChloraPrep and anesthetized with buffered lidocaine. Small dermatotomy was made. Access is achieved into the gallbladder under ultrasound guidance with a 17-gauge needle. Wire is placed through the needle into the gallbladder. Tract is dilated. After dilatation the incision site is widened and an 8.5 English percutaneous pigtail catheter was inserted into the gallbladder. This was all observed under ultrasound guidance. The tip of the catheter is coiled in the gallbladder. Catheter was secured to the skin and stopcock is placed. Specimen is collected for analysis. Catheter secured to the patient with Telfa. Patient tolerated this procedure well. Patient will be observed closely for any complications such as bleeding or sepsis. /[facility] [place] [id number] IMPRESSION: 1. Uncomplicated placement of an 8.5 English cholecystotomy tube into the gallb ladder. Catheter is connected to a vacuum assist drainage bag. 2. Bile was collected to be sent for analysis. 3. Patient will be observed closely post procedure for any signs of bleeding o r sepsis. 4. During initial imaging of the gallbladder, prior to the procedure, a fluid collection was noted adjacent and medial to the gallbladder which was not prese nt on the prior CT or ultrasound. This may be a reactive collection or adjacent ascites. With the stones present in the neck of the gallbladder possibility of fistula or abscess should be considered. I did discuss this with Dr. Symone. At this time patient appears to be stable and satisfactory. If there is any change follow-up CT of the abdomen and pelvis with IV contrast can be obtained.
--- NOTE | 2024-10-16 09:38 | PC.NURSE ---
taken to OR for IR drainage of his cholecystectomy.
--- NOTE | 2024-10-16 10:49 | PC.SOCIAL ---
IMM Update Pg. 2 of IMM updated and copy provided at bedside. Copy for chart left with Phyllis CROOKS, as patient's chart is not at nurse's station at this time.
--- NOTE | 2024-10-16 11:00 | ANE.PACU2 ---
Inpatient post-anesthesia follow up: Airway intact: Yes Vital signs: Temperature 97.8 F Pulse Rate 125 Respiratory Rate 22 Blood Pressure 102/77 Pulse Oximetry 91 Oxygen Delivery Me thod Room Air Oxygen Flow Rate Fraction of Inspir ed Oxygen Hydration adequate: Yes Nausea and vomiting: No Pain level: 1 Mental status: Baseline
[2024-10-16 11:33] LABS: Glucose Point of Care 173 mg/dL (70-110)
--- NOTE | 2024-10-16 11:46 | P.PN_ITS ---
Subjective 2 Subjective: seen this am patient underwent cholecystostomy drain placement this am still in afib with rvr, rates 130-140's. family at bedside Vitals/I&O/Wt Last Vital Signs Temp 97.8 F 10/16/24 07:46 Pulse 125 H 10/16/24 07:46 Resp 22 H 10/16/24 07:46 BP 144/87 10/16/24 07:46 Pulse Ox 92 10/16/24 07:46 O2 Del Method Room Air 10/16/24 07:46 10/15/24 10/16/24 10/16/24 22:59 06:59 14:59 Intake Total 354.979 / 724.979 244.445 / 969.424 50 / 50 Output Total 300 / 300 375 / 675 Balance 54.979 / 424.979 -130.555 / 294.424 50 / 50 Weight last 48 hrs Weight 49.101 kg Weight 71.577 kg Physical Exam 2 Narrative: Normocephalic atraumatic, normal S1-S2, EOMI No acute distress laying comfortably in bed at this time. Chest: Unlabored breathing room air. No lymphadenopathy. Heart: Irregularly irregular, tachycardic 1 40-1 50 heart rate. Abdomen: Soft, tender right upper quadrant, nondistended. No masses or lymphadenopathy. drain present in ruq draining dark liquid Extremities: No edema bilateral lower extremities Data 10/16/24 02:29 10/16/24 02:29 A&P Assessment and plan (1) Acute calculous cholecystitis: As evidenced by findings of elevation in bilirubin and alkaline phosphatase, findings on ultrasound and CT imaging and clinical presentation of abdominal pain, right sided. Has associated elevation in white blood count. Blood pressures are normal, does have tachycardia. He did not take his medications since yesterday, however, and is known to be on sotalol for atrial fibrillation. Currently meeting SIRS criteria and at risk for progression to sepsis/severe sepsis but not currently meeting definitive criteria for such with other potential explanations for abnormalities identified. (2) Chronic anticoagulation: Chronically on Eliquis due to history of atrial fibrillation. No personal history of stroke or TIA known. (3) Atrial fibrillation: Longstanding persistent atrial fibrillation. In addition to anticoagulation he is chronically on sotalol. Typically rate controlled. Missed his dose of sotalol today due to acute issues contributing to tachycardia currently. Qualifiers: Atrial fibrillation type: longstanding persistent Qualified Code(s): I 48.11 - Longstanding persistent atrial fibrillation (4) HTN (hypertension): Primary hypertension, not on specific medication currently with acceptable blood pressures. Qualifiers: Hypertension type: primary hypertension Qualified Code(s): I10 - Essential (primary) hypertension (5) ASHD (arteriosclerotic heart disease): Chronic diagnosis. Is never required any cardiac intervention. Follows with Dr. Vasquez as an outpatient basis from cardiology standpoint. (6) Diabetes mellitus, type II, insulin dependent: With associated peripheral neuropathy based on available history. (7) Dyslipidemia: Chronically on statin therapy. (8) Parkinson disease: Chronically on carbidopa/levodopa. Qualifiers: Dyskinesia presence: without dyskinesia Fluctuating manifestations: w ithout fluctuating manifestations Qualified Code(s): G20.A1 - Parkinson's disease without dyskinesia, without mention of fluctuations (9) Lewy body dementia: Chronically on memantine and escitalopram. Follows with Dr. Littlejohn and has been doing well. Makes his own decisions. Does have medical power of sports attorney, his daughter Candy. Qualifiers: Dementia behavioral or psychological symptom: with mood disturbance D ementia severity: mild Qualified Code(s): G31.83 - Neurocognitive disorder with Lewy bodies; F02.A3 - Dementia in other diseases classified elsewhere, mild, with mood disturbance (10) Multiple myeloma: In remission, chronically on Revlimid, on and off week this week with date for resumption 10/17/2024. Qualifiers: Multiple myeloma remission status: in remission Qualified Code(s): C 90.01 - Multiple myeloma in remission (11) Gait instability: Related to chronic back pain and Parkinson disease, uses walker at baseline. Back pain significant with movement and ambulation. May impede usual post operative recovery. Plan Chronically on PPI Chronically on potassium replacement History of chronic diarrhea felt related to Revlimid improved with cholestyramine, a chronic medication; recently constipated Enlarged prostate on imaging without reported prostatic hypertrophy symptoms Inpatient admission Surgical consultation with Dr. Vogt Case discussed with Dr. Vogt and after reviewing both with Mr. Vines himself and his daughter Candy risk and benefit of surgery for cholecystitis versus risk and benefit of less invasive procedures, informed decision has been made to plan for surgery on allowing adequate time for Eliquis to be held. Risk of surgery include bleeding, infection, pain, anesthesia complications and other medication reactions and others as addressed by surgery. Mr. Vines has typically done okay from an anesthesia standpoint with several surgeries including 4 since 2021. Benefit is less chance of recurrent disease given the gallstones noted. With holding of Eliquis increased risk of hypercoagulable state including risk of stroke. Given known arrhythmia and other cardiovascular history there is a risk of cardiovascular events. Patient is currently medically optimized, thought we will need to monitor heart rate control and for signs and symptoms of developing severe sepsis. IVFs, including fluid bolus Zosyn Pain control Bowel regimen given constipation already reported and potential impact of pain management Diet as tolerated for now Hold eliquis Continue sotalol, pharmacy has ordered 120mg tablets to allow dosing of his usual 60 mg regimen bid; tonight will give him 80mg one time given the missed dose today Telemetry monitoring Monitor blood pressures Hold home tresiba; will give lower dose of lantus along with moderate dose insulin coverage with meals and at bedtime Holding statin therapy currently Continue cardbidopa/levodopa; reviewed that there is not an IV equivalent during the periop timeframe but we will restart post op once tolerating po Continue home memantine and escitalopram On off-week for Revlimid; if does okay can plan to resume on 10/17 as scheduled Walker at bedside, PT for ambulation as he can tolerate as will be a part of usual recovery to move around, fall precautions Continue home PPI and potassium Bladder scan as needed for concerns regarding urinary retention VTE prophylaxis: SCDs, home eliquis held for planned surgery GI Prophylaxis: PPI chronically Antibiotics: Zosyn started 10/13 Pending studies: am A1c, lactic acid, repeat lfts/labs Telemetry: ordered given tachycardia/konwn afib and potential for clinical worsening/need for close monitoring Zheng: not currently indicated Line(s): peripheral IVs Disposition plan: Home with outpatient follow up to general surgery & PCP anticipated after DC along with follow up to other providers as already scheduled. Code Status: Full Code Supportive care otherwise Findings, concerns and plans were discussed with patient and he was given an opportunity to ask questions. I was also able to speak with Candy at phone number listed under contact information reviewing same information and opportunity to ask quesitons. 10/14/2024 Plan for cholecystectomy in AM. Patient continues to be in atrial fibrillation with RVR. Will place on sotalol 80 twice daily. If still remains uncontrolled will consider adding additional medication. Continue to watch at this time. Continue to monitor on telemetry. Continue to hold Eliquis in anticipation for surgery in AM. Agree with H&P assessment and plan above. Continue Zosyn 10/15/2024 Cholecystectomy canceled. Will order IR guided drainage patient continues to be in A-fib with RVR. Sotalol was stopped yesterday. Appreciate cardiology recommendations. Placed on amiodarone at this time. Will order digoxin for patient. ? Continue to hold Eliquis. Will consider placing on heparin drip after tube placement ? Patient does have a left shift on labs and bandemia. Continue Zosyn. Add vancomycin at this time. Blood culture pending. 10/16/2024 continue digoxin, amio, plan for MO cardioversion on Saturday, NPO at midnight saturday night - start cardiac diabetic diet - continue zosyn - continue broad spectrum abx till cultures result - fluid sent to lab for analysis from merissa tube -Had a long discussion with Dr. Zuleta over the phone. The drain had to be placed via the liver. He is recommended to repeat a CT abdomen pelvis on Saturday to reassess the right upper quadrant area as she has a suspicion there may be another fluid collection a few centimeters by the gallbladder however it is unclear if it is a loop of bowel versus a fluid collection. She recommends waiting 48 hours prior to obtaining another CT unless clinically symptoms worsen and it is warranted earlier. ? We will continue to hold off on anticoagulation at least till Saturday night at least until CT is repeated and patient has started to improve. ? Continue to hospitalize at this time and keep on IV antibiotics. low threshold to repeat ct abdomen if abdominal pain worsens or worsening leukocytosis PDMP PDMP Reviewed: Not Reviewed Attestations 2 Medical Necessity Statement*: A-fib with RVR, cholecystitis. Diagnoses Acute calculous cholecystitis K80.00 Chronic anticoagulation Z79.01 Longstanding persistent atrial fibrillation I48.11 Atrial fibrillation type: longstanding persistent Primary hypertension I10 Hypertension type: primary hypertension ASHD (arteriosclerotic heart disease) I25.10 Diabetes mellitus, type II, insulin dependent E11.9; Z79.4 Dyslipidemia E78.5 Parkinson's disease without dyskinesia or fluctuating manifestations G20.A1 Dyskinesia presence: without dyskinesia Fluctuating manifestations: without fluctuating manifestations Mild Lewy body dementia with mood disturbance G31.83; F02.A3 Dementia behavioral or psychological symptom: with mood disturbance Dementia severity: mild Multiple myeloma in remission C90.01 Multiple myeloma remission status: in remission Gait instability R26.81
[2024-10-16] MEDS: memantine 5 mg tablet PO (11:54)
[2024-10-16] MEDS: pantoprazole DR 40 mg Tablet PO (11:54)
[2024-10-16] MEDS: escitalopram 10 mg Tablet 20 MG PO (11:55)
[2024-10-16] MEDS: carbidopa-levodopa 25-100mg Tablet 1 EACH PO ×2 (11:55→20:53)
[2024-10-16] MEDS: digoxin 125 mcg Tablet PO (11:55)
[2024-10-16] MEDS: docusate sodium 100 mg Capsule PO ×2 (11:56→16:08)
--- NOTE | 2024-10-16 12:04 | P.PN_ITS ---
<Statement entered by Taj Torres MD - 10/26/24 00:52> Patient was evaluated and cared for in conjunction with an advanced practice practitioner. I personally examined the patient and reviewed the chart and all pertinent data including imaging, telemetry, and laboratory results. I discussed the patient in detail with the advanced practice practitioner. Please see their note for complete H&P testing result and agreed upon plan of care for the patient Subjective 2 Subjective: Very pleasant 79-year-old gentleman. He is still in A-fib RVR despite 2 doses of digoxin. He is currently on amiodarone drip. Digoxin level was slightly low this morning. Oral digoxin will be given. Once blood pressure normalizes may consider adding a beta-jeanne. He is going for a drainage tube of the gallbladder today Vitals/I&O/Wt Last Vital Signs Temp 97.8 F 10/16/24 11:54 Pulse 125 H 10/16/24 11:55 Resp 22 H 10/16/24 07:46 BP 102/77 10/16/24 11:54 Pulse Ox 91 10/16/24 11:54 O2 Del Method Room Air 10/16/24 11:54 10/15/24 10/16/24 10/16/24 22:59 06:59 14:59 Intake Total 354.979 / 724.979 244.445 / 969.424 50 / 50 Output Total 300 / 300 375 / 675 Balance 54.979 / 424.979 -130.555 / 294.424 50 / 50 Weight last 48 hrs Weight 108 lb 4 oz Weight 157 lb 12.8 oz Physical Exam 2 Narrative: General: No apparent distress, healthy appearing, well nourished HENMT: normoceophalic Neck: No carotid bruit bilaterally Muskuloskeletal: Full ROM Lymphatic: no lymphedema noted Respiratory: Normal respiratory effort, clear to auscultation bilaterally throughout all lung sexton, no use of accessory muscles Cardio: No JVD, irregularly irregular rate and rhythm, S1 S2 normal, no murmurs, peripheral pulses 2+ radial palpated bilaterally GI: Normal to inspection, nondistended Extremities: Full ROM, normal, normal capillary refill, no cyanosis, trace edema bilateral lower extremities Neuro: Alert and oriented x4, no focal motor deficits Psych: Affect normal, denies suicidal ideation, mental status grossly normal Skin: No rashes or lesions noted, no wounds Data 10/16/24 02:29 10/16/24 02:29 A&P Assessment and plan (1) HTN (hypertension): Qualifiers: Hypertension type: primary hypertension Qualified Code(s): I10 - Essential (primary) hypertension (2) Atrial fibrillation: Qualifiers: Atrial fibrillation type: longstanding persistent Qualified Code(s): I 48.11 - Longstanding persistent atrial fibrillation (3) Bradycardia: (4) Chronic anticoagulation: Plan At this time we will add oral digoxin, consider adding a beta-jeanne if blood pressure allows in the future. Patient going for a gallbladder drainage tube today via IR. Once his infection has started to clear from his gallbladder, we will see how patient responds. At this time, success of cardioversion would be low due to active infection of the gallbladder. PDMP PDMP Reviewed: Not Reviewed Attestations 2 Medical Necessity Statement*: Deferred to primary care team Coding Level of Care Code Acute Code for g Fwd Diagnoses Primary hypertension I10 Hypertension type: primary hypertension Longstanding persistent atrial fibrillation I48.11 Atrial fibrillation type: longstanding persistent Bradycardia R00.1 Chronic anticoagulation Z79.01
--- NOTE | 2024-10-16 12:20 | PHA.VACGOAL ---
Vancomycin Goal - Goal Vancomycin Goal:: 10-15 mg/L Vancomycin Indication:: Other - Therapy Current therapy:: Pip/Tazo Day of therpy:: Day []of [] . Actual body weight (kg): 108 lb 4 oz - Data Labs: WBC 12.08 10^3/uL (3.29-11.43) H 10/16/24 02:29 RBC 3.75 10^6/uL (3.85-5.65) L 10/16/24 02:29 Hgb 11.00 g/dL (11.27-16.99) L 10/16/24 02:29 Hct 34.1 % (37-53) L 10/16/24 02:29 MCV 90.9 fl (82-101) 10/16/24 02:29 MCH 29.3 pg (27-33) 10/16/24 02:29 MCHC 32.3 g/dL (30-55) 10/16/24 02:29 RDW 15.5 % (12.1-15.1) H 10/16/24 02:29 Sodium 133 mmol/L (136-145) L 10/16/24 02:29 Potassium 3.3 mmol/L (3.5-5.1) L 10/16/24 02:29 Chloride 97 mmol/L (98-107) L 10/16/24 02:29 Carbon Dioxide 20 mmol/L (22-29) L 10/16/24 02:29 Anion Gap 19.3 (5-19) H 10/16/24 02:29 BUN 12 mg/dL (8-23) 10/16/24 02:29 Creatinine 1.0 mg/dL (0.7-1.2) 10/16/24 02:29 GFR Calculation Not Reportable 10/16/24 02:29 Last dialysis session:: N/A Treatment plan:: new consult Regimen:: LOADING DOSE OF 1000 MG MAINTENANCE DOSE OF 500 MG Q12H Follow up:: WILL CONTINUE TO MONITOR AND FOLLOW UP DAILY
[2024-10-16] MEDS: potassium phosphate (mEq K) 40 MEQ in sodium chloride 0.9% (100 ml) 100 ML 27.25 MEQ IV (12:24)
[2024-10-16] MEDS: potassium chloride ER 20 mEq Tablet 40 MEQ PO (12:24)
[2024-10-16] MEDS: insulin lispro 100 unit/1 mL SUBCUT ×3 (13:24→20:53)
[2024-10-16] MEDS: VANCOMYCIN ADD-Vantage 1,000 MG in 0.9% NaCl ADD-Vantage 250 ML 250 MG IV (14:03)
[2024-10-16 14:34] LABS: Body Fluid Polynuclear #Cells 0.054; Body Fluid WBC 55 /uL; Monocytes # Body Fluid 0.001
[2024-10-16 14:41] LABS: Apprearance, Body Fluid TURBID; Color, Body Fluid OTHER; PATH Referral YES
[2024-10-16 15:05] LABS: Cyto Order Verification Order Verified
[2024-10-16] MEDS: bisacodyl 5 mg Tablet 10 MG PO (16:08)
[2024-10-16 17:12] LABS: Glucose Point of Care 202 mg/dL (70-110)
--- NOTE | 2024-10-16 17:42 | P.PN_ITS ---
Subjective 2 Subjective: Percutaneous cholecystostomy tube placed by IR Jennifer tube draining bile. I flushed the catheter with 5 cc of sterile saline without any difficulties. Vitals/I&O/Wt Last Vital Signs Temp 97.8 F 10/16/24 16:00 Pulse 114 H 10/16/24 16:00 Resp 24 H 10/16/24 16:00 BP 120/98 10/16/24 16:00 Pulse Ox 94 10/16/24 16:00 O2 Del Method Room Air 10/16/24 16:00 10/16/24 10/16/24 10/16/24 06:59 14:59 22:59 Intake Total 244.445 / 969.424 290 / 290 300 / 590 Output Total 375 / 675 130 / 130 200 / 330 Balance -130.555 / 294.424 160 / 160 100 / 260 Weight last 48 hrs Weight 108 lb 4 oz Weight 157 lb 12.8 oz Physical Exam 2 Narrative: Chest: Unlabored breathing room air. No lymphadenopathy. Heart: Regular rate and rhythm. Abdomen: Soft, tender right upper quadrant, nondistended. No masses or lymphadenopathy. Cholecystostomy tube in place and draining bile. Able to flush with 5 cc of sterile saline. Data 10/16/24 02:29 10/16/24 02:29 Micro: Microbiology 10/15/24 13:00 Urine Culture - Preliminary Urine,Voided A&P Assessment and plan (1) Cholecystitis: Plan 79-year-old male who presented with cholecystitis. Went into A-fib with RVR and therefore could not perform cholecystectomy. Patient went to IR and cholecystostomy tube was placed successfully and is draining bile. I reviewed radiologist's procedure note as well as ultrasound findings. I suspect findings of fluid around gallbladder represent either a adjacent abscess or gangrenous cholecystitis that has spontaneously drained. In either case the best course of action is placing a cholecystostomy tube and deferring cholecystectomy. At this point I do not recommend an interval CT scan. Patient is responding appropriately to cholecystostomy tube and antibiotics. If he is able to tolerate a regular diet he may be discharged and he can follow-up with me in 6 weeks. At that point he should have a cholangiogram if the cystic duct is open the cholecystostomy tube can be removed, if the cystic duct is not open he needs to keep the cholecystomy tube in place until a surgery can be performed when he is medically optimized. I will continue to follow him while he is in the hospital. Discussed with hospitalist. PDMP PDMP Reviewed: Not Reviewed Attestations 2 Medical Necessity Statement*: N/A Coding Level of Care Code 05432 Diagnoses Cholecystitis K81.9 Time Spent (min) 30
--- NOTE | 2024-10-16 19:35 | PC.NURSE ---
shift report Around 9:30 am, pt was taken to OR for a IR cholecystostomy tube. Pt is alert,denies any pain or discomfort. Dgtr's at bedside. Verbal order to Continue Amiodarone drip at 0.5 mg until Saturday and possible Cardioversion Per Dr Torres who came to pt's bedside this afternoon. Approximately around 1124am, pt came back from OR with a 8.5 Hebrew cholecystotomy tube into the gallbladder. Catheter is connected to a vacuum assist drainage bag. Around 1800 PM- 100 ml was drained from the tube. drainage color is thick dark brown,bile color. Around 1830 PM- Dr Vogt in room and check the drain as well as flushed the catheter with 5 ml.
[2024-10-16 20:36] LABS: Glucose Point of Care 164 mg/dL (70-110)
[2024-10-16] MEDS: sennosides 8.6 mg Tablet 17.2 MG PO (20:53)
[2024-10-16] MEDS: magnesium citrate Btl 296 mL 150 ML PO (21:09)
[2024-10-16] MEDS: vancomycin 500 MG in sodium chloride 0.9% (plus) 100 ML 200 MG IV (23:34)
[2024-10-17] VITALS (18 sets, daily range): BP systolic 96–145; BP diastolic 71–105; PULSE 116–144; RESP 17–30; TEMP 36.5–37.1; O2SAT 88–95
--- NOTE | 2024-10-17 01:20 | PC.NURSE ---
Patient attempting to get out of bed without assistance and was noticing patient messing with lines/drains. Moved patient closer to nurses station from 105 to 111-1. Bed alarm set, educated patient on being careful with IV's and gladder drain.
[2024-10-17 04:07] LABS: Basophils # 0.1 10^3/uL (0.0-0.1); Basophils % 0.9 %; Eosinophils % 0.1 %; Hematocrit 32.1 % (37-53); Lymphocytes # 0.7 10^3/uL (0.8-4.8); Mean Corpuscular HGB Conc 31.2 g/dL (30-55); Mean Corpuscular Hemoglobin 29.4 pg (27-33); Mean Corpuscular Volume 94.4 fl (82-101); Mean Platelet Volume 10.3 fL (7.4-10.4); Monocytes # 1.2 10^3/uL (0.2-0.9); Monocytes % 13.8 %; Neutrophils # 6.46 10^3/uL (1.8-7.7); Neutrophils % 73.7 %; Nucleated Red Blood Cells % 0 %; Platelet Count 186 10^3/cmm (157-399); Red Cell Distribution Width 15.7 % (12.1-15.1); White Blood Count 8.77 10^3/uL (3.29-11.43)
[2024-10-17] MEDS: piperacillin-tazobactam 3.375 GM in sodium chloride 0.9% (plus) 50 ML IV ×3 (04:10→20:51)
[2024-10-17 04:27] LABS: Digoxin 0.5 ng/mL (0.6-1.2)
[2024-10-17 06:50] LABS: Glucose Point of Care 179 mg/dL (70-110)
[2024-10-17] MEDS: insulin lispro 100 unit/1 mL SUBCUT ×3 (08:41→21:05)
[2024-10-17] MEDS: insulin glargine 100 units/1 mL 5 UNIT SUBCUT (08:41)
[2024-10-17] MEDS: digoxin 125 mcg Tablet PO (08:42)
[2024-10-17] MEDS: acetaminophen 325 mg Tablet 650 MG PO (08:42)
[2024-10-17] MEDS: escitalopram 10 mg Tablet 20 MG PO (08:42)
[2024-10-17] MEDS: pantoprazole DR 40 mg Tablet PO (08:43)
[2024-10-17] MEDS: docusate sodium 100 mg Capsule PO (08:43)
[2024-10-17] MEDS: carbidopa-levodopa 25-100mg Tablet 1 EACH PO ×2 (08:43→21:05)
[2024-10-17] MEDS: memantine 5 mg tablet PO (08:43)
--- NOTE | 2024-10-17 09:49 | P.PN_ITS ---
Subjective 2 Subjective: Able to flush cholecystostomy tube with 5 cc normal saline Cholecystostomy tube draining bile White count down to 8 Afebrile Still not rate controlled Confused at times per nurse Tray at bedside, not eating much per nurse Vitals/I&O/Wt Last Vital Signs Temp 97.7 F 10/17/24 07:49 Pulse 130 H 10/17/24 08:42 Resp 23 H 10/17/24 07:49 BP 96/71 10/17/24 07:49 Pulse Ox 95 10/17/24 07:49 O2 Del Method Room Air 10/16/24 23:43 10/16/24 10/17/24 10/17/24 22:59 06:59 14:59 Intake Total 1609.0909 / 1899.0909 650 / 2549.0909 50 / 50 Output Total 470 / 600 626 / 1226 Balance 1139.0909 / 1299.0909 24 / 1323.0909 50 / 50 Weight last 48 hrs Weight 213 lb 6.4 oz Weight 108 lb 4 oz Physical Exam 2 Narrative: Chest: Unlabored breathing room air. No lymphadenopathy. Heart: Regular rate and rhythm. Abdomen: Soft, nontender, nondistended. No masses or lymphadenopathy. Cholecystostomy tube in place and draining bile, able to flushed with 5 cc of normal saline Data 10/17/24 03:04 10/16/24 02:29 Micro: Microbiology 10/15/24 13:00 Urine Culture - Preliminary Urine,Voided A&P Assessment and plan (1) Cholecystitis: Plan 79-year-old male who presented with cholecystitis. Status post cholecystostomy tube. Cholecystostomy tube working. Patient is still not rate controlled and confused at times. Once medical issues resolve he can be discharged with cholecystostomy tube and follow-up with me in 6 weeks. Cleared for regular diet. Antibiotics can be stopped on day 5. PDMP PDMP Reviewed: Not Reviewed Attestations 2 Medical Necessity Statement*: N/A Coding Level of Care Code 54497 Diagnoses Cholecystitis K81.9 Time Spent (min) 30
[2024-10-17 11:16] LABS: Glucose Point of Care 176 mg/dL (70-110)
--- NOTE | 2024-10-17 12:12 | USR_ITS ---
PROCEDURE INFORMATION: Exam: US Duplex Lower Extremity Veins, Bilateral Exam date and time: 10/17/2024 2:19 PM Age: 79 years old Clinical indication: Swelling (edema) of limb; Lower extremity, bilateral; Additional info: Mild swelling on left leg. TECHNIQUE: Imaging protocol: Real-time duplex ultrasound of the bilateral extremities with 2-D aguilera scale, color Doppler flow and spectral waveform analysis including responses to compression and other maneuvers (when performed) with image documentation. Complete exam focused on the lower extremity veins. COMPARISON: CT kidney stone [id number] 10/13/2024 11:21 AM FINDINGS: Right deep veins: Unremarkable. The common femoral, femoral, proximal profunda femoral and popliteal veins are patent without thrombus. Normal Doppler waveforms. Normal compressibility and/or augmentation response. Left deep veins: Unremarkable. The common femoral, femoral, proximal profunda femoral and popliteal veins are patent without thrombus. Normal Doppler waveforms. Normal compressibility and/or augmentation response. Superficial veins: Greater saphenous veins at the saphenofemoral junctions are patent bilaterally without thrombus. Soft tissues: Unremarkable. US/CV venous duplex [facility] [id number] IMPRESSION: No evidence of deep vein thrombosis.
[2024-10-17] MEDS: vancomycin 500 MG in sodium chloride 0.9% (plus) 100 ML 200 MG IV (12:14)
--- NOTE | 2024-10-17 13:48 | P.PN_ITS ---
Subjective 2 Subjective: Status post cholecystostomy tube Still in A-fib with fast heart rate despite of digoxin and amiodarone Vitals/I&O/Wt Last Vital Signs Temp 98.0 F 10/17/24 11:04 Pulse 127 H 10/17/24 11:04 Resp 20 H 10/17/24 11:04 BP 134/88 10/17/24 11:04 Pulse Ox 93 10/17/24 11:04 O2 Del Method Room Air 10/17/24 11:04 10/16/24 10/17/24 10/17/24 22:59 06:59 14:59 Intake Total 1609.0909 / 1899.0909 650 / 2549.0909 386 / 386 Output Total 470 / 600 626 / 1226 250 / 250 Balance 1139.0909 / 1299.0909 24 / 1323.0909 136 / 136 Weight last 48 hrs Weight 213 lb 6.4 oz Weight 108 lb 4 oz Physical Exam 2 Const: OTHER: GENERAL: Patient is alert, awake and oriented x3. HEART: Irregularly irregular S1 and S2. No murmur, rub or gallop. LUNGS: Clear to auscultate bilaterally. CENTRAL NERVOUS SYSTEM: Grossly nonfocal. EXTREMITIES: Lower extremities with out edema bilaterally. Data 10/17/24 03:04 10/16/24 02:29 Micro: Microbiology 10/15/24 13:00 Urine Culture - Preliminary Urine,Voided A&P Assessment and plan (1) HTN (hypertension): Qualifiers: Hypertension type: primary hypertension Qualified Code(s): I10 - Essential (primary) hypertension (2) Atrial fibrillation: Qualifiers: Atrial fibrillation type: longstanding persistent Qualified Code(s): I 48.11 - Longstanding persistent atrial fibrillation (3) Chronic anticoagulation: Plan Patient heart rate remains elevated I will add metoprolol to it. Continue digoxin 0.125 mg, IV amiodarone 0.5 mg/kg/h, if okay with medicine recommend adding heparin as per protocol for anticoagulation. Plan for MO guided cardioversion, cardiology is available today or tomorrow if anesthesia can be arranged otherwise we can do it on the Saturday as well. I believe patient is already scheduled for Saturday afternoon. Discussed the plan with our hospitalist colleague PDMP PDMP Reviewed: Not Reviewed Attestations 2 Medical Necessity Statement*: Patient require continuation hospitalization for above defined care Coding Level of Care Code Acute Code for Chg Fwd Diagnoses Primary hypertension I10 Hypertension type: primary hypertension Longstanding persistent atrial fibrillation I48.11 Atrial fibrillation type: longstanding persistent Chronic anticoagulation Z79.01
--- NOTE | 2024-10-17 15:05 | P.PN_ITS ---
Subjective 2 Subjective: This morning. Continue to hold off on anticoagulation as per recommendations from radiology after drain placement. Seen this morning. Patient had episodes of confusion and hallucination overnight however this morning is appropriate and alert oriented x 3. Daughter is at bedside. Patient remains in atrial fibrillation with RVR. Plan to cardiovert Saturday morning. Discussed with family the drain will stay in place for 6 weeks as per surgery recommendations. Drainage output 100 cc yesterday last 24 hours and overnight 45 cc. Vitals/I&O/Wt Last Vital Signs Temp 98.0 F 10/17/24 11:04 Pulse 127 H 10/17/24 11:04 Resp 20 H 10/17/24 11:04 BP 134/88 10/17/24 11:04 Pulse Ox 93 10/17/24 11:04 O2 Del Method Room Air 10/17/24 11:04 10/17/24 10/17/24 10/17/24 06:59 14:59 22:59 Intake Total 650 / 2549.0909 386 / 386 Output Total 626 / 1226 250 / 250 Balance 24 / 1323.0909 136 / 136 Weight last 48 hrs Weight 96.797 kg Weight 49.101 kg Physical Exam 2 Narrative: Normocephalic atraumatic, normal S1-S2, EOMI No acute distress laying comfortably in bed at this time. Chest: Clear to auscultation bilaterally no wheezes or rhonchi. Heart: Irregularly irregular, tachycardic 1 40-1 50 heart rate. Abdomen: Soft, tender right upper quadrant, nondistended. No masses or lymphadenopathy. drain present in ruq draining dark liquid Extremities: No edema bilateral lower extremities Data 10/17/24 03:04 10/16/24 02:29 Micro: Microbiology 10/15/24 13:00 Urine Culture - Final Urine,Voided A&P Assessment and plan (1) Acute calculous cholecystitis: As evidenced by findings of elevation in bilirubin and alkaline phosphatase, findings on ultrasound and CT imaging and clinical presentation of abdominal pain, right sided. Has associated elevation in white blood count. Blood pressures are normal, does have tachycardia. He did not take his medications since yesterday, however, and is known to be on sotalol for atrial fibrillation. Currently meeting SIRS criteria and at risk for progression to sepsis/severe sepsis but not currently meeting definitive criteria for such with other potential explanations for abnormalities identified. (2) Chronic anticoagulation: Chronically on Eliquis due to history of atrial fibrillation. No personal history of stroke or TIA known. (3) Atrial fibrillation: Longstanding persistent atrial fibrillation. In addition to anticoagulation he is chronically on sotalol. Typically rate controlled. Missed his dose of sotalol today due to acute issues contributing to tachycardia currently. Qualifiers: Atrial fibrillation type: longstanding persistent Qualified Code(s): I 48.11 - Longstanding persistent atrial fibrillation (4) HTN (hypertension): Primary hypertension, not on specific medication currently with acceptable blood pressures. Qualifiers: Hypertension type: primary hypertension Qualified Code(s): I10 - Essential (primary) hypertension (5) ASHD (arteriosclerotic heart disease): Chronic diagnosis. Is never required any cardiac intervention. Follows with Dr. Vasquez as an outpatient basis from cardiology standpoint. (6) Diabetes mellitus, type II, insulin dependent: With associated peripheral neuropathy based on available history. (7) Dyslipidemia: Chronically on statin therapy. (8) Parkinson disease: Chronically on carbidopa/levodopa. Qualifiers: Dyskinesia presence: without dyskinesia Fluctuating manifestations: w ithout fluctuating manifestations Qualified Code(s): G20.A1 - Parkinson's disease without dyskinesia, without mention of fluctuations (9) Lewy body dementia: Chronically on memantine and escitalopram. Follows with Dr. Littlejohn and has been doing well. Makes his own decisions. Does have medical power of patent prosecution attorney, his daughter Candy. Qualifiers: Dementia behavioral or psychological symptom: with mood disturbance D ementia severity: mild Qualified Code(s): G31.83 - Neurocognitive disorder with Lewy bodies; F02.A3 - Dementia in other diseases classified elsewhere, mild, with mood disturbance (10) Multiple myeloma: In remission, chronically on Revlimid, on and off week this week with date for resumption 10/17/2024. Qualifiers: Multiple myeloma remission status: in remission Qualified Code(s): C 90.01 - Multiple myeloma in remission (11) Gait instability: Related to chronic back pain and Parkinson disease, uses walker at baseline. Back pain significant with movement and ambulation. May impede usual post operative recovery. Plan Chronically on PPI Chronically on potassium replacement History of chronic diarrhea felt related to Revlimid improved with cholestyramine, a chronic medication; recently constipated Enlarged prostate on imaging without reported prostatic hypertrophy symptoms Inpatient admission Surgical consultation with Dr. Vogt Case discussed with Dr. Vogt and after reviewing both with Mr. Vines himself and his daughter Candy risk and benefit of surgery for cholecystitis versus risk and benefit of less invasive procedures, informed decision has been made to plan for surgery on allowing adequate time for Eliquis to be held. Risk of surgery include bleeding, infection, pain, anesthesia complications and other medication reactions and others as addressed by surgery. Mr. Vines has typically done okay from an anesthesia standpoint with several surgeries including 4 since 2021. Benefit is less chance of recurrent disease given the gallstones noted. With holding of Eliquis increased risk of hypercoagulable state including risk of stroke. Given known arrhythmia and other cardiovascular history there is a risk of cardiovascular events. Patient is currently medically optimized, thought we will need to monitor heart rate control and for signs and symptoms of developing severe sepsis. IVFs, including fluid bolus Zosyn Pain control Bowel regimen given constipation already reported and potential impact of pain management Diet as tolerated for now Hold eliquis Continue sotalol, pharmacy has ordered 120mg tablets to allow dosing of his usual 60 mg regimen bid; tonight will give him 80mg one time given the missed dose today Telemetry monitoring Monitor blood pressures Hold home tresiba; will give lower dose of lantus along with moderate dose insulin coverage with meals and at bedtime Holding statin therapy currently Continue cardbidopa/levodopa; reviewed that there is not an IV equivalent during the periop timeframe but we will restart post op once tolerating po Continue home memantine and escitalopram On off-week for Revlimid; if does okay can plan to resume on 10/17 as scheduled Walker at bedside, PT for ambulation as he can tolerate as will be a part of usual recovery to move around, fall precautions Continue home PPI and potassium Bladder scan as needed for concerns regarding urinary retention VTE prophylaxis: SCDs, home eliquis held for planned surgery GI Prophylaxis: PPI chronically Antibiotics: Zosyn started 10/13 Pending studies: am A1c, lactic acid, repeat lfts/labs Telemetry: ordered given tachycardia/konwn afib and potential for clinical worsening/need for close monitoring Zheng: not currently indicated Line(s): peripheral IVs Disposition plan: Home with outpatient follow up to general surgery & PCP anticipated after DC along with follow up to other providers as already scheduled. Code Status: Full Code Supportive care otherwise Findings, concerns and plans were discussed with patient and he was given an opportunity to ask questions. I was also able to speak with Candy at phone number listed under contact information reviewing same information and opportunity to ask quesitons. 10/14/2024 Plan for cholecystectomy in AM. Patient continues to be in atrial fibrillation with RVR. Will place on sotalol 80 twice daily. If still remains uncontrolled will consider adding additional medication. Continue to watch at this time. Continue to monitor on telemetry. Continue to hold Eliquis in anticipation for surgery in AM. Agree with H&P assessment and plan above. Continue Zosyn 10/15/2024 Cholecystectomy canceled. Will order IR guided drainage patient continues to be in A-fib with RVR. Sotalol was stopped yesterday. Appreciate cardiology recommendations. Placed on amiodarone at this time. Will order digoxin for patient. ? Continue to hold Eliquis. Will consider placing on heparin drip after tube placement ? Patient does have a left shift on labs and bandemia. Continue Zosyn. Add vancomycin at this time. Blood culture pending. 10/16/2024 continue digoxin, amio, plan for MO cardioversion on Saturday, NPO at midnight saturday night - start cardiac diabetic diet - continue zosyn - continue broad spectrum abx till cultures result - fluid sent to lab for analysis from merissa tube -Had a long discussion with Dr. Zuleta over the phone. The drain had to be placed via the liver. He is recommended to repeat a CT abdomen pelvis on Saturday to reassess the right upper quadrant area as she has a suspicion there may be another fluid collection a few centimeters by the gallbladder however it is unclear if it is a loop of bowel versus a fluid collection. She recommends waiting 48 hours prior to obtaining another CT unless clinically symptoms worsen and it is warranted earlier. ? We will continue to hold off on anticoagulation at least till Saturday night at least until CT is repeated and patient has started to improve. ? Continue to hospitalize at this time and keep on IV antibiotics. low threshold to repeat ct abdomen if abdominal pain worsens or worsening leukocytosis 10/17/2024 CT abdomen pelvis with IV contrast planned for tomorrow morning to reassess gallbladder fossa. Continue to hold off on anticoagulation as per radiology recommendation secondary to drain placement. May restart on heparin tomorrow if CT is okay and no further drains are warranted. If there is another fluid collection adjacent to gallbladder patient may require a secondary drain. Discussed with surgeon. ? Plan for MO cardioversion Saturday however I will try calling anesthesia to see if they are available today versus tomorrow. ? Continue IV antibiotics complete 5-day course total. ? May add low-dose Zyprexa 2.5 twice daily for agitation/delirium. He is appropriate alert oriented today. I will hold off on adding right now however may be added at nighttime if needed. ? Discussed plan with daughter at bedside. ? Cholecystostomy drain fluid cultures are pending ? Blood cultures, urine culture negative to date ? Check venous Dopplers PDMP PDMP Reviewed: Not Reviewed Attestations 2 Medical Necessity Statement*: Plan for MO cardioversion Saturday. Diagnoses Acute calculous cholecystitis K80.00 Chronic anticoagulation Z79.01 Longstanding persistent atrial fibrillation I48.11 Atrial fibrillation type: longstanding persistent Primary hypertension I10 Hypertension type: primary hypertension ASHD (arteriosclerotic heart disease) I25.10 Diabetes mellitus, type II, insulin dependent E11.9; Z79.4 Dyslipidemia E78.5 Parkinson's disease without dyskinesia or fluctuating manifestations G20.A1 Dyskinesia presence: without dyskinesia Fluctuating manifestations: without fluctuating manifestations Mild Lewy body dementia with mood disturbance G31.83; F02.A3 Dementia behavioral or psychological symptom: with mood disturbance Dementia severity: mild Multiple myeloma in remission C90.01 Multiple myeloma remission status: in remission Gait instability R26.81
--- NOTE | 2024-10-17 15:10 | PC.NURSE ---
not eating hospital foods pt stated to his dgtr at bedside, you know i don't eat food here. Pt tried to have few bites in each food provided on his lunch and did not finished it . maybe 5%. he did drink his apple juice and glucerna.
[2024-10-17] MEDS: metoprolol succinate ER (24 HR) 25 mg Tablet PO (15:32)
[2024-10-17 17:12] LABS: Glucose Point of Care 160 mg/dL (70-110)
--- NOTE | 2024-10-17 20:19 | PC.NURSE ---
Spoke with regarding patient with some aggitation. Dr. Ashby note said was going to add low dose Zyprexa 2.5 twice daily for agitation/delirium but medication was never ordered. ordered to start tonight for aggitation/delerium.
[2024-10-17 20:57] LABS: Glucose Point of Care 174 mg/dL (70-110)
[2024-10-17] MEDS: OLANZapine 5 mg TABLET 2.5 MG PO (21:05)
[2024-10-18] VITALS (9 sets, daily range): BP systolic 119–161; BP diastolic 86–115; PULSE 122–155; RESP 22–26; TEMP 37–37.3; O2SAT 92–94
--- NOTE | 2024-10-18 00:40 | PC.NURSE ---
Spoke with dr Sosa regarding patient unable to sleep, restless. The nurse had spoken with the patients daughter and she had mentioned that they had previously tried trazadone for him but it was discontinued and did not work for him. Asked for something else for sleep. ordered for seroquel dose to start now.
[2024-10-18] MEDS: quetiapine 25 mg Tablet 50 MG PO ×2 (00:53→20:30)
[2024-10-18] MEDS: vancomycin 500 MG in sodium chloride 0.9% (plus) 100 ML 200 MG IV (00:53)
[2024-10-18 03:47] LABS: Hematocrit 32.9 % (37-53); Mean Corpuscular Hemoglobin 28.3 pg (27-33); Mean Corpuscular Volume 91.4 fl (82-101); Mean Platelet Volume 10.3 fL (7.4-10.4); Platelet Count 206 10^3/cmm (157-399); Red Cell Distribution Width 15.7 % (12.1-15.1); White Blood Count 6.44 10^3/uL (3.29-11.43)
[2024-10-18] MEDS: piperacillin-tazobactam 3.375 GM in sodium chloride 0.9% (plus) 50 ML IV ×3 (03:49→22:20)
[2024-10-18 03:59] LABS: Anion Gap 14.7 (5-19); Blood Urea Nitrogen 7 mg/dL (8-23); Calcium 7.9 mg/dL (8.5-10.5); Carbon Dioxide 22 mmol/L (22-29); Chloride 105 mmol/L (98-107); Creatinine Clr Calc Pharmacy 91.7643; Glucose 160 mg/dL (65-115); Osmolality Calculated 289 mOsm/kg (285-295); Sodium 139 mmol/L (136-145)
[2024-10-18 04:12] LABS: Potassium 2.7 mmol/L (3.5-5.1)
--- NOTE | 2024-10-18 04:13 | PC.NURSE ---
Spoke with regarding patient becoming more aggitated. The patient ripped out his IV and is making multiple attempts to get OOB. Nurse concerned that patient may pull out his new IV or drains. The patient making comments about someone coming in the room to trying to kill him. The nurse tried to reassure patient that hes safe and that he and the nurse are the only ones in the room but patient not convinced. ordered one time dose IVP haldol 5mg. Also made him aware of low potasssium 2.7 this morning. Obtained order for PO potassium 40MEQ once.
[2024-10-18 04:25] LABS: Slide Review Slide Review Perform
[2024-10-18 04:26] LABS: Absolute Neutrophil 4.8 10^3/cmm (1.4-6.5); Absolute Segmented Neutrophil 4.7 10/cmm (1.6-7.1); Band Neutrophils Absolute 0.1 10^3/cmm (0.0-1.2); Eosinophils 0 %; Giant Platelets Trace; Lymphocytes 16 %; Monocytes Absolute 0.5 10^3/cmm (0.1-0.6); Platelet Estimate Normal (Normal); Segmented Neutrophils 73 %; Total Cells Counted 100 (0-100)
[2024-10-18] MEDS: potassium chloride ER 20 mEq Tablet 40 MEQ PO (04:34)
[2024-10-18] MEDS: haloperidol inj 5 mg/mL INJ 1 mL IVP ×2 (04:34→23:00)
[2024-10-18 06:35] LABS: Glucose Point of Care 164 mg/dL (70-110)
--- NOTE | 2024-10-18 07:57 | PC.NURSE ---
Provider is notified that Mr Vines's blood pressure is high this morning. 156/115, 161/109 HR 130-140. He is currently being taken to CT. Can I give him something for his blood pressure when he gets back? Provider ordered Hydralazine 5 iv x1. Order entered.
--- NOTE | 2024-10-18 08:00 | CTR_ITS ---
PROCEDURE INFORMATION: Exam: CT Abdomen And Pelvis With Contrast Exam date and time: 10/18/2024 7:59 AM Age: 79 years old Clinical indication: Condition or disease; Abscess and bile duct condition and gallbladder condition and non-vascular catheter/shunt placement or management; Abscess location: Gb area; Fistula; Cholecystitis; Acute with chronic; Prior surgery; Surgery date: Post-operative (0-2 days); Surgery type: Drain; Additional info: Fluid collection by gallbladder, f/u study, R/O fistula TECHNIQUE: Imaging protocol: Computed tomography of the abdomen and pelvis with contrast. Radiation optimization: All CT scans at this facility use at least one of these dose optimization techniques: automated exposure control; mA and/or kV adjustment per patient size (includes targeted exams where dose is matched to clinical indication); or iterative reconstruction. Contrast material: OMNIPAQUE 350; Contrast volume: 100 ml; Contrast route: INTRAVENOUS (IV); COMPARISON: CT kidney stone [id number] 10/13/2024 11:21 AM RADIATION DOSE METRICS: Total DLP (mGy-cm): 1170.93 FINDINGS: Lungs: There is right lower lobe consolidation/collapse. There is a left lower lobe atelectasis. Pleural spaces: There is a right pleural effusion. Trace left pleural effusion. Liver: Normal. No mass. Gallbladder and biliary ducts: Cholecystostomy tube is in satisfactory position with collapsed gallbladder. Three gallbladder stones are seen. Mild inflammatory changes surrounding the gallbladder. There is a subcapsular collection measuring 2 x 2.5 cm at the medial aspect of the gallbladder. Pancreas: Normal. No ductal dilation. Spleen: Normal. No splenomegaly. Adrenal glands: Normal. No mass. Kidneys and ureters: Bilateral simple renal cysts measuring up to 5.6 cm in the upper pole of the right kidney. There is no evidence of hydronephrosis. Stomach and bowel: Unremarkable. No obstruction. No mucosal thickening. Appendix: No evidence of appendicitis. Intraperitoneal space: There is mild ascites. Vasculature: Calcified atheromas of the visualized arteries. Calcified atheromas of the visualized arteries. Lymph nodes: Unremarkable. No enlarged lymph nodes. Urinary bladder: Unremarkable as visualized. Reproductive: Enlarged prostate gland with its median lobe impinging on the neck of the bladder. The prostate gland demonstrates nonspecific parenchymal calcifications. Bones/joints: The pubic symphysis demonstrates mild degenerative changes. Right femur orthopedic hardware. There are mild degenerative changes of the sacroiliac joints. There are mild degenerative changes of the hip joints. Post kyphoplasty of L3 with severe compression deformity of L3. DishThe lumbar spine demonstrates mild degenerative changes at multiple levels. Soft tissues: There is a fat-containing umbilical hernia. CT/CT abdomen pelvis w con* [id number] IMPRESSION: 1. Cholecystostomy tube in satisfactory position with collapsed gallbladder. Cholelithiasis. No CBD dilatation. 2. Subcapsular collection at the medial aspect of the gallbladder and fluid around the liver dome, likely postoperative collections no other intra-abdominal collections suggestive of abscess formation. COMMENTS: Consistent with the [employer]'s Incidental Findings Committee white paper (J Am [employer] Radiol 2018): Any incidental renal lesion less than 1 cm or classified as too small to characterize, or any incidental cystic renal lesion characterized as simple-appearing, is likely benign. No follow-up imaging is recommended for these lesions per consensus recommendations based on imaging criteria.
[2024-10-18] MEDS: iohexol 350 mg/mL 500 mL Btl (per mL) IV (08:09)
[2024-10-18] MEDS: hyDRALAzine 20 mg/mL INJ 1 mL 5 MG IVP (08:30)
[2024-10-18] MEDS: memantine 5 mg tablet PO (08:33)
[2024-10-18] MEDS: digoxin 125 mcg Tablet PO (08:33)
[2024-10-18] MEDS: docusate sodium 100 mg Capsule PO (08:33)
[2024-10-18] MEDS: escitalopram 10 mg Tablet 20 MG PO (08:33)
[2024-10-18] MEDS: pantoprazole DR 40 mg Tablet PO (08:34)
[2024-10-18] MEDS: metoprolol succinate ER (24 HR) 25 mg Tablet PO ×2 (08:34→18:08)
[2024-10-18] MEDS: carbidopa-levodopa 25-100mg Tablet 1 EACH PO ×2 (08:39→20:30)
--- NOTE | 2024-10-18 09:03 | P.PN_ITS ---
Subjective 2 Subjective: Delirious. Not rate control and Amio drip. No abdominal pain Katharina tube working and draining bile CT done and reviewed. Patient has a small subcapsular hematoma. Cholecystostomy tube has decompressed gallbladder. Vitals/I&O/Wt Last Vital Signs Temp 98.7 F 10/18/24 07:26 Pulse 127 H 10/18/24 08:33 Resp 26 H 10/18/24 07:26 BP 156/115 10/18/24 07:51 Pulse Ox 94 10/18/24 07:26 O2 Del Method Room Air 10/18/24 07:26 10/17/24 10/18/24 10/18/24 22:59 06:59 14:59 Intake Total 490 / 876 150 / 1026 200 / 200 Output Total 1100 / 1350 400 / 1750 Balance -610 / -474 -250 / -724 200 / 200 Weight last 48 hrs Weight 227 lb 11.2 oz Weight 213 lb 6.4 oz Physical Exam 2 Narrative: Chest: Unlabored breathing room air. No lymphadenopathy. Heart: Regular rate and rhythm. Abdomen: Soft, nontender, nondistended. No masses or lymphadenopathy. Cholecystostomy tube draining bile. Data 10/18/24 02:49 10/18/24 02:49 Micro: Microbiology 10/16/24 10:43 Gram Stain - Final Gallbladder Fluid Body Fluid Culture - Preliminary 10/15/24 13:00 Urine Culture - Final Urine,Voided A&P Assessment and plan (1) Cholecystitis: Plan 79-year-old male who presented with cholecystitis. Multiple comorbidities. On chronic anticoagulation with apixaban. A-fib with RVR. Cholecystostomy tube placed and is working appropriately. Finishing antibiotics today. From a surgical perspective patient should keep the cholecystostomy tube for 6 weeks. Follow-up with me then. I recommend not intervening on the subcapsular hematoma. Rest of care per medicine. PDMP PDMP Reviewed: Not Reviewed Attestations 2 Medical Necessity Statement*: N/A Coding Level of Care Code 71242 Diagnoses Cholecystitis K81.9 Time Spent (min) 30
--- NOTE | 2024-10-18 10:07 | ANES.PREANE2 ---
Pre-Anesthetic Assessment Height/Weight: Height 5 ft 11 in Weight 227 lb 11.2 oz Temp Pulse Resp BP Pulse Ox O2 Del Method 98.7 F 127 H 26 H 156/115 94 Room Air 10/18/24 07:26 10/18/24 08:33 10/18/24 07:26 10/18/24 07:51 10/18/24 07:26 10/18/24 07:26 Preop Diagnosis: Acute cholecystitis Operation Date: 10/15/24 15:00 Proposed Procedures p Laparoscopic Cholecystectomy(Not Applicable) - Serafin Vogt MD Operation Date: 10/16/24 09:30 Proposed Procedures p Ultrasound Drain Placement(Not Applicable) - Albertina Zuleta, DO Was Beta Arnie taken within 24 hours: N/A Was Clonidine taken within 24 hours: N/A Social No alcohol and No tobacco Exam alert, oriented x 3 and clear to auscultation bilaterally tacycardic, afib Airway Submandibular: within normal limits Cervical ROM: within normal limits Mallampati: Class II Dentition: partials Anesthetic Plan ASA status: 4 Anesthesia: MAC Other: Patient has no prior issues with anesthesia in the past Initially admitted 10/13/2024 with acute cholecystitis. IR drain placed 10/16 under MAC anesthesetic w/o issues History of multiple myeloma, in remission on Revlimid A-fib, on chronic Eliquis. Completed Holter monitor 08/2024 showing predominant A-fib Echo 07/2023 showing EF 68% Type 2 diabetes on insulin Parkinson's disease and mild Lewy body dementia Since admission patient has been in A-fib with RVR. Heart rate in the 120s today. On amiodarone gtt Labs reviewed from today. Potassium 3.5 today Plan for MAC anesthetic Medications/Allergies Home Medications ?Medication ?Instructions ?Recorded ?Confirmed ?Last Taken ?Type simvastatin 20 mg tablet 20 mg PO DAILY 11/02/19 10/13/24 10/12/24 History apixaban 5 mg tablet (Eliquis) 5 mg PO BID #60 tabs 05/16/23 10/13/24 10/12/24 Rx cholestyramine-aspartame 4 gram 1 ea PO DAILY 03/24/24 10/13/24 10/12/24 History oral powder (Cholestyramine Light) sotalol 120 mg tablet 60 mg (1/2 x 120 mg) PO BID #90 08/25/24 10/13/24 10/12/24 Rx tabs carbidopa 25 mg-levodopa 100 mg 25 - 100 tab PO BID #180 tabs 09/22/24 10/13/24 10/12/24 Rx tablet escitalopram oxalate 20 mg tablet 20 mg PO DAILY #90 tabs 09/22/24 10/13/24 10/12/24 Rx (Lexapro) memantine 5 mg tablet 5 mg PO DAILY #90 tabs 09/22/24 10/13/24 10/12/24 Rx Revlimid 5 mg capsule See Rx Instructions .Route 10/13/24 10/13/24 10/12/24 Rx (lenalidomide) .COMPLEX #21 caps insulin degludec 200 unit/mL (3 10 unit SUBCUT DAILY 10/13/24 10/13/24 10/13/24 History mL) subcutaneous pen (Tresiba FlexTouch U-200 insulin) pantoprazole 40 mg tablet,delayed 40 mg PO DAILY 10/13/24 10/13/24 10/12/24 History release potassium chloride 20 mEq 20 meq PO DAILY 10/13/24 10/13/24 10/12/24 History tablet,extended release(part/cryst) Allergies Allergy/AdvReac Type Severity Reaction Status Date / Time No Known Allergies Allergy Verified 10/13/24 10:26 Current Medications Generic Name Dose Route Start Last Admin Trade Name Garyq PRN Reason Stop Dose Admin Acetaminophen 650 mg 10/13/24 17:33 10/17/24 08:42 Acetaminophen 325 Mg Tablet PO 650 mg Q6H PRN Administration Mild/Mod Pain Or Temp >/= 101 Bisacodyl 10 mg 10/13/24 17:18 10/16/24 16:08 Bisacodyl 5 Mg Tablet PO 10 mg DAILY PRN Administration Constipation (see protocol) Protocol Carbidopa/Levodopa 1 each 10/13/24 21:00 10/18/24 08:39 Carbidopa-Levodopa 25-100mg Tablet PO 1 each BID@ TSERING Administration Digoxin 125 mcg 10/16/24 09:15 10/18/24 08:33 Digoxin 125 Mcg Tablet PO 125 mcg DAILY TSERING Administration Docusate Sodium 100 mg 10/13/24 18:00 10/18/24 08:33 Docusate Sodium 100 Mg Capsule PO 100 mg BID TSERING Administration Escitalopram Oxalate 20 mg 10/14/24 09:00 10/18/24 08:33 Escitalopram 10 Mg Tablet PO 20 mg DAILY TSERING Administration Piperacillin Sod/Tazobactam 50 mls @ 12.5 mls/hr 10/13/24 20:00 10/18/24 09:58 Sod 3.375 gm/ Sodium Chloride IV Infused Q8H TSERING Infusion Protocol Amiodarone HCl/Dextrose 360 mg in 200 mls @ 0 mls/hr 10/14/24 17:34 10/18/24 08:20 Nexterone IV 0.5 mg/min .Q0M TSERING 16.67 mls/hr Administration Protocol Per Protocol Vancomycin HCl 500 mg/ Sodium 100 mls @ 200 mls/hr 10/17/24 00:30 10/18/24 01:41 Chloride IV Infused Q12H [facility] Infusion Insulin Glargine 5 unit 10/14/24 08:00 10/18/24 08:26 Insulin Glargine 100 Units/1 Ml SUBCUT Not Given DAILY@08 [facility] Insulin Human Lispro 0 unit 10/13/24 21:00 10/17/24 21:05 Insulin Lispro 100 Unit/1 Ml SUBCUT 2 unit BEDTIME [facility] Administration Protocol Insulin Human Lispro 0 unit 10/13/24 18:00 10/18/24 08:26 Insulin Lispro 100 Unit/1 Ml SUBCUT Not Given TIDWM [facility] Protocol Memantine 5 mg 10/14/24 09:00 10/18/24 08:33 Memantine 5 Mg Tablet PO 5 mg DAILY TSERING Administration Metoprolol Succinate 25 mg 10/17/24 14:00 10/18/24 08:34 Metoprolol Succinate Er (24 Hr) 25 Mg Tablet PO 25 mg DAILY TSERING Administration Olanzapine 2.5 mg 10/17/24 20:24 10/17/24 21:05 Olanzapine 5 Mg Tablet PO 2.5 mg BID PRN Administration DELERIUM Pantoprazole Sodium 40 mg 10/14/24 09:00 10/18/24 08:[address] 40 Mg Tablet PO 40 mg DAILY TSERING Administration Quetiapine Fumarate 50 mg 10/18/24 00:30 10/18/24 00:53 Quetiapine 25 Mg Tablet PO 50 mg BEDTIME [facility]ER[facility] Administration Senna 17.2 mg 10/13/24 21:00 10/17/24 21:12 Sennosides 8.6 Mg Tablet PO Not Given BEDTIME [facility] Additional Medication Information Revlimid is on an off week currently with plan for to resume on October 17 [facility] Anesthesia Medical History (Updated 10/14/24 @ 12:27 by Serafin Vogt MD) History of echocardiogram ef 68% 07/2023 Chronic back pain History of Holter monitoring 08/2024 - baseline predominantly afib, non afib 47%, one 3.1 second pause (asymptomatic), one 5 beat run of ns tachycardia (asymptomatic) Plasmacytoma in remission Weakness of both lower extremities Acquired left foot drop Facet arthropathy, lumbar History of nonmelanoma skin cancer Lumbar stenosis with neurogenic claudication Diarrhea Tubular adenoma History of cardioversion Balanitis Multiple myeloma Lymphoma ASHD (arteriosclerotic heart disease) Diabetes on insulin Atrial fibrillation Obesity HTN (hypertension) Dyslipidemia Surgical History (Updated 10/13/24 @ 18:08 by Mari Gabriel MD) History of colonoscopy with polypectomy 01/2022 Dr Raymundo S/P epidural steroid injection History of radiofrequency ablation (RFA) of nerve of lumbar spine (12/30/23) right L3/L4, L4/5, L5/S1 Dr Coley Status post open reduction and internal fixation (ORIF) of fracture (05/14/23) right hip fracture, gamma nail, Dr Flores History of lumbar laminectomy (07/25/22) L2/L3 laminectomy with partial facetectomies, revision at L3/L4, L4/L5 Dr Hong History of kyphoplasty (03/30/24) L3 Dr Hong Previous back surgery 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 History of colonoscopy 01/2022 H/O bone marrow transplant Family History Brother CAD (coronary artery disease) Cancer Mother Congestive heart failure (CHF) Brother Cancer Sister Cancer Sister Cancer Family/Other Cancer Chronic kidney disease (CKD) Denies family history of Diabetes Clotting disorder Dementia Anesthesia complication Bleeding disorder Lung disease Stroke Social History (Updated 10/13/24 @ 17:54 by Mari Gabriel MD) Smoking and tobacco/nicotine status: never used tobacco/nicotine Alcohol intake: former Substance/Drug Use: never Additional social history: Lives alone, daughters help him as needed Marital status: / Current occupational status: retired Data Anesthesia 10/19/24 04:37 10/19/24 12:56 Short CBC 10/17/24 10/18/24 Range/Units 03:04 02:49 WBC 8.77 6.44 (3.29-11.43) 10^3/uL Hgb 10.00 L 10.20 L (11.27-16.99) g/dL Hct 32.1 L 32.9 L (37-53) % MCV 94.4 91.4 (82-101) fl Plt Count 186 206 (157-399) 10^3/cmm Neut % (Auto) 73.7 % Neut # (Auto) 6.46 (1.8-7.7) 10^3/uL BMP 10/18/24 02:49 Sodium 139 Potassium 2.7 L* Chloride 105 Carbon Dioxide 22 BUN 7 L Creatinine 0.7 Glucose 160 H Calcium 7.9 L Microbiology 10/16/24 10:43 Gram Stain - Final Gallbladder Fluid Body Fluid Culture - Preliminary 10/15/24 13:00 Urine Culture - Final Urine,Voided Cardiac Studies: Echocardiogram 01/02/23 Cardiac Event Monitor 07/20/24
[2024-10-18 11:13] LABS: Glucose Point of Care 143 mg/dL (70-110)
--- NOTE | 2024-10-18 11:26 | PC.NURSE ---
Provider is updated that patient is refusing to let nursing staff give him his IV K+. No new orders given at this time.
--- NOTE | 2024-10-18 12:01 | PC.NURSE ---
Provider ordered NS at 50ml/hr. Order entered.
[2024-10-18 12:19] LABS: Vancomycin Trough 5.3 ug/mL (10-15)
[2024-10-18] MEDS: lidocaine 1% 5 ML in potassium chloride premix 100 ML 26.25 ML IV (12:21)
[2024-10-18] MEDS: sodium chloride 0.9% 1,000 ML 50 ML IV (12:23)
[2024-10-18] MEDS: OLANZapine 5 mg TABLET 2.5 MG PO ×2 (12:32→20:34)
[2024-10-18] MEDS: VANCOMYCIN ADD-Vantage 1,000 MG in 0.9% NaCl ADD-Vantage 250 ML 250 MG IV ×2 (13:31→23:33)
--- NOTE | 2024-10-18 14:55 | P.PN_ITS ---
Subjective 2 Subjective: Seen this morning. Plan for MO cardioversion today around noon however potassium is 2.7 this morning oral potassium was given at 5 AM and IV has been ordered however patient is refusing. Patient was confused overnight received Zyprexa and Haldol. He does have underlying dementia and is on Namenda at home. Vitals/I&O/Wt Last Vital Signs Temp 98.7 F 10/18/24 07:26 Pulse 135 H 10/18/24 11:10 Resp 26 H 10/18/24 11:10 BP 119/86 10/18/24 11:10 Pulse Ox 93 10/18/24 11:10 O2 Del Method Room Air 10/18/24 11:10 10/17/24 10/18/24 10/18/24 22:59 06:59 14:59 Intake Total 490 / 876 150 / 1026 250 / 250 Output Total 1100 / 1350 400 / 1750 Balance -610 / -474 -250 / -724 250 / 250 Weight last 48 hrs Weight 103.283 kg Weight 96.797 kg Physical Exam 2 Narrative: Normocephalic atraumatic, normal S1-S2, EOMI No acute distress laying comfortably in bed at this time. Chest: Clear to auscultation bilaterally no wheezes or rhonchi. Heart: Irregularly irregular, tachycardic 1 40-1 50 heart rate. Abdomen: Soft, tender right upper quadrant, nondistended. No masses or lymphadenopathy. Minimal fluid in drain at this time. Extremities: No edema bilateral lower extremities Data 10/18/24 02:49 10/18/24 02:49 Micro: Microbiology 10/13/24 12:35 Blood Culture - Final Blood NO GROWTH AFTER 5 DAYS 10/13/24 12:32 Blood Culture - Final Blood NO GROWTH AFTER 5 DAYS 10/16/24 10:43 Gram Stain - Final Gallbladder Fluid Body Fluid Culture - Preliminary 10/15/24 13:00 Urine Culture - Final Urine,Voided A&P Assessment and plan (1) Acute calculous cholecystitis: As evidenced by findings of elevation in bilirubin and alkaline phosphatase, findings on ultrasound and CT imaging and clinical presentation of abdominal pain, right sided. Has associated elevation in white blood count. Blood pressures are normal, does have tachycardia. He did not take his medications since yesterday, however, and is known to be on sotalol for atrial fibrillation. Currently meeting SIRS criteria and at risk for progression to sepsis/severe sepsis but not currently meeting definitive criteria for such with other potential explanations for abnormalities identified. (2) Chronic anticoagulation: Chronically on Eliquis due to history of atrial fibrillation. No personal history of stroke or TIA known. (3) Atrial fibrillation: Longstanding persistent atrial fibrillation. In addition to anticoagulation he is chronically on sotalol. Typically rate controlled. Missed his dose of sotalol today due to acute issues contributing to tachycardia currently. Qualifiers: Atrial fibrillation type: longstanding persistent Qualified Code(s): I 48.11 - Longstanding persistent atrial fibrillation (4) HTN (hypertension): Primary hypertension, not on specific medication currently with acceptable blood pressures. Qualifiers: Hypertension type: primary hypertension Qualified Code(s): I10 - Essential (primary) hypertension (5) ASHD (arteriosclerotic heart disease): Chronic diagnosis. Is never required any cardiac intervention. Follows with Dr. Vasquez as an outpatient basis from cardiology standpoint. (6) Diabetes mellitus, type II, insulin dependent: With associated peripheral neuropathy based on available history. (7) Dyslipidemia: Chronically on statin therapy. (8) Parkinson disease: Chronically on carbidopa/levodopa. Qualifiers: Dyskinesia presence: without dyskinesia Fluctuating manifestations: w ithout fluctuating manifestations Qualified Code(s): G20.A1 - Parkinson's disease without dyskinesia, without mention of fluctuations (9) Lewy body dementia: Chronically on memantine and escitalopram. Follows with Dr. Littlejohn and has been doing well. Makes his own decisions. Does have medical power of logistics research engineer, his daughter Candy. Qualifiers: Dementia behavioral or psychological symptom: with mood disturbance D ementia severity: mild Qualified Code(s): G31.83 - Neurocognitive disorder with Lewy bodies; F02.A3 - Dementia in other diseases classified elsewhere, mild, with mood disturbance (10) Multiple myeloma: In remission, chronically on Revlimid, on and off week this week with date for resumption 10/17/2024. Qualifiers: Multiple myeloma remission status: in remission Qualified Code(s): C 90.01 - Multiple myeloma in remission (11) Gait instability: Related to chronic back pain and Parkinson disease, uses walker at baseline. Back pain significant with movement and ambulation. May impede usual post operative recovery. Plan Chronically on PPI Chronically on potassium replacement History of chronic diarrhea felt related to Revlimid improved with cholestyramine, a chronic medication; recently constipated Enlarged prostate on imaging without reported prostatic hypertrophy symptoms Inpatient admission Surgical consultation with Dr. Vogt Case discussed with Dr. Vogt and after reviewing both with Mr. Vines himself and his daughter Candy risk and benefit of surgery for cholecystitis versus risk and benefit of less invasive procedures, informed decision has been made to plan for surgery on allowing adequate time for Eliquis to be held. Risk of surgery include bleeding, infection, pain, anesthesia complications and other medication reactions and others as addressed by surgery. Mr. Vines has typically done okay from an anesthesia standpoint with several surgeries including 4 since 2021. Benefit is less chance of recurrent disease given the gallstones noted. With holding of Eliquis increased risk of hypercoagulable state including risk of stroke. Given known arrhythmia and other cardiovascular history there is a risk of cardiovascular events. Patient is currently medically optimized, thought we will need to monitor heart rate control and for signs and symptoms of developing severe sepsis. IVFs, including fluid bolus Zosyn Pain control Bowel regimen given constipation already reported and potential impact of pain management Diet as tolerated for now Hold eliquis Continue sotalol, pharmacy has ordered 120mg tablets to allow dosing of his usual 60 mg regimen bid; tonight will give him 80mg one time given the missed dose today Telemetry monitoring Monitor blood pressures Hold home tresiba; will give lower dose of lantus along with moderate dose insulin coverage with meals and at bedtime Holding statin therapy currently Continue cardbidopa/levodopa; reviewed that there is not an IV equivalent during the periop timeframe but we will restart post op once tolerating po Continue home memantine and escitalopram On off-week for Revlimid; if does okay can plan to resume on 10/17 as scheduled Walker at bedside, PT for ambulation as he can tolerate as will be a part of usual recovery to move around, fall precautions Continue home PPI and potassium Bladder scan as needed for concerns regarding urinary retention VTE prophylaxis: SCDs, home eliquis held for planned surgery GI Prophylaxis: PPI chronically Antibiotics: Zosyn started 10/13 Pending studies: am A1c, lactic acid, repeat lfts/labs Telemetry: ordered given tachycardia/konwn afib and potential for clinical worsening/need for close monitoring Zheng: not currently indicated Line(s): peripheral IVs Disposition plan: Home with outpatient follow up to general surgery & PCP anticipated after DC along with follow up to other providers as already scheduled. Code Status: Full Code Supportive care otherwise Findings, concerns and plans were discussed with patient and he was given an opportunity to ask questions. I was also able to speak with Candy at phone number listed under contact information reviewing same information and opportunity to ask quesitons. 10/14/2024 Plan for cholecystectomy in AM. Patient continues to be in atrial fibrillation with RVR. Will place on sotalol 80 twice daily. If still remains uncontrolled will consider adding additional medication. Continue to watch at this time. Continue to monitor on telemetry. Continue to hold Eliquis in anticipation for surgery in AM. Agree with H&P assessment and plan above. Continue Zosyn 10/15/2024 Cholecystectomy canceled. Will order IR guided drainage patient continues to be in A-fib with RVR. Sotalol was stopped yesterday. Appreciate cardiology recommendations. Placed on amiodarone at this time. Will order digoxin for patient. ? Continue to hold Eliquis. Will consider placing on heparin drip after tube placement ? Patient does have a left shift on labs and bandemia. Continue Zosyn. Add vancomycin at this time. Blood culture pending. 10/16/2024 continue digoxin, amio, plan for MO cardioversion on Saturday, NPO at midnight saturday night - start cardiac diabetic diet - continue zosyn - continue broad spectrum abx till cultures result - fluid sent to lab for analysis from merissa tube -Had a long discussion with Dr. Zuleta over the phone. The drain had to be placed via the liver. He is recommended to repeat a CT abdomen pelvis on Saturday to reassess the right upper quadrant area as she has a suspicion there may be another fluid collection a few centimeters by the gallbladder however it is unclear if it is a loop of bowel versus a fluid collection. She recommends waiting 48 hours prior to obtaining another CT unless clinically symptoms worsen and it is warranted earlier. ? We will continue to hold off on anticoagulation at least till Saturday night at least until CT is repeated and patient has started to improve. ? Continue to hospitalize at this time and keep on IV antibiotics. low threshold to repeat ct abdomen if abdominal pain worsens or worsening leukocytosis 10/17/2024 CT abdomen pelvis with IV contrast planned for tomorrow morning to reassess gallbladder fossa. Continue to hold off on anticoagulation as per radiology recommendation secondary to drain placement. May restart on heparin tomorrow if CT is okay and no further drains are warranted. If there is another fluid collection adjacent to gallbladder patient may require a secondary drain. Discussed with surgeon. ? Plan for MO cardioversion Saturday however I will try calling anesthesia to see if they are available today versus tomorrow. ? Continue IV antibiotics complete 5-day course total. ? May add low-dose Zyprexa 2.5 twice daily for agitation/delirium. He is appropriate alert oriented today. I will hold off on adding right now however may be added at nighttime if needed. ? Discussed plan with daughter at bedside. ? Cholecystostomy drain fluid cultures are pending ? Blood cultures, urine culture negative to date ? Check venous Dopplers 10/18/2024 Potassium 2.7 this morning. 40 oral and 40 IV has been ordered. Have ordered normal saline along with IV potassium so patient will tolerated better. Initially he refused it. ? MO cardioversion was post be done around noon today however due to potassium being low it was canceled as patient was unstable to receive anesthesia. Discussed with anesthesia. Plan to perform MO cardioversion in AM. Will keep patient n.p.o. at midnight. CT abdomen pelvis does show subscapular hematoma at this time. No intervention recommended for that at this time by general surgery. Continue to monitor. I will hold off on starting anticoagulation tonight. May consider restarting tomorrow. Patient does have delirium on underlying dementia. Continue 2.5 Zyprexa twice daily at this time. Haldol as needed. Sitter not needed at this time however will place if required. Quetiapine 50 added at bedtime. Discussed with cardiology. Appreciate general surgery recommendations Daughter updated at bedside. PDMP PDMP Reviewed: Not Reviewed Attestations 2 Medical Necessity Statement*: Plan for MO cardioversion Saturday. Diagnoses Acute calculous cholecystitis K80.00 Chronic anticoagulation Z79.01 Longstanding persistent atrial fibrillation I48.11 Atrial fibrillation type: longstanding persistent Primary hypertension I10 Hypertension type: primary hypertension ASHD (arteriosclerotic heart disease) I25.10 Diabetes mellitus, type II, insulin dependent E11.9; Z79.4 Dyslipidemia E78.5 Parkinson's disease without dyskinesia or fluctuating manifestations G20.A1 Dyskinesia presence: without dyskinesia Fluctuating manifestations: without fluctuating manifestations Mild Lewy body dementia with mood disturbance G31.83; F02.A3 Dementia behavioral or psychological symptom: with mood disturbance Dementia severity: mild Multiple myeloma in remission C90.01 Multiple myeloma remission status: in remission Gait instability R26.81
--- NOTE | 2024-10-18 14:58 | P.PN_ITS ---
Subjective 2 Subjective: Patient was supposed to undergo MO guided cardioversion however he remains confused due to baseline dementia at the same time potassium was not below 3.0 therefore we have deferred cardioversion for tomorrow. Heart rate remains elevated. Medications: Medication Review Details: Revlimid is on an off week currently with plan for to resume on October 17 Vitals/I&O/Wt Last Vital Signs Temp 98.7 F 10/18/24 07:26 Pulse 135 H 10/18/24 11:10 Resp 26 H 10/18/24 11:10 BP 119/86 10/18/24 11:10 Pulse Ox 93 10/18/24 11:10 O2 Del Method Room Air 10/18/24 11:10 10/17/24 10/18/24 10/18/24 22:59 06:59 14:59 Intake Total 490 / 876 150 / 1026 250 / 250 Output Total 1100 / 1350 400 / 1750 Balance -610 / -474 -250 / -724 250 / 250 Weight last 48 hrs Weight 227 lb 11.2 oz Weight 213 lb 6.4 oz Physical Exam 2 Const: OTHER: GENERAL: Patient is alert, awake and oriented x3. HEART: Irregularly irregular S1 and S2. No murmur, rub or gallop. LUNGS: Clear to auscultate bilaterally. CENTRAL NERVOUS SYSTEM: Grossly nonfocal. EXTREMITIES: Lower extremities with out edema bilaterally. Data 10/18/24 02:49 10/18/24 02:49 Micro: Microbiology 10/13/24 12:35 Blood Culture - Final Blood NO GROWTH AFTER 5 DAYS 10/13/24 12:32 Blood Culture - Final Blood NO GROWTH AFTER 5 DAYS 10/16/24 10:43 Gram Stain - Final Gallbladder Fluid Body Fluid Culture - Preliminary 10/15/24 13:00 Urine Culture - Final Urine,Voided A&P Assessment and plan (1) HTN (hypertension): Qualifiers: Hypertension type: primary hypertension Qualified Code(s): I10 - Essential (primary) hypertension (2) Atrial fibrillation: Qualifiers: Atrial fibrillation type: longstanding persistent Qualified Code(s): I 48.11 - Longstanding persistent atrial fibrillation (3) Chronic anticoagulation: Plan Continue digoxin Continue IV amiodarone Will increase metoprolol Replenish potassium as per medicine Possible MO guided cardioversion tomorrow afternoon PDMP PDMP Reviewed: Not Reviewed Attestations 2 Medical Necessity Statement*: As per medicine Coding Level of Care Code Acute Code for Chg Fwd Diagnoses Primary hypertension I10 Hypertension type: primary hypertension Longstanding persistent atrial fibrillation I48.11 Atrial fibrillation type: longstanding persistent Chronic anticoagulation Z79.01
[2024-10-18 15:54] LABS: Glucose Point of Care 138 mg/dL (70-110)
[2024-10-18 16:18] LABS: Anion Gap 15.1 (5-19); Blood Urea Nitrogen 7 mg/dL (8-23); Calcium 7.8 mg/dL (8.5-10.5); Carbon Dioxide 23 mmol/L (22-29); Chloride 102 mmol/L (98-107); Creatinine Clr Calc Pharmacy 94.6019; Glucose 157 mg/dL (65-115); Osmolality Calculated 285 mOsm/kg (285-295); Potassium 3.1 mmol/L (3.5-5.1); Sodium 137 mmol/L (136-145)
--- NOTE | 2024-10-18 16:54 | PC.NURSE ---
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 And he is complaining of a sore throat. I looked (as much as he would let me) in his mouth. I wonder if he is getting thrush. He has a couple spots in his throat and his tongue is got a thick film on it. Provider ordered fluconazole 100mg PO daily and PO potassium 20meq once. orders placed.
[2024-10-18 20:26] LABS: Glucose Point of Care 194 mg/dL (70-110)
[2024-10-18] MEDS: sennosides 8.6 mg Tablet 17.2 MG PO (20:29)
[2024-10-18] MEDS: insulin lispro 100 unit/1 mL SUBCUT (20:30)
[2024-10-18] MEDS: potassium chloride ER 20 mEq Tablet PO (20:30)
--- NOTE | 2024-10-18 22:50 | PC.NURSE ---
patient has been getting agitated, having hallucinations, and very paranoid since the beginning of this shift, this nurse gave his PRN dose of Zyprexa at 2030, patient continues being increased agitated and having visual hallucinations, contacted MD about s/s, ordered 5mg of haldol IVP once to see if it helps, orders entered
[2024-10-19] VITALS (8 sets, daily range): BP systolic 127–156; BP diastolic 73–101; PULSE 66–127; RESP 12–23; TEMP 36.4–36.8; O2SAT 92–100
[2024-10-19 05:33] LABS: Basophils % 0.5 %; Eosinophils # 0.1 10^3/uL (0.0-0.8); Eosinophils % 1.1 %; Hematocrit 35.7 % (37-53); Lymphocytes # 0.9 10^3/uL (0.8-4.8); Lymphocytes % 14.9 %; Mean Corpuscular HGB Conc 30.8 g/dL (30-55); Mean Corpuscular Hemoglobin 29.8 pg (27-33); Mean Corpuscular Volume 96.7 fl (82-101); Mean Platelet Volume 10.2 fL (7.4-10.4); Monocytes # 0.4 10^3/uL (0.2-0.9); Monocytes % 7.7 %; Neutrophils # 3.96 10^3/uL (1.8-7.7); Neutrophils % 69.3 %; Nucleated Red Blood Cells % 0 %; Platelet Count 217 10^3/cmm (157-399); Red Blood Count 3.69 10^6/uL (3.85-5.65); Red Cell Distribution Width 16.6 % (12.1-15.1); White Blood Count 5.71 10^3/uL (3.29-11.43)
[2024-10-19 05:48] LABS: Alanine Aminotransferase < 5 U/L (0-41); Albumin Level 1.8 g/dL (3.5-5.2); Alkaline Phosphatase 603 U/L (40-130); Anion Gap 17.1 (5-19); Aspartate Amino Transferase 28 U/L (0-40); Blood Urea Nitrogen 7 mg/dL (8-23); Calcium 7.8 mg/dL (8.5-10.5); Carbon Dioxide 21 mmol/L (22-29); Chloride 104 mmol/L (98-107); Creatinine Clr Calc Pharmacy 94.6019; Globulin 3.4 g/dL (1.3-4.6); Glucose 198 mg/dL (65-115); Osmolality Calculated 292 mOsm/kg (285-295); Potassium 3.1 mmol/L (3.5-5.1); Sodium 139 mmol/L (136-145); Total Bilirubin 2.3 mg/dL (0.15-1.2); Total Protein 5.2 g/dL (6.6-8.7)
[2024-10-19] MEDS: piperacillin-tazobactam 3.375 GM in sodium chloride 0.9% (plus) 50 ML IV ×2 (05:48→16:57)
[2024-10-19 06:08] LABS: Slide Review Slide Review Perform
[2024-10-19 06:27] LABS: Glucose Point of Care 174 mg/dL (70-110)
[2024-10-19] MEDS: lidocaine 1% 5 ML in potassium chloride premix 100 ML 26.25 ML IV (07:41)
[2024-10-19] MEDS: sodium chloride 0.9% 1,000 ML 50 ML IV (07:42)
[2024-10-19 09:29] LABS: Digoxin 0.6 ng/mL (0.6-1.2)
--- NOTE | 2024-10-19 09:39 | P.PN_ITS ---
<Statement entered by Taj Torres MD - 10/19/24 18:23> Patient was evaluated and cared for in conjunction with an advanced practice practitioner. I personally examined the patient and reviewed the chart and all pertinent data including imaging, telemetry, and laboratory results. I discussed the patient in detail with the advanced practice practitioner. Please see their note for complete H&P testing result and agreed upon plan of care for the patient. Patient underwent MO guided cardioversion converted to sinus rhythm He remains confused GENERAL: Patient is confused with underlying dementia HEART: Regular S1 and S2. No murmur, rub or gallop. LUNGS: Clear to auscultate bilaterally. CENTRAL NERVOUS SYSTEM: Grossly nonfocal. EXTREMITIES: Lower extremities with out edema bilaterally. Assessment and plan A-fib with RVR: MO guided cardioversion continue IV amiodarone 0.5 mg until patient is able to take by mouth switch to p.o. 200 mg twice daily once start taking p.o. Requires heparin for anticoagulation due to atrial fibrillation leave the decision to medicine and interventional radiology since patient has cystostomy tube Cholecystitis: Treatment as per medicine and surgery Subjective 2 Subjective: Heart rate remains elevated but seems to be improved somewhat. Patient is resting at the time of my visit. He is post be going for cardioversion today. He is n.p.o. potassium was low at 3.1. This is getting replenished IV. Vitals/I&O/Wt Last Vital Signs Temp 97.5 F L 10/19/24 08:00 Pulse 122 H 10/19/24 08:00 Resp 16 10/19/24 08:00 BP 144/101 10/19/24 08:00 Pulse Ox 94 10/19/24 08:00 O2 Del Method Room Air 10/19/24 08:00 10/18/24 10/19/24 10/19/24 22:59 06:59 14:59 Intake Total 845 / 1095 300 / 1395 965.833 / 965.833 Output Total 55 / 55 Balance 845 / 1095 245 / 1340 965.833 / 965.833 Weight last 48 hrs Weight 225 lb Weight 227 lb 11.2 oz Physical Exam 2 Narrative: General: No apparent distress, healthy appearing, well nourished HENMT: normoceophalic Respiratory: Normal respiratory effort, clear to auscultation bilaterally throughout all lung sexton, no use of accessory muscles Cardio: No JVD, irregularly irregular rate and rhythm, S1 S2 normal, no murmurs Extremities: Full ROM, normal, normal capillary refill, no cyanosis, no edema bilateral lower extremities Neuro: asleep at the time of exam Skin: No rashes or lesions noted, no wounds Data 10/19/24 04:37 10/19/24 12:56 Micro: Microbiology 10/13/24 12:35 Blood Culture - Final Blood NO GROWTH AFTER 5 DAYS 10/13/24 12:32 Blood Culture - Final Blood NO GROWTH AFTER 5 DAYS 10/16/24 10:43 Gram Stain - Final Gallbladder Fluid Body Fluid Culture - Preliminary A&P Assessment and plan (1) HTN (hypertension): Qualifiers: Hypertension type: primary hypertension Qualified Code(s): I10 - Essential (primary) hypertension (2) Atrial fibrillation: Qualifiers: Atrial fibrillation type: longstanding persistent Qualified Code(s): I 48.11 - Longstanding persistent atrial fibrillation (3) Chronic anticoagulation: Plan Continue digoxin Continue IV amiodarone Continue Metoprolol 25 BID Replenish potassium IV, he may need a daily supplement after this Plan for MO guided cardioversion today Recommend restart anticoagulation via IV heparin for stroke prophylaxis in afib. Will defer to primary and surgery for this. PDMP PDMP Reviewed: Not Reviewed Attestations 2 Medical Necessity Statement*: Deferred to primary care Coding Level of Care Code Acute Code for Chg Fwd Diagnoses Primary hypertension I10 Hypertension type: primary hypertension Longstanding persistent atrial fibrillation I48.11 Atrial fibrillation type: longstanding persistent Chronic anticoagulation Z79.01
--- NOTE | 2024-10-19 10:31 | P.PN_ITS ---
Subjective 2 Subjective: Cholecystostomy tube functional. Drainig bile Abdomen soft Patient delirious Not rate controlled on amio Vitals/I&O/Wt Last Vital Signs Temp 97.5 F L 10/19/24 08:00 Pulse 122 H 10/19/24 08:00 Resp 16 10/19/24 08:00 BP 144/101 10/19/24 08:00 Pulse Ox 94 10/19/24 08:00 O2 Del Method Room Air 10/19/24 08:00 10/18/24 10/19/24 10/19/24 22:59 06:59 14:59 Intake Total 845 / 1095 300 / 1395 1165.833 / 1165.833 Output Total 55 / 55 Balance 845 / 1095 245 / 1340 1165.833 / 1165.833 Weight last 48 hrs Weight 225 lb Weight 227 lb 11.2 oz Physical Exam 2 Narrative: Delirious Cholecystostomy tube functional draining bile Afib 130s on amio gtt Unlabored breathing RA Data 10/19/24 04:37 10/19/24 04:37 Micro: Microbiology 10/13/24 12:35 Blood Culture - Final Blood NO GROWTH AFTER 5 DAYS 10/13/24 12:32 Blood Culture - Final Blood NO GROWTH AFTER 5 DAYS 10/16/24 10:43 Gram Stain - Final Gallbladder Fluid Body Fluid Culture - Preliminary A&P Assessment and plan (1) Cholecystitis: Plan 79yo male admitted with cholecystitis. S/p merissa tube which is functional. Noticed elevated T bili and AP. Today scheduled for cardioversion. Recommend MRCP after cardioversion to rule out choledocholithiasis. PDMP PDMP Reviewed: Not Reviewed Attestations 2 Medical Necessity Statement*: NA Coding Level of Care Code 06561 Diagnoses Cholecystitis K81.9 Time Spent (min) 30
[2024-10-19 11:22] LABS: Glucose Point of Care 178 mg/dL (70-110)
[2024-10-19 13:39] LABS: Potassium 3.5 mmol/L (3.5-5.1)
--- NOTE | 2024-10-19 14:00 | USCV_ITS ---
Shad Vines Age: 79 Gender: M : 1945 Exam Date: 10/19/2024 14:12 Ordering Phys: Ree Medrano NP Technologist: Exam Location: [facility] [place] Indication: card conversion BP: / HR: Rhythm: Sinus Technical Quality: MEASUREMENTS (Male / Female) Normal Values Medications Patient given IV sedation by anesthesia service, for details please refer to the anesthesia report. Complications None. Proc. Components FINDINGS Left Ventricle Normal left ventricular size, systolic function and wall thickness, with no regional wall motion abnormalities. Left ventricular ejection fraction is estimated at 55 %. Right Ventricle The right ventricle is normal in size and function. Right Atrium The right atrium is normal in size. Left Atrium The left atrium is normal in size. LA Appendage The LA appendage is normal. No thrombus visualized in the left atrial appendage. IA Septum Normal interatrial septum. No utfn-dc-pcyec shunt seen at the atrial level. No xicid-qj-paii shunt seen at the atrial level with contrast. Mitral Valve Thickened mitral valve. No mitral valve stenosis. Mild mitral valve regurgitation. Aortic Valve Mild aortic valve calcification. No aortic valve stenosis. Tricuspid Valve Trace tricuspid valve regurgitation. Pulmonic Valve Structurally normal pulmonic valve without significant stenosis. There is no pulmonic regurgitation. Pericardium Normal pericardium without effusion. Aorta Normal ascending aorta dimension. CONCLUSIONS Normal left ventricular size, systolic function and wall thickness, with no regional wall motion abnormalities. Left ventricular ejection fraction is estimated at 55 %. The LA appendage is normal. No thrombus visualized in the left atrial appendage. Normal interatrial septum. No evni-vq-drqbj shunt seen at the atrial level. No xvwyw-wb-kfxj shunt seen at the atrial level with contrast. Thickened mitral valve. No mitral valve stenosis. Mild mitral valve regurgitation. Trace tricuspid valve regurgitation. There is no pericardial effusion. Taj Torres MD (Electronically Signed) Final Date: 21 October 2024 16:42 S
--- NOTE | 2024-10-19 15:11 | P.PN_ITS ---
Subjective 2 Subjective: Patient underwent MO cardioversion this afternoon. Currently in sinus rhythm after the cardioversion. Heart rate at 83/min. Medications: Reviewed: Yes Medication Review Details: Revlimid is on an off week currently with plan for to resume on October 17 Vitals/I&O/Wt Last Vital Signs Temp 97.5 F L 10/19/24 08:00 Pulse 119 H 10/19/24 12:13 Resp 23 H 10/19/24 12:13 BP 144/101 10/19/24 12:13 Pulse Ox 96 10/19/24 12:13 O2 Del Method Room Air 10/19/24 08:00 10/19/24 10/19/24 10/19/24 06:59 14:59 22:59 Intake Total 300 / 1395 1165.833 / 1165.833 Output Total 55 / 55 Balance 245 / 1340 1165.833 / 1165.833 Weight last 48 hrs Weight 102.058 kg Weight 103.283 kg Physical Exam 2 Narrative: General: No acute distress, currently drowsy after having just undergone cardioversion. HEENT: PERRLA, pupils bilaterally equal and reactive, pallors not present Chest: Normal vesicular breath sounds, no added sounds, equal good air entry bilaterally CVS: S1-S2 regular, no murmurs, no tachycardia, no gallops, no rubs Abdomen: Soft, nontender, no organomegaly, bowel sounds present Neuro: Moving all extremities in bed Data 10/19/24 04:37 10/19/24 12:56 Micro: Microbiology 10/16/24 10:43 Gram Stain - Final Gallbladder Fluid Body Fluid Culture - Final 10/13/24 12:35 Blood Culture - Final Blood NO GROWTH AFTER 5 DAYS 10/13/24 12:32 Blood Culture - Final Blood NO GROWTH AFTER 5 DAYS A&P Assessment and plan (1) Acute calculous cholecystitis: As evidenced by findings of elevation in bilirubin and alkaline phosphatase, findings on ultrasound and CT imaging and clinical presentation of abdominal pain, right sided. Has associated elevation in white blood count. Blood pressures are normal, does have tachycardia. He did not take his medications since yesterday, however, and is known to be on sotalol for atrial fibrillation. Currently meeting SIRS criteria and at risk for progression to sepsis/severe sepsis but not currently meeting definitive criteria for such with other potential explanations for abnormalities identified. (2) Chronic anticoagulation: Chronically on Eliquis due to history of atrial fibrillation. No personal history of stroke or TIA known. (3) Atrial fibrillation: Longstanding persistent atrial fibrillation. In addition to anticoagulation he is chronically on sotalol. Typically rate controlled. Missed his dose of sotalol today due to acute issues contributing to tachycardia currently. Qualifiers: Atrial fibrillation type: longstanding persistent Qualified Code(s): I 48.11 - Longstanding persistent atrial fibrillation (4) HTN (hypertension): Primary hypertension, not on specific medication currently with acceptable blood pressures. Qualifiers: Hypertension type: primary hypertension Qualified Code(s): I10 - Essential (primary) hypertension (5) ASHD (arteriosclerotic heart disease): Chronic diagnosis. Is never required any cardiac intervention. Follows with Dr. Vasquez as an outpatient basis from cardiology standpoint. (6) Diabetes mellitus, type II, insulin dependent: With associated peripheral neuropathy based on available history. (7) Dyslipidemia: Chronically on statin therapy. (8) Parkinson disease: Chronically on carbidopa/levodopa. Qualifiers: Dyskinesia presence: without dyskinesia Fluctuating manifestations: w ithout fluctuating manifestations Qualified Code(s): G20.A1 - Parkinson's disease without dyskinesia, without mention of fluctuations (9) Lewy body dementia: Chronically on memantine and escitalopram. Follows with Dr. Littlejohn and has been doing well. Makes his own decisions. Does have medical power of deputy county attorney, his daughter Candy. Qualifiers: Dementia behavioral or psychological symptom: with mood disturbance D ementia severity: mild Qualified Code(s): G31.83 - Neurocognitive disorder with Lewy bodies; F02.A3 - Dementia in other diseases classified elsewhere, mild, with mood disturbance (10) Multiple myeloma: In remission, chronically on Revlimid, on and off week this week with date for resumption 10/17/2024. Qualifiers: Multiple myeloma remission status: in remission Qualified Code(s): C 90.01 - Multiple myeloma in remission (11) Gait instability: Related to chronic back pain and Parkinson disease, uses walker at baseline. Back pain significant with movement and ambulation. May impede usual post operative recovery. Plan Chronically on PPI Chronically on potassium replacement History of chronic diarrhea felt related to Revlimid improved with cholestyramine, a chronic medication; recently constipated Enlarged prostate on imaging without reported prostatic hypertrophy symptoms Inpatient admission Surgical consultation with Dr. Vogt Case discussed with Dr. Vogt and after reviewing both with Mr. Vines himself and his daughter Candy risk and benefit of surgery for cholecystitis versus risk and benefit of less invasive procedures, informed decision has been made to plan for surgery on allowing adequate time for Eliquis to be held. Risk of surgery include bleeding, infection, pain, anesthesia complications and other medication reactions and others as addressed by surgery. Mr. Vines has typically done okay from an anesthesia standpoint with several surgeries including 4 since 2021. Benefit is less chance of recurrent disease given the gallstones noted. With holding of Eliquis increased risk of hypercoagulable state including risk of stroke. Given known arrhythmia and other cardiovascular history there is a risk of cardiovascular events. Patient is currently medically optimized, thought we will need to monitor heart rate control and for signs and symptoms of developing severe sepsis. IVFs, including fluid bolus Zosyn Pain control Bowel regimen given constipation already reported and potential impact of pain management Diet as tolerated for now Hold eliquis Continue sotalol, pharmacy has ordered 120mg tablets to allow dosing of his usual 60 mg regimen bid; tonight will give him 80mg one time given the missed dose today Telemetry monitoring Monitor blood pressures Hold home tresiba; will give lower dose of lantus along with moderate dose insulin coverage with meals and at bedtime Holding statin therapy currently Continue cardbidopa/levodopa; reviewed that there is not an IV equivalent during the periop timeframe but we will restart post op once tolerating po Continue home memantine and escitalopram On off-week for Revlimid; if does okay can plan to resume on 10/17 as scheduled Walker at bedside, PT for ambulation as he can tolerate as will be a part of usual recovery to move around, fall precautions Continue home PPI and potassium Bladder scan as needed for concerns regarding urinary retention VTE prophylaxis: SCDs, home eliquis held for planned surgery GI Prophylaxis: PPI chronically Antibiotics: Zosyn started 10/13 Pending studies: am A1c, lactic acid, repeat lfts/labs Telemetry: ordered given tachycardia/konwn afib and potential for clinical worsening/need for close monitoring Zheng: not currently indicated Line(s): peripheral IVs Disposition plan: Home with outpatient follow up to general surgery & PCP anticipated after DC along with follow up to other providers as already scheduled. Code Status: Full Code Supportive care otherwise Findings, concerns and plans were discussed with patient and he was given an opportunity to ask questions. I was also able to speak with Candy at phone number listed under contact information reviewing same information and opportunity to ask quesitons. 10/14/2024 Plan for cholecystectomy in AM. Patient continues to be in atrial fibrillation with RVR. Will place on sotalol 80 twice daily. If still remains uncontrolled will consider adding additional medication. Continue to watch at this time. Continue to monitor on telemetry. Continue to hold Eliquis in anticipation for surgery in AM. Agree with H&P assessment and plan above. Continue Zosyn 10/15/2024 Cholecystectomy canceled. Will order IR guided drainage patient continues to be in A-fib with RVR. Sotalol was stopped yesterday. Appreciate cardiology recommendations. Placed on amiodarone at this time. Will order digoxin for patient. ? Continue to hold Eliquis. Will consider placing on heparin drip after tube placement ? Patient does have a left shift on labs and bandemia. Continue Zosyn. Add vancomycin at this time. Blood culture pending. 10/16/2024 continue digoxin, amio, plan for MO cardioversion on Saturday, NPO at midnight saturday night - start cardiac diabetic diet - continue zosyn - continue broad spectrum abx till cultures result - fluid sent to lab for analysis from merissa tube -Had a long discussion with Dr. Zuleta over the phone. The drain had to be placed via the liver. He is recommended to repeat a CT abdomen pelvis on Saturday to reassess the right upper quadrant area as she has a suspicion there may be another fluid collection a few centimeters by the gallbladder however it is unclear if it is a loop of bowel versus a fluid collection. She recommends waiting 48 hours prior to obtaining another CT unless clinically symptoms worsen and it is warranted earlier. ? We will continue to hold off on anticoagulation at least till Saturday night at least until CT is repeated and patient has started to improve. ? Continue to hospitalize at this time and keep on IV antibiotics. low threshold to repeat ct abdomen if abdominal pain worsens or worsening leukocytosis 10/17/2024 CT abdomen pelvis with IV contrast planned for tomorrow morning to reassess gallbladder fossa. Continue to hold off on anticoagulation as per radiology recommendation secondary to drain placement. May restart on heparin tomorrow if CT is okay and no further drains are warranted. If there is another fluid collection adjacent to gallbladder patient may require a secondary drain. Discussed with surgeon. ? Plan for MO cardioversion Saturday however I will try calling anesthesia to see if they are available today versus tomorrow. ? Continue IV antibiotics complete 5-day course total. ? May add low-dose Zyprexa 2.5 twice daily for agitation/delirium. He is appropriate alert oriented today. I will hold off on adding right now however may be added at nighttime if needed. ? Discussed plan with daughter at bedside. ? Cholecystostomy drain fluid cultures are pending ? Blood cultures, urine culture negative to date ? Check venous Dopplers 10/18/2024 Potassium 2.7 this morning. 40 oral and 40 IV has been ordered. Have ordered normal saline along with IV potassium so patient will tolerated better. Initially he refused it. ? MO cardioversion was post be done around noon today however due to potassium being low it was canceled as patient was unstable to receive anesthesia. Discussed with anesthesia. Plan to perform MO cardioversion in AM. Will keep patient n.p.o. at midnight. CT abdomen pelvis does show subscapular hematoma at this time. No intervention recommended for that at this time by general surgery. Continue to monitor. I will hold off on starting anticoagulation tonight. May consider restarting tomorrow. Patient does have delirium on underlying dementia. Continue 2.5 Zyprexa twice daily at this time. Haldol as needed. Sitter not needed at this time however will place if required. Quetiapine 50 added at bedtime. Discussed with cardiology. Appreciate general surgery recommendations Daughter updated at bedside. October 19, 2024 Chart reviewed extensively. Patient is a 79-year-old male with a past medical history of Lewy body dementia, multiple myeloma on Revlimid, chronic back pain, atrial fibrillation on chronic anticoagulation with Eliquis, who was admitted to the hospital on October 13, 2024 with a right upper quadrant pain and associated deranged LFTs. Acute cholecystitis was diagnosed. Gallstones were noted without any obvious biliary obstruction. General surgery was consulted and he was initially planned to undergo a laparoscopic cholecystectomy. However he was on Eliquis therefore decision was made to wait the initial 48-hour period and Eliquis was held. Cardiology service was consulted for A-fib with RVR. Sotalol was discontinued and he was switched to IV amiodarone which is continuing at 0.5 currently. He was on a heparin drip which was subsequently discontinued due to subcapsular hematoma. Patient continued to have persistent A-fib with heart rate in the 150s on day of planned surgery that is October 15, 2024 therefore his planned cholecystectomy was canceled. Instead he underwent placement of a cholecystostomy tube via IR on October 16, 2024. Prior to the procedure a fluid collection was noted adjacent and medial to the gallbladder which was not noted on initial CT upon admission. This was thought to be either a reactive collection or perhaps ascites. Stones were noted in the neck of the gallbladder, possibility of a fistula or abscess was not excluded.he continued to be in A-fib in spite of being on amiodarone and digoxin and eventually underwent a MO cardioversion today following which she has converted to sinus rhythm. CT of the abdomen and pelvis was performed on October 17, 2024 prior to this showed a subcapsular hematoma resuming anticoagulation.. No intervention recommended per surgery at this time. Continuing to hold anticoagulation for another 48 hours for this reason. Today he is noted to have elevated T. bili and alkaline phosphatase. General surgery recommends MRCP which has been ordered to be performed after cardioversion. Since he is currently on sinus rhythm, plan to transition of IV amiodarone to oral. Continue digoxin. Check digoxin level in the a.m. Continue metoprolol. On antibiotic coverage with piperacillin/tazobactam and vancomycin. Culture is negative from drain placement on October 16. Discontinue vancomycin at this time. PDMP PDMP Reviewed: Not Reviewed Attestations 2 Medical Necessity Statement*: continue iv abx, hold a/c due to subcapsular hematoma. Transition IV to oral once able to take oral intake consistently. MRCP planned today. Coding Level of Care Code Acute Code for Chg Fwd High MDM includes number and complexity of problems actively addressed during encounter, amount and/or complexity of data reviewed/ordered and described risk of complication, morbidity or mortality of management as documented Diagnoses Acute calculous cholecystitis K80.00 Chronic anticoagulation Z79.01 Longstanding persistent atrial fibrillation I48.11 Atrial fibrillation type: longstanding persistent Primary hypertension I10 Hypertension type: primary hypertension ASHD (arteriosclerotic heart disease) I25.10 Diabetes mellitus, type II, insulin dependent E11.9; Z79.4 Dyslipidemia E78.5 Parkinson's disease without dyskinesia or fluctuating manifestations G20.A1 Dyskinesia presence: without dyskinesia Fluctuating manifestations: without fluctuating manifestations Mild Lewy body dementia with mood disturbance G31.83; F02.A3 Dementia behavioral or psychological symptom: with mood disturbance Dementia severity: mild Multiple myeloma in remission C90.01 Multiple myeloma remission status: in remission Gait instability R26.81
[2024-10-19 16:24] LABS: Glucose Point of Care 175 mg/dL (70-110)
--- NOTE | 2024-10-19 16:38 | PC.NURSE ---
Oral medications not given this day due to patient being NPO and possible aspiration per Dr Garcia.
[2024-10-19] MEDS: efferdent effervescent 1 EACH DENTAL (18:26)
[2024-10-19 20:32] LABS: Glucose Point of Care 156 mg/dL (70-110)
--- NOTE | 2024-10-19 22:18 | ECG_ITS ---
[facility] 2024-10-19 Pat Name: Shad Vines Department: Room: 111 Gender: Male [employer]: : 1945 Requested By: Ashley Garcia Order Number: [id number] Marco Antonio MD: Rajiv Acuna M.D. Measurements Intervals [place] Rate: 104 P: 0 TN: 0 QRS: -5 QRSD: 107 T: 0 QT: 297 QTc: 391 Interpretive Statements ATRIAL FIBRILLATION WITH RAPID VENTRICULAR RESPONSE WITH ABERRANT CONDUCTION OR VENTRICULAR PREMATURE COMPLEXES INFERIOR MYOCARDIAL INFARCTION , PROBABLY OLD [40+ ms Q WAVE AND/OR ST/T ABNORMALITY IN II/aVF] Compared to ECG 10/14/2024 11:08:31 Ventricular premature complex(es) now present Aberrant conduction of supraventricular beat(s) now present Myocardial infarct finding still present Electronically Signed On 10-22-2024 17:55:57 [employer]OD [employer]ASKET [employer] by Rajiv Acuna M.D. [email or web address]
--- NOTE | 2024-10-19 22:33 | PC.NURSE ---
Patient rate began to elevate, and looked like back in afib on bedside monitor, obtained EKG to confirm, notified MD about being back in afib with rvr, no new orders at this time
[2024-10-20] VITALS (10 sets, daily range): BP systolic 99–149; BP diastolic 69–101; PULSE 62–118; RESP 15–23; TEMP 36.6–37.1; O2SAT 93–98
[2024-10-20] MEDS: piperacillin-tazobactam 3.375 GM in sodium chloride 0.9% (plus) 50 ML IV ×4 (00:12→23:22)
[2024-10-20 03:09] LABS: Basophils # 0.1 10^3/uL (0.0-0.1); Basophils % 0.9 %; Eosinophils # 0.2 10^3/uL (0.0-0.8); Eosinophils % 2.2 %; Hematocrit 33.6 % (37-53); Lymphocytes # 0.8 10^3/uL (0.8-4.8); Lymphocytes % 10.9 %; Mean Corpuscular HGB Conc 31.5 g/dL (30-55); Mean Corpuscular Hemoglobin 29.7 pg (27-33); Mean Corpuscular Volume 94.1 fl (82-101); Mean Platelet Volume 10.1 fL (7.4-10.4); Monocytes # 0.5 10^3/uL (0.2-0.9); Monocytes % 5.8 %; Neutrophils # 5.85 10^3/uL (1.8-7.7); Neutrophils % 75.7 %; Nucleated Red Blood Cells % 0 %; Platelet Count 252 10^3/cmm (157-399); Red Blood Count 3.57 10^6/uL (3.85-5.65); Red Cell Distribution Width 16.6 % (12.1-15.1); White Blood Count 7.73 10^3/uL (3.29-11.43)
[2024-10-20 03:31] LABS: Alanine Aminotransferase 7 U/L (0-41); Alkaline Phosphatase 600 U/L (40-130); Anion Gap 13.5 (5-19); Aspartate Amino Transferase 18 U/L (0-40); Blood Urea Nitrogen 8 mg/dL (8-23); Calcium 7.8 mg/dL (8.5-10.5); Carbon Dioxide 25 mmol/L (22-29); Chloride 106 mmol/L (98-107); Globulin 3.3 g/dL (1.3-4.6); Glucose 161 mg/dL (65-115); Magnesium 1.9 mg/dL (1.7-2.3); Osmolality Calculated 294 mOsm/kg (285-295); Potassium 3.5 mmol/L (3.5-5.1); Sodium 141 mmol/L (136-145); Total Bilirubin 1.7 mg/dL (0.15-1.2); Total Protein 5.3 g/dL (6.6-8.7)
[2024-10-20 03:32] LABS: Ammonia 23 umol/L (16-60); Digoxin 0.8 ng/mL (0.6-1.2)
[2024-10-20 06:19] LABS: Glucose Point of Care 150 mg/dL (70-110)
--- NOTE | 2024-10-20 07:33 | PC.NURSE ---
Addendum entered by Klaudia Egan RN 10/20/24 09:05: Ree Medrano NP present on the unit. Informed her of changes in patient's rythym. Telemetry strips placed in chart. Original Note: Patient at this time is in afib with HR at 117. Patient has been back and forth from NSR to afib. Last converted from NSR to afib at 0718 this morning. Will continue to monitor.
[2024-10-20] MEDS: metoprolol succinate ER (24 HR) 25 mg Tablet PO ×2 (08:16→13:25)
[2024-10-20] MEDS: escitalopram 10 mg Tablet 20 MG PO (08:17)
[2024-10-20] MEDS: memantine 5 mg tablet PO (08:17)
[2024-10-20] MEDS: docusate sodium 100 mg Capsule PO (08:17)
[2024-10-20] MEDS: digoxin 125 mcg Tablet PO (08:17)
[2024-10-20] MEDS: pantoprazole DR 40 mg Tablet PO (08:18)
[2024-10-20] MEDS: carbidopa-levodopa 25-100mg Tablet 1 EACH PO ×2 (08:18→20:53)
[2024-10-20] MEDS: fluconazole oral liq 40 mg/mL Syringe 100 MG PO (08:18)
[2024-10-20] MEDS: insulin lispro 100 unit/1 mL SUBCUT (08:21)
--- NOTE | 2024-10-20 09:30 | MR_ITS ---
WS: [id number] MRCP (MAGNETIC RESONANCE CHOLANGIOPANCREATOGRAPHY) HISTORY: assess for biliary obstruction COMPARISON: CT 10/18/2024, 10/13/2024 TECHNIQUE: Multiple sequences are performed to evaluate the intra and extrahepatic ducts. Cholecystotomy drain is in place. Fluid collection adjacent to the gallbladder is identified measuring 4.6 x 1.8 cm which is similar to 10/18/2024. This is a subcapsular collection is best seen on the prior CT. Reidentified are small stones in the neck of the gallbladder. The gallbladder is collapsed. The common bile duct is 4 mm. There is no dilatation. The entire length of the common bile duct is poorly visualized due to breathing motion artifact but no filling defect or stone identified. The pancreatic duct does not appear dilated. There are some limitations of the study. Simple RIGHT renal cyst. Small RIGHT pleural effusion. Small amount of subhepatic fluid. MR/MR MRCP 00127 IMPRESSION: 1. No common bile duct obstruction. Normal size common bile duct. 2. Cholecystotomy tube in a nondistended gallbladder. 3. Subcapsular fluid collection adjacent to the contracted gallbladder as seen on the CT of 10/18/2024. Collection measures 4.6 x 1.8 cm. This is a collection that was noted prior to the cholecystotomy drain placement. 4. RIGHT pleural effusion.
[2024-10-20 11:42] LABS: Glucose Point of Care 134 mg/dL (70-110)
--- NOTE | 2024-10-20 14:37 | P.PN_ITS ---
Documented by User: Ree Merdano NP 10/20/24 14:45 Subjective 2 Subjective: Patient was undergoing MRI this morning on rounds. He is back in afib. HR running 118-120s. BP has been 130s to 150s. Currently on amio drip, metoprolol 25 BID, and digoxin 125 mcg daily. Vitals/I&O/Wt Last Vital Signs Temp 98.0 F 10/20/24 12:00 Pulse 108 H 10/20/24 12:00 Resp 20 H 10/20/24 12:00 BP 99/85 10/20/24 12:00 Pulse Ox 95 10/20/24 12:00 O2 Del Method Room Air 10/20/24 12:00 O2 Flow Rate 2 10/20/24 08:00 10/19/24 10/20/24 10/20/24 22:59 06:59 14:59 Intake Total 654.167 / 1820.000 250 / 2070.000 250 / 250 Output Total 0 / 0 700 / 700 Balance 654.167 / 1820.000 250 / 2070.000 -450 / -450 Weight last 48 hrs Weight 229 lb 8 oz Weight 225 lb Data 10/20/24 02:56 10/20/24 02:56 Micro: Microbiology 10/16/24 10:43 Gram Stain - Final Gallbladder Fluid Body Fluid Culture - Final A&P Assessment and plan (1) HTN (hypertension): Qualifiers: Hypertension type: primary hypertension Qualified Code(s): I10 - Essential (primary) hypertension (2) Atrial fibrillation: Qualifiers: Atrial fibrillation type: longstanding persistent Qualified Code(s): I 48.11 - Longstanding persistent atrial fibrillation (3) Chronic anticoagulation: Plan Continue digoxin Continue IV amiodarone Increase Metoprolol 50 BID Patient not anticoagulated due to Subcapsular hematoma per hospitalist team after 48 hours it will be restarted. PDMP PDMP Reviewed: Not Reviewed Attestations 2 Medical Necessity Statement*: Deferred to primary care team. Coding Level of Care Code Acute Code for g Fwd Diagnoses Primary hypertension I10 Hypertension type: primary hypertension Longstanding persistent atrial fibrillation I48.11 Atrial fibrillation type: longstanding persistent Chronic anticoagulation Z79.01 Documented by User: Rajiv Acuna M.D 10/20/24 23:38 Subjective 2 Subjective: Patient converted back to atrial fibrillation. Currently on amio drip, metoprolol 25 BID, and digoxin 125 mcg daily. Physical Exam 2 Const: OTHER: GENERAL: Patient is alert, awake and oriented x3. HEART: Irregularly irregular S1 and S2. No murmur, rub or gallop. LUNGS: Clear to auscultate bilaterally. CENTRAL NERVOUS SYSTEM: Grossly nonfocal. EXTREMITIES: Lower extremities with out edema bilaterally. Data 10/20/24 02:56 10/20/24 02:56 A&P Assessment and plan (1) HTN (hypertension): Qualifiers: Hypertension type: primary hypertension Qualified Code(s): I10 - Essential (primary) hypertension (2) Atrial fibrillation: Qualifiers: Atrial fibrillation type: longstanding persistent Qualified Code(s): I 48.11 - Longstanding persistent atrial fibrillation (3) Chronic anticoagulation: Plan Continue amiodarone and digoxin. Metoprolol uptitrated. Resume anticoagulation as soon as possible. As patient failed rhythm control, currently will try to rate control Thank you for involving us with care of this patient. Please call with questions PDMP PDMP Reviewed: Not Reviewed Coding Level of Care Code Acute Code for Chg Fwd Diagnoses Primary hypertension I10 Hypertension type: primary hypertension Longstanding persistent atrial fibrillation I48.11 Atrial fibrillation type: longstanding persistent Chronic anticoagulation Z79.01
--- NOTE | 2024-10-20 14:38 | PM.PN ---
Subjective Subjective: Back in A fib RVR this am with HR 120s, MRCP completed this morning showing no choledocholithiasis. Negative CT head for stroke. Medications: Reviewed: Yes Medication Review Details: Revlimid is on an off week currently with plan for to resume on October 17 Vitals/I&O/Wt Last Vital Signs Temp 98.0 F 10/20/24 12:00 Pulse 108 H 10/20/24 12:00 Resp 20 H 10/20/24 12:00 BP 99/85 10/20/24 12:00 Pulse Ox 95 10/20/24 12:00 O2 Del Method Room Air 10/20/24 12:00 O2 Flow Rate 2 10/20/24 08:00 10/19/24 10/20/24 10/20/24 22:59 06:59 14:59 Intake Total 654.167 / 1820.000 250 / 2070.000 250 / 250 Output Total 0 / 0 700 / 700 Balance 654.167 / 1820.000 250 / 2070.000 -450 / -450 Weight last 48 hrs Weight 104.099 kg Weight 102.058 kg Physical Exam Narrative: General: No acute distress, currently asleep HEENT: PERRLA, pupils bilaterally equal and reactive, pallors not present Chest: Normal vesicular breath sounds, no added sounds, equal good air entry bilaterally CVS: S1-S2 regular, no murmurs, no tachycardia, no gallops, no rubs Abdomen: Soft, nontender, no organomegaly, bowel sounds present Neuro: Moving all extremities in bed Data 10/20/24 02:56 10/20/24 02:56 Micro: Microbiology 10/16/24 10:43 Gram Stain - Final Gallbladder Fluid Body Fluid Culture - Final A&P Assessment and plan (1) Acute calculous cholecystitis: As evidenced by findings of elevation in bilirubin and alkaline phosphatase, findings on ultrasound and CT imaging and clinical presentation of abdominal pain, right sided. Has associated elevation in white blood count. Blood pressures are normal, does have tachycardia. He did not take his medications since yesterday, however, and is known to be on sotalol for atrial fibrillation. Currently meeting SIRS criteria and at risk for progression to sepsis/severe sepsis but not currently meeting definitive criteria for such with other potential explanations for abnormalities identified. (2) Chronic anticoagulation: Chronically on Eliquis due to history of atrial fibrillation. No personal history of stroke or TIA known. (3) Atrial fibrillation: Longstanding persistent atrial fibrillation. In addition to anticoagulation he is chronically on sotalol. Typically rate controlled. Missed his dose of sotalol today due to acute issues contributing to tachycardia currently. Qualifiers: Atrial fibrillation type: longstanding persistent Qualified Code(s): I48.11 - Longstanding persistent atrial fibrillation (4) HTN (hypertension): Primary hypertension, not on specific medication currently with acceptable blood pressures. Qualifiers: Hypertension type: primary hypertension Qualified Code(s): I10 - Essential (primary) hypertension (5) ASHD (arteriosclerotic heart disease): Chronic diagnosis. Is never required any cardiac intervention. Follows with Dr. Vasquez as an outpatient basis from cardiology standpoint. (6) Diabetes mellitus, type II, insulin dependent: With associated peripheral neuropathy based on available history. (7) Dyslipidemia: Chronically on statin therapy. (8) Parkinson disease: Chronically on carbidopa/levodopa. Qualifiers: Dyskinesia presence: without dyskinesia Fluctuating manifestations: without fluctuating manifestations Qualified Code(s): G20.A1 - Parkinson's disease without dyskinesia, without mention of fluctuations (9) Lewy body dementia: Chronically on memantine and escitalopram. Follows with Dr. Littlejohn and has been doing well. Makes his own decisions. Does have medical power of [employer] attorney, his daughter Candy. Qualifiers: Dementia behavioral or psychological symptom: with mood disturbance Dementia severity: mild Qualified Code(s): G31.83 - Neurocognitive disorder with Lewy bodies; F02.A3 - Dementia in other diseases classified elsewhere, mild, with mood disturbance (10) Multiple myeloma: In remission, chronically on Revlimid, on and off week this week with date for resumption 10/17/2024. Qualifiers: Multiple myeloma remission status: in remission Qualified Code(s): C90.01 - Multiple myeloma in remission (11) Gait instability: Related to chronic back pain and Parkinson disease, uses walker at baseline. Back pain significant with movement and ambulation. May impede usual post operative recovery. Plan Chronically on PPI Chronically on potassium replacement History of chronic diarrhea felt related to Revlimid improved with cholestyramine, a chronic medication; recently constipated Enlarged prostate on imaging without reported prostatic hypertrophy symptoms Inpatient admission Surgical consultation with Dr. Vogt Case discussed with Dr. Vogt and after reviewing both with Mr. Vines himself and his daughter Candy risk and benefit of surgery for cholecystitis versus risk and benefit of less invasive procedures, informed decision has been made to plan for surgery on allowing adequate time for Eliquis to be held. Risk of surgery include bleeding, infection, pain, anesthesia complications and other medication reactions and others as addressed by surgery. Mr. Vines has typically done okay from an anesthesia standpoint with several surgeries including 4 since 2021. Benefit is less chance of recurrent disease given the gallstones noted. With holding of Eliquis increased risk of hypercoagulable state including risk of stroke. Given known arrhythmia and other cardiovascular history there is a risk of cardiovascular events. Patient is currently medically optimized, thought we will need to monitor heart rate control and for signs and symptoms of developing severe sepsis. IVFs, including fluid bolus Zosyn Pain control Bowel regimen given constipation already reported and potential impact of pain management Diet as tolerated for now Hold eliquis Continue sotalol, pharmacy has ordered 120mg tablets to allow dosing of his usual 60 mg regimen bid; tonight will give him 80mg one time given the missed dose today Telemetry monitoring Monitor blood pressures Hold home tresiba; will give lower dose of lantus along with moderate dose insulin coverage with meals and at bedtime Holding statin therapy currently Continue cardbidopa/levodopa; reviewed that there is not an IV equivalent during the periop timeframe but we will restart post op once tolerating po Continue home memantine and escitalopram On off-week for Revlimid; if does okay can plan to resume on 10/17 as scheduled Walker at bedside, PT for ambulation as he can tolerate as will be a part of usual recovery to move around, fall precautions Continue home PPI and potassium Bladder scan as needed for concerns regarding urinary retention VTE prophylaxis: SCDs, home eliquis held for planned surgery GI Prophylaxis: PPI chronically Antibiotics: Zosyn started 10/13 Pending studies: am A1c, lactic acid, repeat lfts/labs Telemetry: ordered given tachycardia/konwn afib and potential for clinical worsening/need for close monitoring Zheng: not currently indicated Line(s): peripheral IVs Disposition plan: Home with outpatient follow up to general surgery & PCP anticipated after DC along with follow up to other providers as already scheduled. Code Status: Full Code Supportive care otherwise Findings, concerns and plans were discussed with patient and he was given an opportunity to ask questions. I was also able to speak with Candy at phone number listed under contact information reviewing same information and opportunity to ask quesitons. 10/14/2024 Plan for cholecystectomy in AM. Patient continues to be in atrial fibrillation with RVR. Will place on sotalol 80 twice daily. If still remains uncontrolled will consider adding additional medication. Continue to watch at this time. Continue to monitor on telemetry. Continue to hold Eliquis in anticipation for surgery in AM. Agree with H&P assessment and plan above. Continue Zosyn 10/15/2024 Cholecystectomy canceled. Will order IR guided drainage patient continues to be in A-fib with RVR. Sotalol was stopped yesterday. Appreciate cardiology recommendations. Placed on amiodarone at this time. Will order digoxin for patient. ? Continue to hold Eliquis. Will consider placing on heparin drip after tube placement ? Patient does have a left shift on labs and bandemia. Continue Zosyn. Add vancomycin at this time. Blood culture pending. 10/16/2024 continue digoxin, amio, plan for MO cardioversion on Saturday, NPO at midnight saturday night - start cardiac diabetic diet - continue zosyn - continue broad spectrum abx till cultures result - fluid sent to lab for analysis from merissa tube -Had a long discussion with Dr. Zuleta over the phone. The drain had to be placed via the liver. He is recommended to repeat a CT abdomen pelvis on Saturday to reassess the right upper quadrant area as she has a suspicion there may be another fluid collection a few centimeters by the gallbladder however it is unclear if it is a loop of bowel versus a fluid collection. She recommends waiting 48 hours prior to obtaining another CT unless clinically symptoms worsen and it is warranted earlier. ? We will continue to hold off on anticoagulation at least till Saturday night at least until CT is repeated and patient has started to improve. ? Continue to hospitalize at this time and keep on IV antibiotics. low threshold to repeat ct abdomen if abdominal pain worsens or worsening leukocytosis 10/17/2024 CT abdomen pelvis with IV contrast planned for tomorrow morning to reassess gallbladder fossa. Continue to hold off on anticoagulation as per radiology recommendation secondary to drain placement. May restart on heparin tomorrow if CT is okay and no further drains are warranted. If there is another fluid collection adjacent to gallbladder patient may require a secondary drain. Discussed with surgeon. ? Plan for MO cardioversion Saturday however I will try calling anesthesia to see if they are available today versus tomorrow. ? Continue IV antibiotics complete 5-day course total. ? May add low-dose Zyprexa 2.5 twice daily for agitation/delirium. He is appropriate alert oriented today. I will hold off on adding right now however may be added at nighttime if needed. ? Discussed plan with daughter at bedside. ? Cholecystostomy drain fluid cultures are pending ? Blood cultures, urine culture negative to date ? Check venous Dopplers 10/18/2024 Potassium 2.7 this morning. 40 oral and 40 IV has been ordered. Have ordered normal saline along with IV potassium so patient will tolerated better. Initially he refused it. ? MO cardioversion was post be done around noon today however due to potassium being low it was canceled as patient was unstable to receive anesthesia. Discussed with anesthesia. Plan to perform MO cardioversion in AM. Will keep patient n.p.o. at midnight. CT abdomen pelvis does show subscapular hematoma at this time. No intervention recommended for that at this time by general surgery. Continue to monitor. I will hold off on starting anticoagulation tonight. May consider restarting tomorrow. Patient does have delirium on underlying dementia. Continue 2.5 Zyprexa twice daily at this time. Haldol as needed. Sitter not needed at this time however will place if required. Quetiapine 50 added at bedtime. Discussed with cardiology. Appreciate general surgery recommendations Daughter updated at bedside. October 19, 2024 Chart reviewed extensively. Patient is a 79-year-old male with a past medical history of Lewy body dementia, multiple myeloma on Revlimid, chronic back pain, atrial fibrillation on chronic anticoagulation with Eliquis, who was admitted to the hospital on October 13, 2024 with a right upper quadrant pain and associated deranged LFTs. Acute cholecystitis was diagnosed. Gallstones were noted without any obvious biliary obstruction. General surgery was consulted and he was initially planned to undergo a laparoscopic cholecystectomy. However he was on Eliquis therefore decision was made to wait the initial 48-hour period and Eliquis was held. Cardiology service was consulted for A-fib with RVR. Sotalol was discontinued and he was switched to IV amiodarone which is continuing at 0.5 currently. He was on a heparin drip which was subsequently discontinued due to subcapsular hematoma. Patient continued to have persistent A-fib with heart rate in the 150s on day of planned surgery that is October 15, 2024 therefore his planned cholecystectomy was canceled. Instead he underwent placement of a cholecystostomy tube via IR on October 16, 2024. Prior to the procedure a fluid collection was noted adjacent and medial to the gallbladder which was not noted on initial CT upon admission. This was thought to be either a reactive collection or perhaps ascites. Stones were noted in the neck of the gallbladder, possibility of a fistula or abscess was not excluded.he continued to be in A-fib in spite of being on amiodarone and digoxin and eventually underwent a MO cardioversion today following which she has converted to sinus rhythm. CT of the abdomen and pelvis was performed on October 17, 2024 prior to this showed a subcapsular hematoma resuming anticoagulation.. No intervention recommended per surgery at this time. Continuing to hold anticoagulation for another 48 hours for this reason. Today he is noted to have elevated T. bili and alkaline phosphatase. General surgery recommends MRCP which has been ordered to be performed after cardioversion. Since he is currently on sinus rhythm, plan to transition of IV amiodarone to oral. Continue digoxin. Check digoxin level in the a.m. Continue metoprolol. On antibiotic coverage with piperacillin/tazobactam and vancomycin. Culture is negative from drain placement on October 16. Discontinue vancomycin at this time. 10/20/24: MRCP without signs of choledocholithiasis, CT head without signs of acute stroke. GB drain in place. Noted collection in the subcapsular area 4.6 x 1.8 cm similar to previous. To resume anticogulation tomorrow. continue Zosyn for now. Plan per surgery is to continue to hold off on Cholecystectomy for now- will be performed as an interval procedure as outpatient. Pt. planned to be discharged with GB drain in place and f/up with surgery as outpatient in 2 weeks. Metoprolol increased today to 50mg BID, closely monitor HR and BP with this change. PDMP PDMP Reviewed: Not Reviewed Attestations Medical Necessity Statement*: mrcp, ct head, A fib RVR needing furrther optimization Coding Level of Care Code Acute Code for Chg Fwd Diagnoses Acute calculous cholecystitis K80.00 Chronic anticoagulation Z79.01 Longstanding persistent atrial fibrillation I48.11 Atrial fibrillation type: longstanding persistent Primary hypertension I10 Hypertension type: primary hypertension ASHD (arteriosclerotic heart disease) I25.10 Diabetes mellitus, type II, insulin dependent E11.9; Z79.4 Dyslipidemia E78.5 Parkinson's disease without dyskinesia or fluctuating manifestations G20.A1 Dyskinesia presence: without dyskinesia Fluctuating manifestations: without fluctuating manifestations Mild Lewy body dementia with mood disturbance G31.83; F02.A3 Dementia behavioral or psychological symptom: with mood disturbance Dementia severity: mild Multiple myeloma in remission C90.01 Multiple myeloma remission status: in remission Gait instability R26.81
[2024-10-20 17:10] LABS: Glucose Point of Care 229 mg/dL (70-110)
--- NOTE | 2024-10-20 17:15 | CT_ITS ---
WS: [id number] CT HEAD NONCONTRAST HISTORY: AMS TECHNIQUE: Contiguous axial imaging performed through the brain. Bone and soft tissue windows. Sagittal and coronal reformats reviewed. All CT scans at [facility] use at least one of these dose optimization techniques: automated exposure control; mA and/or kV adjustment per patient size (includes targeted exams where dose is matched to clinical indication); or iterative reconstruction. DLP: 1136.71 mGy.cm COMPARISON: 03/20/2024 No acute intracranial hemorrhage, midline shift or mass effect. Diffuse symmetric atrophy with periventricular subcortical white matter hypodensities related to small vessel disease. Mild bilateral cerebellar atrophy. No prior infarct. Ventricles: Normal size with no hydrocephalus. No inferior displacement of the cerebellar tonsils. Paranasal sinuses: As visualized are clear. Mastoid air cells: Small amount of cerumen external auditory canals. Calvarium and scalp: No fractures. BB like metallic density embedded within the scalp overlying the RIGHT lateral frontal bone. CT/CT head wo con* 63615 IMPRESSION: 1. No acute intracranial hemorrhage or edema. 2. No interval change in appearance of the brain since 03/20/2024. 3. Mild cerebral and cerebellar atrophy with mild small vessel disease.
--- NOTE | 2024-10-20 18:11 | PC.NURSE ---
Patient converted to NSR at 1805 with HR ~75 Strip in chart
[2024-10-20 20:49] LABS: Glucose Point of Care 216 mg/dL (70-110)
[2024-10-20] MEDS: quetiapine 25 mg Tablet 50 MG PO (20:53)
[2024-10-20] MEDS: metoprolol succinate ER (24 HR) 50 mg Tablet PO (20:54)
[2024-10-20] MEDS: acetaminophen 325 mg Tablet 650 MG PO (20:56)
[2024-10-21] VITALS (8 sets, daily range): BP systolic 127–143; BP diastolic 62–90; PULSE 59–97; RESP 17–24; TEMP 36.5–36.7; O2SAT 93–96
[2024-10-21 03:46] LABS: Basophils # 0.1 10^3/uL (0.0-0.1); Basophils % 0.8 %; Eosinophils # 0.2 10^3/uL (0.0-0.8); Eosinophils % 2.7 %; Hematocrit 32.5 % (37-53); Lymphocytes # 0.9 10^3/uL (0.8-4.8); Lymphocytes % 12.3 %; Mean Corpuscular HGB Conc 31.1 g/dL (30-55); Mean Corpuscular Hemoglobin 28.9 pg (27-33); Mean Corpuscular Volume 92.9 fl (82-101); Mean Platelet Volume 10.1 fL (7.4-10.4); Monocytes # 0.4 10^3/uL (0.2-0.9); Monocytes % 5.3 %; Neutrophils # 5.56 10^3/uL (1.8-7.7); Nucleated Red Blood Cells % 0 %; Platelet Count 258 10^3/cmm (157-399); Red Cell Distribution Width 17.2 % (12.1-15.1); White Blood Count 7.41 10^3/uL (3.29-11.43)
[2024-10-21 04:18] LABS: Alanine Aminotransferase < 5 U/L (0-41); Alkaline Phosphatase 736 U/L (40-130); Anion Gap 13.3 (5-19); Aspartate Amino Transferase 23 U/L (0-40); Blood Urea Nitrogen 8 mg/dL (8-23); Calcium 7.6 mg/dL (8.5-10.5); Carbon Dioxide 26 mmol/L (22-29); Chloride 104 mmol/L (98-107); Creatinine Clr Calc Pharmacy 84.4079; Globulin 3.1 g/dL (1.3-4.6); Glucose 170 mg/dL (65-115); Osmolality Calculated 292 mOsm/kg (285-295); Potassium 3.3 mmol/L (3.5-5.1); Sodium 140 mmol/L (136-145); Total Bilirubin 1.5 mg/dL (0.15-1.2); Total Protein 5.1 g/dL (6.6-8.7)
[2024-10-21] MEDS: piperacillin-tazobactam 3.375 GM in sodium chloride 0.9% (plus) 50 ML IV (06:04)
[2024-10-21 06:41] LABS: Glucose Point of Care 159 mg/dL (70-110)
--- NOTE | 2024-10-21 06:55 | PC.SOCIAL ---
IMM Update Pg. 2 of IMM updated, and copy provided at bedside.
[2024-10-21] MEDS: memantine 5 mg tablet PO (08:34)
[2024-10-21] MEDS: pantoprazole DR 40 mg Tablet PO (08:34)
[2024-10-21] MEDS: escitalopram 10 mg Tablet 20 MG PO (08:34)
[2024-10-21] MEDS: insulin lispro 100 unit/1 mL SUBCUT ×3 (08:35→20:44)
[2024-10-21] MEDS: insulin glargine 100 units/1 mL 5 UNIT SUBCUT (08:35)
[2024-10-21] MEDS: metoprolol succinate ER (24 HR) 50 mg Tablet PO ×2 (08:35→20:44)
[2024-10-21] MEDS: digoxin 125 mcg Tablet PO (08:35)
[2024-10-21] MEDS: carbidopa-levodopa 25-100mg Tablet 1 EACH PO ×2 (08:35→20:44)
[2024-10-21] MEDS: fluconazole oral liq 40 mg/mL Syringe 100 MG PO (08:38)
[2024-10-21] MEDS: amiodarone 200 mg Tablet 400 MG PO ×2 (09:14→18:02)
--- NOTE | 2024-10-21 09:41 | PM.PN ---
Subjective Subjective: Patient feeling better. Currently in normal sinus rhythm Vitals/I&O/Wt Last Vital Signs Temp 97.8 F 10/21/24 07:31 Pulse 75 10/21/24 08:35 Resp 18 10/21/24 07:31 BP 143/69 10/21/24 07:31 Pulse Ox 96 10/21/24 07:31 O2 Del Method Room Air 10/21/24 07:31 O2 Flow Rate 2 10/20/24 08:00 10/20/24 10/21/24 10/21/24 22:59 06:59 14:59 Intake Total 50 / 540 250 / 790 240 / 240 Output Total 120 / 820 425 / 1245 450 / 450 Balance -70 / -280 -175 / -455 -210 / -210 Weight last 48 hrs Weight 214 lb 9.6 oz Weight 229 lb 8 oz Physical Exam Const: OTHER: GENERAL: Patient is alert, awake and oriented x3. HEART: Irregularly irregular S1 and S2. No murmur, rub or gallop. LUNGS: Clear to auscultate bilaterally. CENTRAL NERVOUS SYSTEM: Grossly nonfocal. EXTREMITIES: Lower extremities with out edema bilaterally. Data 10/21/24 03:25 10/21/24 03:25 A&P Assessment and plan (1) HTN (hypertension): Qualifiers: Hypertension type: primary hypertension Qualified Code(s): I10 - Essential (primary) hypertension (2) Atrial fibrillation: Qualifiers: Atrial fibrillation type: longstanding persistent Qualified Code(s): I48.11 - Longstanding persistent atrial fibrillation (3) Chronic anticoagulation: Plan Patient has converted back to normal sinus rhythm. Switch amiodarone to PO. Continue digoxin and metoprolol. Resume anticoagulation once able. Thank you for involving us with care of this patient. Please call with questions PDMP PDMP Reviewed: Not Reviewed Attestations Medical Necessity Statement*: Care expected to cross 2 midnights. Coding Level of Care Code Acute Code for [facility] Fwd Diagnoses Primary hypertension I10 Hypertension type: primary hypertension Longstanding persistent atrial fibrillation I48.11 Atrial fibrillation type: longstanding persistent Chronic anticoagulation Z79.01
[2024-10-21 11:26] LABS: Glucose Point of Care 167 mg/dL (70-110)
[2024-10-21] MEDS: lidocaine 1% 5 ML in potassium chloride premix 100 ML 52.5 ML IV (12:36)
--- NOTE | 2024-10-21 14:48 | P.PN_ITS ---
Subjective 2 Subjective: Patient is much more alert and awake today. When examined he is sitting at bedside in a chair, self-feeding. Able to have a conversation. His heart rate is much better controlled today ranging mostly in the 60s since including metoprolol. He is off amiodarone infusion with transition to oral medications. Medications: Reviewed: Yes Medication Review Details: Revlimid is on an off week currently with plan for to resume on October 17 Vitals/I&O/Wt Last Vital Signs Temp 97.8 F 10/21/24 11:21 Pulse 59 L 10/21/24 11:21 Resp 17 10/21/24 11:21 BP 137/62 10/21/24 11:21 Pulse Ox 95 10/21/24 11:21 O2 Del Method Room Air 10/21/24 11:21 O2 Flow Rate 2 10/20/24 08:00 10/20/24 10/21/24 10/21/24 22:59 06:59 14:59 Intake Total 50 / 540 250 / 790 730 / 730 Output Total 120 / 820 425 / 1245 880 / 880 Balance -70 / -280 -175 / -455 -150 / -150 Weight last 48 hrs Weight 97.341 kg Weight 104.099 kg Physical Exam 2 Narrative: General: No acute distress, awake and alert HEENT: PERRLA, pupils bilaterally equal and reactive, pallors not present Chest: Normal vesicular breath sounds, no added sounds, equal good air entry bilaterally CVS: S1-S2 regular, no murmurs, no tachycardia, no gallops, no rubs Abdomen: Soft, nontender, no organomegaly, bowel sounds present Neuro: Awake alert oriented, no focal deficits. Data 10/21/24 03:25 10/21/24 03:25 A&P Assessment and plan (1) Acute calculous cholecystitis: As evidenced by findings of elevation in bilirubin and alkaline phosphatase, findings on ultrasound and CT imaging and clinical presentation of abdominal pain, right sided. Has associated elevation in white blood count. Blood pressures are normal, does have tachycardia. He did not take his medications since yesterday, however, and is known to be on sotalol for atrial fibrillation. Currently meeting SIRS criteria and at risk for progression to sepsis/severe sepsis but not currently meeting definitive criteria for such with other potential explanations for abnormalities identified. (2) Chronic anticoagulation: Chronically on Eliquis due to history of atrial fibrillation. No personal history of stroke or TIA known. (3) Atrial fibrillation: Longstanding persistent atrial fibrillation. In addition to anticoagulation he is chronically on sotalol. Typically rate controlled. Missed his dose of sotalol today due to acute issues contributing to tachycardia currently. Qualifiers: Atrial fibrillation type: longstanding persistent Qualified Code(s): I 48.11 - Longstanding persistent atrial fibrillation (4) HTN (hypertension): Primary hypertension, not on specific medication currently with acceptable blood pressures. Qualifiers: Hypertension type: primary hypertension Qualified Code(s): I10 - Essential (primary) hypertension (5) ASHD (arteriosclerotic heart disease): Chronic diagnosis. Is never required any cardiac intervention. Follows with Dr. Vasquez as an outpatient basis from cardiology standpoint. (6) Diabetes mellitus, type II, insulin dependent: With associated peripheral neuropathy based on available history. (7) Dyslipidemia: Chronically on statin therapy. (8) Parkinson disease: Chronically on carbidopa/levodopa. Qualifiers: Dyskinesia presence: without dyskinesia Fluctuating manifestations: w ithout fluctuating manifestations Qualified Code(s): G20.A1 - Parkinson's disease without dyskinesia, without mention of fluctuations (9) Lewy body dementia: Chronically on memantine and escitalopram. Follows with Dr. Littlejohn and has been doing well. Makes his own decisions. Does have medical power of [employer] attorney, his daughter Candy. Qualifiers: Dementia behavioral or psychological symptom: with mood disturbance D ementia severity: mild Qualified Code(s): G31.83 - Neurocognitive disorder with Lewy bodies; F02.A3 - Dementia in other diseases classified elsewhere, mild, with mood disturbance (10) Multiple myeloma: In remission, chronically on Revlimid, on and off week this week with date for resumption 10/17/2024. Qualifiers: Multiple myeloma remission status: in remission Qualified Code(s): C 90.01 - Multiple myeloma in remission (11) Gait instability: Related to chronic back pain and Parkinson disease, uses walker at baseline. Back pain significant with movement and ambulation. May impede usual post operative recovery. Plan Chronically on PPI Chronically on potassium replacement History of chronic diarrhea felt related to Revlimid improved with cholestyramine, a chronic medication; recently constipated Enlarged prostate on imaging without reported prostatic hypertrophy symptoms Inpatient admission Surgical consultation with Dr. Sin Case discussed with Dr. Vogt and after reviewing both with Mr. Vines himself and his daughter Candy risk and benefit of surgery for cholecystitis versus risk and benefit of less invasive procedures, informed decision has been made to plan for surgery on allowing adequate time for Eliquis to be held. Risk of surgery include bleeding, infection, pain, anesthesia complications and other medication reactions and others as addressed by surgery. Mr. Vines has typically done okay from an anesthesia standpoint with several surgeries including 4 since 2021. Benefit is less chance of recurrent disease given the gallstones noted. With holding of Eliquis increased risk of hypercoagulable state including risk of stroke. Given known arrhythmia and other cardiovascular history there is a risk of cardiovascular events. Patient is currently medically optimized, thought we will need to monitor heart rate control and for signs and symptoms of developing severe sepsis. IVFs, including fluid bolus Zosyn Pain control Bowel regimen given constipation already reported and potential impact of pain management Diet as tolerated for now Hold eliquis Continue sotalol, pharmacy has ordered 120mg tablets to allow dosing of his usual 60 mg regimen bid; tonight will give him 80mg one time given the missed dose today Telemetry monitoring Monitor blood pressures Hold home tresiba; will give lower dose of lantus along with moderate dose insulin coverage with meals and at bedtime Holding statin therapy currently Continue cardbidopa/levodopa; reviewed that there is not an IV equivalent during the periop timeframe but we will restart post op once tolerating po Continue home memantine and escitalopram On off-week for Revlimid; if does okay can plan to resume on 10/17 as scheduled Walker at bedside, PT for ambulation as he can tolerate as will be a part of usual recovery to move around, fall precautions Continue home PPI and potassium Bladder scan as needed for concerns regarding urinary retention VTE prophylaxis: SCDs, home eliquis held for planned surgery GI Prophylaxis: PPI chronically Antibiotics: Zosyn started 10/13 Pending studies: am A1c, lactic acid, repeat lfts/labs Telemetry: ordered given tachycardia/konwn afib and potential for clinical worsening/need for close monitoring Zheng: not currently indicated Line(s): peripheral IVs Disposition plan: Home with outpatient follow up to general surgery & PCP anticipated after DC along with follow up to other providers as already scheduled. Code Status: Full Code Supportive care otherwise Findings, concerns and plans were discussed with patient and he was given an opportunity to ask questions. I was also able to speak with Candy at phone number listed under contact information reviewing same information and opportunity to ask quesitons. 10/14/2024 Plan for cholecystectomy in AM. Patient continues to be in atrial fibrillation with RVR. Will place on sotalol 80 twice daily. If still remains uncontrolled will consider adding additional medication. Continue to watch at this time. Continue to monitor on telemetry. Continue to hold Eliquis in anticipation for surgery in AM. Agree with H&P assessment and plan above. Continue Zosyn 10/15/2024 Cholecystectomy canceled. Will order IR guided drainage patient continues to be in A-fib with RVR. Sotalol was stopped yesterday. Appreciate cardiology recommendations. Placed on amiodarone at this time. Will order digoxin for patient. ? Continue to hold Eliquis. Will consider placing on heparin drip after tube placement ? Patient does have a left shift on labs and bandemia. Continue Zosyn. Add vancomycin at this time. Blood culture pending. 10/16/2024 continue digoxin, amio, plan for MO cardioversion on Saturday, NPO at midnight saturday night - start cardiac diabetic diet - continue zosyn - continue broad spectrum abx till cultures result - fluid sent to lab for analysis from merissa tube -Had a long discussion with Dr. Zuleta over the phone. The drain had to be placed via the liver. He is recommended to repeat a CT abdomen pelvis on Saturday to reassess the right upper quadrant area as she has a suspicion there may be another fluid collection a few centimeters by the gallbladder however it is unclear if it is a loop of bowel versus a fluid collection. She recommends waiting 48 hours prior to obtaining another CT unless clinically symptoms worsen and it is warranted earlier. ? We will continue to hold off on anticoagulation at least till Saturday night at least until CT is repeated and patient has started to improve. ? Continue to hospitalize at this time and keep on IV antibiotics. low threshold to repeat ct abdomen if abdominal pain worsens or worsening leukocytosis 10/17/2024 CT abdomen pelvis with IV contrast planned for tomorrow morning to reassess gallbladder fossa. Continue to hold off on anticoagulation as per radiology recommendation secondary to drain placement. May restart on heparin tomorrow if CT is okay and no further drains are warranted. If there is another fluid collection adjacent to gallbladder patient may require a secondary drain. Discussed with surgeon. ? Plan for MO cardioversion Saturday however I will try calling anesthesia to see if they are available today versus tomorrow. ? Continue IV antibiotics complete 5-day course total. ? May add low-dose Zyprexa 2.5 twice daily for agitation/delirium. He is appropriate alert oriented today. I will hold off on adding right now however may be added at nighttime if needed. ? Discussed plan with daughter at bedside. ? Cholecystostomy drain fluid cultures are pending ? Blood cultures, urine culture negative to date ? Check venous Dopplers 10/18/2024 Potassium 2.7 this morning. 40 oral and 40 IV has been ordered. Have ordered normal saline along with IV potassium so patient will tolerated better. Initially he refused it. ? MO cardioversion was post be done around noon today however due to potassium being low it was canceled as patient was unstable to receive anesthesia. Discussed with anesthesia. Plan to perform MO cardioversion in AM. Will keep patient n.p.o. at midnight. CT abdomen pelvis does show subscapular hematoma at this time. No intervention recommended for that at this time by general surgery. Continue to monitor. I will hold off on starting anticoagulation tonight. May consider restarting tomorrow. Patient does have delirium on underlying dementia. Continue 2.5 Zyprexa twice daily at this time. Haldol as needed. Sitter not needed at this time however will place if required. Quetiapine 50 added at bedtime. Discussed with cardiology. Appreciate general surgery recommendations Daughter updated at bedside. October 19, 2024 Chart reviewed extensively. Patient is a 79-year-old male with a past medical history of Lewy body dementia, multiple myeloma on Revlimid, chronic back pain, atrial fibrillation on chronic anticoagulation with Eliquis, who was admitted to the hospital on October 13, 2024 with a right upper quadrant pain and associated deranged LFTs. Acute cholecystitis was diagnosed. Gallstones were noted without any obvious biliary obstruction. General surgery was consulted and he was initially planned to undergo a laparoscopic cholecystectomy. However he was on Eliquis therefore decision was made to wait the initial 48-hour period and Eliquis was held. Cardiology service was consulted for A-fib with RVR. Sotalol was discontinued and he was switched to IV amiodarone which is continuing at 0.5 currently. He was on a heparin drip which was subsequently discontinued due to subcapsular hematoma. Patient continued to have persistent A-fib with heart rate in the 150s on day of planned surgery that is October 15, 2024 therefore his planned cholecystectomy was canceled. Instead he underwent placement of a cholecystostomy tube via IR on October 16, 2024. Prior to the procedure a fluid collection was noted adjacent and medial to the gallbladder which was not noted on initial CT upon admission. This was thought to be either a reactive collection or perhaps ascites. Stones were noted in the neck of the gallbladder, possibility of a fistula or abscess was not excluded.he continued to be in A-fib in spite of being on amiodarone and digoxin and eventually underwent a MO cardioversion today following which she has converted to sinus rhythm. CT of the abdomen and pelvis was performed on October 17, 2024 prior to this showed a subcapsular hematoma resuming anticoagulation.. No intervention recommended per surgery at this time. Continuing to hold anticoagulation for another 48 hours for this reason. Today he is noted to have elevated T. bili and alkaline phosphatase. General surgery recommends MRCP which has been ordered to be performed after cardioversion. Since he is currently on sinus rhythm, plan to transition of IV amiodarone to oral. Continue digoxin. Check digoxin level in the a.m. Continue metoprolol. On antibiotic coverage with piperacillin/tazobactam and vancomycin. Culture is negative from drain placement on October 16. Discontinue vancomycin at this time. 10/20/24: MRCP without signs of choledocholithiasis, CT head without signs of acute stroke. GB drain in place. Noted collection in the subcapsular area 4.6 x 1.8 cm similar to previous. To resume anticogulation tomorrow. continue Zosyn for now. Plan per surgery is to continue to hold off on Cholecystectomy for now- will be performed as an interval procedure as outpatient. Pt. planned to be discharged with GB drain in place and f/up with surgery as outpatient in 2 weeks. Metoprolol increased today to 50mg BID, closely monitor HR and BP with this change. October 21, 2024 Heart rate is much better controlled today. Transitioned off of IV amiodarone and now on oral amiodarone 400 mg every 12. Heart rate ranging 60-70 today. Continue metoprolol 50 mg twice daily, digoxin 125 mics p.o. daily. Patient is alert awake and oriented x 3. Clinically appears to be improved. Discontinue IV piperacillin tazobactam and fluconazole today. Mildly elevated alkaline phosphatase compared to yesterday, however with normal MRCP likely nonspecific related to drain placement and biliary manipulation. This was discussed with general surgery. Currently afebrile hemodynamically stable. He participated with physical therapy today. Patient is able to stand independently and remains standing on the walker while the nurse put on a diaper. He ambulated 10 feet with a walker and then was able to sit back in chair. Resume anticoagulation today with Lovenox 1 mg/kg subcutaneously every 12 hours. If continues to do well may be able to discharge in the upcoming 24 hours. PDMP PDMP Reviewed: Not Reviewed Attestations 2 Medical Necessity Statement*: Heart rate better controlled, resume anticoagulation, discontinue antibiotics closely monitor for any changes with above interventions. Anticipate discharge in the upcoming 24 to 48 hours if continues to do well. Coding Level of Care Code [facility] Acute calculous cholecystitis K80.00 Chronic anticoagulation Z79.01 Longstanding persistent atrial fibrillation I48.11 Atrial fibrillation type: longstanding persistent Primary hypertension I10 Hypertension type: primary hypertension ASHD (arteriosclerotic heart disease) I25.10 Diabetes mellitus, type II, insulin dependent E11.9; Z79.4 Dyslipidemia E78.5 Parkinson's disease without dyskinesia or fluctuating manifestations G20.A1 Dyskinesia presence: without dyskinesia Fluctuating manifestations: without fluctuating manifestations Mild Lewy body dementia with mood disturbance G31.83; F02.A3 Dementia behavioral or psychological symptom: with mood disturbance Dementia severity: mild Multiple myeloma in remission C90.01 Multiple myeloma remission status: in remission Gait instability R26.81
[2024-10-21] MEDS: enoxaparin 100 mg/mL Syringe SUBCUT (15:22)
[2024-10-21 16:08] LABS: Glucose Point of Care 70 mg/dL (70-110)
[2024-10-21 20:20] LABS: Glucose Point of Care 177 mg/dL (70-110)
[2024-10-21] MEDS: quetiapine 25 mg Tablet 50 MG PO (20:44)
[2024-10-21] MEDS: sennosides 8.6 mg Tablet 17.2 MG PO (20:44)
[2024-10-22] VITALS (8 sets, daily range): BP systolic 116–151; BP diastolic 69–82; PULSE 59–103; RESP 17–19; TEMP 36.6–37.2; O2SAT 91–98
[2024-10-22] MEDS: enoxaparin 100 mg/mL Syringe SUBCUT (03:17)
[2024-10-22 04:23] LABS: Basophils # 0.1 10^3/uL (0.0-0.1); Basophils % 0.7 %; Eosinophils # 0.2 10^3/uL (0.0-0.8); Hematocrit 30.5 % (37-53); Lymphocytes # 1.2 10^3/uL (0.8-4.8); Lymphocytes % 16.6 %; Mean Corpuscular HGB Conc 31.1 g/dL (30-55); Mean Corpuscular Hemoglobin 29.5 pg (27-33); Mean Corpuscular Volume 94.7 fl (82-101); Mean Platelet Volume 10.5 fL (7.4-10.4); Monocytes # 0.4 10^3/uL (0.2-0.9); Monocytes % 6.1 %; Neutrophils # 4.86 10^3/uL (1.8-7.7); Neutrophils % 69.5 %; Nucleated Red Blood Cells % 0 %; Platelet Count 284 10^3/cmm (157-399); Red Blood Count 3.22 10^6/uL (3.85-5.65); Red Cell Distribution Width 17.6 % (12.1-15.1)
[2024-10-22 04:49] LABS: Alanine Aminotransferase < 5 U/L (0-41); Albumin Level 2.1 g/dL (3.5-5.2); Alkaline Phosphatase 579 U/L (40-130); Anion Gap 12.3 (5-19); Aspartate Amino Transferase 19 U/L (0-40); Blood Urea Nitrogen 8 mg/dL (8-23); Calcium 7.8 mg/dL (8.5-10.5); Carbon Dioxide 26 mmol/L (22-29); Chloride 105 mmol/L (98-107); Creatinine Clr Calc Pharmacy 92.0023; Glucose 152 mg/dL (65-115); Osmolality Calculated 291 mOsm/kg (285-295); Potassium 3.3 mmol/L (3.5-5.1); Sodium 140 mmol/L (136-145); Total Bilirubin 1.3 mg/dL (0.15-1.2); Total Protein 5.1 g/dL (6.6-8.7)
[2024-10-22 06:37] LABS: Glucose Point of Care 127 mg/dL (70-110)
[2024-10-22] MEDS: lidocaine 1% 5 ML in potassium chloride premix 100 ML 52.5 ML IV (09:43)
[2024-10-22] MEDS: amiodarone 200 mg Tablet 400 MG PO (09:49)
[2024-10-22] MEDS: escitalopram 10 mg Tablet 20 MG PO (09:49)
[2024-10-22] MEDS: digoxin 125 mcg Tablet PO (09:49)
[2024-10-22] MEDS: carbidopa-levodopa 25-100mg Tablet 1 EACH PO (09:49)
[2024-10-22] MEDS: memantine 5 mg tablet PO (09:50)
[2024-10-22] MEDS: metoprolol succinate ER (24 HR) 50 mg Tablet PO (09:50)
[2024-10-22] MEDS: pantoprazole DR 40 mg Tablet PO (09:50)
--- NOTE | 2024-10-22 09:58 | P.PN_ITS ---
Subjective 2 Subjective: To bili down, alk phos down, cholecystostomy tube working and draining bile Vitals/I&O/Wt Last Vital Signs Temp 98.9 F 10/22/24 07:26 Pulse 65 10/22/24 09:49 Resp 18 10/22/24 07:26 BP 151/69 10/22/24 07:26 Pulse Ox 94 10/22/24 07:26 O2 Del Method Room Air 10/22/24 07:26 O2 Flow Rate 2 10/20/24 08:00 10/21/24 10/22/24 10/22/24 22:59 06:59 14:59 Intake Total 345 / 1075 0 / 1075 0 / 0 Output Total 500 / 1380 650 / 2030 Balance -155 / -305 -650 / -955 0 / 0 Weight last 48 hrs Weight 229 lb Weight 214 lb 9.6 oz Physical Exam 2 Narrative: Chest: Unlabored breathing room air. No lymphadenopathy. Heart: Regular rate and rhythm. Abdomen: Soft, nontender, nondistended. No masses or lymphadenopathy. Cholecystostomy tube working Data 10/22/24 03:40 10/22/24 03:40 A&P Assessment and plan (1) Cholecystitis: Plan 79-year-old male who presented with cholecystitis. Treated with a cholecystostomy tube and antibiotics. LFTs are down, MRCP with no evidence of choledocholithiasis. Antibiotic course finished. From a surgical perspective patient can be discharged with the cholecystostomy tube. He can follow-up in clinic in 2 weeks. Agree with continuing anticoagulation. Had a discussion with family and hospitalist at bedside. PDMP PDMP Reviewed: Not Reviewed Attestations 2 Medical Necessity Statement*: N/A Coding Level of Care Code 85488 Diagnoses Cholecystitis K81.9 Time Spent (min) 30
--- NOTE | 2024-10-22 10:02 | P.PN_ITS ---
<Statement entered by Rajiv Acuna M.D - 10/23/24 21:20> Patient was evaluated and cared for in conjunction with an advanced practice practitioner. I personally examined the patient and reviewed the chart and all pertinent data including imaging, telemetry, and laboratory results. I discussed the patient in detail with the advanced practice practitioner. Please see their note for complete progress note, results and agreed upon plan of care for the patient. Patient's heart rate is better controlled. Outpatient event monitor. Patient is stable to be discharged from cardiology standpoint. GENERAL: Patient is alert and oriented HEART: Regular S1 and S2 LUNGS: Clear to auscultation bilaterally EXTREMITIES: Lower extremities with no edema Subjective 2 Subjective: Patient seen today on rounds. He is currently sinus rhythm. Heart rate is controlled at 65. Patient is asleep on my assessment. Vitals/I&O/Wt Last Vital Signs Temp 98.9 F 10/22/24 07:26 Pulse 65 10/22/24 09:49 Resp 18 10/22/24 07:26 BP 151/69 10/22/24 07:26 Pulse Ox 94 10/22/24 07:26 O2 Del Method Room Air 10/22/24 07:26 O2 Flow Rate 2 10/20/24 08:00 10/21/24 10/22/24 10/22/24 22:59 06:59 14:59 Intake Total 345 / 1075 0 / 1075 0 / 0 Output Total 500 / 1380 650 / 2030 Balance -155 / -305 -650 / -955 0 / 0 Weight last 48 hrs Weight 229 lb Weight 214 lb 9.6 oz Physical Exam 2 Narrative: General: No apparent distress, healthy appearing, well nourished HENMT: normoceophalic Respiratory: Normal respiratory effort, clear to auscultation bilaterally throughout all lung sexton, no use of accessory muscles Cardio: No JVD, irregularly irregular rate and rhythm, S1 S2 normal, no murmurs Extremities: Full ROM, normal, normal capillary refill, no cyanosis, no edema bilateral lower extremities Neuro: asleep at the time of exam Skin: No rashes or lesions noted, no wounds Data 10/22/24 03:40 10/22/24 03:40 A&P Assessment and plan (1) HTN (hypertension): Qualifiers: Hypertension type: primary hypertension Qualified Code(s): I10 - Essential (primary) hypertension (2) Atrial fibrillation: Qualifiers: Atrial fibrillation type: longstanding persistent Qualified Code(s): I 48.11 - Longstanding persistent atrial fibrillation (3) Chronic anticoagulation: Plan Continue digoxin. Continue amiodarone 400 BID oral. Continue Metoprolol 50 BID Replenish potassium per hospitalist team Recommend restart anticoagulation as soon as possible. At this time, he remains sinus rhythm. Will continue current care. PDMP PDMP Reviewed: Not Reviewed Attestations 2 Medical Necessity Statement*: Deferred to primary care. Coding Level of Care Code Acute Code for [facility] Diagnoses Primary hypertension I10 Hypertension type: primary hypertension Longstanding persistent atrial fibrillation I48.11 Atrial fibrillation type: longstanding persistent Chronic anticoagulation Z79.01
[2024-10-22 10:51] LABS: Digoxin 0.6 ng/mL (0.6-1.2)
[2024-10-22 11:29] LABS: SARS Covid-2 Antigen Negative (Negative)
[2024-10-22 11:58] LABS: Glucose Point of Care 147 mg/dL (70-110)
[2024-10-22] MEDS: insulin lispro 100 unit/1 mL SUBCUT (12:44)
--- NOTE | 2024-10-22 14:30 | PC.NURSE ---
report phoned report to champ golden at [facility] at 2058
--- NOTE | 2024-10-22 15:00 | P.DS_ITS ---
Discharge Providers Date of Admission: 10/13/24 13:56 Date of Discharge: October 22, 2024 Attending Provider at Admission: Mari Gabriel MD Attending Provider at Discharge: Ashley Garcia MD Primary Care Provider: Jayden Blake MD Diagnoses at Discharge Discharge Diagnosis (1) Cholecystitis: Status: Acute Reason for Visit Reason for Visit: abd pain Hospital Course Hospital Course 79-year-old male with a past medical history of Lewy body dementia, multiple myeloma on Revlimid, chronic back pain, atrial fibrillation on chronic anticoagulation with Eliquis, who was admitted to the hospital on October 13, 2024 with a right upper quadrant pain and associated deranged LFTs. Acute cholecystitis was diagnosed. Gallstones were noted without any obvious biliary obstruction. General surgery was consulted and he was initially planned to undergo a laparoscopic cholecystectomy. However he was on Eliquis therefore decision was made to wait the initial 48-hour period and Eliquis was held. Cardiology service was consulted for A-fib with RVR. Sotalol was discontinued and he was switched to IV amiodarone which has now been transitioned to oral amiodarone taper at discharge. Patient continued to have persistent A-fib with heart rate in the 150s on day of planned surgery that is October 15, 2024 therefore his planned cholecystectomy was canceled. Instead he underwent placement of a cholecystostomy tube via IR on October 16, 2024. Prior to the procedure a fluid collection was noted adjacent and medial to the gallbladder which was not noted on initial CT upon admission. This was thought to be either a reactive collection or perhaps ascites. He continued to be in A-fib in spite of being on amiodarone and digoxin and eventually underwent a MO cardioversion on 10/19 following which he converted to sinus rhythm briefly , however went back to being A fib RVR by morning of 10/20. Metoprolol was increased to 50mg BID and he has had better control of heart rate on a regimen of amiodarone 400 mg p.o. twice daily, metoprolol 50 mg p.o. twice daily and digoxin 125 mcg every day. Last digoxin level checked this morning is at 0.6. .CT of the abdomen and pelvis was performed on October 17, 2024 which showed a small subcapsular hematoma. No intervention recommended per surgery at this time. Anticoagulation was held between drain placement and the recovery of the hematoma, eventually being resumed on October 21, 2024. On October 19 he was noted to have elevated T. bili and alkaline phosphatase. MRCP was performed which was negative for signs of choledocholithiasis or any other biliary obstruction. T. bili and alkaline phosphatase are both downtrending at this time. Likely related to drain placement rather than obstruction. Patient received antibiotic coverage with piperacillin/tazobactam and vancomycin during his hospital stay. Antibiotics have now been discontinued as his source is currently controlled with placement of a cholecystostomy tube. Overall patient has currently improved with regards to his acute comorbidities. Heart rate is currently controlled. He has a cholecystostomy tube in place with which he is being discharged to the intermediate. Recommend to follow-up with general surgery as outpatient to discuss interval cholecystectomy. Anticoagulation has been resumed with Eliquis 5 mg p.o. twice daily. Hemoglobin at the time of discharge is at 9.5. Recommend to recheck in the next 3 to 4 days at the intermediate to ensure no further decline. Hospital course was complicated by delirium on top of known dementia. He was started on Zyprexa 2.5 mg p.o. twice daily as needed during the hospital course which is being continued as outpatient. Event monitor is recommended at the time of discharge, order placed. Physical Exam Narrative: General: No acute distress, AO x3 HEENT: PERRLA, pupils bilaterally equal and reactive, pallors not present Chest: Normal vesicular breath sounds, no added sounds, equal good air entry bilaterally CVS: S1-S2 regular, no murmurs, no tachycardia, no gallops, no rubs Abdomen: Soft, nontender, no organomegaly, bowel sounds present Neuro: No focal deficits, no facial deformity, AO x3, power 5/5 in all limbs Discharge Data Studies Completed and Pending Completed Studies During Hospitalization Category Date Time Status CT abdomen pelvis w con* [id number] Routine Cat Scan 10/18/24 08:[address] head wo con* [id number] Routine Cat Scan 10/20/24 17:[address] kidney stone [id number] Stat Cat Scan 10/13/24 10:48 Completed MR MRCP [id number] Routine MRI 10/20/24 09:30 [place] [id number] Routine Ultrasound 10/17/24 12:12 Completed CV. echo transesophageal [id number] Routine Ultrasound 10/19/24 14:00 Completed US gall bladder [id number] Stat Ultrasound 10/13/24 11:06 [place] [id number] Routine Ultrasound 10/16/24 09:25 Completed Pending at discharge Category Date Time Status Abscess Culture and Gram Stain Stat Lab 10/16/24 11:50 Uncollected Cell Count w Diff Pleural Fld Routine Lab 10/16/24 11:54 Uncollected Sputum Culture and Gram Stain Stat Lab 10/15/24 10:53 Uncollected Cytology [PTH] Routine Pth 10/16/24 11:50 Uncollected Pathology: Surgical [PTH] Routine Pth 10/16/24 11:04 Received Radiology Impressions Gallbladder Ultrasound 10/13/24 11:06 IMPRESSION: 1. Findings of acute cholecystitis. Several stones are present in the gallbladder. 2. No common bile duct dilatation. 3. RIGHT renal cysts. Drainage Catheter Insertion 10/16/24 09:25 IMPRESSION: 1. Uncomplicated placement of an 8.5 [place] cholecystotomy tube into the gallbladder. Catheter is connected to a vacuum assist drainage bag. 2. Bile was collected to be sent for analysis. 3. Patient will be observed closely post procedure for any signs of bleeding or sepsis. 4. During initial imaging of the gallbladder, prior to the procedure, a fluid collection was noted adjacent and medial to the gallbladder which was not present on the prior CT or ultrasound. This may be a reactive collection or adjacent ascites. With the stones present in the neck of the gallbladder possibility of fistula or abscess should be considered. I did discuss this with Dr. Ashby. At this time patient appears to be stable and satisfactory. If there is any change follow-up CT of the abdomen and pelvis with IV contrast can be obtained. Venous Duplex 10/17/24 12:12 IMPRESSION: No evidence of deep vein thrombosis. Abdomen/Pelvis CT 10/18/24 08:00 IMPRESSION: 1. Cholecystostomy tube in satisfactory position with collapsed gallbladder. Cholelithiasis. No CBD dilatation. 2. Subcapsular collection at the medial aspect of the gallbladder and fluid around the liver dome, likely postoperative collections no other intra-abdominal collections suggestive of abscess formation. COMMENTS: Consistent with the [employer]'s Incidental Findings Committee white paper (J Am Cary Radiol 2018): Any incidental renal lesion less than 1 cm or classified as too small to characterize, or any incidental cystic renal lesion characterized as simple-appearing, is likely benign. No follow-up imaging is recommended for these lesions per consensus recommendations based on imaging criteria. Cholangiopancreatography MRI 10/20/24 09:30 IMPRESSION: 1. No common bile duct obstruction. Normal size common bile duct. 2. Cholecystotomy tube in a nondistended gallbladder. 3. Subcapsular fluid collection adjacent to the contracted gallbladder as seen on the CT of 10/18/2024. Collection measures 4.6 x 1.8 cm. This is a collection that was noted prior to the cholecystotomy drain placement. 4. RIGHT pleural effusion. Head CT 10/20/24 17:15 IMPRESSION: 1. No acute intracranial hemorrhage or edema. 2. No interval change in appearance of the brain since 03/20/2024. 3. Mild cerebral and cerebellar atrophy with mild small vessel disease. Laboratory Results WBC 7.00 10^3/uL (3.29-11.43) 10/22/24 03:40 RBC 3.22 10^6/uL (3.85-5.65) L 10/22/24 03:40 Hgb 9.50 g/dL (11.27-16.99) L 10/22/24 03:40 Hct 30.5 % (37-53) L 10/22/24 03:40 MCV 94.7 fl (82-101) 10/22/24 03:40 MCH 29.5 pg (27-33) 10/22/24 03:40 MCHC 31.1 g/dL (30-55) 10/22/24 03:40 RDW 17.6 % (12.1-15.1) H 10/22/24 03:40 Plt Count 284 10^3/cmm (157-399) 10/22/24 03:40 MPV 10.5 fL (7.4-10.4) H 10/22/24 03:40 Neut % (Auto) 69.5 % 10/22/24 03:40 Lymph % (Auto) 16.6 % 10/22/24 03:40 Lewis % (Auto) 6.1 % 10/22/24 03:40 Eos % (Auto) 3.0 % 10/22/24 03:40 Baso % (Auto) 0.7 % 10/22/24 03:40 Neut # (Auto) 4.86 10^3/uL (1.8-7.7) 10/22/24 03:40 Lymph # (Auto) 1.2 10^3/uL (0.8-4.8) 10/22/24 03:40 Lewis # (Auto) 0.4 10^3/uL (0.2-0.9) 10/22/24 03:40 Eos # (Auto) 0.2 10^3/uL (0.0-0.8) 10/22/24 03:40 Baso # (Auto) 0.1 10^3/uL (0.0-0.1) 10/22/24 03:40 Nucleated RBC % (auto) 0 % 10/22/24 03:40 Total Counted 100 (0-100) 10/18/24 02:49 Atypical Lymphs % 0.0 % (0-5) 10/18/24 02:49 Absolute Neutrophils 4.8 10^3/cmm (1.4-6.5) 10/18/24 02:49 Segmented Neutrophils 73 % 10/18/24 02:49 Band Neutrophils 1.0 % 10/18/24 02:49 Absolute Lymphocytes 1.0 10^3/cmm (1.2-3.4) L 10/18/24 02:49 Lymphocytes (Manual) 16 % 10/18/24 02:49 Monocytes (Manual) 8.0 % 10/18/24 02:49 Absolute Monocytes 0.5 10^3/cmm (0.1-0.6) 10/18/24 02:49 Eosinophils (Manual) 0 % 10/18/24 02:49 Absolute Eosinophils 0.0 10^3/cmm (0.0-0.7) 10/18/24 02:49 Basophils (Manual) 0.0 % 10/18/24 02:49 Absolute Basophils 0.0 10^3/cmm (0.0-0.2) 10/18/24 02:49 Myelocytes 2.0 % 10/18/24 02:49 Nucleated RBCs # 0.0 /100WBC 10/22/24 03:40 Differential Comment Yes 10/16/24 10:43 Platelet Estimate Normal (Normal) 10/18/24 02:49 Giant Platelets Trace 10/18/24 02:49 PT 19.10 SECONDS (12.1-14.9) H 10/14/24 05:06 INR 1.50 (0.8-1.2) H 10/14/24 05:06 Sodium 140 mmol/L (136-145) 10/22/24 03:40 Potassium 3.3 mmol/L (3.5-5.1) L 10/22/24 03:40 Chloride 105 mmol/L (98-107) 10/22/24 03:40 Carbon Dioxide 26 mmol/L (22-29) 10/22/24 03:40 Anion Gap 12.3 (5-19) 10/22/24 03:40 BUN 8 mg/dL (8-23) 10/22/24 03:40 Creatinine 0.8 mg/dL (0.7-1.2) 10/22/24 03:40 GFR Calculation Not Reportable 10/22/24 03:40 Glucose 152 mg/dL (65-115) H 10/22/24 03:40 POC Glucose 147 mg/dL (70-110) H 10/22/24 11:34 Estimat Average Glucose 186 10/14/24 05:06 Hemoglobin A1c 8.1 % (4.0-6.0) H 10/14/24 05:06 Calculated Osmolality 291 mOsm/kg (285-295) 10/22/24 03:40 Lactic Acid 2.0 mmol/L (0.5-2.2) 10/14/24 05:06 Calcium 7.8 mg/dL (8.5-10.5) L 10/22/24 03:40 Phosphorus 2.2 mg/dL (2.5-4.5) L 10/16/24 02:29 Magnesium 1.9 mg/dL (1.7-2.3) 10/20/24 02:56 Total Bilirubin 1.3 mg/dL (0.15-1.2) H 10/22/24 03:40 AST 19 U/L (0-40) 10/22/24 03:40 ALT < 5 U/L (0-41) 10/22/24 03:40 Alkaline Phosphatase 579 U/L (40-130) H 10/22/24 03:40 Ammonia 23 umol/L (16-60) 10/20/24 02:56 Total Protein 5.1 g/dL (6.6-8.7) L 10/22/24 03:40 Albumin 2.1 g/dL (3.5-5.2) L 10/22/24 03:40 Globulin 3.0 g/dL (1.3-4.6) 10/22/24 03:40 Lipase 15 U/L (13-60) 10/13/24 10:39 Urine Color Dark yellow (Yellow) A 10/13/24 10:47 Urine Appearance Cloudy (CLEAR) A 10/13/24 10:47 Urine pH 5.5 (5-7) 10/13/24 10:47 Ur Specific [place] 1.019 (1.005-1.030) 10/13/24 10:47 Urine Protein 2+ (Negative) A 10/13/24 10:47 Urine Glucose (UA) 1+ (Normal) H 10/13/24 10:47 Urine Ketones Trace (Negative) 10/13/24 10:47 Urine Blood 2+ (Negative) A 10/13/24 10:47 Urine Nitrate Negative (Negative) 10/13/24 10:47 Urine Bilirubin 1+ (Negative) H 10/13/24 10:47 Urine Urobilinogen 1.0 mg/dL (Negative) 10/13/24 10:47 Ur Leukocyte Esterase Trace (Negative) A 10/13/24 10:47 Urine RBC 3-5 /hpf (0-2) 10/13/24 10:47 Urine WBC 0-5 /hpf (0-5) 10/13/24 10:47 Ur Squamous Epith Cells 6-10 /hpf (0-5) 10/13/24 10:47 Amorphous Sediment Not Reportable 10/13/24 10:47 Urine Bacteria None seen /hpf (NONE) 10/13/24 10:47 Hyaline Casts 27.69 /lpf 10/13/24 10:47 Fluid Color Other 10/16/24 10:43 Fluid Appearance Turbid 10/16/24 10:43 Fluid WBC 55 /uL 10/16/24 10:43 Fluid RBC 16.000 10^3/uL 10/16/24 10:43 Fld Polynuclear WBCs # 0.054 10/16/24 10:43 Fld Polynuclear WBCs % 98.200 % 10/16/24 10:43 Fl Mononucl WBCs #(Auto) 0.001 10/16/24 10:43 Fl Mononuclear % Auto 1.800 % 10/16/24 10:43 Fld Crystal Laterality Not Reportable 10/16/24 10:43 Vancomycin Trough 5.3 ug/mL (10-15) L 10/18/24 11:38 Digoxin 0.6 ng/mL (0.6-1.2) 10/22/24 10:22 Coronavirus (PCR) Negative (Negative) 10/13/24 13:11 Influenza A (PCR) Negative (Negative) 10/13/24 13:11 Influenza Type B (PCR) Negative (Negative) 10/13/24 13:11 RSV (PCR) Negative (Negative) 10/13/24 13:11 SARS-CoV-2 Ag (Rapid) Negative (Negative) 10/22/24 10:33 Vitals Last Vital Signs Temp 97.9 F 10/22/24 11:57 Pulse 103 H 10/22/24 13:28 Resp 18 10/22/24 13:28 BP 116/82 10/22/24 13:28 Pulse Ox 95 10/22/24 13:28 O2 Del Method Room Air 10/22/24 11:57 O2 Flow Rate 2 10/20/24 08:00 Discharge Plan Discharge Patient Disposition: Xfer SNF Condition: Stable Prescriptions: New amiodarone [Pacerone] 200 mg Tablet 400 mg PO BID 30 Days Qty: 120 0RF Rx Instructions: take 400mg BID x 7d,then 200 BID x7d, then 200 daily metoprolol succinate 50 mg Tablet Extended Release 24 Hr 50 mg PO 09,21 30 Days Qty: 60 0RF olanzapine 5 mg Tablet 2.5 mg PO BID PRN (Reason: Delerium) 30 Days Qty: 60 0RF docusate sodium 100 mg Capsule 100 mg PO BID 30 Days Qty: 60 0RF digoxin 125 mcg (0.125 mg) Tablet 125 mcg PO DAILY 30 Days Qty: 30 0RF Continued simvastatin 20 mg tablet 20 mg PO DAILY carbidopa-levodopa 25-100 mg tablet 25 - 100 tab PO BID Qty: 180 3RF escitalopram oxalate [Lexapro] 20 mg tablet 20 mg PO DAILY Qty: 90 3RF memantine 5 mg tablet 5 mg PO DAILY Qty: 90 3RF Eliquis 5 mg tablet 5 mg PO BID Qty: 60 0RF pantoprazole 40 mg tablet,delayed release (DR/EC) 40 mg PO DAILY Cholestyramine Light 4 gram powder 1 ea PO DAILY Changed insulin degludec [Tresiba FlexTouch U-200] 200 unit/mL (3 mL) insulin pen 5 unit SUBCUT DAILY Qty: 9 0RF Held lenalidomide [Revlimid] 5 mg capsule See Rx Instructions .ROUTE .COMPLEX Qty: 21 0RF Hold Instructions: Resume on 10/29/24. please follow up with oncology Dose Instruction: TAKE 1 CAPSULE BY MOUTH ONCE DAILY FOR 21 DAYS, THEN 7 DAYS OFF. Rx Instructions: TAKE 1 CAPSULE BY MOUTH ONCE DAILY FOR 21 DAYS, THEN 7 DAYS OFF. [id number] Discontinued sotalol 120 mg tablet 60 mg PO BID Qty: 90 3RF potassium chloride 20 mEq tablet,ER particles/crystals 20 meq PO DAILY Discharge Orders: Discharge Order (Routine); Ordered 10/22/24 Ordered By: Ashley Garcia Other Ambulatory Orders: Complete Blood Count w/Auto (Routine) Timeframe: 20241026 Location: Determined by Patient Ordered By: Ashley Garcia MCT/Event Monitor 14 Days (Routine) Timeframe: 20241022 Facility: [facility] - Location: Radiology Ordered By: Ashley Garcia Referrals: Serafin Vogt MD [Physician] - 2 weeks Ree Medrano NP [Nurse Practitioner] - 1 week Jayden Blake MD [Primary Care Provider] - Taj Torres MD [Physician] - 1 month Discharge Diet: Usual diet Discharge Activity: Resume usual activity Patient Instructions: A-fib (Atrial Fibrillation) (DC), Cholecystitis (DC), Acute Wound Care (DC) Discharge Attestations Time Spent in Discharge Care*: greater than 30 min Quality Metrics Clinical Quality Measures [ No reported AMI, CVA or VTE this stay] Coding Level of Care Code Acute Code for g Fwd Diagnoses Cholecystitis K81.9
--- NOTE | 2024-10-22 15:56 | PC.NURSE ---
melinda chang called and stated that pt had to have event monitor placed prior to their admission...as they could not bring pt back to [facility] for placement.this was obtained.discharged via w/c to melinda chang.melinda chang to transport.
--- NOTE | 2024-10-22 15:59 | PC.NURSE ---
dr ellington ordered to not give 1500 dose of lovenox,as pt will begin ron pruitt.
== END 2024-10-22 16:01 | disposition skilled nursing facility (03) | DRG 445 ==
LOC: ER 13:35 → MEDSURG 13:56 → CSU 10-14 18:28
PROVIDERS: Internal Medicine; Internal Medicine Cardiovascular Disease; Nurse Practitioner Family; Physician Assistant; Radiology Diagnostic Radiology; Admitting Provider Hospitalist; Emergency Provider Family Medicine; PCP Internal Medicine; Visit Provider Student in an Organized Health Care Education/Training Program
PROC: 0F9430Z Drainage of Gallbladder with Drainage Device, Percutaneous Approach (ICD-10-PCS; principal; 2024-10-16 09:30)
DX: K81.0 Acute cholecystitis (principal); C90.01 Multiple myeloma in remission; F02.A2 Dementia in other diseases classified elsewhere, mild, with psychotic disturbance; I48.11 Longstanding persistent atrial fibrillation; G31.83 Neurocognitive disorder with Lewy bodies; F32.A Depression, unspecified; G89.29 Other chronic pain; M54.9 Dorsalgia, unspecified; Z79.01 Long term (current) use of anticoagulants; K82.8 Other specified diseases of gallbladder; E11.9 Type 2 diabetes mellitus without complications; I10 Essential (primary) hypertension; I25.10 Atherosclerotic heart disease of native coronary artery without angina pectoris; E78.5 Hyperlipidemia, unspecified; Z79.4 Long term (current) use of insulin
CPT/HCPCS: 10030; 36415; 36416; 51702; 70450; 74176; 74177; 74181; 76705; 80048; 80053; 80162; 80202; 80503; 81001; 82140; 82962; 83036; 83605; 83690; 83735; 84100; 84132; 85007; 85025; 85610; 87040; 87070; 87075; 87086; 87205; 87426; 87637; 88112; 88305; 89050; 93005; 93312; 93320; 93325; 93970; 96365; 96372; 96376; 97161; 99285; J0283; J0360; J1160; J1630; J1650; J1815; J2270; J2371; J2543; J2704; J3370; J3475; J3480; J3490; J7030; J7040; J7050

== ENCOUNTER → 2024-11-05 10:32 | Outpatient (BNVA) | payer MEDICARE, OTHER, SELFPAY | PROVIDERS: PCP Internal Medicine; Visit Provider Student in an Organized Health Care Education/Training Program | DX: K81.9 Cholecystitis, unspecified (principal); Z98.890 Other specified postprocedural states | CPT/HCPCS: 99204 ==

== ENCOUNTER 2024-11-18 08:24 | Oncology outpatient (recurring) (ONCR) | payer MEDICARE, OTHER, SELFPAY ==
--- NOTE | 2024-11-18 08:20 | CT_ITS ---
WS: [id number] CT ABDOMEN WITHOUT IV CONTRAST, cholecystostomy tube injection. HISTORY: H/O insertion of cholecystostomy tube Pre and post cholecystotomy tube injection imaging. Oral contrast has not been provided. Coronal and sagittal reformats are submitted. All CT scans at [facility] use at least one of these dose optimization techniques: automated exposure control; mA and/or kV adjustment per patient size (includes targeted exams where dose is matched to clinical indication); or iterative reconstruction. CONTRAST: Dilute mixture of Omnipaque 350 injected into the cholecystotomy tube. Oral contrast: No DLP: 987.23 mGy.cm COMPARISON: 10/18/2024 Lower thorax: Subsegmental atelectasis at the RIGHT lung base. Previously noted pleural effusion has resolved on the RIGHT. Improving aeration. Mild cardiomegaly. Small hiatal hernia. Dilute contrast is injected into the cholecystotomy tube. Percutaneous injection of the catheter reveals there is contrast filling but not distending the gallbladder. The cholecystotomy pigtail catheter is in good position. The cystic duct is patent as is the common bile duct. Contrast is noted extending into the duodenum. On the noncontrast imaging a residual stone is noted within the neck of the gallbladder measuring 4 mm. There may be additional stones but these would be obscured by the catheter. Significant improvement in the overall appearance of the gallbladder fossa and valente hepatis with much improved inflammation. The previously described fluid collection adjacent to the gallbladder fossa has resolved. There is a small amount of perihepatic fluid which has improved. Subcutaneous edema along the RIGHT abdominal wall is also significantly improved. Reidentified are masses associated with the RIGHT kidney with no change. These are probably cysts and/or complex cysts. No adrenal masses. Atherosclerosis aorta. No GI tract obstruction. No new fluid collection or mass. Vertebroplasty at L3 with L3 fracture. CT/CT abdomen wo con [id number] IMPRESSION: 1. Percutaneous injection of the cholecystotomy tube is performed without diff iculty. 2. Contrast injected into the gallbladder via the tube proceeds through the cy stic duct into the common bile duct and duodenum. No obstruction is identified. 3. Residual stone within the gallbladder lumen. 4. Marked improvement in the valente hepatis and inflammatory changes noted on t he prior study. Fluid collection within the valente hepatis has resolved.
== END 2024-11-30 23:59 | disposition home or self-care (01) ==
LOC: RAD 08:27 → ONCMED 09:07
PROVIDERS: PCP Internal Medicine; Visit Provider Student in an Organized Health Care Education/Training Program
DX: I48.11 Longstanding persistent atrial fibrillation (principal); I10 Essential (primary) hypertension; E78.5 Hyperlipidemia, unspecified; Z79.01 Long term (current) use of anticoagulants; Z98.890 Other specified postprocedural states; K80.20 Calculus of gallbladder without cholecystitis without obstruction
CPT/HCPCS: 74150; 99213; Q9967

== ENCOUNTER → 2024-11-19 13:32 | Outpatient (BNVA) | payer MEDICARE, OTHER, SELFPAY | PROVIDERS: PCP Internal Medicine; Visit Provider Student in an Organized Health Care Education/Training Program | DX: Z09 Encounter for follow-up examination after completed treatment for conditions other than malignant neoplasm (principal) | CPT/HCPCS: 99214 ==

== ENCOUNTER → 2024-12-23 12:40 | Outpatient (BNVA) | payer MEDICARE, OTHER, SELFPAY | PROVIDERS: PCP Internal Medicine; Visit Provider Internal Medicine | DX: C90.01 Multiple myeloma in remission (principal); C90.31 Solitary plasmacytoma in remission | CPT/HCPCS: 80053; 82728; 82746; 83010; 83550; 84156; 84166; 85025; 85045 ==

== ENCOUNTER 2024-12-30 10:52 | Oncology outpatient (recurring) (ONCR) | payer MEDICARE, OTHER, SELFPAY ==
[2024-12-14 10:37] LABS: Basophils % 0.5 %; Eosinophils % 0.5 %; Hematocrit 38.5 % (37-53); Lymphocytes # 1.3 10^3/uL (0.8-4.8); Lymphocytes % 21.5 %; Mean Corpuscular HGB Conc 31.7 g/dL (30-55); Mean Corpuscular Hemoglobin 30.1 pg (27-33); Mean Corpuscular Volume 95.1 fl (82-101); Mean Platelet Volume 9.4 fL (7.4-10.4); Monocytes # 0.4 10^3/uL (0.2-0.9); Monocytes % 5.9 %; Neutrophils # 4.24 10^3/uL (1.8-7.7); Neutrophils % 69.9 %; Nucleated Red Blood Cells % 0 %; Platelet Count 207 10^3/cmm (157-399); Red Blood Count 4.05 10^6/uL (3.85-5.65); Red Cell Distribution Width 15.1 % (12.1-15.1); Reticulocyte % 1.9 % (0.5-2.0); White Blood Count 6.06 10^3/uL (3.29-11.43)
[2024-12-14 10:51] LABS: Alanine Aminotransferase 8 U/L (0-41); Albumin Level 3.8 g/dL (3.5-5.2); Alkaline Phosphatase 149 U/L (40-130); Anion Gap 15.1 (5-19); Aspartate Amino Transferase 15 U/L (0-40); Blood Urea Nitrogen 11 mg/dL (8-23); Calcium 9.1 mg/dL (8.5-10.5); Carbon Dioxide 25 mmol/L (22-29); Chloride 100 mmol/L (98-107); Creatinine Clr Calc Pharmacy 70.9664; Ferritin 67 ng/mL (30-400); Globulin 3.5 g/dL (1.3-4.6); Glucose 222 mg/dL (65-115); Iron 76 ug/dL (59-158); Lactate Dehydrogenase 147 U/L (135-225); Osmolality Calculated 288 mOsm/kg (285-295); Percent Saturation 25.9 % (20-50); Potassium 4.1 mmol/L (3.5-5.1); Sodium 136 mmol/L (136-145); Total Bilirubin 0.6 mg/dL (0.15-1.2); Total Iron Binding Capacity 293 mcg/dl; Total Protein 7.3 g/dL (6.6-8.7); Unsaturated Iron Binding 217 ug/dL (112-347)
[2024-12-14 11:06] LABS: Immunoglobulin IGA 336 mg/dL (70-400); Immunoglobulin IGG 1436 mg/dL (700-1600); Immunoglobulin IGM 53 mg/dL (40-230); Vitamin B12 296 pg/mL (232-1245)
[2024-12-14 11:09] LABS: Folate Level 5.6 ng/mL (4.5-32.2)
[2024-12-16 08:29] LABS: ALBUMIN 3.5 g/dL (3.8-4.8); ALPHA 1 GLOBULIN 0.3 g/dL (0.2-0.3); ALPHA 2 GLOBULIN 0.8 g/dL (0.5-0.9); BETA 1 GLOBULIN 0.5 g/dL (0.4-0.6); BETA 2 GLOBULIN 0.4 g/dL (0.2-0.5); GAMMA GLOBULIN 1.5 g/dL (0.8-1.7)
[2024-12-17 22:30] LABS: Immunofixation Serum Normal pattern.
== END 2024-12-30 23:59 | disposition home or self-care (01) ==
PROVIDERS: Nurse Practitioner Family; PCP Internal Medicine; Visit Provider Internal Medicine
DX: C90.31 Solitary plasmacytoma in remission (principal); E11.9 Type 2 diabetes mellitus without complications; D64.9 Anemia, unspecified; Z98.890 Other specified postprocedural states; Z79.899 Other long term (current) drug therapy; Z90.79 Acquired absence of other genital organ(s)
CPT/HCPCS: 36415; 80053; 80162; 82607; 82728; 82746; 82784; 83010; 83540; 83550; 83615; 84155; 84165; 85025; 85045; 86334; 86335; 86880; 99213; 99214

== ENCOUNTER → 2025-01-21 15:03 | Outpatient (BNVA) | payer MEDICARE, OTHER, SELFPAY | PROVIDERS: PCP Internal Medicine; Visit Provider Internal Medicine Cardiovascular Disease | DX: I25.10 Atherosclerotic heart disease of native coronary artery without angina pectoris (principal); I48.11 Longstanding persistent atrial fibrillation; I10 Essential (primary) hypertension; Z79.899 Other long term (current) drug therapy; E78.5 Hyperlipidemia, unspecified; R00.1 Bradycardia, unspecified; G20.A1 Parkinson's disease without dyskinesia, without mention of fluctuations; K80.50 Calculus of bile duct without cholangitis or cholecystitis without obstruction; Z79.01 Long term (current) use of anticoagulants | CPT/HCPCS: 99214 ==

== ENCOUNTER 2025-01-27 13:44 | Oncology outpatient (recurring) (ONCR) | payer MEDICARE, OTHER, SELFPAY ==
[2025-01-21 18:52] LABS: Digoxin 1.5 ng/mL (0.6-1.2)
[2025-01-27 14:35] LABS: Basophils % 0.9 %; Eosinophils # 0.1 10^3/uL (0.0-0.8); Eosinophils % 1.5 %; Lymphocytes # 1.2 10^3/uL (0.8-4.8); Lymphocytes % 25.7 %; Mean Corpuscular HGB Conc 31.6 g/dL (30-55); Mean Corpuscular Hemoglobin 30.2 pg (27-33); Mean Corpuscular Volume 95.7 fl (82-101); Mean Platelet Volume 10.9 fL (7.4-10.4); Monocytes # 0.4 10^3/uL (0.2-0.9); Monocytes % 7.7 %; Neutrophils # 2.79 10^3/uL (1.8-7.7); Neutrophils % 61.1 %; Nucleated Red Blood Cells % 0 %; Platelet Count 207 10^3/cmm (157-399); Red Blood Count 3.97 10^6/uL (3.85-5.65); Red Cell Distribution Width 14.1 % (12.1-15.1); White Blood Count 4.56 10^3/uL (3.29-11.43)
[2025-01-27 15:00] LABS: Alanine Aminotransferase 35 U/L (0-41); Alkaline Phosphatase 918 U/L (40-130); Anion Gap 18.3 (5-19); Aspartate Amino Transferase 103 U/L (0-40); Blood Urea Nitrogen 10 mg/dL (8-23); Calcium 8.5 mg/dL (8.5-10.5); Carbon Dioxide 23 mmol/L (22-29); Chloride 98 mmol/L (98-107); Creatinine Clr Calc Pharmacy 66.9638; Globulin 3.7 g/dL (1.3-4.6); Glucose 312 mg/dL (65-115); Immunoglobulin IGA 389 mg/dL (70-400); Immunoglobulin IGG 1450 mg/dL (700-1600); Immunoglobulin IGM 64 mg/dL (40-230); Osmolality Calculated 293 mOsm/kg (285-295); Potassium 3.3 mmol/L (3.5-5.1); Sodium 136 mmol/L (136-145); Total Protein 6.7 g/dL (6.6-8.7)
[2025-01-27 15:47] LABS: Bilirubin Urine 1+ (Negative); Blood Urine Negative (Negative); Glucose Urine UA 3+ (Normal); Ketones Urine Trace (Negative); Leukocyte Esterase Urine Negative (Negative); Nitrate Urine Negative (Negative); Protein Urine Trace (Negative); Specific Gravity, Urine 1.019 (1.005-1.030); Urine Appearance Cloudy (CLEAR); Urine Color Dark Yellow (Yellow)
[2025-01-27 15:54] LABS: Bacteria Urine None Seen /hpf; Hyaline Casts Urine 11.57 /lpf; WBC Urine 0-5 /hpf (0-5)
[2025-01-27 16:34] LABS: Add Urine Culture? No; Calcium Oxalate Crystals Urine >100 /hpf; UA Slide Review UA Slide Review Perf
[2025-01-28 06:59] LABS: PROTEIN, TOTAL 6.3 g/dL (6.1-8.1)
[2025-01-29 14:25] LABS: KAPPA LIGHT CHAIN, FREE, SERUM 89.6 mg/L (3.3-19.4); KAPPA/LAMBDA LIGHT CHAINS FREE 1.37 (0.26-1.65); LAMBDA LIGHT CHAIN, FREE, SERU 65.3 mg/L (5.7-26.3)
[2025-01-29 15:30] LABS: ALBUMIN 3.1 g/dL (3.8-4.8); ALPHA 1 GLOBULIN 0.3 g/dL (0.2-0.3); ALPHA 2 GLOBULIN 0.8 g/dL (0.5-0.9); BETA 1 GLOBULIN 0.4 g/dL (0.4-0.6); BETA 2 GLOBULIN 0.4 g/dL (0.2-0.5); GAMMA GLOBULIN 1.4 g/dL (0.8-1.7)
== END 2025-01-30 23:59 | disposition home or self-care (01) ==
PROVIDERS: Internal Medicine Cardiovascular Disease; Nurse Practitioner Family; PCP Internal Medicine; Visit Provider Internal Medicine
DX: C90.31 Solitary plasmacytoma in remission (principal); E80.6 Other disorders of bilirubin metabolism; D64.9 Anemia, unspecified; Z79.899 Other long term (current) drug therapy; R30.9 Painful micturition, unspecified; K80.00 Calculus of gallbladder with acute cholecystitis without obstruction
CPT/HCPCS: 36415; 80053; 81001; 82784; 83883; 84155; 84165; 85025; 99213

== ENCOUNTER → 2025-01-28 11:03 | Outpatient (BNVA) | payer MEDICARE, OTHER, SELFPAY | PROVIDERS: PCP Internal Medicine; Visit Provider Student in an Organized Health Care Education/Training Program | DX: K80.50 Calculus of bile duct without cholangitis or cholecystitis without obstruction (principal); E80.6 Other disorders of bilirubin metabolism | CPT/HCPCS: 99214 ==

== ENCOUNTER 2025-02-19 17:09 | Emergency (ER) | payer MEDICARE, OTHER, SELFPAY ==
[2025-02-19 17:11] VITALS: BMI 40.1
--- NOTE | 2025-02-19 17:13 | ECG_ITS ---
"[employer] Test Date: 2025-02-19 Pat Name: Shad Vines Department: Room: Gender: Male Client Partner: : [phone] Requested By: Mary Flores Order Number: [id number] Marco Antonio MD: Homero Block M.D. Measurements Intervals [place] Rate: 70 P: 0 IA: 0 QRS: -25 QRSD: 107 T: 37 QT: 425 QTc: 459 Interpretive Statements ATRIAL FIBRILLATION ANTERIOR MYOCARDIAL INFARCTION , PROBABLY RECENT [40+ ms Q WAVE AND/OR ST/T ABNORMALITY IN V3/V4] INFERIOR MYOCARDIAL INFARCTION , PROBABLY OLD [40+ ms Q WAVE AND/OR ST/T ABNORMALITY IN II/aVF] Compared to ECG 10/19/2024 22:22:53 Ventricular premature complex(es) no longer present Aberrant conduction of supraventricular beat(s) no longer present Myocardial infarct finding still present Electronically Signed On 02-21-2025 19:26:58 CDT by Homero Block M.D. [id number]"
--- NOTE | 2025-02-19 17:14 | CTR_ITS ---
PROCEDURE INFORMATION: Exam: CT Head Without Contrast Exam date and time: 02/19/2025 6:40 PM Age: 80 years old Clinical indication: Altered mental status/memory loss; EMS arrival from [facility]. Worsening confusion with visual hallucinations over last several days. ; Additional info: Altered mentation, visual hallucinations TECHNIQUE: Imaging protocol: Computed tomography of the head without contrast. Radiation optimization: All CT scans at this facility use at least one of these dose optimization techniques: automated exposure control; mA and/or kV adjustment per patient size (includes targeted exams where dose is matched to clinical indication); or iterative reconstruction. COMPARISON: CT head wo con* [id number] 10/20/2024 11:07 AM RADIATION DOSE METRICS: Total DLP (mGy-cm): 1105.58 FINDINGS: Brain: Atrophic or involutional change indicates volume loss, as noted with prior exam. Mild periventricular subcortical deep white matter low attenuation bilaterally suggesting chronic small-vessel disease change, as noted with prior exam. No intracranial hemorrhage or hematoma is seen. No mass effect or shift of midline structures. No findings to indicate territorial or large vessel ischemic infarct. Cerebral ventricles: Mild ventricular prominence with atrophic change, without hydrocephalus. Paranasal sinuses: Visualized sinuses are unremarkable. No fluid levels. Mastoid air cells: Visualized mastoid air cells are well aerated. Bones: Bone windows of the skull show no acute abnormality. Soft tissues: Small metallic density within the scalp overlying the right lateral frontal bone is unchanged with prior exam. CT/CT head wo con* [id number] IMPRESSION: Stable appearance with previous exam. No acute intracranial abnormality.
--- NOTE | 2025-02-19 17:14 | XRR_ITS ---
PROCEDURE INFORMATION: Exam: XR Chest Exam date and time: 02/19/2025 5:19 PM Age: 80 years old Clinical indication: Condition or disease; Other: Metabolic encephalopathy TECHNIQUE: Imaging protocol: Radiologic exam of the chest. Views: 1 view. COMPARISON: CR XR chest 1V portable [id number] 05/13/2023 9:22 PM FINDINGS: Lungs: Predominant linear type opacity right lung base most suggestive of subsegmental atelectasis. Remainder of the lungs appear clear. No consolidation. Pleural spaces: No significant pleural effusion. No pneumothorax. Heart/Mediastinum: Unremarkable. No cardiomegaly. Vasculature: Surgical clips and partially visualized stent within the visualized right upper abdomen. Bones/joints: Visualized osseous structures show no acute abnormality. XR/XR chest 1V portable [id number] IMPRESSION: Predominant linear type opacity right lung base most suggestive of subsegmental atelectasis.
[2025-02-19 17:16] VITALS: BP 113/76; PULSE 81; RESP 14; TEMP 36.4; O2SAT 94
--- NOTE | 2025-02-19 17:31 | W.ED.AMS ---
HPI - Altered Mental Status General: Chief Complaint: Altered Mental Status Stated Complaint: ams Time Seen by Provider: 02/19/25 17:09 History of Present Illness: Patient is a 80-year-old male with history of A-fib, on dig and AC, Parkinson's disease, on Sinemet, with contributing factors of recent cholecystectomy, open, with bile duct stent, presents with 2-3 days of confusion per daughter and [facility] and longterm. Patient did have labs yesterday at rehab center which were reviewed and fairly unremarkable. He has had increasing confusion. Denied any shortness of breath, dysuria, abdominal pain. He has had hallucinations where he sees bugs as per longterm. As noted last known well is 2-3 days ago, therefore he is out of the window for stroke protocol. No fevers. Daughter relates he will not eat anything other than really a few bites and states everything is salty, but he will drink Ensure. Daughter relates he has had 30 pound weight loss over the last 7 weeks. Initially, patient had cholecystectomy tube prior to open cholecystectomy. Daughter relates that he is not moving that much since his surgery. Associated symptoms: Deny depression Related Data Home Medications ?Medication ?Instructions ?Recorded ?Confirmed simvastatin 20 mg tablet 20 mg PO DAILY 11/02/19 01/28/25 pantoprazole 40 mg tablet,delayed 40 mg PO DAILY 10/13/24 01/28/25 release amiodarone 200 mg tablet mg PO 12/14/24 01/28/25 digoxin 125 mcg (0.125 mg) tablet PO 12/14/24 01/28/25 metoprolol succinate 25 mg 12.5 mg PO DAILY 01/21/25 01/28/25 tablet,extended release 24 hr chlorhexidine gluconate 0.12 % PO 01/27/25 01/28/25 mouthwash cholestyramine (with sugar) 4 gram ea PO 01/27/25 01/28/25 oral powder Previous Rx's ?Medication ?Instructions ?Recorded carbidopa 25 mg-levodopa 100 mg 25 - 100 tab PO BID #180 tabs 09/22/24 tablet escitalopram oxalate 20 mg tablet 20 mg PO DAILY #90 tabs 09/22/24 (Lexapro) memantine 5 mg tablet 5 mg PO DAILY #90 tabs 09/22/24 insulin degludec 200 unit/mL (3 5 unit (0.025 mL) SUBCUT DAILY #9 10/22/24 mL) subcutaneous pen (Tresiba mL FlexTouch U-200 insulin) apixaban 5 mg tablet (Eliquis) 5 mg PO BID #60 tabs 12/10/24 lenalidomide 5 mg capsule 5 mg PO DAILY 21 days #21 caps 01/27/25 (Revlimid) Allergies Allergy/AdvReac Type Severity Reaction Status Date / Time No Known Allergies Allergy Verified 01/28/25 11:12 Review of Systems General: Reports: 10 or more systems reviewed and unremarkable except in HPI and below Const: Reports: change in appetite and malaise; Denies: fever(s), chills or body aches Eyes: Denies: change in vision or blurry vision ENMT: Denies: throat pain or mouth pain Card: Denies: chest pain or palpitations Resp: Denies: dyspnea or non-productive cough GI: Reports: abdominal pain (appropriate for recent merissa), early satiety (and everything is salty) and constipation; Denies: nausea, vomiting or bloating : Denies: flank pain, difficulty urinating or urinary urgency Musc: Denies: neck pain, back pain, joint pain or joint swelling Skin/Breast: Denies: rash or pruritus Neuro: Reports: weakness in extremities; Denies: headache(s), numbness in extremities or sensory changes Psych: Reports: sleeping more; Denies: anxiety or depression Endo: Denies: polyuria or polydipsia Paulie/Lymph: Denies: easy bruising or easy bleeding All/Imm: Denies: urticaria or throat swelling PFSH ED PFSH: Medical History History of echocardiogram ef 68% 07/2023 Chronic back pain History of Holter monitoring 08/2024 - baseline predominantly afib, non afib 47%, one 3.1 second pause (asymptomatic), one 5 beat run of ns tachycardia (asymptomatic) Plasmacytoma in remission Weakness of both lower extremities Acquired left foot drop Facet arthropathy, lumbar History of nonmelanoma skin cancer Lumbar stenosis with neurogenic claudication Diarrhea Tubular adenoma History of cardioversion Balanitis Multiple myeloma Lymphoma ASHD (arteriosclerotic heart disease) Diabetes on insulin Atrial fibrillation Obesity HTN (hypertension) Dyslipidemia Surgical History History of colonoscopy with polypectomy 01/2022 Dr Raymundo S/P epidural steroid injection History of radiofrequency ablation (RFA) of nerve of lumbar spine (12/30/23) right L3/L4, L4/5, L5/S1 Dr Coley Status post open reduction and internal fixation (ORIF) of fracture (05/14/23) right hip fracture, gamma nail, Dr Flores History of lumbar laminectomy (07/25/22) L2/L3 laminectomy with partial facetectomies, revision at L3/L4, L4/L5 Dr Hong History of kyphoplasty (03/30/24) L3 Dr Hong Previous back surgery 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 History of colonoscopy 01/2022 H/O bone marrow transplant Family History Brother CAD (coronary artery disease) Cancer Mother Congestive heart failure (CHF) Brother Cancer Sister Cancer Sister Cancer Family/Other Cancer Chronic kidney disease (CKD) Denies family history of Diabetes Clotting disorder Dementia Anesthesia complication Bleeding disorder Lung disease Stroke Social History Smoking and tobacco/nicotine status: never used tobacco/nicotine Alcohol intake: former Substance/Drug Use: never Additional social history: Lives alone, daughters help him as needed Marital status: / Current occupational status: retired Physical Exam Const: COMMON NORMALS: no acute distress, average body habitus, patient oriented x3, no limitations, healthy appearing, alert and well nourished EXAM LIMITATIONS: no altered mental status and no behavioral limitations GENERAL APPEARANCE: cooperative, comfortable and lethargic (somewhat falls asleep during exam); not in distress and not anxious NUTRITIONAL APPEARANCE: thin ORIENTATION/CONSCIOUSNESS: Yes awake, Yes oriented to person, Yes oriented to place, Yes oriented to time and Yes lethargic (somewhat falls asleep during exam) HENMT: COMMON NORMALS: normocephalic, atraumatic, hearing grossly normal bilaterally, TM's normal bilaterally and Normal external nose present HEAD & SCALP: normocephalic and atraumatic FACE & SINUS: normal facial exam NOSE: Normal external nose present and Normal nares present GENERAL EAR: hearing grossly impaired TYMPANIC MEMBRANE: TM's normal bilaterally MOUTH: Normal oral and palatal mucosa present and lip normal THROAT: posterior oropharynx normal and uvula midline Eye: COMMON NORMALS: Equal, round and reactive pupils present and EOMs intact bilaterally GENERAL EYE: appearance normal, both eyes and all related structures and normal light reflex SCLERA: sclerae normal PUPIL: Yes Equal, round and reactive pupils present DIRECT OPHTHALMOSCOPY: Yes normal light reflex Neck/C-Spine: COMMON NORMALS: full ROM, no lymphadenopathy and no JVD GENERAL: Yes normal visual inspection and Yes trachea midline CERVICAL SPINE: Yes cervical ROM normal Lymph: LYMPHATIC: no lymphadenopathy noted Chest: COMMONS NORMALS: normal palpation of entire chest wall Resp: COMMON NORMALS: normal respiratory effort EFFORT & INSPECTION: No respiratory distress AUSCULTATION: rales (RLL distal, otherwise brochialvesicular) and bronchovesicular breath sounds (except RLL with crackles) on the right, on the left and bilateral Cardio: COMMON NORMALS: no JVD, regular rate, regular rhythm and Peripheral pulses 2+ throughout RATE: regular rate RHYTHM: regular rhythm PERIPHERAL PULSES: Peripheral pulses 2+ throughout GI: COMMON NORMALS: Normal to inspection, nondistended, normoactive bowel sounds present and non-tender INSPECTION: Yes scar (midline-recent, farshad removed today) Neuro: COMMON NORMALS: patient oriented x3 SENSORIUM/ORIENTATION: Yes alert, Yes oriented to person, Yes oriented to place, Yes oriented to time and Yes lethargic (somewhat falls asleep during exam) Course Reevaluation(s): Reevaluation #1: Patient is sleeping at bedside. No complaints. Updated daughter, POA Consultations: Consultation #1: Discussed with Dr. Carter from [facility]. Obtained abdomen CT report. Consultation #2: Called [facility] [address] for Dr. Higgins, patient's original surgeon for cholecystectomy, or Dr. Rollins patient who placed bile duct stent. Neither are on-call, however transfer center will get a hold of on-call surgeon with concern of CT of abdomen pelvis. Consultation #3: D/w Dr. Rollins whom placed stent whom recommends general surgery. He is not needed at this time Transfer center talked to the surgeon on-call that was in surgery so it took some time to get a hold of him. Dr. Boyer recommended ED to ED transfer. Discussed the case with Dr. Iniguez that accepted the patient Vital Signs: Vital signs: Vital Signs Temperature 97.6 F 02/19/25 17:16 Pulse Rate 66 02/19/25 18:38 Respiratory Rate 16 02/19/25 18:38 Blood Pressure 127/53 02/19/25 18:38 Pulse Oximetry 95 02/19/25 18:38 Oxygen Delivery Me thod Room Air 02/19/25 17:16 MDM - Altered Mental Status Medical Decision Making Patient is a 80-year-old gentleman that appears to have association of right lower lobe infiltrate status post cholecystectomy. Given the association of history of open cholecystectomy that was bad?by reports of family, will plan on CT of abdomen pelvis. Patient did not have significant pain on physical examination or guarding CT of the abdomen and pelvis shows pericholecystic fluid trace intraperitoneal gas, retained stone, enhancing lesion posterior lower right pole of the kidney. Mild to moderate pleural effusion with adjacent atelectasis and/or consolidation. Called transfer center at [facility] Patient is being left n.p.o. for [facility]/surgeon to evaluate formally prior to any fluid intake Lab Data 02/19/25 17:23 02/19/25 17:23 Radiology Impressions Chest X-Ray 02/19/25 17:14 IMPRESSION: Predominant linear type opacity right lung base most suggestive of subsegmental atelectasis. Head CT 02/19/25 17:14 IMPRESSION: Stable appearance with previous exam. No acute intracranial abnormality. Abdomen/Pelvis CT 02/19/25 18:24 IMPRESSION: 1. Trace intraperitoneal gas. 2. 4.4 cm anterior perihepatic collection of fluid and gas which appears to communicate with 6.2 cm collection in the gallbladder fossa containing a retained stone. 3. 2.9 x 2.1 x 2.9 cm fluid collection in the right lateral paracolic gutter. 4. Questionable 12 mm enhancing lesion arising from the posterior lower pole of the right kidney. Recommend initial evaluation with ultrasound though multiphase CT or MR may be required for definitive diagnosis. 5. [id number]-[id number] right pleural effusion with adjacent atelectasis and/or consolidation. 6. Scattered left lower lobe pulmonary nodules largest is increased in size from 3 mm to 8 mm. There are new left lower lobe pulmonary micro nodules. 7. 6. Scattered left lower lobe pulmonary nodules largest is increased in size from 3 mm to 8 mm. There are new left lower lobe pulmonary micro nodules. Consider nonemergent CT chest versus three-month follow-up per Fleischner criteria. ADDENDUM: 02/19/251920 ADDENDUM: THIS REPORT CONTAINS FINDINGS THAT MAY BE CRITICAL TO PATIENT CARE. The findings were verbally communicated via telephone conference with Mary Flores at 7:19 PM CDT on 02/19/2025. The findings were acknowledged and understood. Laboratory Results WBC 11.11 10^3/uL (3.29-11.43) 02/19/25 17:23 RBC 3.51 10^6/uL (3.85-5.65) L 02/19/25 17:23 Hgb 10.20 g/dL (11.27-16.99) L 02/19/25 17:23 Hct 32.5 % (37-53) L 02/19/25 17:23 MCV 92.6 fl (82-101) 02/19/25 17:23 MCH 29.1 pg (27-33) 02/19/25 17:23 MCHC 31.4 g/dL (30-55) 02/19/25 17:23 RDW 14.8 % (12.1-15.1) 02/19/25 17:23 Plt Count 470 10^3/cmm (157-399) H 02/19/25 17:23 MPV 9.1 fL (7.4-10.4) 02/19/25 17:23 Neut % (Auto) 80.4 % 02/19/25 17:23 Lymph % (Auto) 10.0 % 02/19/25 17:23 [place] % (Auto) 7.8 % 02/19/25 17:23 Eos % (Auto) 0.2 % 02/19/25 17:23 Baso % (Auto) 0.4 % 02/19/25 17:23 Neut # (Auto) 8.94 10^3/uL (1.8-7.7) H 02/19/25 17:23 Lymph # (Auto) 1.1 10^3/uL (0.8-4.8) 02/19/25 17:23 [place] # (Auto) 0.9 10^3/uL (0.2-0.9) 02/19/25 17:23 Eos # (Auto) 0.0 10^3/uL (0.0-0.8) 02/19/25 17:23 Baso # (Auto) 0.0 10^3/uL (0.0-0.1) 02/19/25 17:23 Nucleated RBC % (auto) 0 % 02/19/25 17:23 Nucleated RBCs # 0.0 /100WBC 02/19/25 17:23 Specimen Type Arterial 02/19/25 17:51 Sample Site Radial, right 02/19/25 17:51 ABG pH 7.48 (7.35-7.45) H 02/19/25 17:51 ABG pCO2 40.8 mmHg (35-45) 02/19/25 17:51 ABG pO2 64.6 mmHg (80.0-100.0) L 02/19/25 17:51 ABG PO2/FiO2 Ratio 307 02/19/25 17:51 ABG HCO3 30.3 mmol/L (22-26) H 02/19/25 17:51 ABG O2 Saturation 93.6 02/19/25 17:51 ABG Base Excess 6.2 mmol/L (-2.0-2.0) H 02/19/25 17:51 Reinaldo Test Pos 02/19/25 17:51 A-a O2 Gradient 4.5 mmHg (5-10) L 02/19/25 17:51 Hematocrit 30.5 % (42-52) L 02/19/25 17:51 Hgb O2 Saturation 92.2 % (95-100) L 02/19/25 17:51 Carboxyhemoglobin 1.3 %THgb (0.4-20.1) 02/19/25 17:51 Methemoglobin 0.2 % (0.4-1.5) L 02/19/25 17:51 Total Hemoglobin 9.9 g/dL (14-18) L 02/19/25 17:51 Sodium 140.0 mmol/L (131-143) 02/19/25 17:51 Potassium 3.1 mmol/L (3.5-5.0) L 02/19/25 17:51 Glucose 216.0 mg/dL (70-115) H 02/19/25 17:51 Ionized Calcium 1.1 mmol/L (1.1-1.4) 02/19/25 17:51 O2 Delivery Device Room air 02/19/25 17:51 FiO2 21.0 % 02/19/25 17:51 Final Assembly Worker ID glc 02/19/25 17:51 Sodium 141 mmol/L (136-145) 02/19/25 17:23 Potassium 3.4 mmol/L (3.5-5.1) L 02/19/25 17:23 Chloride 104 mmol/L (98-107) 02/19/25 17:23 Carbon Dioxide 27 mmol/L (22-29) 02/19/25 17:23 Anion Gap 13.4 (5-19) 02/19/25 17:23 BUN 8 mg/dL (8-23) 02/19/25 17:23 Creatinine 0.8 mg/dL (0.7-1.2) 02/19/25 17:23 GFR Calculation Not Reportable 02/19/25 17:23 Glucose 203 mg/dL (65-115) H 02/19/25 17:23 Calculated Osmolality 296 mOsm/kg (285-295) H 02/19/25 17:23 Lactic Acid 1.4 mmol/L (0.5-2.2) 02/19/25 17:23 Calcium 7.8 mg/dL (8.5-10.5) L 02/19/25 17:23 Magnesium 2.0 mg/dL (1.7-2.3) 02/19/25 17:23 Total Bilirubin 0.7 mg/dL (0.15-1.2) 02/19/25 17:23 AST 21 U/L (0-40) 02/19/25 17:23 ALT 8 U/L (0-41) 02/19/25 17:23 Alkaline Phosphatase 268 U/L (40-130) H 02/19/25 17:23 Ammonia 18 umol/L (16-60) 02/19/25 17:30 Troponin T Baseline 22 ng/L (0-15) H 02/19/25 17:23 Troponin T 120 Minute 22.00 ng/L (0-15) H 02/19/25 19:16 Delta Troponin T 0 ABS# (0-10) 02/19/25 19:16 C-Reactive Protein 101.9 mg/L (0.0-4.9) H 02/19/25 17:23 NT-Pro-B Natriuret Pep 1484 pg/mL (0-450) H 02/19/25 17:23 Total Protein 5.5 g/dL (6.6-8.7) L 02/19/25 17:23 Albumin 2.4 g/dL (3.5-5.2) L 02/19/25 17:23 Globulin 3.1 g/dL (1.3-4.6) 02/19/25 17:23 Lipase 22 U/L (13-60) 02/19/25 17:23 Urine Color Yellow (Yellow) 02/19/25 18:20 Urine Appearance Clear (CLEAR) 02/19/25 18:20 Urine pH 6.0 (5-7) 02/19/25 18:20 Ur Specific [place] 1.010 (1.005-1.030) 02/19/25 18:20 Urine Protein Negative (Negative) 02/19/25 18:20 Urine Glucose (UA) Negative (Normal) 02/19/25 18:20 Urine Ketones Negative (Negative) 02/19/25 18:20 Urine Blood Negative (Negative) 02/19/25 18:20 Urine Nitrate Negative (Negative) 02/19/25 18:20 Urine Bilirubin Negative (Negative) 02/19/25 18:20 Urine Urobilinogen 1.0 mg/dL (Negative) 02/19/25 18:20 Ur Leukocyte Esterase Negative (Negative) 02/19/25 18:20 Urine RBC 0-2 /hpf (0-2) 02/19/25 18:20 Urine WBC 0-5 /hpf (0-5) 02/19/25 18:20 Ur Squamous Epith Cells 0-5 /hpf (0-5) 02/19/25 18:20 Amorphous Sediment Not Reportable 02/19/25 18:20 Urine Bacteria None seen /hpf (NONE) 02/19/25 18:20 Hyaline Casts 0.81 /lpf 02/19/25 18:20 Digoxin 1.3 ng/mL (0.6-1.2) H 02/19/25 17:23 Urine Opiates Screen Negative ng/mL (Negative) 02/19/25 18:20 Ur Barbiturates Screen Negative ng/mL (Negative) 02/19/25 18:20 Ur Phencyclidine Scrn Negative ng/mL (Negative) 02/19/25 18:20 Ur Amphetamines Screen Negative ng/mL (Negative) 02/19/25 18:20 U Benzodiazepines Scrn Negative ng/mL (Negative) 02/19/25 18:20 Urine Cocaine Screen Negative ng/mL (Negative) 02/19/25 18:20 U Marijuana (THC) Screen Negative ng/mL (Negative) 02/19/25 18:20 Influenza A (PCR) Negative (Negative) 02/19/25 17:34 Influenza Type B (PCR) Negative (Negative) 02/19/25 17:34 RSV (PCR) Negative (Negative) 02/19/25 17:34 SARS-CoV-2 (PCR) Negative (Negative) 02/19/25 17:34 All radiology interpretation(s) finalized by discharge ED provider radiology interpretation(s): RLL pneumonia EKG Data EKG 1: Interpretation: Left axis deviation, sinus rhythm, no ST segment elevation, atrial fibrillation at rate of 76 Computer generated interpretation: Acute myocardial infarction Discharge Plan Discharge Patient Disposition: Xfer Short-Term Hosp Clinical Impression: Atelectasis of right lung, Free intraperitoneal air, Abscess, intra-abdominal, postoperative Pneumonia, organism unspecified Qualifiers: Laterality: right Lung location: lower lobe of lung Qualified Code(s): J18.9 - Pneumonia, unspecified organism Condition: Stable Referrals: Jayden Blake MD [Primary Care Provider, Internal Medicine] Discharge Diet: Advance as tolerated Discharge Activity: Resume usual activity Patient Instructions: Community Acquired Pneumonia (ED), Atelectasis (ED) Print Language: German Coding Level of Care Code ED Marriage Therapist for Lita Salazar
[2025-02-19 17:36] LABS: Basophils % 0.4 %; Eosinophils % 0.2 %; Hematocrit 32.5 % (37-53); Lymphocytes # 1.1 10^3/uL (0.8-4.8); Mean Corpuscular HGB Conc 31.4 g/dL (30-55); Mean Corpuscular Hemoglobin 29.1 pg (27-33); Mean Corpuscular Volume 92.6 fl (82-101); Mean Platelet Volume 9.1 fL (7.4-10.4); Monocytes # 0.9 10^3/uL (0.2-0.9); Monocytes % 7.8 %; Neutrophils # 8.94 10^3/uL (1.8-7.7); Neutrophils % 80.4 %; Nucleated Red Blood Cells % 0 %; Platelet Count 470 10^3/cmm (157-399); Red Blood Count 3.51 10^6/uL (3.85-5.65); Red Cell Distribution Width 14.8 % (12.1-15.1); White Blood Count 11.11 10^3/uL (3.29-11.43)
[2025-02-19] MEDS: cefTRIAXone 2,000 mg SDV 2000 MG IVP (17:46)
[2025-02-19] MEDS: doxycycline 100 MG in sodium chloride 0.9% (plus) 100 ML IV (17:48)
[2025-02-19 17:53] LABS: Lactic Sepsis W/Reflex 1.4 mmol/L (0.5-2.2)
[2025-02-19 17:54] VITALS: BP 124/67; PULSE 65; RESP 16; O2SAT 93
[2025-02-19 17:55] LABS: Troponin(5th) Baseline 22 ng/L (0-15)
[2025-02-19 17:56] LABS: Ammonia 18 umol/L (16-60)
[2025-02-19 18:02] LABS: ABG PCO2 40.8 mmHg (35-45); ABG PH Result 7.48 (7.35-7.45); Alveolar-Arterial Oxygen Gradi 4.5 mmHg (5-10); Arterial Blood Gas Hematocrit 30.5 % (42-52); Base Excess ABG 6.2 mmol/L (-2.0-2.0); Blood Gas Allen Test Pos; Blood Gas Operator Identificat glc; Blood Gas Sample Site Radial, right; Blood Gas Sample Type Arterial; Carboxyhemoglobin 1.3 %THgb (0.4-20.1); HCO3 ABG 30.3 mmol/L (22-26); HGB O2 Sat 92.2 % (95-100); Ionized Calcium Level - ABG 1.1 mmol/L (1.1-1.4); Methemoglobin 0.2 % (0.4-1.5); Oxygen Device ROOM AIR; Oxygen Saturation ABG 93.6; PO2 ABG 64.6 mmHg (80.0-100.0); PO2 FiO2 Ratio Arterial Blood 307; Potassium Level - ABG 3.1 mmol/L (3.5-5.0); Total Hemoglobin 9.9 g/dL (14-18)
[2025-02-19 18:05] LABS: Alanine Aminotransferase 8 U/L (0-41); Albumin Level 2.4 g/dL (3.5-5.2); Alkaline Phosphatase 268 U/L (40-130); Anion Gap 13.4 (5-19); Aspartate Amino Transferase 21 U/L (0-40); Blood Urea Nitrogen 8 mg/dL (8-23); C Reactive Protein 101.9 mg/L (0.0-4.9); Calcium 7.8 mg/dL (8.5-10.5); Carbon Dioxide 27 mmol/L (22-29); Chloride 104 mmol/L (98-107); Creatinine Clr Calc Pharmacy 104.8769; Globulin 3.1 g/dL (1.3-4.6); Glucose 203 mg/dL (65-115); Lipase 22 U/L (13-60); NT Pro B Type Natriuretic Pept 1484 pg/mL (0-450); Osmolality Calculated 296 mOsm/kg (285-295); Potassium 3.4 mmol/L (3.5-5.1); Sodium 141 mmol/L (136-145); Total Bilirubin 0.7 mg/dL (0.15-1.2); Total Protein 5.5 g/dL (6.6-8.7)
[2025-02-19 18:06] LABS: Digoxin 1.3 ng/mL (0.6-1.2)
[2025-02-19 18:24] LABS: Influenza A NEGATIVE (Negative); Influenza B NEGATIVE (Negative); Respiratory Syncytial Virus Ce NEGATIVE (Negative); SARS-CoV-2 PCR NEGATIVE (Negative)
--- NOTE | 2025-02-19 18:24 | CTR_ITS ---
PROCEDURE INFORMATION: Exam: CT Abdomen And Pelvis With Contrast Exam date and time: 02/19/2025 6:42 PM Age: 80 years old Clinical indication: Other: AMS post lap merissa; Prior surgery; Surgery date: <1 month; Surgery type: Recent lap merissa. Patient unable to specify exact date. Kyphoplasty. Lumbar laminectomy. Troch nail. Orchiectomy. Per daughter, patient has been having worsening mentation since a recent lap merissa. Biliary stent in place. ; Additional info: Altered mental status, post op merissa TECHNIQUE: Imaging protocol: Computed tomography of the abdomen and pelvis with contrast. Radiation optimization: All CT scans at this facility use at least one of these dose optimization techniques: automated exposure control; mA and/or kV adjustment per patient size (includes targeted exams where dose is matched to clinical indication); or iterative reconstruction. Contrast material: OMNI 350; Contrast volume: 100 ml; Contrast route: INTRAVENOUS (IV); COMPARISON: CT abdomen wo con [id number] 11/18/2024 8:51 AM RADIATION DOSE METRICS: Total DLP (mGy-cm): 1020.55 FINDINGS: Lungs: Scattered left lower lobe pulmonary nodules largest is increased in size from 3 mm to 8 mm. There are new left lower lobe pulmonary nodules. Pleural spaces: Tsnx-lh-mnzkqoyt right pleural effusion with adjacent atelectasis and/or consolidation. Heart: Heart size is within normal limits. There is no pericardial effusion or pericardial thickening. Liver: Apart from perihepatic collection, the liver is otherwise normal. Gallbladder and biliary ducts: The gallbladder is surgically absent. A biliary stent is in place. There is pneumobilia without definitive biliary dilatation. Pancreas: The pancreas is atrophic without obvious abnormality. Spleen: The spleen is normal. Adrenal glands: The adrenal glands are normal. Kidneys and ureters: Stable right renal cysts. There is normal enhancement of the kidneys. No renal calcifications are identified. There is no hydronephrosis. Questionable 12 mm enhancing lesion arising from the posterior lower pole of the right kidney. Stomach and bowel: There is no large or small bowel obstruction. There is no evidence of bowel wall thickening. Appendix: A normal appendix is identified. Intraperitoneal space: Trace amounts of free intraperitoneal gas. Portions of a right ureteral stent versus nephrostomy tube are identified. There is no evidence of hydronephrosis. No renal calcifications are identified. The right kidney measures 8.4 cm in length. 2.9 x 2.1 x 2.9 cm fluid collection in the right lateral paracolic gutter. Vasculature: Atherosclerotic calcifications of the aorta are present. No aneurysm is identified. Lymph nodes: No enlarged lymph nodes are identified. Urinary bladder: The bladder is unremarkable. Reproductive: Moderate prostatomegaly. Bones/joints: No acute osseous abnormalities are seen. Stable severe compression fracture of L3 status post vertebroplasty. Soft tissues: Trace gas in the right lateral anterior abdominal wall may be postoperative in nature. Small periumbilical hernia containing only fat. CT/CT abdomen pelvis w con* [id number] IMPRESSION: 1. Trace intraperitoneal gas. 2. 4.4 cm anterior perihepatic collection of fluid and gas which appears to communicate with 6.2 cm collection in the gallbladder fossa containing a retained stone. 3. 2.9 x 2.1 x 2.9 cm fluid collection in the right lateral paracolic gutter. 4. Questionable 12 mm enhancing lesion arising from the posterior lower pole of the right kidney. Recommend initial evaluation with ultrasound though multiphase CT or MR may be required for definitive diagnosis. 5. [id number] right pleural effusion with adjacent atelectasis and/or consolidation. 6. Scattered left lower lobe pulmonary nodules largest is increased in size from 3 mm to 8 mm. There are new left lower lobe pulmonary micro nodules. 7. 6. Scattered left lower lobe pulmonary nodules largest is increased in size from 3 mm to 8 mm. There are new left lower lobe pulmonary micro nodules. Consider nonemergent CT chest versus three-month follow-up per Fleischner criteria.
[2025-02-19 18:29] LABS: Bilirubin Urine Negative (Negative); Blood Urine Negative (Negative); Glucose Urine UA Negative (Normal); Ketones Urine Negative (Negative); Leukocyte Esterase Urine Negative (Negative); Nitrate Urine Negative (Negative); Protein Urine Negative (Negative); Urine Appearance Clear (CLEAR); Urine Color Yellow (Yellow)
[2025-02-19 18:31] LABS: Add Urine Microscopic? YES; Bacteria Urine None Seen /hpf; Hyaline Casts Urine 0.81 /lpf; RBC Urine 0-2 /hpf (0-2); Squamous Epithelial Cell Urine 0-5 /hpf (0-5); WBC Urine 0-5 /hpf (0-5)
[2025-02-19 18:36] LABS: Amphetamines Screen Urine Negative (Negative); Barbiturates Screen Urine Negative (Negative); Benzodiazepines Screen Urine Negative (Negative); Cocaine Screen Urine Negative (Negative); Opiate Screen Urine Negative (Negative); PCP Screen Urine Negative (Negative); THC Screen Urine Negative (Negative)
[2025-02-19 18:38] VITALS: BP 127/53; PULSE 66; RESP 16; O2SAT 95
[2025-02-19] MEDS: iohexol 350 mg/mL 500 mL Btl (per mL) IV (18:41)
--- NOTE | 2025-02-19 19:15 | ECG_ITS ---
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 Measurements Intervals [place] Rate: 78 P: 0 TN: 0 QRS: -17 QRSD: 124 T: 32 QT: 453 QTc: 519 Interpretive Statements ATRIAL FIBRILLATION INFERIOR MYOCARDIAL INFARCTION , PROBABLY OLD [40+ ms Q WAVE AND/OR ST/T ABNORMALITY IN II/aVF] ANTEROSEPTAL MYOCARDIAL INFARCTION , PROBABLY RECENT [40+ ms Q WAVE IN V1-V4] Compared to ECG 02/19/2025 17:31:16 No significant changes Electronically Signed On 02-21-2025 19:37:54 CDT by Homero Block M.D. [email or web address]
[2025-02-19 19:40] LABS: Troponin 5 2HR Delta 0 ABS# (0-10)
[2025-02-19] MEDS: lactated ringers 1,000 ML 100 ML IV (22:07)
== END 2025-02-20 01:58 | disposition short-term general hospital (02) ==
PROVIDERS: Emergency Provider Physician Assistant; PCP Internal Medicine
DX: J98.11 Atelectasis (principal); K68.11 Postprocedural retroperitoneal abscess; J18.9 Pneumonia, unspecified organism; Z11.52 Encounter for screening for COVID-19; Z98.890 Other specified postprocedural states; E11.9 Type 2 diabetes mellitus without complications; I10 Essential (primary) hypertension; E78.5 Hyperlipidemia, unspecified
CPT/HCPCS: 36415; 36600; 70450; 71045; 74177; 80051; 80053; 80162; 80306; 81001; 82010; 82140; 82330; 82805; 83605; 83690; 83735; 83880; 84484; 85025; 86140; 87040; 87637; 93005; 96365; 96366; 96375; 99285; J0696; J3490; J7120

== ENCOUNTER 2025-04-14 12:20 | Oncology outpatient (recurring) (ONCR) | payer MEDICARE, OTHER, SELFPAY ==
[2025-04-14 12:42] LABS: Hematocrit 34.4 % (37-53); Hemoglobin 11.00 g/dL (11.27-16.99); Mean Corpuscular HGB Conc 32.0 g/dL (30-55); Mean Corpuscular Hemoglobin 29.3 pg (27-33); Mean Corpuscular Volume 91.5 fl (82-101); Nucleated Red Blood Cells % 0 %; Platelet Count 217 10^3/cmm (157-399); Red Blood Count 3.76 10^6/uL (3.85-5.65); White Blood Count 5.22 10^3/uL (3.29-11.43)
[2025-04-14 13:24] LABS: Alanine Aminotransferase < 5 U/L (0-41); Albumin Level 3.4 g/dL (3.5-5.2); Alkaline Phosphatase 122 U/L (40-130); Anion Gap 15.1 (5-19); Aspartate Amino Transferase 21 U/L (0-40); Blood Urea Nitrogen 11 mg/dL (8-23); Calcium 8.6 mg/dL (8.5-10.5); Carbon Dioxide 25 mmol/L (22-29); Chloride 103 mmol/L (98-107); Creatinine Clr Calc Pharmacy 66.2467; Ferritin 33 ng/mL (30-400); Globulin 3.1 g/dL (1.3-4.6); Glucose 281 mg/dL (65-115); Iron 52 ug/dL (59-158); Osmolality Calculated 298 mOsm/kg (285-295); Potassium 4.1 mmol/L (3.5-5.1); Sodium 139 mmol/L (136-145); Total Iron Binding Capacity 271 mcg/dl; Total Protein 6.5 g/dL (6.6-8.7); Unsaturated Iron Binding 219 ug/dL (112-347); Vitamin B12 247 pg/mL (232-1245)
[2025-04-15 07:25] LABS: PROTEIN, TOTAL 6.1 g/dL (6.1-8.1)
[2025-04-15 20:14] LABS: ALPHA 1 GLOBULIN 0.3 g/dL (0.2-0.3); ALPHA 2 GLOBULIN 0.7 g/dL (0.5-0.9); BETA 1 GLOBULIN 0.4 g/dL (0.4-0.6); BETA 2 GLOBULIN 0.3 g/dL (0.2-0.5)
== END 2025-05-02 23:59 | disposition home or self-care (01) ==
PROVIDERS: Internal Medicine; PCP Internal Medicine; Visit Provider Nurse Practitioner Family
DX: C90.31 Solitary plasmacytoma in remission (principal); D36.9 Benign neoplasm, unspecified site; Z79.899 Other long term (current) drug therapy
CPT/HCPCS: 36415; 80053; 82607; 82728; 82746; 83010; 83540; 83550; 83615; 84155; 84165; 85025; 86334; 99214

== ENCOUNTER → 2025-04-26 11:48 | Outpatient (BNVA) | payer MEDICARE, OTHER, SELFPAY | PROVIDERS: PCP Internal Medicine; Visit Provider Internal Medicine Cardiovascular Disease | DX: I48.91 Unspecified atrial fibrillation (principal); E78.5 Hyperlipidemia, unspecified; I10 Essential (primary) hypertension; I25.10 Atherosclerotic heart disease of native coronary artery without angina pectoris; Z79.01 Long term (current) use of anticoagulants | CPT/HCPCS: 99214 ==

== ENCOUNTER 2025-05-26 11:33 | Oncology outpatient (recurring) (ONCR) | payer MEDICARE, OTHER, SELFPAY ==
[2025-05-12 10:42] LABS: Hematocrit 32.0 % (37-53); Hemoglobin 9.90 g/dL (11.27-16.99); Mean Corpuscular HGB Conc 30.9 g/dL (30-55); Mean Corpuscular Hemoglobin 28.8 pg (27-33); Mean Corpuscular Volume 93.0 fl (82-101); Nucleated Red Blood Cells % 0 %; Platelet Count 211 10^3/cmm (157-399); Red Blood Count 3.44 10^6/uL (3.85-5.65); White Blood Count 5.31 10^3/uL (3.29-11.43)
[2025-05-12 11:03] LABS: Alanine Aminotransferase 6 U/L (0-41); Albumin Level 3.0 g/dL (3.5-5.2); Alkaline Phosphatase 496 U/L (40-130); Anion Gap 12.3 (5-19); Aspartate Amino Transferase 25 U/L (0-40); Blood Urea Nitrogen 10 mg/dL (8-23); Calcium 8.4 mg/dL (8.5-10.5); Carbon Dioxide 26 mmol/L (22-29); Chloride 106 mmol/L (98-107); Ferritin 62 ng/mL (30-400); Globulin 3.3 g/dL (1.3-4.6); Glucose 234 mg/dL (65-115); Iron 35 ug/dL (59-158); Osmolality Calculated 297 mOsm/kg (285-295); Potassium 4.3 mmol/L (3.5-5.1); Sodium 140 mmol/L (136-145); Total Iron Binding Capacity 219 mcg/dl; Total Protein 6.3 g/dL (6.6-8.7); Unsaturated Iron Binding 184 ug/dL (112-347)
[2025-05-13 04:24] LABS: PROTEIN, TOTAL 5.8 g/dL (6.1-8.1)
[2025-05-13 11:39] LABS: KAPPA LIGHT CHAIN, FREE, SERUM 96.7 mg/L (3.3-19.4); KAPPA/LAMBDA LIGHT CHAINS FREE 1.47 (0.26-1.65); LAMBDA LIGHT CHAIN, FREE, SERU 65.7 mg/L (5.7-26.3)
[2025-05-13 19:24] LABS: ALPHA 1 GLOBULIN 0.3 g/dL (0.2-0.3); ALPHA 2 GLOBULIN 0.7 g/dL (0.5-0.9); BETA 1 GLOBULIN 0.4 g/dL (0.4-0.6); BETA 2 GLOBULIN 0.3 g/dL (0.2-0.5)
[2025-05-24 11:38] LABS: Alanine Aminotransferase 13 U/L (0-41); Albumin Level 2.9 g/dL (3.5-5.2); Alkaline Phosphatase 538 U/L (40-130); Anion Gap 13.6 (5-19); Aspartate Amino Transferase 43 U/L (0-40); Blood Urea Nitrogen 13 mg/dL (8-23); Calcium 8.4 mg/dL (8.5-10.5); Carbon Dioxide 25 mmol/L (22-29); Chloride 103 mmol/L (98-107); Creatinine Clr Calc Pharmacy 66.2467; Globulin 3.5 g/dL (1.3-4.6); Glucose 173 mg/dL (65-115); Osmolality Calculated 290 mOsm/kg (285-295); Potassium 3.6 mmol/L (3.5-5.1); Sodium 138 mmol/L (136-145); Total Protein 6.4 g/dL (6.6-8.7)
[2025-05-26 12:37] LABS: Anion Gap 13.1 (5-19); Blood Urea Nitrogen 15 mg/dL (8-23); Calcium 8.7 mg/dL (8.5-10.5); Carbon Dioxide 25 mmol/L (22-29); Chloride 105 mmol/L (98-107); Creatinine Clr Calc Pharmacy 73.6074; Glucose 193 mg/dL (65-115); Osmolality Calculated 294 mOsm/kg (285-295); Potassium 4.1 mmol/L (3.5-5.1); Sodium 139 mmol/L (136-145)
[2025-05-27 15:00] LABS: Alanine Aminotransferase 7 U/L (0-41); Albumin Level 3.1 g/dL (3.5-5.2); Alkaline Phosphatase 615 U/L (40-130); Aspartate Amino Transferase 37 U/L (0-40); Globulin 3.3 g/dL (1.3-4.6); Total Protein 6.4 g/dL (6.6-8.7)
== END 2025-06-01 23:59 | disposition home or self-care (01) ==
PROVIDERS: Nurse Practitioner Family; PCP Internal Medicine; Visit Provider Nurse Practitioner
DX: C90.01 Multiple myeloma in remission; Z53.9 Procedure and treatment not carried out, unspecified reason
CPT/HCPCS: 36415; 80048; 80053; 80076; 82728; 82784; 83540; 83550; 83615; 83883; 84155; 84165; 85025; 86334; 99214

== ENCOUNTER 2025-06-09 10:44 | Oncology outpatient (recurring) (ONCR) | payer MEDICARE, OTHER, SELFPAY ==
[2025-06-09 11:16] LABS: Hematocrit 30.6 % (37-53); Hemoglobin 9.50 g/dL (11.27-16.99); Mean Corpuscular HGB Conc 31.0 g/dL (30-55); Mean Corpuscular Hemoglobin 28.3 pg (27-33); Mean Corpuscular Volume 91.1 fl (82-101); Nucleated Red Blood Cells % 0 %; Platelet Count 251 10^3/cmm (157-399); Red Blood Count 3.36 10^6/uL (3.85-5.65); White Blood Count 4.92 10^3/uL (3.29-11.43)
[2025-06-09 11:33] LABS: Alanine Aminotransferase 7 U/L (0-41); Albumin Level 3.4 g/dL (3.5-5.2); Alkaline Phosphatase 235 U/L (40-130); Anion Gap 12.9 (5-19); Aspartate Amino Transferase 25 U/L (0-40); Blood Urea Nitrogen 11 mg/dL (8-23); Calcium 8.2 mg/dL (8.5-10.5); Carbon Dioxide 26 mmol/L (22-29); Chloride 104 mmol/L (98-107); Creatinine Clr Calc Pharmacy 74.4754; Globulin 2.7 g/dL (1.3-4.6); Glucose 246 mg/dL (65-115); Magnesium 1.7 mg/dL (1.7-2.3); Osmolality Calculated 296 mOsm/kg (285-295); Potassium 3.9 mmol/L (3.5-5.1); Sodium 139 mmol/L (136-145); Total Protein 6.1 g/dL (6.6-8.7)
[2025-06-09 11:55] LABS: Iron 30 ug/dL (59-158); Total Iron Binding Capacity 271 mcg/dl; Unsaturated Iron Binding 241 ug/dL (112-347)
[2025-06-10 06:06] LABS: PROTEIN, TOTAL 5.7 g/dL (6.1-8.1)
[2025-06-10 19:23] LABS: ALPHA 1 GLOBULIN 0.2 g/dL (0.2-0.3); ALPHA 2 GLOBULIN 0.6 g/dL (0.5-0.9); BETA 1 GLOBULIN 0.4 g/dL (0.4-0.6); BETA 2 GLOBULIN 0.3 g/dL (0.2-0.5)
[2025-06-11 12:18] LABS: KAPPA LIGHT CHAIN, FREE, SERUM 68.5 mg/L (3.3-19.4); KAPPA/LAMBDA LIGHT CHAINS FREE 1.38 (0.26-1.65); LAMBDA LIGHT CHAIN, FREE, SERU 49.5 mg/L (5.7-26.3)
== END 2025-07-02 23:59 | disposition home or self-care (01) ==
PROVIDERS: PCP Internal Medicine; Visit Provider Nurse Practitioner
DX: C90.31 Solitary plasmacytoma in remission (principal); D50.9 Iron deficiency anemia, unspecified; I10 Essential (primary) hypertension; Z79.899 Other long term (current) drug therapy; Z90.79 Acquired absence of other genital organ(s); Z94.84 Stem cells transplant status
CPT/HCPCS: 36415; 80053; 82306; 82784; 83540; 83550; 83735; 83883; 84155; 84165; 85025; 86334; 99213

== ENCOUNTER 2025-07-27 12:39 | Oncology outpatient (recurring) (ONCR) | payer MEDICARE, OTHER, SELFPAY ==
[2025-07-27 13:19] LABS: Hematocrit 30.0 % (37-53); Hemoglobin 9.00 g/dL (11.27-16.99); Mean Corpuscular HGB Conc 30.0 g/dL (30-55); Mean Corpuscular Hemoglobin 25.8 pg (27-33); Mean Corpuscular Volume 86.0 fl (82-101); Nucleated Red Blood Cells % 0 %; Platelet Count 203 10^3/cmm (157-399); Red Blood Count 3.49 10^6/uL (3.85-5.65); White Blood Count 3.33 10^3/uL (3.29-11.43)
[2025-07-27 13:40] LABS: Alanine Aminotransferase 18 U/L (0-41); Albumin Level 3.4 g/dL (3.5-5.2); Alkaline Phosphatase 145 U/L (40-130); Anion Gap 13.1 (5-19); Aspartate Amino Transferase 27 U/L (0-40); Blood Urea Nitrogen 17 mg/dL (8-23); Calcium 8.2 mg/dL (8.5-10.5); Carbon Dioxide 24 mmol/L (22-29); Chloride 107 mmol/L (98-107); Globulin 2.8 g/dL (1.3-4.6); Glucose 318 mg/dL (65-115); Osmolality Calculated 304 mOsm/kg (285-295); Potassium 4.1 mmol/L (3.5-5.1); Sodium 140 mmol/L (136-145); Total Protein 6.2 g/dL (6.6-8.7)
[2025-07-27 15:00] LABS: Ferritin 21 ng/mL (30-400); Iron 21 ug/dL (59-158); Total Iron Binding Capacity 319 mcg/dl; Unsaturated Iron Binding 298 ug/dL (112-347)
[2025-07-27 15:01] LABS: Estmated Average Glucose 232; Hemoglobin A1C 9.7 % (4.0-6.0)
[2025-07-28 08:49] LABS: PROTEIN, TOTAL 6.1 g/dL (6.1-8.1)
[2025-07-28 12:23] LABS: KAPPA LIGHT CHAIN, FREE, SERUM 82.9 mg/L (3.3-19.4); KAPPA/LAMBDA LIGHT CHAINS FREE 1.35 (0.26-1.65); LAMBDA LIGHT CHAIN, FREE, SERU 61.2 mg/L (5.7-26.3)
[2025-07-28 15:54] LABS: Protein/Creatinine Ratio 0.390 (<0.100); Protein/Creatinine Ratio 390 mg/g creat (<100)
[2025-07-28 19:20] LABS: ALPHA 1 GLOBULIN 0.2 g/dL (0.2-0.3); ALPHA 2 GLOBULIN 0.6 g/dL (0.5-0.9); BETA 1 GLOBULIN 0.5 g/dL (0.4-0.6); BETA 2 GLOBULIN 0.3 g/dL (0.2-0.5)
[2025-08-03 17:00] LABS: ALPHA-1-GLOBULINS 9 %; ALPHA-2-GLOBULINS 13 %; BETA GLOBULINS 23 %; GAMMA GLOBULINS 23 %
== END 2025-08-01 23:59 | disposition home or self-care (01) ==
PROVIDERS: Internal Medicine; PCP Internal Medicine; Visit Provider Nurse Practitioner
DX: C90.31 Solitary plasmacytoma in remission (principal); D50.9 Iron deficiency anemia, unspecified; R73.9 Hyperglycemia, unspecified; Z79.899 Other long term (current) drug therapy; Z79.4 Long term (current) use of insulin; D36.9 Benign neoplasm, unspecified site; D64.9 Anemia, unspecified
CPT/HCPCS: 36415; 80053; 82570; 82728; 82784; 83010; 83036; 83540; 83550; 83615; 83883; 84155; 84165; 84166; 85025; 86334; 86335; 99215

== ENCOUNTER 2025-08-03 14:22 | Oncology outpatient (recurring) (ONCR) | payer MEDICARE, OTHER, SELFPAY ==
[2025-08-03 14:34] VITALS: BP 120/65; PULSE 54; RESP 17; TEMP 37.1; O2SAT 98
[2025-08-03] MEDS: ferric derisomaltose 1,000 MG in sodium chloride 0.9% (100 ml) 100 ML 330 MG IV (14:39)
[2025-08-03 15:05] VITALS: BP 115/61; PULSE 59; RESP 16; TEMP 37.3; O2SAT 99
== END 2025-09-01 23:59 | disposition home or self-care (01) ==
PROVIDERS: PCP Internal Medicine; Visit Provider Nurse Practitioner
DX: C90.31 Solitary plasmacytoma in remission (principal); D50.9 Iron deficiency anemia, unspecified; I10 Essential (primary) hypertension; Z79.899 Other long term (current) drug therapy; Z90.79 Acquired absence of other genital organ(s); Z94.84 Stem cells transplant status
CPT/HCPCS: 96365; J1437

== ENCOUNTER → 2025-08-10 09:15 | Outpatient (BNVA) | payer MEDICARE, OTHER, SELFPAY | PROVIDERS: PCP Internal Medicine; Visit Provider Specialist | DX: G20.A1 Parkinson's disease without dyskinesia, without mention of fluctuations (principal); G31.83 Neurocognitive disorder with Lewy bodies; F02.80 Dementia in other diseases classified elsewhere, unspecified severity, without behavioral disturbance, psychotic disturbance, mood disturbance, and anxiety; M46.96 Unspecified inflammatory spondylopathy, lumbar region | CPT/HCPCS: 99214; G0463 ==

== ENCOUNTER → 2025-08-30 11:19 | Outpatient (BNVA) | payer MEDICARE, OTHER, SELFPAY | PROVIDERS: PCP Internal Medicine; Visit Provider Nurse Practitioner Family | DX: L98.8 Other specified disorders of the skin and subcutaneous tissue (principal); D18.01 Hemangioma of skin and subcutaneous tissue; L57.8 Other skin changes due to chronic exposure to nonionizing radiation; D48.5 Neoplasm of uncertain behavior of skin | CPT/HCPCS: 11102; 99203 ==